=== PATIENT | female | born 1930 | race Caucasian/White ===

== ENCOUNTER 2017-05-20 17:05 | Inpatient (IN) ==
--- NOTE | 2017-05-20 17:20 | Emergency Department Note ---
Disposition Clinical Impression: Altered mental status Qualifiers: Altered mental status type: unspecified Qualified Code(s): R41.82 - Altered mental status, unspecified Disposition: Admitted As Inpatient Condition: Good Altered Mental Status HPI - General Chief Complaint: ED Altered Mental Status Stated Complaint: AMS Time Seen by Provider: 05/20/17 17:07 Source: family Mode of arrival: private vehicle Limitations: altered mental status Nursing Notes Reviewed: Yes Vital Signs Reviewed: Yes - History of Present Illness HPI Narrative: 86-year-old female history of hypothyroidism, hyperlipidemia, macular degeneration, arthritis who presents to the ER with family due to concern for altered mental status. History is obtained from the son as the patient is altered and unable to provide history. He states that she lives at home alone and that a friend checks in on her and noticed that she started behaving differently over the last 3 days. He is unable to say exactly what was different about her personality. He states he saw her this morning and that she recognized him but that she seemed more tired. He reports about half an hour prior to arrival he saw her again and she did not know who any of the family was. He reports that she has had 3 UTIs in the last 6 months all which cause altered mental status but nothing this severe. No history of TIA or CVA. No cardiac history. No other complaints. MD complaint: altered mental status Onset (ago): day(s) Timing confirmed by: family member Context: history of similar presentation - Related Data Home Medications Medication Instructions Recorded Confirmed Aricept 05/20/17 Potassium 05/20/17 Synthroid 05/20/17 Tramadol HCl 05/20/17 Vitamin E (Dl,Tocopheryl Acet) 400 unit PO DAILY 05/20/17 05/20/17 [Vitamin E] Allergies Allergy/AdvReac Type Severity Reaction Status Date / Time Penicillins [PCN] Allergy Unknown See Unverified 02/22/15 11:49 Comments codeine Allergy See Verified 05/20/17 20:19 Comments All systems ED: reviewed and negative except as stated. Limitations: ROS unobtainable due to patients medical condition Past Medical History - Past Medical History Attestation: Yes The following information was validated with the patient. Source: old records reviewed, obtained from family Medical history: Reports: no medical history Psychiatric history: Reports: no psych history - Social History Smoking Status: Never smoker Smokeless Tobacco Status: No Alcohol use: Reports: none Drug use: Reports: none Physical Exam - General Limitations: altered mental status General appearance: alert, in no apparent distress - Head Head exam: atraumatic, normocephalic, normal inspection - Eye Eye exam: Present: normal appearance ( ) - ENT ENT exam: normal exam - Neck Neck exam: Present: normal inspection, full ROM - Chest Chest inspection: Present: normal inspection, symmetric chest wall rise - Respiratory Respiratory exam: Present: normal lung sounds bilaterally - Cardiovascular Cardiovascular exam: Present: regular rate, normal rhythm, normal heart sounds - Abdominal Exam Abdominal exam: Present: soft, tenderness (Mild periumbilical tenderness without guarding distention or rigidity) - Extremities Exam Extremities exam: Present: normal inspection, full ROM - Expanded Upper Extremity Exam Shoulder exam: Present: normal inspection, full ROM Arm exam: Present: normal inspection, full ROM Elbow exam: Present: normal inspection, full ROM Forearm/Wrist exam: Present: normal inspection, full ROM Hand exam: Present: normal inspection, full ROM Vascular exam: Normal: radial pulse - Expanded Lower Extremity Exam Hip/Pelvis exam: Present: normal inspection, full ROM Upper leg exam: Present: normal inspection, full ROM Knee exam: Present: normal inspection, full ROM Lower leg exam: Present: normal inspection, full ROM Ankle exam: Present: normal inspection, full ROM Foot/toe exam: Present: normal inspection, full ROM - Neurological Exam Neurological exam: Present: alert, other (GCS 12. She is alert but is not oriented to self or time. Unable to fully assess secondary to patient compliance. She moves all extremities equally.) - Expanded Neurological Exam Coma Scale Eye Opening: Spontaneous Coma Scale Motor Response: Localizes to Pain Coma Scale Verbal Response: Inappropriate Coma Scale Total: 12 - Skin Skin exam: Present: warm, dry, intact Course Course Narrative: Patient seen and examined. We will obtain a head CT as well as labs including a urinalysis. She also has some abdominal pain on exam for which we will obtain a CT scan of her abdomen and pelvis. - Reevaluation(s) Reevaluation #1: i discussed results of imaging and lab work with the patient's family. They are agreeable with her being admitted Vital Signs Temperature 97.6 F 05/20/17 17:12 Pulse Rate 92 05/20/17 17:12 Respiratory Rate 19 05/20/17 17:12 Blood Pressure 210/103 10/29/17 17:12 O2 Sat by Pulse Oximetry 96 05/20/17 17:12 Temperature 97.6 F 05/20/17 18:57 Pulse Rate 85 05/20/17 19:20 Respiratory Rate 16 05/20/17 20:16 Blood Pressure 195/95 05/20/17 20:16 O2 Sat by Pulse Oximetry 96 05/20/17 19:20 Oxygen Delivery Oxygen Delivery Room Air Altered Mental Status - MDM Narrative Medical decision making narrative: 86-year-old female presents to the ER due to altered mental status. Reports she is not been herself for the last 3 days but worsened today. No history of CVA in the past. She is noted to be hypertensive here and was given 10 mg of labetalol for this. She has a nonfocal exam but exam is limited secondary to patient compliance. Head CT revealed showing no acute findings. She did have some abdominal pain with CT showing questionable colitis. This does not seem consistent with her current symptoms and there was limitation due to motion artifact. Her white count is normal. Urinalysis does not demonstrate a UTI. Patient admitted to the hospitalist service for altered mental status. - Lab Data Lab results reviewed: Yes I reviewed the patient's lab results. Result diagrams: 05/20/17 17:26 05/20/17 17:26 Lab Results 05/20/17 05/20/17 05/20/17 Range/Units 17:26 17:26 17:26 WBC 8.7 (4.3-11.1) K/mcL RBC 4.78 (3.82-4.97) M/mcL Hgb 14.7 (11.5-15.4) g/dL Hct 43.5 (35.3-44.9) % MCV 91.0 (83.0-100.0) fL MCH 30.8 (28.0-33.3) pg MCHC 33.8 (31.6-35.5) g/dL RDW 13.0 (11.5-14.5) % Plt Count 244 (140-400) K/mcL MPV 10.5 (9.4-12.4) fL Immature Gran % 0.2 (0-4) % Seg Neutrophils % 75.3 % Lymphocytes % 17.2 % Monocytes % 5.8 % Eosinophils % 0.8 % Basophils % 0.7 % Neutrophils # 6.5 (1.6-8.9) K/mcL Lymphocytes # 1.5 (0.6-4.6) K/mcL Monocytes # 0.5 (0.0-1.3) K/mcL Eosinophils # 0.1 (0.0-0.6) K/mcL Basophils # 0.1 (0.0-0.2) K/mcL PT 12.0 (9.4-12.1) Seconds INR 1.1 APTT 26.2 (26.0-36.0) Seconds Sodium 142 (136-145) mEq/L Potassium 3.5 (3.5-4.5) mEq/L Chloride 106 (98-109) mEq/L Carbon Dioxide 26 (19-29) mEq/L BUN 18 (7-20) mg/dL Creatinine 0.97 (0.57-1.11) mg/dL Est GFR ( Amer) > 60 (> 60) Est GFR (Non-Af Amer) 54 L (> 60) BUN/Creatinine Ratio 19 (6-26) Glucose 123 H (70-99) mg/dL POC Glucose (58-89) Calculated Osmolality 297 (280-300) Lactic Acid (0.5-2.2) mmol/L Calcium 9.9 (8.6-10.8) mg/dL Total Bilirubin 0.8 (0.2-1.2) mg/dL Direct Bilirubin 0.3 (0.0-0.5) mg/dL Indirect Bilirubin 0.5 (0.0-1.2) mg/dL AST 37 H (5-34) Units/L ALT 27 (0-55) Units/L Alkaline Phosphatase 113 (38-126) Units/L Ammonia (18-72) mcmol/L Troponin I (0-0.03) ng/mL Serum Total Protein 7.2 (6.0-8.3) g/dL Albumin 3.7 (3.5-5.0) g/dL Globulin 3.5 (2.4-3.5) g/dL Albumin/Globulin Ratio 1.1 (1.1-2.2) Lipase 32 (8-78) Units/L TSH 0.612 (0.350-4.840) mcIU/mL Urine Color (Yellow) Urine Clarity (Clear) Urine pH (5.0-8.0) pH Units Ur Specific Meherrin (1.010-1.025) Urine Protein (Neg-Trace) mg/dL Urine Glucose (UA) (Normal) mg/dL Urine Ketones (Negative) mg/dL Urine Blood (Negative) Urine Nitrite (Negative) Urine Bilirubin (Negative) Urine Urobilinogen (Normal) mg/dL Ur Leukocyte Esterase (Negative) Urine Microscopic RBC (0-3) per hpf Urine Microscopic WBC (0-3) per hpf Ur Squamous Epith Cells (None-Few) per lpf Urine Bacteria (None-Few) per hpf Hyaline Casts (None-Few) per lpf Ur Culture Indicated? (NO) 05/20/17 05/20/17 05/20/17 Range/Units 17:26 17:26 17:36 WBC (4.3-11.1) K/mcL RBC (3.82-4.97) M/mcL Hgb (11.5-15.4) g/dL Hct (35.3-44.9) % MCV (83.0-100.0) fL MCH (28.0-33.3) pg MCHC (31.6-35.5) g/dL RDW (11.5-14.5) % Plt Count (140-400) K/mcL MPV (9.4-12.4) fL Immature Gran % (0-4) % Seg Neutrophils % % Lymphocytes % % Monocytes % % Eosinophils % % Basophils % % Neutrophils # (1.6-8.9) K/mcL Lymphocytes # (0.6-4.6) K/mcL Monocytes # (0.0-1.3) K/mcL Eosinophils # (0.0-0.6) K/mcL Basophils # (0.0-0.2) K/mcL PT (9.4-12.1) Seconds INR APTT (26.0-36.0) Seconds Sodium (136-145) mEq/L Potassium (3.5-4.5) mEq/L Chloride (98-109) mEq/L Carbon Dioxide (19-29) mEq/L BUN (7-20) mg/dL Creatinine (0.57-1.11) mg/dL Est GFR ( Amer) (> 60) Est GFR (Non-Af Amer) (> 60) BUN/Creatinine Ratio (6-26) Glucose (70-99) mg/dL POC Glucose 111 H (58-89) Calculated Osmolality (280-300) Lactic Acid (0.5-2.2) mmol/L Calcium (8.6-10.8) mg/dL Total Bilirubin (0.2-1.2) mg/dL Direct Bilirubin (0.0-0.5) mg/dL Indirect Bilirubin (0.0-1.2) mg/dL AST (5-34) Units/L ALT (0-55) Units/L Alkaline Phosphatase (38-126) Units/L Ammonia 15 L (18-72) mcmol/L Troponin I 0.03 (0-0.03) ng/mL Serum Total Protein (6.0-8.3) g/dL Albumin (3.5-5.0) g/dL Globulin (2.4-3.5) g/dL Albumin/Globulin Ratio (1.1-2.2) Lipase (8-78) Units/L TSH (0.350-4.840) mcIU/mL Urine Color (Yellow) Urine Clarity (Clear) Urine pH (5.0-8.0) pH Units Ur Specific Meherrin (1.010-1.025) Urine Protein (Neg-Trace) mg/dL Urine Glucose (UA) (Normal) mg/dL Urine Ketones (Negative) mg/dL Urine Blood (Negative) Urine Nitrite (Negative) Urine Bilirubin (Negative) Urine Urobilinogen (Normal) mg/dL Ur Leukocyte Esterase (Negative) Urine Microscopic RBC (0-3) per hpf Urine Microscopic WBC (0-3) per hpf Ur Squamous Epith Cells (None-Few) per lpf Urine Bacteria (None-Few) per hpf Hyaline Casts (None-Few) per lpf Ur Culture Indicated? (NO) 05/20/17 05/20/17 Range/Units 17:54 18:10 WBC (4.3-11.1) K/mcL RBC (3.82-4.97) M/mcL Hgb (11.5-15.4) g/dL Hct (35.3-44.9) % MCV (83.0-100.0) fL MCH (28.0-33.3) pg MCHC (31.6-35.5) g/dL RDW (11.5-14.5) % Plt Count (140-400) K/mcL MPV (9.4-12.4) fL Immature Gran % (0-4) % Seg Neutrophils % % Lymphocytes % % Monocytes % % Eosinophils % % Basophils % % Neutrophils # (1.6-8.9) K/mcL Lymphocytes # (0.6-4.6) K/mcL Monocytes # (0.0-1.3) K/mcL Eosinophils # (0.0-0.6) K/mcL Basophils # (0.0-0.2) K/mcL PT (9.4-12.1) Seconds INR APTT (26.0-36.0) Seconds Sodium (136-145) mEq/L Potassium (3.5-4.5) mEq/L Chloride (98-109) mEq/L Carbon Dioxide (19-29) mEq/L BUN (7-20) mg/dL Creatinine (0.57-1.11) mg/dL Est GFR ( Amer) (> 60) Est GFR (Non-Af Amer) (> 60) BUN/Creatinine Ratio (6-26) Glucose (70-99) mg/dL POC Glucose (58-89) Calculated Osmolality (280-300) Lactic Acid 1.3 (0.5-2.2) mmol/L Calcium (8.6-10.8) mg/dL Total Bilirubin (0.2-1.2) mg/dL Direct Bilirubin (0.0-0.5) mg/dL Indirect Bilirubin (0.0-1.2) mg/dL AST (5-34) Units/L ALT (0-55) Units/L Alkaline Phosphatase (38-126) Units/L Ammonia (18-72) mcmol/L Troponin I (0-0.03) ng/mL Serum Total Protein (6.0-8.3) g/dL Albumin (3.5-5.0) g/dL Globulin (2.4-3.5) g/dL Albumin/Globulin Ratio (1.1-2.2) Lipase (8-78) Units/L TSH (0.350-4.840) mcIU/mL Urine Color Yellow (Yellow) Urine Clarity Clear (Clear) Urine pH 7.0 (5.0-8.0) pH Units Ur Specific Meherrin 1.018 (1.010-1.025) Urine Protein Trace (Neg-Trace) mg/dL Urine Glucose (UA) Normal (Normal) mg/dL Urine Ketones Trace H (Negative) mg/dL Urine Blood Negative (Negative) Urine Nitrite Negative (Negative) Urine Bilirubin Negative (Negative) Urine Urobilinogen Normal (Normal) mg/dL Ur Leukocyte Esterase Negative (Negative) Urine Microscopic RBC 3-5 H (0-3) per hpf Urine Microscopic WBC 0-3 (0-3) per hpf Ur Squamous Epith Cells Many H (None-Few) per lpf Urine Bacteria None Seen (None-Few) per hpf Hyaline Casts None Seen (None-Few) per lpf Ur Culture Indicated? NO (NO) - Radiology Data Radiology results reviewed: Yes I reviewed the patient's radiology results. Chest X-Ray 05/20/17 17:15 IMPRESSION: Bibasilar atelectasis. D/ / Ru Friedman MD / Ru Friedman MD Interpreting Provider: Ru Friedman MD Head CT 05/20/17 17:16 IMPRESSION: 1. No acute intracranial abnormality. 2. Mild age-appropriate diffuse atrophy with moderate chronic small vessel ischemic changes. D/ / Ru Friedman MD / Ru Friedman MD Interpreting Provider: Ru Friedman MD Abdomen/Pelvis CT 05/20/17 17:20 IMPRESSION: 1. Suspicion for colitis involving the ascending colon, transverse colon, and proximal descending colon. However, colon decompression, lack of intravenous contrast administration, and patient motion partially limit evaluation. If present, an infectious or inflammatory etiology would be favored over ischemia. 2. Incidental findings as above. D/ / Ru Friedman MD / Ru Friedman MD Interpreting Provider: Ru Friedman MD - EKG Data EKG attestation: Yes I reviewed and interpreted this EKG. EKG results narrative: EKG demonstrates sinus rhythm with sinus arrhythmia with a rate of 86 bpm. Left bundle branch block. QRS prolongation of 139. Poor R-wave progression. There is J-point elevation of leads V1 through V3. No gross ST depressions. No significant changes from previous EKG dated 03/16/16. Critical Care Time Critical Care Time: Yes Total Critical Care Time: 35 Attestation: Critical care time 35 minutes. Katharina - Katharina Situation: Demographics, MOA Background: Presenting Complaint, Relevant PMH, Meds, & Allergies Assessment: Vital Signs, Course and respsone to treatment, Exam Concerns, Patient/Family Expectation, Pertinant Lab Results Recommendation: Barrier(s) to disposition, Recommendation based on pending studies, treatments, or consults Katharina Report Given to: Hospitalist Katharina Repor Time: 19:00 Attestation Statement - Attestation Attestation: Patient was seen with resident physician. I reviewed the history, physical, assessment and plan, and agree with the findings. I also personally evaluated this patient and had [id number] time with this patient. 86-year-old female presents with mental status change. Per family patient has a history of UTIs and resulting mental status change. However this particular case she has had 3 days of worsening mental status and inability to communicate. When I evaluated the patient she was unable to provide any history at all. On exam vital signs were stable. ENT shows no signs of trauma. Heart regular rhythm and rate. Lungs clear. Abdomen patient winces in pain with palpation left lower quadrant and suprapubic area. Extremities are unremarkable again with no signs of trauma neurologically patient is unable to verbally communicate seems to move all extremities equally. ED course we will do. It workup including scans of the head and abdomen. We will treat with IV fluids. Her workup did not reveal obvious cause of mental status change. Labs were largely unremarkable. CTs of the head and abdomen did not reveal acute abnormalities. Patient continued to have poor exchange and mental status throughout her stay. We discussed the case with the hospitalist service agreed to accept the patient for admission. Her blood pressure was improved with treatment of labetalol. Otherwise the patient maintained her airway and continued to move all extremities. She is admitted for further evaluation treatment. I agree with the resident physician assessment and plan. Critical care time 35 minutes.
[2017-05-20 17:35] LABS: Basophils # 0.1 K/mcL (0.0-0.2); Basophils % 0.7 %; Eosinophils # 0.1 K/mcL (0.0-0.6); Eosinophils % 0.8 %; Hematocrit 43.5 % (35.3-44.9); Hemoglobin 14.7 g/dL (11.5-15.4); Immature Granulocytes % 0.2 % (0-4); Lymphocytes # 1.5 K/mcL (0.6-4.6); Lymphocytes % 17.2 %; Mean Corpuscular HGB Conc 33.8 g/dL (31.6-35.5); Mean Corpuscular Hemoglobin 30.8 pg (28.0-33.3); Mean Platelet Volume 10.5 fL (9.4-12.4); Monocytes # 0.5 K/mcL (0.0-1.3); Monocytes % 5.8 %; Neutrophils # 6.5 K/mcL (1.6-8.9); Platelet Count 244 K/mcL (140-400); Red Blood Count 4.78 M/mcL (3.82-4.97); Segmented Neutrophils % 75.3 %
[2017-05-20 17:44] LABS: INR 1.1
[2017-05-20 17:47] LABS: Activated Partial Thrombo Time 26.2 Seconds (26.0-36.0)
[2017-05-20 17:51] LABS: Bilirubin,Urine Negative (Negative); Blood,Urine Negative (Negative); Clarity,Urine Clear (Clear); Color,Urine Yellow (Yellow); Glucose,Urine (UA) Normal (Normal); Ketones,Urine Trace mg/dL (Negative); Leukocyte Esterase,Urine Negative (Negative); Nitrite,Urine Negative (Negative); Protein,Urine Trace mg/dL (Neg-Trace); Specific Gravity,Urine 1.018 (1.010-1.025); Urobilinogen,Urine Normal (Normal)
[2017-05-20 17:52] LABS: Alanine Aminotransferase 27 Units/L (0-55); Albumin 3.7 g/dL (3.5-5.0); Albumin/Globulin Ratio 1.1 (1.1-2.2); Alkaline Phosphatase 113 Units/L (38-126); Aspartate Amino Transferase 37 Units/L (5-34); BUN/Creatinine Ratio 19 (6-26); Bilirubin,Direct 0.3 mg/dL (0.0-0.5); Bilirubin,Indirect 0.5 mg/dL (0.0-1.2); Bilirubin,Total 0.8 mg/dL (0.2-1.2); Blood Urea Nitrogen 18 mg/dL (7-20); Calcium 9.9 mg/dL (8.6-10.8); Carbon Dioxide 26 mEq/L (19-29); Chloride 106 mEq/L (98-109); Globulin 3.5 g/dL (2.4-3.5); Glucose 123 mg/dL (70-99); Lipase 32 Units/L (8-78); Osmolality,Calculated 297 (280-300); Potassium 3.5 mEq/L (3.5-4.5); Sodium 142 mEq/L (136-145); Total Protein 7.2 g/dL (6.0-8.3); eGFR For African Americans > 60 (> 60); eGFR For Non-African Americans 54 (> 60)
[2017-05-20 17:54] LABS: Bacteria,Urine None Seen per hpf (None-Few); Hyaline Casts,Urine None Seen per lpf (None-Few); Squamous Epithelial Cell,Urine Many per lpf (None-Few); WBC,Urine 0-3 per hpf (0-3)
[2017-05-20 18:14] LABS: Thyroid Stimulating Hormone 0.612 mcIU/mL (0.350-4.840)
[2017-05-20] MEDS ORDERED: *HR* Labetalol 20 MG/4 ML SYRINGE IVP ONE (18:47)
[2017-05-20] MEDS ORDERED: Naloxone 0.4 MG/ML INJ IVP PRN (21:00)
--- NOTE | 2017-05-20 21:13 | Internal Med History&Physical ---
Date of Encounter: 05/20/17 Time of Encounter: 21:11 Assessment and Plan (1) Altered mental status Current visit: Yes Status: Acute Ensure that this is related to infectious process appears she does have some colitis on her CT of abdomen does have a tender abdomen or CVA. CT of head was negative we will obtain MRI We will continue with neuro checks Fall precautions Continuous cardiac monitoring We will obtain cardiac echo Carotid Dopplers Blood Cultures have been obtained We will administer cipro flagyl- obtain stool samples- colitis Nothing by mouth Bedside swallowing eval Qualifiers: Altered mental status type: unspecified Qualified Code(s): R41.82 - Altered mental status, unspecified (2) Hypertension Current visit: Yes Status: Acute Patient presented with elevated blood pressure does not appear she is on any medications at home. Improving after labetalol. We will continue to monitor Qualifiers: Hypertension type: essential hypertension Qualified Code(s): I10 - Essential (primary) hypertension (3) Hypothyroid Current visit: Yes Status: Acute Continue with Synthroid-once dosage verified Qualifiers: Hypothyroidism type: unspecified Qualified Code(s): E03.9 - Hypothyroidism , unspecified (4) DVT prophylaxis Current visit: Yes Status: Acute Lovenox subcutaneous (5) Colitis Current visit: Yes Status: Suspected 1 Patient experiencing abdominal pain- CT of abdomen suspicious for colitis involving the ascending colon, transverse colon, and proximal descending colon. We will initiate Cipro and Flagyl 2 obtain stool samples- stool for C. difficile 3 morphine for pain Internal Medicine - H&P: HPI Chief complaint: AMS Admitted From: Emergency Dept Plans for Post Hospital Care: Home History of present illness: Ms. Brannon is a 86 year old female past medical history of hypothyroid hyperlipidemia and macular degeneration and arthritis. Information obtained from patient's son who is at bedside due to altered mental state. According to the family patient is independent and lives at home however she does have a significant other that checks on her and is with her at least twice a day. He does that she started behaving differently over the past 3 days. According to the son this morning he saw her and she she seemed very tired she was appropriate and recognized him without difficulty. Approximately half and hour later patient seemed more confused and did not know where she was and did not recognize family members. According to the son patient has had a history of UTIs approximately 3 in the past 6 months which has caused confusion and altered mental state. No past history of TIAs or CVAs no cardiac history. She has been eating and drinking without any difficulty no reports of recent trauma or falls. Patient was brought to the ER for evaluation. In the ER lab work was unremarkable chest x-ray was clear urinalysis with no UTI patient did experience abdominal tenderness upon assessment CT of abdomen was obtained which was suspicious for colitis. CT of head was negative for any intracranial abnormalities. She has been admitted for further workup evaluation. Presently patient arouses to verbal stimuli however she is unable to follow any commands, her speech consists of word salad phrases. Upon assessment of her abdomen is soft and there is diffuse tenderness upon palpation. She is hemodynamically stable at this time Past Med Surg Social Fam HX - Past Medical History Medical history: no medical history Psychiatric history: no psych history - Social History Smoking Status: Never smoker Smokeless Tobacco Status: No Alcohol use: none Drug use: none - Family History Sister Hx Family Neurologic Disorders: Yes (bonnie) Internal Medicine - H&P: Meds Aricept 05/20/17 [History] Potassium 05/20/17 [History] Synthroid 05/20/17 [History] Tramadol HCl 05/20/17 [History] Vitamin E (Dl,Tocopheryl Acet) [Vitamin E] 400 unit PO DAILY 05/20/17 [History] 3 Allergy/AdvReac Type Severity Reaction Status Date / Time Penicillins [PCN] Allergy Unknown See Verified 05/20/17 21:22 Comments codeine Allergy See Verified 05/20/17 21:22 Comments ROS unobtainable: due to mental status All Systems PM: A 10-system review of systems was performed and is negative for pertinent findings except as documented above in the HPI. - Constitutional Vitals: Temp Pulse Resp BP Pulse Ox 97.6 F 85 16 195/95 96 05/20/17 18:57 05/20/17 19:20 05/20/17 20:16 05/20/17 20:16 05/20/17 19:20 General appearance: Present: A&O X 0 - Head Head exam: Present: atraumatic, normocephalic - Eye Eye exam: Present: PERRL, conjuntiva pink, sclera anicteric Pupils: Present: PERRL - Neck Neck exam general surgery: Present: supple, trachea midline. Absent: lymphadenopathy - Respiratory Respiratory exam: Present: CTAB. Absent: accessory muscle use, rales, rhonchi, wheezes - Cardiovascular Cardiovascular exam: Present: RRR, +S1, +S2. Absent: diastolic murmur, gallop, rubs, systolic murmur - GI/Abdominal GI/Abdominal exam: Present: normal bowel sounds, soft, tenderness, no peritoneal signs. Absent: distended - Extremities Exam Extremities exam: Present: warm, radial pulses palpable and symmetrical. Absent : calf tenderness, cyanotic, pedal edema - Neurological Exam Neurological exam: Present: CN II-XII intact, oriented X3, no focal deficits. Absent: pronater drift, facial droop, speech deficit - Skin Skin exam: Present: dry, intact Internal Med - H&P Results - Labs CBC & Chem 7: 05/20/17 17:26 05/20/17 17:26 - EKG Data EKG shows normal: sinus rhythm - EKG Data Prior EKG available for review: yes When compared to previous EKG: there is no significant change - Diagnostic Studies Other Images Additional comments: Chest X-Ray 05/20/17 17:15 IMPRESSION: Bibasilar atelectasis. D/ / Ru Friedman MD / Ru Friedman MD Interpreting Provider: Ru Friedman MD Head CT 05/20/17 17:16 IMPRESSION: 1. No acute intracranial abnormality. 2. Mild age-appropriate diffuse atrophy with moderate chronic small vessel ischemic changes. D/ / Ru Friedman MD / Ru Friedman MD Interpreting Provider: Ru Friedman MD Abdomen/Pelvis CT 05/20/17 17:20 IMPRESSION: 1. Suspicion for colitis involving the ascending colon, transverse colon, and proximal descending colon. However, colon decompression, lack of intravenous contrast administration, and patient motion partially limit evaluation. If present, an infectious or inflammatory etiology would be favored over ischemia. 2. Incidental findings as above. D/ / Ru Friedman MD / Ru Friedman MD Interpreting Provider: Ru Friedman MD
[2017-05-20] MEDS ORDERED: Acetaminophen 650 MG RECTAL SUPP RC PRN (22:18)
[2017-05-20] MEDS ORDERED: *HR* Morphine 2 MG/ML SYRINGE ONE (22:25)
[2017-05-20] MEDS: *HR* Morphine 2 MG/ML SYRINGE IVP PRN (22:46)
[2017-05-21] MEDS: MetroNIDAZOLE 500 MG/100 ML 500 MG/100 ML BAG IVPB SCH ×3 (00:38→16:01)
[2017-05-21] MEDS: *HR* Morphine 2 MG/ML SYRINGE IVP PRN (03:18)
[2017-05-21 05:07] LABS: Basophils # 0.1 K/mcL (0.0-0.2); Basophils % 0.6 %; Eosinophils % 0.1 %; Hematocrit 43.7 % (35.3-44.9); Hemoglobin 14.5 g/dL (11.5-15.4); Immature Granulocytes % 0.4 % (0-4); Lymphocytes # 1.8 K/mcL (0.6-4.6); Lymphocytes % 15.2 %; Mean Corpuscular HGB Conc 33.2 g/dL (31.6-35.5); Mean Corpuscular Hemoglobin 30.3 pg (28.0-33.3); Mean Corpuscular Volume 91.2 fL (83.0-100.0); Mean Platelet Volume 10.8 fL (9.4-12.4); Monocytes # 0.8 K/mcL (0.0-1.3); Monocytes % 6.4 %; Neutrophils # 9.1 K/mcL (1.6-8.9); Platelet Count 242 K/mcL (140-400); Red Blood Count 4.79 M/mcL (3.82-4.97); Red Cell Distribution Width 13.1 % (11.5-14.5); Segmented Neutrophils % 77.3 %
[2017-05-21 05:44] LABS: BUN/Creatinine Ratio 23 (6-26); Blood Urea Nitrogen 22 mg/dL (7-20); Calcium 9.6 mg/dL (8.6-10.8); Carbon Dioxide 27 mEq/L (19-29); Chloride 105 mEq/L (98-109); Chol/HDL Ratio 2.8 (0-4.9); Cholesterol 204 mg/dL (< 200); Glucose 120 mg/dL (70-99); HDL Cholesterol 72 mg/dL (40-59); LDL Cholesterol,Calculated 116 mg/dL (0-99); Magnesium 1.8 mg/dL (1.6-2.6); Osmolality,Calculated 301 (280-300); Potassium 3.2 mEq/L (3.5-4.5); Sodium 143 mEq/L (136-145); Triglycerides 80 mg/dL (< 150); eGFR For African Americans > 60 (> 60); eGFR For Non-African Americans 54 (> 60)
[2017-05-21] MEDS: Pantoprazole 40 MG VIAL IVP SCH (09:03)
[2017-05-21 13:19] LABS: Adenovirus F 40/41 PCR Not detected (Not detect); Astrovirus PCR Not detected (Not detect); C.difficile Toxin A/B by PCR Not detected (Not detect); Campylobacter by PCR Not detected (Not detect); Cryptosporidium by PCR Not detected (Not detect); Cyclospora cayetanensis PCR Not detected (Not detect); E. coli O157 by PCR Not detected (Not detect); Entamoeba histolytica PCR Not detected (Not detect); Enteroaggregative E.coli(EAEC) Not detected (Not detect); Enteropathogenic E.coli(EPEC) Not detected (Not detect); Enterotoxigenic E.coli (ETEC) Not detected (Not detect); Giardia lamblia PCR Not detected (Not detect); Norovirus GI/GII PCR Not detected (Not detect); Plesiomonas shigelloides PCR Not detected (Not detect); Rotavirus A PCR Not detected (Not detect); Salmonella PCR Not detected (Not detect); Sapovirus PCR Not detected (Not detect); Shig/EnteroinvasiveE coli EIEC Not detected (Not detect); Shigalike tox-prod E coli STEC Not detected (Not detect); Vibrio PCR Not detected (Not detect); Vibrio cholerae PCR Not detected (Not detect); Yersinia enterocolitica PCR Not detected (Not detect)
--- NOTE | 2017-05-21 16:50 | Electrocardiograph Report ---
[place] [id number] Test Date: 2017-05-20 Pat Name: Brandi Brannon Department: 102 Room: 3A53 Gender: F Internal Audit Director: : [id number] Requested By: John Butts Order Number: [id number] Reading MD: Marie Avalos Measurements Intervals [place] Rate: 86 P: 58 NE: 152 QRS: 11 QRSD: 139 T: 171 QT: 386 QTc: 430 Interpretive Statements SINUS RHYTHM WITH SINUS ARRHYTHMIA LEFT BUNDLE BRANCH BLOCK Electronically Signed On 05-21-2017 16:48:59 EDT by Marie Avalos
--- NOTE | 2017-05-21 18:47 | Internal Med Progress Note ---
Date of Encounter: 05/21/17 Time of Encounter: 14:45 - Assessment and plan (1) Altered mental status Current Visit: Yes Status: Acute Assessment and plan: Unsure that this is related to infectious process, CT shows suspicion for colitis involving the ascending colon, transversecolon, and proximal descending colon. Pt's abdomen is mildly tender, bs present. CT of head was negative, MRI with no acute infarct or acute process, there is moderate to severe chronic small vessel ischemic changes, and mild diffuse cerebral volume loss. Echo with an LVEF of 55% with mild LV DD, mildly sclerotic aortic valve leaflets, no aortic stenosis, mild MR, mild TR, mild pulmonary hypertension. There is no evidence of PFO. Preliminary report for carotid Dopplers show right side is nonstenotic plaque, left side has 40-59% stenosis in mid ICA. We will continue with neuro checks Fall precautions Continuous cardiac monitoring Blood Cultures have been obtained We will administer cipro flagyl- obtain stool samples- colitis Bedside swallowing eval Qualifiers: Altered mental status type: unspecified Qualified Code(s): R41.82 - Altered mental status, unspecified (2) Leukocytosis Current Visit: Yes Status: Acute Assessment and plan: Mild leukocytosis, most likely related to colitis. She is receiving IV antibiotics. Patient is afebrile, no tachycardia, patient is normotensive. Continue to monitor labs and vital signs. Qualifiers: Leukocytosis type: unspecified Qualified Code(s): D72.829 - Elevated white blood cell count, unspecified (3) Elevated troponin Current Visit: Yes Status: Acute Assessment and plan: Patient has a flat, adynamic elevation in troponin in setting of infection. It appears to be trending down at this time. Patient is on telemetry. She denies chest pain. Continue to monitor. Consider cardiology consult if it does not continue to trending down. (4) Hypertension Current Visit: Yes Status: Acute Assessment and plan: Patient's blood pressures been well controlled in the hospital. Continue home medications. Qualifiers: Hypertension type: essential hypertension Qualified Code(s): I10 - Essential (primary) hypertension (5) Hypothyroid Current Visit: Yes Status: Acute Assessment and plan: TSH is within normal limits. Continue home medications. Qualifiers: Hypothyroidism type: unspecified Qualified Code(s): E03.9 - Hypothyroidism , unspecified (6) Colitis Current Visit: Yes Status: Suspected Assessment and plan: Suspected colitis on CAT scan. Patient's abdomen is soft and tender to palpation in upper abdomen. Patient has a mild leukocytosis. She is receiving IV Cipro and Flagyl. She is nothing by mouth most of the day, she denies nausea , vomiting, or diarrhea. Stool viral panel negative. I have also ordered Zofran when necessary. Has advanced her diet to clear liquids, advance as tolerated. IV fluids 0.9 at 50 ml per hour. Continue IV Cipro and Flagyl. Morphine when necessary pain. Continue Protonix. Clear liquid diet in the morning, advance as tolerated. IV fluids 0.9 saline at 50 mL's per hour. (7) DVT prophylaxis Current Visit: Yes Status: Acute Assessment and plan: SCD;s ordered. Up to chair x 2. - Time Spent With Patient less than 15 minutes - Subjective Interval history: Pt was seen and assessed at 1445. Male friend at . Pt is alert to name only and is pleasant. She denies confusion, however, friend at states that these episodes of confusion are becoming more frequent and are normally associated with UTI. Pt lives at home alone and does her own cooking, cleaning and shopping. Pt denies headache, abdominal pain, n/v/d, constipation, urinary s/s or dizziness. - Constitutional Vitals: Temp Pulse Resp BP Pulse Ox 97.9 F 75 16 136/67 93 05/21/17 11:50 05/21/17 11:50 05/21/17 11:50 05/21/17 11:50 05/21/17 11:50 General appearance: Present: A&O X 0, cooperative, pleasant, no acute distress. Absent: answers questions appropriately - Head Head exam: Present: atraumatic, normal inspection, normocephalic - Eye Eye exam: Present: normal appearance, conjuntiva pink, sclera anicteric - Neck Neck exam general surgery: Present: supple, trachea midline - Respiratory Respiratory exam: Present: decreased breath sounds, CTAB. Absent: accessory muscle use, chest wall tenderness, rales, respiratory distress, rhonchi, wheezes - Cardiovascular Cardiovascular exam: Present: RRR, +S1, +S2. Absent: diastolic murmur, gallop, rubs, systolic murmur - GI/Abdominal GI/Abdominal exam: Present: normal bowel sounds, soft, tenderness, no peritoneal signs. Absent: distended, hernia, hepatomegaly - Extremities Exam Extremities exam: Present: normal capillary refill, normal inspection, warm, radial pulses palpable and symmetrical. Absent: calf tenderness, cyanotic, joint swelling, mottling, pedal edema, tenderness - Neurological Exam Neurological exam: Present: alert, oriented X3, no focal deficits. Absent: facial droop, speech deficit - Skin Skin exam: Present: dry, intact, normal color, warm. Absent: rash Internal Medicine: Result - Labs CBC & Chem 7: 05/21/17 04:44 05/21/17 04:44 Labs: Short CBC 05/21/17 Range/Units 04:44 WBC 11.7 H (4.3-11.1) K/mcL Hgb 14.5 (11.5-15.4) g/dL Hct 43.7 (35.3-44.9) % Plt Count 242 (140-400) K/mcL Neutrophils # 9.1 H (1.6-8.9) K/mcL BMP 05/21/17 04:44 Sodium 143 Potassium 3.2 L Chloride 105 Carbon Dioxide 27 BUN 22 H Creatinine 0.97 Glucose 120 H Calcium 9.6 Cardiac Enzymes 05/20/17 05/21/17 05/21/17 Range/Units 22:42 04:44 13:29 Troponin I 0.05 H* 0.07 H* 0.05 H* (0-0.03) ng/mL - ABG Interpretation ABG results: PT/INR, D-dimer PT 12.0 Seconds (9.4-12.1) 05/20/17 17:26 - Impressions Impressions Brain MRI 05/21/17 08:07 IMPRESSION: 1. No acute infarct or acute intracranial process identified. 2. Moderate to severe chronic small vessel ischemic changes. 3. Mild diffuse cerebral volume loss. D/ / Emerson Miguel MD / Emerson Miguel MD Interpreting Provider: Emerson Miguel MD Echocardiogram 05/21/17 21:03 Impressions: LVEF 55%. Mild left ventricular diastolic dysfunction. Probably increased LV wall thickness - PLAX measurements not well obtained. Normal right ventricular structure and function. Mildly sclerotic aortic valve leaflets. No aortic stenosis. Mild mitral regurgitation. Mild tricuspid regurgitation. Mild pulmonary hypertension. No evidence of PFO with agitated saline contrast. Left Ventricular Wall Motion: Rest Echo Findings All wall segments showed normal motion. Findings: Study Quality * Technically adequate exam. ECG Findings * Sinus rhythm with BBB. Left Ventricle * LVEF 55%. * Mild left ventricular diastolic dysfunction. * Probably increased LV wall thickness - PLAX measurements not well obtained. * Normal LV size. Right Ventricle * Normal right ventricular structure and function. Left Atrium * Severely dilated left atrium. Right Atrium * Normal right atrial size. Aortic Valve * No aortic regurgitation. * Trileaflet aortic valve. * Mildly sclerotic aortic valve leaflets. * No aortic stenosis. Mitral Valve * Moderate-severe mitral annular calcification * Doming of the AMVL. * Mild mitral regurgitation. * No mitral stenosis. Tricuspid Valve * Normal tricuspid valve structure. * Mild tricuspid regurgitation. * Estimated RA pressure is 3 mmHg. * Estimated RVSP is 38 mmHg. * Mild pulmonary hypertension. Pulmonic Valve * Pulmonic valve is not well visualized. * No pulmonic stenosis. * No pulmonic regurgitation. Pulmonary Artery * Pulmonary artery not well visualized. Interatrial Septum * No evidence of PFO by color Doppler. * No evidence of PFO with agitated saline contrast. IVC * Normal IVC dimensions and inspiratory collapse. Consult Discharge Plan - Plan Referrals: Rosa Joseph MD [Primary Care Provider] -
[2017-05-21] MEDS ORDERED: Ondansetron 4 MG/2 ML VIAL IVP PRN (18:54)
[2017-05-21] MEDS ORDERED: 0.9 % Sodium Chloride 1,000 ML IVC SCH (19:00)
[2017-05-22] MEDS: MetroNIDAZOLE 500 MG/100 ML 500 MG/100 ML BAG IVPB SCH ×2 (00:12→08:07)
[2017-05-22 06:28] LABS: Basophils # 0.1 K/mcL (0.0-0.2); Basophils % 0.6 %; Eosinophils # 0.2 K/mcL (0.0-0.6); Eosinophils % 1.5 %; Hematocrit 41.4 % (35.3-44.9); Hemoglobin 13.9 g/dL (11.5-15.4); Immature Granulocytes % 0.3 % (0-4); Lymphocytes # 1.8 K/mcL (0.6-4.6); Lymphocytes % 18.7 %; Mean Corpuscular HGB Conc 33.6 g/dL (31.6-35.5); Mean Corpuscular Hemoglobin 30.7 pg (28.0-33.3); Mean Corpuscular Volume 91.4 fL (83.0-100.0); Mean Platelet Volume 11.2 fL (9.4-12.4); Monocytes # 0.6 K/mcL (0.0-1.3); Monocytes % 6.4 %; Neutrophils # 7.1 K/mcL (1.6-8.9); Platelet Count 213 K/mcL (140-400); Red Blood Count 4.53 M/mcL (3.82-4.97); Red Cell Distribution Width 13.2 % (11.5-14.5); Segmented Neutrophils % 72.5 %
[2017-05-22 06:45] LABS: BUN/Creatinine Ratio 37 (6-26); Calcium 9.4 mg/dL (8.6-10.8); Carbon Dioxide 27 mEq/L (19-29); Chloride 108 mEq/L (98-109); Glucose 99 mg/dL (70-99); Osmolality,Calculated 307 (280-300); Potassium 3.6 mEq/L (3.5-4.5); Sodium 145 mEq/L (136-145); eGFR For African Americans > 60 (> 60); eGFR For Non-African Americans 60 (> 60)
[2017-05-22 06:46] LABS: Blood Urea Nitrogen 33 mg/dL (7-20)
[2017-05-22] MEDS: Pantoprazole 40 MG VIAL IVP SCH (08:07)
--- NOTE | 2017-05-22 15:10 | Internal Med Progress Note ---
Date of Encounter: 05/22/17 Time of Encounter: 09:15 - Assessment and plan (1) Altered mental status Current Visit: Yes Status: Acute Assessment and plan: Altered mental status with disorientation likely from acute illness. Improving clinically but patient likely has underlying dementia. MRI of the brain shows diffuse cerebral volume loss with moderate to severe small chronic vessel ischemic changes. Treat underlying and less. Continue neuro checks. Awaiting evaluation by physical therapy. social worker clinical consulted for discharge planning. Qualifiers: Altered mental status type: disorientation Qualified Code(s): R41.0 - Disorientation, unspecified (2) Colitis Current Visit: Yes Status: Acute Assessment and plan: Per CT scan. Stool studies negative. Complete 5 day antibiotic course. (3) Hypertension Current Visit: Yes Status: Chronic Assessment and plan: Blood pressure remains elevated. Will start patient on lisinopril Qualifiers: Hypertension type: essential hypertension Qualified Code(s): I10 - Essential (primary) hypertension (4) Hypothyroid Current Visit: Yes Status: Chronic Assessment and plan: Continue levothyroxine. TSH level normal Qualifiers: Hypothyroidism type: unspecified Qualified Code(s): E03.9 - Hypothyroidism , unspecified (5) Leukocytosis Current Visit: Yes Status: Resolved Assessment and plan: Likely due to acute colitis. Qualifiers: Leukocytosis type: unspecified Qualified Code(s): D72.829 - Elevated white blood cell count, unspecified (6) Elevated troponin Current Visit: Yes Status: Chronic Assessment and plan: Adynamic. Likely from chronic troponin leak. (7) DVT prophylaxis Current Visit: Yes Status: Acute Assessment and plan: with SCDs - Subjective Interval history: Patient is feeling better today. Denies any pain. No fever or chills reported overnight. Patient continues to have some disorientation. She is able to remember the date and month of her but does not recollect the year. No focal weakness. No dysuria. No diarrhea reported. - Constitutional Vitals: Temp Pulse Resp BP Pulse Ox 98 F 77 16 158/74 98 05/22/17 11:00 05/22/17 11:00 05/22/17 11:00 05/22/17 11:00 05/22/17 11:00 General appearance: Present: A&O X 0, cooperative, pleasant, no acute distress. Absent: answers questions appropriately - Neck Neck exam general surgery: Present: supple, trachea midline. Absent: lymphadenopathy - Respiratory Respiratory exam: Present: CTAB. Absent: accessory muscle use, rales, rhonchi, wheezes - Cardiovascular Cardiovascular exam: Present: RRR, +S1, +S2. Absent: diastolic murmur, gallop, rubs, systolic murmur - GI/Abdominal GI/Abdominal exam: Present: normal bowel sounds, soft, no peritoneal signs. Absent: distended, tenderness - Extremities Exam Extremities exam: Present: warm, radial pulses palpable and symmetrical. Absent : calf tenderness, cyanotic, pedal edema Internal Medicine: Result - Labs CBC & Chem 7: 05/22/17 05:40 05/22/17 05:40 Labs: Short CBC 05/22/17 Range/Units 05:40 WBC 9.8 (4.3-11.1) K/mcL Hgb 13.9 (11.5-15.4) g/dL Hct 41.4 (35.3-44.9) % Plt Count 213 (140-400) K/mcL Neutrophils # 7.1 (1.6-8.9) K/mcL BMP 05/22/17 05:40 Sodium 145 Potassium 3.6 Chloride 108 Carbon Dioxide 27 BUN 33 H D Creatinine 0.89 Glucose 99 Calcium 9.4 - ABG Interpretation ABG results: PT/INR, D-dimer PT 12.0 Seconds (9.4-12.1) 05/20/17 17:26 Consult Discharge Plan - Plan Referrals: Rosa Joseph MD [Primary Care Provider] -
[2017-05-22] MEDS: metroNIDAZOLE 500 MG TABLET PO SCH ×2 (15:40→20:52)
[2017-05-23] MEDS: metroNIDAZOLE 500 MG TABLET PO SCH ×2 (07:56→09:45)
[2017-05-23 10:52] VITALS: BP 153/57
[2017-05-23] MEDS ORDERED: traMADol 50 MG TABLET PO PRN (11:39)
--- NOTE | 2017-05-23 14:01 | Discharge Summary ---
Date of Encounter: 05/23/17 Time of Encounter: 13:55 - Discharge Diagnosis (1) Altered mental status Priority: Primary Status: Resolved Qualifiers: Altered mental status type: disorientation Qualified Code(s): R41.0 - Disorientation, unspecified (2) Colitis Priority: Secondary Status: Acute (3) Hypertension Priority: Secondary Status: Chronic Qualifiers: Hypertension type: essential hypertension Qualified Code(s): I10 - Essential (primary) hypertension (4) Hypothyroid Priority: Secondary Status: Chronic Qualifiers: Hypothyroidism type: unspecified Qualified Code(s): E03.9 - Hypothyroidism , unspecified (5) Leukocytosis Priority: Secondary Status: Resolved Qualifiers: Leukocytosis type: unspecified Qualified Code(s): D72.829 - Elevated white blood cell count, unspecified (6) Elevated troponin Priority: Secondary Status: Chronic (7) DVT prophylaxis Priority: Secondary Status: Acute - Discharge Medications Prescriptions: Ciprofloxacin [Cipro] 250 mg PO BID #6 tablet Lisinopril [Zestril] 5 mg PO DAILY #30 tablet metroNIDAZOLE [Flagyl] 500 mg PO TID #6 tablet Tramadol HCl [Ultram] 50 mg PO BID PRN #20 tablet PRN Reason: Pain Home Medications: Atorvastatin [Lipitor] 40 mg PO HS 05/21/17 [History] Donepezil [Aricept] 5 mg PO HS 05/21/17 [History] Levothyroxine [Synthroid] 100 mcg PO DAILY 05/21/17 [History] Potassium Chloride [Klor-Con 10] 10 meq PO BID 05/21/17 [History] Ciprofloxacin [Cipro] 250 mg PO BID #6 tablet 05/23/17 [Rx] Lisinopril [Zestril] 5 mg PO DAILY #30 tablet 05/23/17 [Rx] Tramadol HCl [Ultram] 50 mg PO BID PRN #20 tablet 05/23/17 [Rx] metroNIDAZOLE [Flagyl] 500 mg PO TID #6 tablet 05/23/17 [Rx] Allergies/Adverse Reactions: 3 Allergy/AdvReac Type Severity Reaction Status Date / Time Penicillins [PCN] Allergy Unknown See Verified 05/20/17 21:22 Comments codeine Allergy See Verified 05/20/17 21:22 Comments Procedures/tests Complete & Pending: Procedures Performed prior 72 hours Category Date Time Status MR head/brain wo con [MR] Routine MRI 05/21/17 08:07 Completed EV carotid duplex imaging BI Routine Y 05/21/17 21:05 Completed EV echo with saline Routine Y 05/21/17 21:03 Completed Date of admission: 05/20/17 20:05 Primary care physician: Rosa Joseph, Consults: 05/22/17 11:56 Consult to Occupational Therapy [CONS] Routine Comment: Evaluate, develop and implement POC Reason for Consult: Home needs Consult to Physical Therapy [CONS] Routine Comment: Evaluate, develop and implement POC Reason for Consult: Home needs Consult to Truck Dock Material Mover [CONS] Routine Reason for SW Consult: DC planning Discharging clinician: Agnieszka Torres Anticipated date of discharge: 05/23/17 - Patient Status Disposition: Transfer SNF Condition: Good Functional capacity at discharge: uses cane/walker Overall status at discharge: patient is progressing back to baseline - Discharge Instructions Instructions: Irritable Bowel Syndrome (DC), Leukocytosis (DC) Follow Up With: Rosa Joseph MD [Primary Care Provider] - (in 1-2 weeks) - Diet and Activity Activity: increase activity as tolerated Diet: low fat, low cholesterol, low salt diet Hospital course: Ms. Brannon is a 86 year old female patient with a history of hypertension, hypothyroidism who presented to the ER with complaints of altered mental status and some abdominal discomfort. CT scan of the abdomen and pelvis done in the years she is to presence of acute colitis. CT scan of the head did not show any acute intracranial abnormalities. Patient was worked up with MRI of the brain and carotid Dopplers. She did not have any acute infarct but did have mild diffuse cerebral volume loss suggesting underlying dementia. She also had moderate to severe chronic small vessel ischemic changes. Carotid Dopplers showed minimal plaque in the right carotid artery and the left carotid artery had 40-59% stenosis. Echocardiogram showed normal ejection fraction of 55% with mild left ventricular diastolic dysfunction. She was started on antibiotics to treat colitis. She was also given IV hydration. Stool studies were negative for any bacterial infection. She has clinically improved since presentation but remains somewhat disoriented. She likely has underlying dementia which is contributing to her symptoms. She was evaluated by physical therapy and recommended placement to skilled rehabilitation. She is clinically stable for discharge at this time. She will complete a short course of antibiotics for acute colitis. Her blood pressure has also been significantly elevated here and she has been started on lisinopril to treat this. She also has elevated cholesterol levels and has been placed on statin. Her CODE STATUS is DNR/DNI - Time Spent with Patient Total time spent providing and/or coordinating discharge services: Greater than 30 minutes - Constitutional Vitals: Temp Pulse Resp BP Pulse Ox 97.7 F 67 16 153/57 95 05/23/17 10:49 05/23/17 10:49 05/23/17 10:49 05/23/17 10:49 05/23/17 10:49 General appearance: Present: cooperative, A&O X 1, pleasant, no acute distress. Absent: answers questions appropriately - ENT ENT exam: Present: mucous membranes moist - Respiratory Respiratory exam: Present: CTAB. Absent: accessory muscle use, rales, rhonchi, wheezes - Cardiovascular Cardiovascular exam: Present: RRR, +S1, +S2. Absent: diastolic murmur, gallop, rubs, systolic murmur - Extremities Exam Extremities exam: Present: warm, radial pulses palpable and symmetrical. Absent : calf tenderness, cyanotic, pedal edema - Neurological Exam Neurological exam: Present: CN II-XII intact, oriented X3, no focal deficits. Absent: facial droop, speech deficit - Skin Skin exam: Present: dry, intact
--- NOTE | 2017-05-23 14:26 | Physician Discharge Referral ---
ExtendedCare Referral Info Provider in Charge after Transfer: PCP Institutional Level of Care: Skilled - Diagnosis (1) Altered mental status Priority: Primary Status: Resolved (2) Colitis Priority: Secondary Status: Acute (3) Hypertension Priority: Secondary Status: Chronic (4) Hypothyroid Priority: Secondary Status: Chronic (5) Leukocytosis Priority: Secondary Status: Resolved (6) Elevated troponin Priority: Secondary Status: Chronic (7) DVT prophylaxis Priority: Secondary Status: Acute Prognosis: Fair Aware of Diagnosis: Patient, Family Aware of Prognosis: Patient, Family - Transfer Medications Prescriptions: Ciprofloxacin [Cipro] 250 mg PO BID #6 tablet Lisinopril [Zestril] 5 mg PO DAILY #30 tablet metroNIDAZOLE [Flagyl] 500 mg PO TID #6 tablet Tramadol HCl [Ultram] 50 mg PO BID PRN #20 tablet PRN Reason: Pain Home Medications: Atorvastatin [Lipitor] 40 mg PO HS 05/21/17 [History] Donepezil [Aricept] 5 mg PO HS 05/21/17 [History] Levothyroxine [Synthroid] 100 mcg PO DAILY 05/21/17 [History] Potassium Chloride [Klor-Con 10] 10 meq PO BID 05/21/17 [History] Ciprofloxacin [Cipro] 250 mg PO BID #6 tablet 05/23/17 [Rx] Lisinopril [Zestril] 5 mg PO DAILY #30 tablet 05/23/17 [Rx] Tramadol HCl [Ultram] 50 mg PO BID PRN #20 tablet 05/23/17 [Rx] metroNIDAZOLE [Flagyl] 500 mg PO TID #6 tablet 05/23/17 [Rx] Allergies/Adverse Reactions: 3 Allergy/AdvReac Type Severity Reaction Status Date / Time Penicillins [PCN] Allergy Unknown See Verified 05/20/17 21:22 Comments codeine Allergy See Verified 05/20/17 21:22 Comments - Respiratory Orders Smoking Cessation: Smoking cessation has been advised. For more information, call the [place] Tobacco Quit Line at 1-312-DQBK-NOW. - Ancillary Orders May consult with Dentist, [employer] Systems, [employer] - Advance Directives Code Status: DNR-Arrest/Don't Intubate - Mobility Orders Other (per PT eval) - Rehabiliation Orders Rehab Potential: Fair Rehab Orders: Evaluation for Physical Therapy, Evaluation for Occupational Therapy - Diet Orders Cardiac CERTIFICATION: I certify that the transfer of the above named patient to an Extended Care Facility is necessary for the continuing treatment of the diagnosis listed. The above information is true and accurate reflection of patient's current condition. Confidential - Redisclosure prohibited without a patient's written consent.
== END 2017-05-23 16:52 | DRG 392 ==
LOC: EMEROO 17:05 → 3BNU 17:05 → SUATTDRO 20:05 → 3BNU 20:20 → 3ANU 05-21 11:25
PROVIDERS: ADMIT Nurse Practitioner Family; ATTEND Internal Medicine

== ENCOUNTER 2017-11-07 15:34 | Inpatient (IN) ==
[2017-11-07 16:17] LABS: Bilirubin,Urine Negative (Negative); Blood,Urine Negative (Negative); Color,Urine Dark Yellow (Yellow); Glucose,Urine (UA) Normal (Normal); Ketones,Urine Trace mg/dL (Negative); Leukocyte Esterase,Urine Large (Negative); Nitrite,Urine Negative (Negative); Protein,Urine 30 mg/dL (Neg-Trace); Specific Gravity,Urine 1.025 (1.010-1.025); Urobilinogen,Urine Normal (Normal)
[2017-11-07 16:18] LABS: Hyaline Casts,Urine Moderate per lpf (None-Few); Squamous Epithelial Cell,Urine Many per lpf (None-Few); WBC,Urine 50-100 per hpf (0-3)
[2017-11-07 16:19] LABS: Clarity,Urine Hazy (Clear)
[2017-11-07 17:10] LABS: Bacteria,Urine Few per hpf (None-Few)
[2017-11-07 17:29] LABS: Alanine Aminotransferase 34 Units/L (7-52); Albumin 3.7 g/dL (3.5-5.7); Albumin/Globulin Ratio 1.4 (1.1-2.2); Alkaline Phosphatase 86 Units/L (34-104); Aspartate Amino Transferase 50 Units/L (13-39); BUN/Creatinine Ratio 21 (6-26); Bilirubin,Direct 0.2 mg/dL (0.0-0.2); Bilirubin,Indirect 0.4 mg/dL (0.0-1.2); Bilirubin,Total 0.6 mg/dL (0.3-1.0); Blood Urea Nitrogen 21 mg/dL (8-23); Calcium 9.3 mg/dL (8.6-10.3); Carbon Dioxide 28 mEq/L (23-29); Chloride 105 mEq/L (98-107); Globulin 2.7 g/dL (2.4-3.5); Glucose 103 mg/dL (70-105); Lipase 37 Units/L (11-82); Osmolality,Calculated 293 (280-300); Potassium 3.8 mEq/L (3.5-5.1); Sodium 140 mEq/L (136-145); Total Protein 6.4 g/dL (6.4-8.9); eGFR For African Americans > 60 (> 60); eGFR For Non-African Americans 51 (> 60)
[2017-11-07 17:41] LABS: Basophils # 0.1 K/mcL (0.0-0.2); Basophils % 0.7 %; Eosinophils # 0.2 K/mcL (0.0-0.6); Immature Granulocytes % 0.3 % (0-4); Lymphocytes # 1.7 K/mcL (0.6-4.6); Lymphocytes % 22.8 %; Mean Corpuscular HGB Conc 33.3 g/dL (31.6-35.5); Mean Corpuscular Hemoglobin 31.1 pg (28.0-33.3); Mean Corpuscular Volume 93.3 fL (83.0-100.0); Monocytes # 0.5 K/mcL (0.0-1.3); Monocytes % 6.7 %; Platelet Count 238 K/mcL (140-400); Red Blood Count 4.18 M/mcL (3.82-4.97); Red Cell Distribution Width 12.7 % (11.5-14.5); Segmented Neutrophils % 67.5 %
--- NOTE | 2017-11-07 19:10 | Emergency Department Note ---
Disposition Clinical Impression: Colitis Nausea and vomiting Qualifiers: Vomiting type: unspecified Vomiting Intractability: non-intractable Qualified Code(s): R11.2 - Nausea with vomiting, unspecified Diarrhea Qualifiers: Diarrhea type: unspecified type Qualified Code(s): R19.7 - Diarrhea, unspecified UTI (urinary tract infection) Qualifiers: Urinary tract infection type: acute cystitis Hematuria presence: without hematuria Qualified Code(s): N30.00 - Acute cystitis without hematuria Disposition: Admitted As Inpatient Condition: Good Time of Disposition: 21:40 Abdominal Pain HPI - General Chief Complaint: ED Abdominal Pain Stated Complaint: "seen Sat dx ecoli,UTI not any better" Time Seen by Provider: 11/07/17 19:09 Source: patient Mode of arrival: ambulatory Limitations: no limitations Nursing Notes Reviewed: Yes Vital Signs Reviewed: Yes - History of Present Illness HPI Narrative: Patient is an 87-year-old female with past medical history of recently diagnosed colitis and UTI this past Sunday, approximately 5 days ago, HTN, HLD. She presents today due to nausea, vomiting, continued abdominal pain, inability to keep down Cipro and Flagyl as she is prescribed. She also feels dehydrated and very tired. Denies any other chest pain, shortness of breath, fevers, blood in stool. She does admit to continued diarrhea. According to nursing staff, the patient was attempted to be contacted several times due to urine culture showing resistance to Cipro, but the patient did not answer phone. The patient lives at home alone. Pain Scale: 8 - Related Data Home Medications Medication Instructions Recorded Confirmed Atorvastatin [Lipitor] 40 mg PO HS 05/21/17 11/07/17 Donepezil [Aricept] 5 mg PO HS 05/21/17 11/07/17 Levothyroxine [Synthroid] 100 mcg PO DAILY 05/21/17 11/07/17 Cranberry 400 mg PO DAILY 11/07/17 11/07/17 Losartan Potassium [Cozaar] 100 mg PO DAILY 11/07/17 11/07/17 Multivitamin [One Daily Essential] 1 tab PO DAILY 11/07/17 11/07/17 Tramadol HCl [Ultram] 50 - 100 mg PO TID PRN 11/07/17 11/07/17 Vit A/Vit C/Vit E/Zinc/Copper 1 tab PO DAILY 11/07/17 11/07/17 [Preservision Areds Tablet] Previous Rx's Medication Instructions Recorded Ciprofloxacin HCl [Cipro] 500 mg PO BID #20 tablet 11/03/17 metroNIDAZOLE [Flagyl] 500 mg PO TID #20 tablet 11/03/17 Allergies Allergy/AdvReac Type Severity Reaction Status Date / Time Penicillins [PCN] Allergy Unknown See Verified 11/07/17 21:13 Comments codeine Allergy See Verified 11/07/17 21:13 Comments All systems ED: reviewed and negative except as stated. Constitutional: Denies: fever Cardiovascular: Denies: chest pain Respiratory: Denies: dyspnea Gastrointestinal: Reports: abdominal pain, nausea, vomiting, diarrhea. Denies: constipation, hematemesis, melena, hematochezia Genitourinary: Denies: urgency, dysuria, frequency, hematuria Integumentary: Denies: rash Neurological: Denies: headache, weakness, numbness Abdominal Pain PMH - Past Medical History Medical history: Reports: dementia, hyperlipidemia, hypertension, thyroid disease Female Surgical History: Reports: hysterectomy [employer] history: Reports: non-contributory Psychiatric history: Reports: no psych history - Social History Smoking status: Never smoker Alcohol use: Reports: none Drug use: Reports: none Physical Exam - General Limitations: no limitations General appearance: alert, in no apparent distress - Head Head exam: atraumatic, normocephalic, normal inspection - Eye Eye exam: Present: normal appearance, PERRL, EOMI - ENT ENT exam: mucous membranes moist, mucous membranes dry - Neck Neck exam: Present: normal inspection, full ROM, trachea midline - Chest Chest inspection: Present: normal inspection, symmetric chest wall rise - Respiratory Respiratory exam: Present: normal lung sounds bilaterally - Cardiovascular Cardiovascular exam: Present: regular rate, normal rhythm, normal heart sounds - Abdominal Exam Abdominal exam: Present: soft, tenderness (Mild tenderness of bilateral lower quadrant). Absent: distention, guarding, rebound, rigidity - Extremities Exam Extremities exam: Present: normal inspection, full ROM. Absent: tenderness, pedal edema - Neurological Exam Neurological exam: Present: alert, oriented X3 - Psychiatric Psychiatric exam: Present: normal affect, normal mood - Skin Skin exam: Present: warm, dry, intact, normal color Course Course Narrative: Vitals were within normal limits. Physical exam shows dry mucous membranes, mild tenderness of bilateral lower abdominal quadrants. Otherwise, rhythm, lungs clear to auscultation. Patient does appear dehydrated. We will give the patient fluids. We will also give patient IV Rocephin and Zofran for nausea. We will see how patient responds. If she improves and his discomfort with going home, will send home with Keflex to take instead of Cipro to cover both urine and colitis. We will have her stop taking Flagyl and Zosyn is likely the cause of her nausea and vomiting. However, patient does not improve and does not feel comfortable with going home, will consider admission. 21:39 patient given IV Rocephin here in the department. Patient was reassessed after fluids and Zofran. She is still feeling nauseous and generally weak. She is uncomfortable with going home at this time. She is also having continued lower abdominal pain. I spoke with the hospitalist, Dr. Rodriguez, who has accepted the patient. She recommended that I go ahead and start IV Flagyl as well and order a CT abdomen and pelvis noncontrast. She states that she will follow up on CAT scan results. These orders have been placed. Patient has been accepted for admission. Vital Signs Temperature 98.2 F 11/07/17 15:47 Pulse Rate 68 11/07/17 15:47 Respiratory Rate 16 11/07/17 15:47 Blood Pressure 155/71 11/07/17 15:47 O2 Sat by Pulse Oximetry 94 11/07/17 15:47 Temperature 97.7 F 11/07/17 22:52 Pulse Rate 73 11/07/17 22:52 Respiratory Rate 16 11/07/17 22:52 Blood Pressure 98/78 11/07/17 22:52 O2 Sat by Pulse Oximetry 92 11/07/17 22:52 Oxygen Delivery Oxygen Delivery Room Air Abdominal Pain - MDM Narrative Medical decision making narrative: Vitals were within normal limits. Physical exam shows dry mucous membranes, mild tenderness of bilateral lower abdominal quadrants. Otherwise, rhythm, lungs clear to auscultation. Patient does appear dehydrated. We will give the patient fluids. We will also give patient IV Rocephin and Zofran for nausea. We will see how patient responds. If she improves and his discomfort with going home, will send home with Keflex to take instead of Cipro to cover both urine and colitis. We will have her stop taking Flagyl and Zosyn is likely the cause of her nausea and vomiting. However, patient does not improve and does not feel comfortable with going home, will consider admission. 21:39 patient given IV Rocephin here in the department. Patient was reassessed after fluids and Zofran. She is still feeling nauseous and generally weak. She is uncomfortable with going home at this time. She is also having continued lower abdominal pain. I spoke with the hospitalist, Dr. Rodriguez, who has accepted the patient. She recommended that I go ahead and start IV Flagyl as well and order a CT abdomen and pelvis noncontrast. She states that she will follow up on CAT scan results. These orders have been placed. Patient has been accepted for admission. - Medical Records Medical records reviewed: Yes I reviewed the patient's medical records. - Lab Data Lab results reviewed: Yes I reviewed the patient's lab results. Result diagrams: 11/07/17 16:49 11/07/17 16:49 Lab Results 11/07/17 11/07/17 11/07/17 Range/Units 15:53 16:49 16:49 WBC 7.5 (4.3-11.1) K/mcL RBC 4.18 (3.82-4.97) M/mcL Hgb 13.0 (11.5-15.4) g/dL Hct 39.0 (35.3-44.9) % MCV 93.3 (83.0-100.0) fL MCH 31.1 (28.0-33.3) pg MCHC 33.3 (31.6-35.5) g/dL RDW 12.7 (11.5-14.5) % Plt Count 238 (140-400) K/mcL MPV 11.0 (9.4-12.4) fL Immature Gran % 0.3 (0-4) % Seg Neutrophils % 67.5 % Lymphocytes % 22.8 % Monocytes % 6.7 % Eosinophils % 2.0 % Basophils % 0.7 % Neutrophils # 5.0 (1.6-8.9) K/mcL Lymphocytes # 1.7 (0.6-4.6) K/mcL Monocytes # 0.5 (0.0-1.3) K/mcL Eosinophils # 0.2 (0.0-0.6) K/mcL Basophils # 0.1 (0.0-0.2) K/mcL Sodium 140 (136-145) mEq/L Potassium 3.8 (3.5-5.1) mEq/L Chloride 105 (98-107) mEq/L Carbon Dioxide 28 (23-29) mEq/L BUN 21 (8-23) mg/dL Creatinine 1.02 (0.60-1.20) mg/dL Est GFR ( Amer) > 60 (> 60) Est GFR (Non-Af Amer) 51 L (> 60) BUN/Creatinine Ratio 21 (6-26) Glucose 103 (70-105) mg/dL Calculated Osmolality 293 (280-300) Calcium 9.3 (8.6-10.3) mg/dL Total Bilirubin 0.6 (0.3-1.0) mg/dL Direct Bilirubin 0.2 (0.0-0.2) mg/dL Indirect Bilirubin 0.4 (0.0-1.2) mg/dL AST 50 H (13-39) Units/L ALT 34 (7-52) Units/L Alkaline Phosphatase 86 (34-104) Units/L Serum Total Protein 6.4 (6.4-8.9) g/dL Albumin 3.7 (3.5-5.7) g/dL Globulin 2.7 (2.4-3.5) g/dL Albumin/Globulin Ratio 1.4 (1.1-2.2) Lipase 37 (11-82) Units/L Urine Color Dark Yellow (Yellow) Urine Clarity Hazy A (Clear) Urine pH 6.0 (5.0-8.0) pH Units Ur Specific [place] 1.025 (1.010-1.025) Urine Protein 30 H (Neg-Trace) mg/dL Urine Glucose (UA) Normal (Normal) mg/dL Urine Ketones Trace H (Negative) mg/dL Urine Blood Negative (Negative) Urine Nitrite Negative (Negative) Urine Bilirubin Negative (Negative) Urine Urobilinogen Normal (Normal) mg/dL Ur Leukocyte Esterase Large H (Negative) Urine Microscopic WBC 50-100 H (0-3) per hpf Ur Squamous Epith Cells Many H (None-Few) per lpf Urine Bacteria Few (None-Few) per hpf Hyaline Casts Moderate H (None-Few) per lpf - Radiology Data Radiology results reviewed: Yes I reviewed the patient's radiology results. Katharina - Katharina Situation: Demographics, MOA Background: Presenting Complaint, Relevant PMH, Meds, & Allergies Assessment: Vital Signs, Course and respsone to treatment, Exam Concerns, Patient/Family Expectation, Pertinant Lab Results, Outstanding Labs Recommendation: Barrier(s) to disposition, Recommendation based on pending studies, treatments, or consults S.B.AFabian Report Given to: Dr. Rodriguez, Pending CT Attestation Statement - Attestation Attestation: Dr. Hurd note: Patient was seen in conjunction with resident Dr. Galo. Please see his charting for complete documentation. I spent [id number] time with the patient and agree with patient's treatment and disposition. Pt w/ progressive uti and persistent n/v; afebrile/nontoxic on exam; well appearing, comfortable; will admit for iv hydration and iv abx; progressive sx for 3-4 days
[2017-11-07] MEDS ORDERED: 0.9 % Sodium Chloride 1,000 ML IVC ONE (19:23)
[2017-11-07] MEDS ORDERED: cefTRIAXone 2,000 MG in Water for inj. (sterile) 20 ML IVP ONE (19:23)
[2017-11-07] MEDS ORDERED: Ondansetron 4 MG/2 ML VIAL IVP ONE (19:25)
[2017-11-07] MEDS ORDERED: cefTRIAXone 2,000 MG in Water for inj. (sterile) 20 ML 20 ML IVP ONE (20:00)
[2017-11-07] MEDS ORDERED: MetroNIDAZOLE 500 MG/100 ML 500 MG/100 ML BAG IVPB ONE (21:35)
[2017-11-07] MEDS ORDERED: traMADol 50 MG TABLET PO PRN (22:15)
--- NOTE | 2017-11-07 22:15 | Internal Med History&Physical ---
Date of Encounter: 11/07/17 Time of Encounter: 22:15 Internal Medicine - H&P: HPI Chief complaint: nausea and vomiting Admitted From: Home Plans for Post Hospital Care: Home History of present illness: Ms. Brannon is a 87 year old female with HTN, Hypothyroidism and Dementia She had presented to the ER on 11/03 with symptoms of n/v/diarrhea and work up showed UTI and colitis by imaging, she was discharged home on ciprofloxacin and flagyl. Urine culture showed resistance of E.coli to ciprofloxacin, however patient could not be reached on phone . She however represented today in company of her son with complains of worsening nausea and vomiting for the past 2 days, patient is unable to hold any meals down. She denies flank pain, denies loss of appetite She has dementia and is usually forgetful, there are no new neuroligc symptoms She denies chest pain or difficulty breathing, no leg swelling, no orthopnea or PND. She denies diarrhea, costipation or abdominal pain Work up in ER is unremarkable at this time patient is not septic and hemodynamically stable , will place on observation for IV antibiotics till she is able to tolerate po Past Med Surg Social Fam HX - Past Medical History Medical history: dementia, hyperlipidemia, hypertension, thyroid disease Psychiatric history: no psych history - Past Surgical History Surgical History: hysterectomy - Social History Smoking Status: Never smoker Smokeless Tobacco Status: No Alcohol use: none Drug use: none - Family History Sister Hx Family Neurologic Disorders: Yes (bonnie) Internal Medicine - H&P: Meds Atorvastatin [Lipitor] 40 mg PO HS 05/21/17 [History] Donepezil [Aricept] 5 mg PO HS 05/21/17 [History] Levothyroxine [Synthroid] 100 mcg PO DAILY 05/21/17 [History] Ciprofloxacin HCl [Cipro] 500 mg PO BID #20 tablet 11/03/17 [Rx] metroNIDAZOLE [Flagyl] 500 mg PO TID #20 tablet 11/03/17 [Rx] Cranberry 400 mg PO DAILY 11/07/17 [History] Losartan Potassium [Cozaar] 100 mg PO DAILY 11/07/17 [History] Multivitamin [One Daily Essential] 1 tab PO DAILY 11/07/17 [History] Tramadol HCl [Ultram] 50 - 100 mg PO TID PRN 11/07/17 [History] Vit A/Vit C/Vit E/Zinc/Copper [Preservision Areds Tablet] 1 tab PO DAILY [History] 3 Allergy/AdvReac Type Severity Reaction Status Date / Time Penicillins [PCN] Allergy Unknown See Verified 11/07/17 21:13 Comments codeine Allergy See Verified 11/07/17 21:13 Comments All Systems PM: A 10-system review of systems was performed and is negative for pertinent findings except as documented above in the HPI. - Constitutional Constitutional: no chills, no fever(s), no night sweats - EENT Eyes: no change in vision, no discharge, no pain, no photophobia Ears: no ear discharge, no ear pain, no tinnitus Nose, mouth and throat: no dysphagia, no nasal discharge, no neck pain, no sore throat - Cardiovascular Cardiovascular ROS IM: no chest pain, no diaphoresis, no dyspnea, no lightheadedness, no palpitations, no syncope - Respiratory Respiratory: no cough, no dyspnea, no wheezing, no excessive phlegm production - Gastrointestinal Gastrointestinal: as per HPI, nausea, vomiting - Genitourinary Genitourinary: no change in urinary stream, no dysuria, no flank pain, no hematuria - Musculoskeletal Musculoskeletal ROS IM: no numbness, no tingling - Integumentary Integumentary IM: no rash, no unusual bruising - Neurological Neurological ROS: no confusion, no convulsions, no focal weakness, no numbness, no tingling, no tremor(s) - Hematologic/Lymphatic Hematologic/Lymphatic: no easy bruising - Constitutional Vitals: Temp Pulse Resp BP Pulse Ox 98.2 F 78 18 200/78 96 11/07/17 15:47 11/07/17 21:53 11/07/17 21:53 11/07/17 21:53 11/07/17 21:53 General appearance: Present: A&O X 2 (disoriented to time, oriented to place and person), pleasant, no acute distress - Head Head exam: Present: atraumatic, normocephalic - Eye Eye exam: Present: PERRL, conjuntiva pink, sclera anicteric Pupils: Present: PERRL - Neck Neck exam general surgery: Present: supple, trachea midline. Absent: lymphadenopathy - Respiratory Respiratory exam: Present: CTAB. Absent: accessory muscle use, rales, rhonchi, wheezes - Cardiovascular Cardiovascular exam: Present: RRR, +S1, +S2. Absent: diastolic murmur, gallop, rubs, systolic murmur - GI/Abdominal GI/Abdominal exam: Present: normal bowel sounds, soft, no peritoneal signs. Absent: distended, tenderness - Extremities Exam Extremities exam: Present: warm, radial pulses palpable and symmetrical. Absent : calf tenderness, cyanotic, pedal edema - Back Exam Back exam: Absent: CVA tenderness (L), CVA tenderness (R) - Neurological Exam Neurological exam: Present: alert, CN II-XII intact, no focal deficits. Absent : oriented X3, pronater drift, facial droop, speech deficit - Skin Skin exam: Present: dry, intact Internal Med - H&P Results - Labs CBC & Chem 7: 11/07/17 16:49 11/07/17 16:49 - Assessment and plan (1) UTI (urinary tract infection) Current Visit: Yes Status: Acute Assessment and plan: Urine culture from 11/03 growing E.coli resitant to cipro/augmentin, sensitive to cephalosporins Patient with recurrent UTIs Started on rocephin in ER, continue same at 1g daily till patient is able to tolerate po patient is unable to tolerate po due to n/v r/o pyelonephritis, no CVA tenderness Not spetic Follow Abd/Pelvis USS Qualifiers: Urinary tract infection type: acute cystitis Hematuria presence: without hematuria Qualified Code(s): N30.00 - Acute cystitis without hematuria (2) Dementia Current Visit: Yes Status: Chronic Assessment and plan: continue home meds fall precaution Qualifiers: Dementia type: unspecified type Dementia behavioral disturbance: without behavioral disturbance Qualified Code(s): F03.90 - Unspecified dementia without behavioral disturbance (3) Colitis Current Visit: Yes Status: Acute Assessment and plan: Obtain repeat abdomen and pelvis CT to assess possible progression Abd/Pelvis CT from 11/03 showed mild colitis and diverticulosis Continue Rocephin and Flagyl Advance diet as tolerated Continue Zofran prn (4) Hypertension Current Visit: Yes Status: Chronic Assessment and plan: continue home meds Qualifiers: Hypertension type: essential hypertension Qualified Code(s): I10 - Essential (primary) hypertension (5) Hypothyroid Current Visit: Yes Status: Chronic Assessment and plan: continue home meds Qualifiers: Hypothyroidism type: unspecified Qualified Code(s): E03.9 - Hypothyroidism , unspecified (6) Nausea and vomiting Current Visit: Yes Status: Acute Assessment and plan: possibly due to colitis r/o pyelonephritis zofran q4-q6 prn gentle IVF hydration Qualifiers: Vomiting type: unspecified Vomiting Intractability: non-intractable Qualified Code(s): R11.2 - Nausea with vomiting, unspecified (7) DVT prophylaxis Current Visit: Yes Status: Acute Assessment and plan: lovenox SQ - Time Spent With Patient Total time spent is greater than 50% in coordination of care (as documented) at patient's floor/unit and/or counseling patient:
[2017-11-07] MEDS ORDERED: Naloxone 0.4 MG/ML INJ IVP PRN (22:16)
[2017-11-07] MEDS ORDERED: Ondansetron 4 MG/2 ML VIAL IVP PRN (22:48)
[2017-11-08] MEDS: MetroNIDAZOLE 500 MG/100 ML 500 MG/100 ML BAG IVPB SCH ×3 (05:26→22:03)
[2017-11-08] MEDS ORDERED: *HR* Enoxaparin 40 MG/0.4 ML SYRINGE SQ SCH (06:00)
[2017-11-08] MEDS ORDERED: Patient Taking Own Medication 1 EACH PO SCH (09:00)
[2017-11-08] MEDS ORDERED: CRANBERRY 400 MG PO SCH (09:00)
[2017-11-08] MEDS: Multivit/Ca/Min/Fe/FA 1 TAB TABLET PO SCH (09:10)
[2017-11-08] MEDS: cefTRIAXone 1,000 MG in Water for inj. (sterile) 20 ML 10 ML IVP SCH (09:12)
--- NOTE | 2017-11-08 11:13 | Internal Med Progress Note ---
<Nico Fleming - Last Filed: 11/08/17 13:04> Date of Encounter: 11/08/17 Time of Encounter: 09:30 - Assessment and plan (1) UTI (urinary tract infection) Current Visit: Yes Status: Acute Assessment and plan: Patient with recurrent UTIs. Urine culture from 11/03 growing E.coli resitant to cipro/augmentin, sensitive to cephalosporins. Admitted with development of new symptoms including nausea, vomiting, and abdominal discomfort. Patient had been unable to tolerate po due to n/v. Overall, patient does seem to be doing quite well this morning which is supported by present family member. No leukocytosis or acute renal injury evident on a.m. labs. Patient states that has some of the abdominal comfort, however is not having any nausea or vomiting today denies any suprapubic tenderness. Patient is also able have bowel movements without any overt abnormalities such as diarrhea, or gross blood. Plan: -- advanced diet as tolerated this afternoon beginning with bland foods -- will changed PO antibiotics as tolerated; may convert to Cefdinir at that time/upon discharge -- continue to monitor closely in the meantime for signs of worsening infection Qualifiers: Urinary tract infection type: acute cystitis Hematuria presence: without hematuria Qualified Code(s): N30.00 - Acute cystitis without hematuria (2) Colitis Current Visit: Yes Status: Acute Assessment and plan: Repeat CT demonstrated wall thickening of the:, diverticulosis without inflammation, and increased stool burden from comparison exam. Patient has been able to have a bowel movement today and says are abdominal pain is getting worse qualifying it now is a general discomfort. Patient denies diarrhea, melena, or grossly bloody stools. -- Advance diet this afternoon as tolerated -- Zofran as needed for nausea -- encouraged adequate PO hydration -- will continue to monitor for signs of new or worsening infection -- will transition to PO Flagyl once patient is able to tolerate oral intake (3) Nausea and vomiting Current Visit: Yes Status: Acute Assessment and plan: All plans as above Qualifiers: Vomiting type: unspecified Vomiting Intractability: non-intractable Qualified Code(s): R11.2 - Nausea with vomiting, unspecified (4) Hypertension Current Visit: Yes Status: Chronic Assessment and plan: Will continue to monitor blood pressures and augment pharmacologically as needed. Qualifiers: Hypertension type: essential hypertension Qualified Code(s): I10 - Essential (primary) hypertension (5) Hypothyroid Current Visit: Yes Status: Chronic Assessment and plan: Continue home dose of Synthroid. Qualifiers: Hypothyroidism type: unspecified Qualified Code(s): E03.9 - Hypothyroidism , unspecified (6) DVT prophylaxis Current Visit: Yes Status: Acute Assessment and plan: lovenox SQ (7) Dementia Current Visit: Yes Status: Chronic Assessment and plan: Patient is alert and oriented to person, place, and situation. Will continue home meds. Considering patient a fall risk. Qualifiers: Dementia type: unspecified type Dementia behavioral disturbance: without behavioral disturbance Qualified Code(s): F03.90 - Unspecified dementia without behavioral disturbance - Time Spent With Patient Total time spent is greater than 50% in coordination of care (as documented) at patient's floor/unit and/or counseling patient: - Subjective Interval history: Continues to have general abdominal discomfort, but denies overt pain. Has had BM. Denies ongoing suprapubic tenderness, nausea, vomiting, diarrhea, or dysuria. Also denies other symptoms such feeling febrile, myalgias, chest pain , or shortness of breath. No other concerns per pt, family, and RN. Based on current appearance, will plan to discharge patient within the next 1-2 days depending on her tolerance of PO intake and clinical stability/improvement. - Constitutional Vitals: Temp Pulse Resp BP Pulse Ox 98.6 F 72 18 146/67 95 11/08/17 07:49 11/08/17 07:49 11/08/17 07:49 11/08/17 07:49 11/08/17 07:49 General appearance: Present: A&O X 2 (is situationally aware and is alert to person and place), pleasant, no acute distress - Head Head exam: Present: atraumatic, normocephalic - Eye Eye exam: Present: normal appearance, PERRL (3mm bilat), conjuntiva pink, sclera anicteric - Neck Neck exam general surgery: Present: supple - Respiratory Respiratory exam: Present: CTAB. Absent: accessory muscle use, rales, respiratory distress, rhonchi, stridor, wheezes, tachypnea - Cardiovascular Cardiovascular exam: Present: RRR, +S1, +S2. Absent: diastolic murmur, gallop, rubs, +S3, +S4, systolic murmur, tachycardia - GI/Abdominal GI/Abdominal exam: Present: no peritoneal signs. Absent: distended Additional comments: Conversational when palpating abdomen; soft with no guarding or apparent wincing. - Extremities Exam Extremities exam: Present: warm, radial pulses palpable and symmetrical. Absent : pedal edema - Neurological Exam Neurological exam: Present: alert Additional comments: No facial asymmetry; moves all 4 extremities without apparent focal deficit. - Skin Skin exam: Present: dry, intact, normal color Internal Medicine: Result - Labs CBC & Chem 7: 11/07/17 16:49 11/07/17 16:49 Consult Discharge Plan - Plan Referrals: Rosa Joseph MD [Primary Care Provider] - <Khushboo Blas - Last Filed: 11/08/17 13:53> Date of Encounter: 11/08/17 - Assessment and plan (1) Hypertension Current Visit: Yes Status: Chronic Qualifiers: Hypertension type: essential hypertension Qualified Code(s): I10 - Essential (primary) hypertension (2) Hypothyroid Current Visit: Yes Status: Chronic Qualifiers: Hypothyroidism type: unspecified Qualified Code(s): E03.9 - Hypothyroidism , unspecified (3) DVT prophylaxis Current Visit: Yes Status: Acute (4) Colitis Current Visit: Yes Status: Acute (5) UTI (urinary tract infection) Current Visit: Yes Status: Acute Qualifiers: Urinary tract infection type: acute cystitis Hematuria presence: without hematuria Qualified Code(s): N30.00 - Acute cystitis without hematuria (6) Nausea and vomiting Current Visit: Yes Status: Acute Qualifiers: Vomiting type: unspecified Vomiting Intractability: non-intractable Qualified Code(s): R11.2 - Nausea with vomiting, unspecified (7) Dementia Current Visit: Yes Status: Chronic Qualifiers: Dementia type: unspecified type Dementia behavioral disturbance: without behavioral disturbance Qualified Code(s): F03.90 - Unspecified dementia without behavioral disturbance - Time Spent With Patient Total time spent is greater than 50% in coordination of care (as documented) at patient's floor/unit and/or counseling patient: - Constitutional Vitals: Temp Pulse Resp BP Pulse Ox 98.5 F 66 18 145/65 94 11/08/17 11:11 11/08/17 11:11 11/08/17 11:11 11/08/17 11:11 11/08/17 11:11 Internal Medicine: Result - Labs CBC & Chem 7: 11/07/17 16:49 11/07/17 16:49 - Attending Attestation I examined this patient and my medical decision-making was reviewed with the Resident Physician Dr. Fleming. I agree with the documented findings, disposition and treatment plan as described except to the extent set forth below. Ms. Brannon is a 87 year old female with HTN, Hypothyroidism and Dementia She had presented to the ER on 11/03 with symptoms of n/v/diarrhea and work up showed UTI and colitis by imaging, she was discharged home on ciprofloxacin and flagyl. Urine culture showed resistance of E.coli to ciprofloxacin. She was brought back to ER, pt still c/o abdominal pain. Her CT of Abd showed slightly worsened colitis. Currently pt denied any CP / SOB Gen: A, A< O x3 Chest : Diminished BS b/l no crackles Abd: Soft, NT, BS+ a/p 1. Acute colitis cont empirical abx Rocephin + Flagyl 2. Acute UTI on Rocephin
[2017-11-08] MEDS ORDERED: traMADol 50 MG TABLET PO PRN (13:24)
[2017-11-09] MEDS: amLODIPine 5 MG TABLET PO SCH ×2 (00:08→09:08)
[2017-11-09 05:14] LABS: Basophils # 0.1 K/mcL (0.0-0.2); Basophils % 0.6 %; Eosinophils # 0.2 K/mcL (0.0-0.6); Eosinophils % 2.9 %; Hematocrit 38.8 % (35.3-44.9); Hemoglobin 13.2 g/dL (11.5-15.4); Immature Granulocytes % 0.2 % (0-4); Lymphocytes # 1.8 K/mcL (0.6-4.6); Mean Corpuscular Hemoglobin 31.2 pg (28.0-33.3); Mean Corpuscular Volume 91.7 fL (83.0-100.0); Mean Platelet Volume 10.7 fL (9.4-12.4); Monocytes # 0.6 K/mcL (0.0-1.3); Monocytes % 7.2 %; Neutrophils # 5.7 K/mcL (1.6-8.9); Platelet Count 226 K/mcL (140-400); Red Blood Count 4.23 M/mcL (3.82-4.97); Red Cell Distribution Width 12.8 % (11.5-14.5); Segmented Neutrophils % 68.1 %
[2017-11-09] MEDS: MetroNIDAZOLE 500 MG/100 ML 500 MG/100 ML BAG IVPB SCH (06:01)
[2017-11-09] MEDS: *HR* Enoxaparin 30 MG/0.3 ML SYRINGE SQ SCH (06:01)
[2017-11-09] MEDS: Acetaminophen 325 MG TABLET PO PRN (09:07)
[2017-11-09] MEDS: Multivit/Ca/Min/Fe/FA 1 TAB TABLET PO SCH (09:08)
[2017-11-09] MEDS: cefTRIAXone 1,000 MG in Water for inj. (sterile) 20 ML 10 ML IVP SCH (09:08)
--- NOTE | 2017-11-09 10:55 | Internal Med Progress Note ---
<Nico Fleming - Last Filed: 11/09/17 10:49> Date of Encounter: 11/09/17 Time of Encounter: 08:15 - Assessment and plan (1) UTI (urinary tract infection) Current Visit: Yes Status: Acute Assessment and plan: Patient with recurrent UTIs. Urine culture from 11/03 growing E.coli resitant to cipro/augmentin, sensitive to cephalosporins. Admitted with development of new symptoms including nausea, vomiting, and abdominal discomfort. Patient had been unable to tolerate po due to n/v. Overall, patient does seem to be doing quite well this morning which is supported by present family member. No leukocytosis or acute renal injury evident on a.m. labs. Patient states that has some of the abdominal comfort, however is not having any nausea or vomiting today denies any suprapubic tenderness. Patient is also able have bowel movements without any overt abnormalities such as diarrhea, or gross blood. Plan: -- regular diet tolerated without any nausea, vomiting, abdominal pain. -- will switch to Cefdinir -- continue to monitor closely in the meantime for signs of worsening infection -- likely discharge and a.m.; per and overall history, likely discharge home at this time with close observation by family Qualifiers: Urinary tract infection type: acute cystitis Hematuria presence: without hematuria Qualified Code(s): N30.00 - Acute cystitis without hematuria (2) Colitis Current Visit: Yes Status: Acute Assessment and plan: Repeat CT demonstrated wall thickening of the colon, diverticulosis without inflammation, and increased stool burden from comparison exam. Patient has been able to have a bowel movement today and says are abdominal pain is getting worse qualifying it now is a general discomfort. Patient denies diarrhea, melena, or grossly bloody stools. -- Diet advanced without any further worsening or intolerance; no nausea or vomiting overnight or this a.m. VSS stable overnight except HTN. -- Zofran as needed for nausea -- encouraged adequate PO hydration -- will continue to monitor for signs of new or worsening infection -- will transition to PO Flagyl (3) Nausea and vomiting Current Visit: Yes Status: Resolved Assessment and plan: All plans as above Qualifiers: Vomiting type: unspecified Vomiting Intractability: non-intractable Qualified Code(s): R11.2 - Nausea with vomiting, unspecified (4) Dementia Current Visit: Yes Status: Chronic Assessment and plan: Patient is alert and oriented to person, place, and situation. Will continue home meds. Considering patient a fall/elopement risk. Qualifiers: Dementia type: unspecified type Dementia behavioral disturbance: without behavioral disturbance Qualified Code(s): F03.90 - Unspecified dementia without behavioral disturbance (5) Hypertension Current Visit: Yes Status: Chronic Assessment and plan: On usual losartan. Will continue to monitor blood pressures and augment pharmacologically as needed. Adding PRN hydralazine order. Qualifiers: Hypertension type: essential hypertension Qualified Code(s): I10 - Essential (primary) hypertension (6) Hypothyroid Current Visit: Yes Status: Chronic Assessment and plan: Continue home dose of Synthroid. Qualifiers: Hypothyroidism type: unspecified Qualified Code(s): E03.9 - Hypothyroidism , unspecified (7) DVT prophylaxis Current Visit: Yes Status: Acute Assessment and plan: lovenox SQ (8) Current Visit: Yes Status: Acute Assessment and plan: Acute confusion and wandering episode yesterday p.m.; more likely due to acute change in setting than acute illness. Starting Seroquel HS and will order PRN Haldol. - Time Spent With Patient Total time spent is greater than 50% in coordination of care (as documented) at patient's floor/unit and/or counseling patient: - Subjective Interval history: Evening of 11/08/17, patient was wandering the halls of the med unit confused and disoriented. Patient was guided back to her room without incident. Patient has been attended by bedside center. Discussed disposition this a.m. with patient's daughter who is continue insistent on home discharge. Patient does live alone, however is closely attended by family as well as home health twice a week. Patient has tolerated PO diet without any nausea, vomiting, diarrhea, or pain. Will start Seroquel 4.5 mg HS. Transitioning patient PO antibiotics today and will likely discharged tomorrow morning. No other complaints or concerns per nursing or patient/family. - Constitutional Vitals: Temp Pulse Resp BP Pulse Ox 98.4 F 82 16 166/67 98 11/09/17 07:00 11/09/17 07:00 11/09/17 07:00 11/09/17 07:00 11/09/17 07:00 CONSTITUTIONAL: Pleasant and comfortably supine in bed with no apparent distress. Alert and oriented to person place HEAD: Normocephalic; atraumatic. EYES: PER, no scleral icterus, no drainage, no conjunctival injection Oropharynx: pink/moist RESP: NRD without use of accessory musculature, CTA b/l with no wheezes/rales/ rhonchi CARD: Regular rhythm, without murmurs, rubs, or gallop ABD: grossly normal, soft, non-tender, no guarding/distention/rigidity SKIN: normal appearance, no pallor/diaphoresis,mottling,jaundice,cyanosis EXT: Rad pulses 2+ and symmetrical; no lateralizing edema; no other lesions seen PSYCH: patient is unable to describe details of previous day to me and does not remember having met me. Good apparent affect. General appearance: Present: A&O X 2 (is situationally aware and is alert to person and place), pleasant, no acute distress Internal Medicine: Result - Labs CBC & Chem 7: 11/09/17 04:51 11/07/17 16:49 Labs: Short CBC 11/09/17 Range/Units 04:51 WBC 8.3 (4.3-11.1) K/mcL Hgb 13.2 (11.5-15.4) g/dL Hct 38.8 (35.3-44.9) % Plt Count 226 (140-400) K/mcL Neutrophils # 5.7 (1.6-8.9) K/mcL Consult Discharge Plan - Plan Referrals: Rosa Joseph MD [Primary Care Provider] - <Khushboo Blas - Last Filed: 11/09/17 13:49> Date of Encounter: 11/09/17 - Assessment and plan (1) Hypertension Current Visit: Yes Status: Chronic Qualifiers: Hypertension type: essential hypertension Qualified Code(s): I10 - Essential (primary) hypertension (2) Hypothyroid Current Visit: Yes Status: Chronic Qualifiers: Hypothyroidism type: unspecified Qualified Code(s): E03.9 - Hypothyroidism , unspecified (3) DVT prophylaxis Current Visit: Yes Status: Acute (4) Colitis Current Visit: Yes Status: Acute (5) UTI (urinary tract infection) Current Visit: Yes Status: Acute Qualifiers: Urinary tract infection type: acute cystitis Hematuria presence: without hematuria Qualified Code(s): N30.00 - Acute cystitis without hematuria (6) Nausea and vomiting Current Visit: Yes Status: Resolved Qualifiers: Vomiting type: unspecified Vomiting Intractability: non-intractable Qualified Code(s): R11.2 - Nausea with vomiting, unspecified (7) Dementia Current Visit: Yes Status: Chronic Qualifiers: Dementia type: unspecified type Dementia behavioral disturbance: without behavioral disturbance Qualified Code(s): F03.90 - Unspecified dementia without behavioral disturbance (8) Sundowning Current Visit: Yes Status: Acute - Time Spent With Patient Total time spent is greater than 50% in coordination of care (as documented) at patient's floor/unit and/or counseling patient: - Constitutional Vitals: Temp Pulse Resp BP Pulse Ox 98.4 F 76 16 144/77 92 11/09/17 11:25 11/09/17 11:25 11/09/17 11:25 11/09/17 11:25 11/09/17 11:25 Internal Medicine: Result - Labs CBC & Chem 7: 11/09/17 04:51 11/07/17 16:49 Labs: Short CBC 11/09/17 Range/Units 04:51 WBC 8.3 (4.3-11.1) K/mcL Hgb 13.2 (11.5-15.4) g/dL Hct 38.8 (35.3-44.9) % Plt Count 226 (140-400) K/mcL Neutrophils # 5.7 (1.6-8.9) K/mcL - Attending Attestation I examined this patient and my medical decision-making was reviewed with the Resident Physician Dr. Fleming. I agree with the documented findings, disposition and treatment plan as described except to the extent set forth below. Ms. Brannon is a 87 year old female with HTN, Hypothyroidism and Dementia She had presented to the ER on 11/03 with symptoms of n/v/diarrhea and work up showed UTI and colitis by imaging, she was discharged home on ciprofloxacin and flagyl. Urine culture showed resistance of E.coli to ciprofloxacin. She was brought back to ER, pt still c/o abdominal pain. Her CT of Abd showed slightly worsened colitis. Currently pt denied any CP / SOB Gen: A, A, O to person and self Chest : Diminished BS b/l no crackles Abd: Soft, NT, BS+ a/p 1. Acute colitis cont empirical abx Rocephin + Flagyl 2. Acute UTI on Rocephin 3. [place] syndrome Started on seroquel Haldol PRN
[2017-11-09] MEDS ORDERED: hydrALAZINE 10 MG TABLET PO PRN (11:03)
[2017-11-09] MEDS: metroNIDAZOLE 500 MG TABLET PO SCH ×2 (16:04→21:17)
[2017-11-09] MEDS ORDERED: Cefdinir 300 MG CAPSULE PO SCH (21:00)
[2017-11-09] MEDS: Cefdinir 300 MG CAPSULE PO SCH (21:17)
[2017-11-10 05:33] LABS: Basophils # 0.1 K/mcL (0.0-0.2); Basophils % 0.6 %; Eosinophils # 0.3 K/mcL (0.0-0.6); Eosinophils % 3.8 %; Hematocrit 39.4 % (35.3-44.9); Hemoglobin 13.3 g/dL (11.5-15.4); Immature Granulocytes % 0.5 % (0-4); Lymphocytes # 2.2 K/mcL (0.6-4.6); Lymphocytes % 25.1 %; Mean Corpuscular HGB Conc 33.8 g/dL (31.6-35.5); Mean Corpuscular Hemoglobin 30.8 pg (28.0-33.3); Mean Corpuscular Volume 91.2 fL (83.0-100.0); Mean Platelet Volume 10.9 fL (9.4-12.4); Monocytes # 0.7 K/mcL (0.0-1.3); Neutrophils # 5.3 K/mcL (1.6-8.9); Platelet Count 236 K/mcL (140-400); Red Blood Count 4.32 M/mcL (3.82-4.97)
[2017-11-10 05:51] LABS: BUN/Creatinine Ratio 22 (6-26); Blood Urea Nitrogen 22 mg/dL (8-23); Calcium 8.9 mg/dL (8.6-10.3); Carbon Dioxide 27 mEq/L (23-29); Chloride 110 mEq/L (98-107); Glucose 108 mg/dL (70-105); Osmolality,Calculated 300 (280-300); Potassium 3.1 mEq/L (3.5-5.1); Sodium 143 mEq/L (136-145); eGFR For African Americans > 60 (> 60); eGFR For Non-African Americans 53 (> 60)
[2017-11-10] MEDS: *HR* Enoxaparin 30 MG/0.3 ML SYRINGE SQ SCH (06:06)
[2017-11-10] MEDS: metroNIDAZOLE 500 MG TABLET PO SCH ×3 (08:29→20:37)
[2017-11-10] MEDS: Multivit/Ca/Min/Fe/FA 1 TAB TABLET PO SCH (08:29)
[2017-11-10] MEDS: amLODIPine 5 MG TABLET PO SCH (08:29)
--- NOTE | 2017-11-10 11:28 | Discharge Summary ---
- NOTES TO OUTPATIENT PROVIDER Notes to Outpatient Provider: cont PO abx for another 5 days. f/u with PCP in one week Orders not resulted at time of discharge: Pending orders 11/11/17 04:00 BMP [Basic Metabolic Panel] AM 0400 Complete Blood Count [HEME] AM 0400 Date of Encounter: 11/10/17 Time of Encounter: 11:25 - Discharge Diagnosis (1) Colitis Priority: Primary Status: Acute (2) UTI (urinary tract infection) Priority: Primary Status: Acute Qualifiers: Urinary tract infection type: acute cystitis Hematuria presence: without hematuria Qualified Code(s): N30.00 - Acute cystitis without hematuria (3) Hypertension Priority: Secondary Status: Chronic Qualifiers: Hypertension type: essential hypertension Qualified Code(s): I10 - Essential (primary) hypertension (4) Hypothyroid Priority: Secondary Status: Chronic Qualifiers: Hypothyroidism type: unspecified Qualified Code(s): E03.9 - Hypothyroidism , unspecified (5) DVT prophylaxis Priority: Secondary Status: Acute (6) Nausea and vomiting Priority: Secondary Status: Resolved Qualifiers: Vomiting type: unspecified Vomiting Intractability: non-intractable Qualified Code(s): R11.2 - Nausea with vomiting, unspecified (7) Dementia Priority: Secondary Status: Chronic Qualifiers: Dementia type: unspecified type Dementia behavioral disturbance: without behavioral disturbance Qualified Code(s): F03.90 - Unspecified dementia without behavioral disturbance (8) Sundowning Priority: Secondary Status: Acute Hospital course: Ms. Brannon is a 87 year old female with HTN, Hypothyroidism and Dementia pt presented to the ER on 11/03 with symptoms of n/v/diarrhea and work up showed UTI and colitis by imaging, she was discharged home on ciprofloxacin and flagyl. Urine culture showed E.coli resistance to ciprofloxacin. She was brought back to ER, pt still c/o abdominal pain. Her CT of Abd showed slightly worsened colitis. Pt was admitted here and started her on IV Rocephin and Flagyl. Her symptoms started improving slowly. She is tolerating PO intake well. 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 at 12.5mg here - Time Spent with Patient Total time spent providing and/or coordinating discharge services: - Discharge Medications Prescriptions: Cefdinir [Omnicef] 300 mg PO 2100 #5 capsule metroNIDAZOLE [Flagyl] 500 mg PO TID #15 tablet Quetiapine Fumarate [SEROquel] 12.5 mg PO HS 30 Days tablet Home Medications: Atorvastatin [Lipitor] 40 mg PO HS 05/21/17 [History] Donepezil [Aricept] 5 mg PO HS 05/21/17 [History] Levothyroxine [Synthroid] 100 mcg PO DAILY 05/21/17 [History] Cranberry 400 mg PO DAILY 11/07/17 [History] Losartan Potassium [Cozaar] 100 mg PO DAILY 11/07/17 [History] Multivitamin [One Daily Essential] 1 tab PO DAILY 11/07/17 [History] Tramadol HCl [Ultram] 50 - 100 mg PO TID PRN 11/07/17 [History] Vit A/Vit C/Vit E/Zinc/Copper [Preservision Areds Tablet] 1 tab PO DAILY [History] Cefdinir [Omnicef] 300 mg PO 2100 #5 capsule 11/10/17 [Rx] Quetiapine Fumarate [SEROquel] 12.5 mg PO HS 30 Days tablet 11/10/17 [Rx] metroNIDAZOLE [Flagyl] 500 mg PO TID #15 tablet 11/10/17 [Rx] Allergies/Adverse Reactions: 3 Allergy/AdvReac Type Severity Reaction Status Date / Time Penicillins [PCN] Allergy Unknown See Verified 11/07/17 21:13 Comments codeine Allergy See Verified 11/07/17 21:13 Comments Date of admission: 11/07/17 22:16 Primary care physician: Rosa Joseph, Consults: 11/09/17 08:02 Consult to [employer] Driver [CONS] Routine Reason for SW Consult: 87F with mild dementia & lives alone; pt and family highly disinclined towards ECF, but pt may at least need home health services. - Constitutional Vitals: Temp Pulse Resp BP Pulse Ox 97.7 F 69 16 137/70 94 11/10/17 08:46 11/10/17 08:46 11/10/17 08:46 11/10/17 08:46 11/10/17 08:46 General appearance: Present: A&O X 2 (is situationally aware and is alert to person and place), pleasant, no acute distress - Head Head exam: Present: atraumatic, normal inspection - Neck Neck exam general surgery: Present: supple - Respiratory Respiratory exam: Present: decreased breath sounds. Absent: rales, respiratory distress, rhonchi, wheezes - Cardiovascular Cardiovascular exam: Present: RRR, +S1, +S2. Absent: tachycardia - GI/Abdominal GI/Abdominal exam: Present: normal bowel sounds, soft. Absent: rebound, rigid - Extremities Exam Extremities exam: Absent: calf tenderness, pedal edema, tenderness - Back Exam Back exam: Absent: CVA tenderness (L), CVA tenderness (R) - Neurological Exam Neurological exam: Present: alert, oriented X3 - Patient Status Disposition: Home Health Service Condition: Good Overall status at discharge: patient is back to baseline - Discharge Instructions Follow Up With: Ximena Gonzales CNP [Advanced Practice Nurse] - 11/15/17 10:30 am Rosa Joseph MD [Primary Care Provider] - - Diet and Activity Activity: increase activity as tolerated Diet: low salt diet
--- NOTE | 2017-11-10 11:30 | Physician Discharge Referral ---
Home Health/Hosp Referral Info Transfer to: Home Health Provider in Charge Post Discharge: PCP - Diagnosis (1) Colitis Status: Acute (2) UTI (urinary tract infection) Status: Acute (3) Hypertension Status: Chronic (4) Hypothyroid Status: Chronic (5) DVT prophylaxis Status: Acute (6) Nausea and vomiting Status: Resolved (7) Dementia Status: Chronic (8) Sundowning Status: Acute - Respiratory Orders Smoking Cessation: Smoking cessation has been advised. For more information, call the [place] Tobacco Quit Line at 8-039-FQNG-NOW. - Services Needed Following services are medically necessary services: Nursing, Physical Therapy, Occupational Therapy - Transfer Medications Prescriptions: Cefdinir [Omnicef] 300 mg PO 2100 #5 capsule metroNIDAZOLE [Flagyl] 500 mg PO TID #15 tablet Quetiapine Fumarate [SEROquel] 12.5 mg PO HS 30 Days tablet Home Medications: Atorvastatin [Lipitor] 40 mg PO HS 05/21/17 [History] Donepezil [Aricept] 5 mg PO HS 05/21/17 [History] Levothyroxine [Synthroid] 100 mcg PO DAILY 05/21/17 [History] Cranberry 400 mg PO DAILY 11/07/17 [History] Losartan Potassium [Cozaar] 100 mg PO DAILY 11/07/17 [History] Multivitamin [One Daily Essential] 1 tab PO DAILY 11/07/17 [History] Tramadol HCl [Ultram] 50 - 100 mg PO TID PRN 11/07/17 [History] Vit A/Vit C/Vit E/Zinc/Copper [Preservision Areds Tablet] 1 tab PO DAILY [History] Cefdinir [Omnicef] 300 mg PO 2100 #5 capsule 11/10/17 [Rx] Quetiapine Fumarate [SEROquel] 12.5 mg PO HS 30 Days tablet 11/10/17 [Rx] metroNIDAZOLE [Flagyl] 500 mg PO TID #15 tablet 11/10/17 [Rx] Allergies/Adverse Reactions: 3 Allergy/AdvReac Type Severity Reaction Status Date / Time Penicillins [PCN] Allergy Unknown See Verified 11/07/17 21:13 Comments codeine Allergy See Verified 11/07/17 21:13 Comments Certification: Further, I certify that my clinical findings support that this patient is homebound (i.e. absences from home require considerable and taxing effort and are for medical reasons or [employer] services or infrequently or short duration when for other reasons) because: Homebound Reason: Patient requires assistance of a person or device to safely leave home Attestation: My signature below is to certify that this patient is under my care and that I, or nurse practitioner, or a physician's unit assistant working with me, has a face-to -face encounter with this patient.
--- NOTE | 2017-11-10 12:26 | Internal Med Progress Note ---
Date of Encounter: 11/10/17 Time of Encounter: 12:24 - Assessment and plan (1) Colitis Current Visit: Yes Status: Acute Assessment and plan: Cont empirical abx PO Omnicef + Flagyl # 3/7 cont supportive care (2) Nausea and vomiting Current Visit: Yes Status: Resolved Assessment and plan: All plans as above Qualifiers: Vomiting type: unspecified Vomiting Intractability: non-intractable Qualified Code(s): R11.2 - Nausea with vomiting, unspecified (3) Physical deconditioning Current Visit: Yes Status: Acute Assessment and plan: Seems severely de conditioned pt is unable to ambulate well with nurse assessment so will hold on her discharge PT ? OT consulted may need ECF plcement (4) UTI (urinary tract infection) Current Visit: Yes Status: Acute Assessment and plan: cont empirical abx Omnicef Qualifiers: Urinary tract infection type: acute cystitis Hematuria presence: without hematuria Qualified Code(s): N30.00 - Acute cystitis without hematuria (5) Hypertension Current Visit: Yes Status: Chronic Assessment and plan: stable with Losartan and Norvasc cont monitor Qualifiers: Hypertension type: essential hypertension Qualified Code(s): I10 - Essential (primary) hypertension (6) Hypothyroid Current Visit: Yes Status: Chronic Assessment and plan: Continue home dose of Synthroid. Qualifiers: Hypothyroidism type: unspecified Qualified Code(s): E03.9 - Hypothyroidism , unspecified (7) Dementia Current Visit: Yes Status: Chronic Assessment and plan: Patient is alert and oriented to person, place, and situation. Will continue home meds. Considering patient a fall/elopement risk. Qualifiers: Dementia type: unspecified type Dementia behavioral disturbance: without behavioral disturbance Qualified Code(s): F03.90 - Unspecified dementia without behavioral disturbance (8) Sundowning Current Visit: Yes Status: Acute Assessment and plan: Cont Seroquel HS and PRN Haldol. (9) DVT prophylaxis Current Visit: Yes Status: Acute Assessment and plan: lovenox SQ - Time Spent With Patient Total time spent is greater than 50% in coordination of care (as documented) at patient's floor/unit and/or counseling patient: - Subjective Interval history: Ms. Brannon is a 87 year old female with HTN, Hypothyroidism and Dementia pt presented to the ER on 11/03 with symptoms of n/v/diarrhea and work up showed UTI and colitis by imaging, she was discharged home on ciprofloxacin and flagyl. Urine culture showed E.coli resistance to ciprofloxacin. She was brought back to ER, pt still c/o abdominal pain. Her CT of Abd showed slightly worsened colitis. Pt was admitted here and started her on IV Rocephin and Flagyl. Pt states she is feeling lot better and wants to go home today - Constitutional Vitals: Temp Pulse Resp BP Pulse Ox 98.6 F 79 16 139/66 95 11/10/17 11:37 11/10/17 11:37 11/10/17 11:37 11/10/17 11:37 11/10/17 11:37 General appearance: Present: A&O X 2 (is situationally aware and is alert to person and place), pleasant, no acute distress - Head Head exam: Present: atraumatic, normal inspection - Neck Neck exam general surgery: Present: supple - Respiratory Respiratory exam: Present: decreased breath sounds. Absent: rales, respiratory distress, rhonchi, wheezes - Cardiovascular Cardiovascular exam: Present: RRR, +S1, +S2. Absent: tachycardia - GI/Abdominal GI/Abdominal exam: Present: normal bowel sounds, soft. Absent: rebound, rigid, tenderness - Extremities Exam Extremities exam: Absent: calf tenderness, pedal edema, tenderness - Back Exam Back exam: Absent: CVA tenderness (L), CVA tenderness (R) - Neurological Exam Neurological exam: Present: alert - Psychiatric Psychiatric exam: Present: normal affect, normal mood Internal Medicine: Result - Labs CBC & Chem 7: 11/10/17 05:07 11/10/17 05:07 Labs: Short CBC 11/10/17 Range/Units 05:07 WBC 8.6 (4.3-11.1) K/mcL Hgb 13.3 (11.5-15.4) g/dL Hct 39.4 (35.3-44.9) % Plt Count 236 (140-400) K/mcL Neutrophils # 5.3 (1.6-8.9) K/mcL BMP 11/10/17 05:07 Sodium 143 Potassium 3.1 L Chloride 110 H Carbon Dioxide 27 BUN 22 Creatinine 0.99 Glucose 108 H Calcium 8.9 Consult Discharge Plan - Plan Referrals: Ximena Gonzales, [employer] [Advanced Practice Nurse] - 11/15/17 10:30 am Rosa Joseph MD [Primary Care Provider] - Prescriptions: Cefdinir [Omnicef] 300 mg PO 2100 #5 capsule metroNIDAZOLE [Flagyl] 500 mg PO TID #15 tablet Quetiapine Fumarate [SEROquel] 12.5 mg PO HS 30 Days tablet
[2017-11-10] MEDS: Acetaminophen 325 MG TABLET PO PRN (15:25)
[2017-11-10] MEDS: Cefdinir 300 MG CAPSULE PO SCH (20:37)
[2017-11-11 05:50] LABS: Basophils # 0.1 K/mcL (0.0-0.2); Basophils % 0.8 %; Eosinophils # 0.3 K/mcL (0.0-0.6); Eosinophils % 3.8 %; Hematocrit 38.2 % (35.3-44.9); Hemoglobin 12.9 g/dL (11.5-15.4); Immature Granulocytes % 0.3 % (0-4); Lymphocytes # 2.2 K/mcL (0.6-4.6); Mean Corpuscular HGB Conc 33.8 g/dL (31.6-35.5); Mean Corpuscular Hemoglobin 31.1 pg (28.0-33.3); Monocytes # 0.7 K/mcL (0.0-1.3); Monocytes % 7.5 %; Neutrophils # 5.5 K/mcL (1.6-8.9); Platelet Count 233 K/mcL (140-400); Red Blood Count 4.15 M/mcL (3.82-4.97); Red Cell Distribution Width 13.2 % (11.5-14.5); Segmented Neutrophils % 62.6 %
[2017-11-11] MEDS: *HR* Enoxaparin 30 MG/0.3 ML SYRINGE SQ SCH (06:01)
[2017-11-11 06:09] LABS: BUN/Creatinine Ratio 21 (6-26); Blood Urea Nitrogen 19 mg/dL (8-23); Calcium 8.8 mg/dL (8.6-10.3); Carbon Dioxide 28 mEq/L (23-29); Chloride 110 mEq/L (98-107); Glucose 102 mg/dL (70-105); Osmolality,Calculated 298 (280-300); Potassium 3.3 mEq/L (3.5-5.1); Sodium 143 mEq/L (136-145); eGFR For African Americans > 60 (> 60); eGFR For Non-African Americans 58 (> 60)
[2017-11-11] MEDS: metroNIDAZOLE 500 MG TABLET PO SCH ×3 (08:56→20:57)
[2017-11-11] MEDS: amLODIPine 5 MG TABLET PO SCH (08:57)
[2017-11-11] MEDS: Multivit/Ca/Min/Fe/FA 1 TAB TABLET PO SCH (08:57)
--- NOTE | 2017-11-11 10:47 | Internal Med Progress Note ---
Date of Encounter: 11/11/17 Time of Encounter: 10:30 - Assessment and plan (1) Colitis Current Visit: Yes Status: Acute Assessment and plan: Cont empirical abx PO Omnicef + Flagyl # 4/7 cont supportive care (2) Nausea and vomiting Current Visit: Yes Status: Resolved Assessment and plan: Improved Continue symptomatic and supportive care Qualifiers: Vomiting type: unspecified Vomiting Intractability: non-intractable Qualified Code(s): R11.2 - Nausea with vomiting, unspecified (3) Physical deconditioning Current Visit: Yes Status: Acute Assessment and plan: Seems severely de conditioned pt is unable to ambulate well with nurse assessment Held her discharge PT / OT consulted may need ECF placement (4) UTI (urinary tract infection) Current Visit: Yes Status: Acute Assessment and plan: cont empirical abx Omnicef Qualifiers: Urinary tract infection type: acute cystitis Hematuria presence: without hematuria Qualified Code(s): N30.00 - Acute cystitis without hematuria (5) Hypertension Current Visit: Yes Status: Chronic Assessment and plan: stable with Losartan and Norvasc cont monitor Qualifiers: Hypertension type: essential hypertension Qualified Code(s): I10 - Essential (primary) hypertension (6) Hypothyroid Current Visit: Yes Status: Chronic Assessment and plan: Continue home dose of Synthroid. Qualifiers: Hypothyroidism type: unspecified Qualified Code(s): E03.9 - Hypothyroidism , unspecified (7) Dementia Current Visit: Yes Status: Chronic Assessment and plan: Patient is alert and oriented to person, place, and situation. Will continue home meds. Considering patient a fall/elopement risk. Qualifiers: Dementia type: unspecified type Dementia behavioral disturbance: without behavioral disturbance Qualified Code(s): F03.90 - Unspecified dementia without behavioral disturbance (8) Sundowning Current Visit: Yes Status: Acute Assessment and plan: Cont Seroquel HS and PRN Haldol. (9) DVT prophylaxis Current Visit: Yes Status: Acute Assessment and plan: lovenox SQ - Time Spent With Patient Total time spent is greater than 50% in coordination of care (as documented) at patient's floor/unit and/or counseling patient: - Subjective Interval history: Ms. Brannon is a 87 year old female with HTN, Hypothyroidism and Dementia pt presented to the ER on 11/03 with symptoms of n/v/diarrhea and work up showed UTI and colitis by imaging, she was discharged home on ciprofloxacin and flagyl. Urine culture showed E.coli resistance to ciprofloxacin. She was brought back to ER, pt still c/o abdominal pain. Her CT of Abd showed slightly worsened colitis. Pt was admitted here and started her on IV Rocephin and Flagyl. Pt states she is feeling lot better. Tolerating PO intake well. - Constitutional Vitals: Temp Pulse Resp BP Pulse Ox 98.4 F 86 18 142/67 94 11/11/17 08:09 11/11/17 08:09 11/11/17 08:09 11/11/17 08:09 11/11/17 08:09 General appearance: Present: A&O X 2 (is situationally aware and is alert to person and place), pleasant, no acute distress - Head Head exam: Present: atraumatic, normal inspection - Neck Neck exam general surgery: Present: supple - Respiratory Respiratory exam: Present: decreased breath sounds. Absent: rales, respiratory distress, rhonchi, wheezes - Cardiovascular Cardiovascular exam: Present: +S1, +S2 - GI/Abdominal GI/Abdominal exam: Present: soft. Absent: normal bowel sounds, pulsatile mass, tenderness - Extremities Exam Extremities exam: Absent: calf tenderness, pedal edema, tenderness - Back Exam Back exam: Absent: CVA tenderness (L), CVA tenderness (R) - Neurological Exam Neurological exam: Present: alert - Psychiatric Psychiatric exam: Present: normal affect, normal mood Internal Medicine: Result - Labs CBC & Chem 7: 11/11/17 04:37 11/11/17 04:37 Labs: Short CBC 11/11/17 Range/Units 04:37 WBC 8.8 (4.3-11.1) K/mcL Hgb 12.9 (11.5-15.4) g/dL Hct 38.2 (35.3-44.9) % Plt Count 233 (140-400) K/mcL Neutrophils # 5.5 (1.6-8.9) K/mcL BMP 11/11/17 04:37 Sodium 143 Potassium 3.3 L Chloride 110 H Carbon Dioxide 28 BUN 19 Creatinine 0.92 Glucose 102 Calcium 8.8 Consult Discharge Plan - Plan Referrals: Ximena Gonzales, [employer] SOFTWARE ENGINEER [Advanced Practice Nurse] - 11/15/17 10:30 am Rosa Joseph MD [Primary Care Provider] - Prescriptions: Cefdinir [Omnicef] 300 mg PO 2100 #5 capsule metroNIDAZOLE [Flagyl] 500 mg PO TID #15 tablet Quetiapine Fumarate [SEROquel] 12.5 mg PO HS 30 Days tablet
[2017-11-11] MEDS: Cefdinir 300 MG CAPSULE PO SCH (20:56)
[2017-11-12] MEDS: *HR* Enoxaparin 30 MG/0.3 ML SYRINGE SQ SCH (06:05)
--- NOTE | 2017-11-12 09:00 | Discharge Summary ---
Date of Encounter: 11/12/17 Time of Encounter: 08:15 - Discharge Diagnosis (1) Colitis Priority: Primary Status: Acute (2) UTI (urinary tract infection) Priority: Secondary Status: Acute Qualifiers: Urinary tract infection type: acute cystitis Hematuria presence: without hematuria Qualified Code(s): N30.00 - Acute cystitis without hematuria (3) Hypertension Priority: Secondary Status: Chronic Qualifiers: Hypertension type: essential hypertension Qualified Code(s): I10 - Essential (primary) hypertension (4) Hypothyroid Priority: Secondary Status: Chronic Qualifiers: Hypothyroidism type: unspecified Qualified Code(s): E03.9 - Hypothyroidism , unspecified (5) DVT prophylaxis Priority: Secondary Status: Acute (6) Nausea and vomiting Priority: Secondary Status: Resolved Qualifiers: Vomiting type: unspecified Vomiting Intractability: non-intractable Qualified Code(s): R11.2 - Nausea with vomiting, unspecified (7) Dementia Priority: Secondary Status: Chronic Qualifiers: Dementia type: unspecified type Dementia behavioral disturbance: without behavioral disturbance Qualified Code(s): F03.90 - Unspecified dementia without behavioral disturbance (8) Sundowning Priority: Secondary Status: Acute (9) Physical deconditioning Priority: Secondary Status: Acute Hospital course: Ms. Brannon is a 87 year old female with HTN, Hypothyroidism and Dementia pt presented to the ER on 11/03 with symptoms of n/v/diarrhea and work up showed UTI and colitis by imaging, she was discharged home on ciprofloxacin and flagyl. Urine culture showed E.coli resistance to ciprofloxacin. She was brought back to ER, pt still c/o abdominal pain. Her CT of Abd showed slightly worsened colitis. Pt was admitted here and started her on IV Rocephin and Flagyl. Her symptoms started improving slowly. She is tolerating PO intake well. 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 The patient and family agree that the patient should go to an [facility] after discharge for further PT/OT. She denies fever, chills, abdominal pain, nausea, vomiting, diarrhea. She is to follow up with PCP in about 1 to 2 weeks. She is alert and oriented times 3 and stated a clear understanding of the treatment and plan. Discharge discussed with: patient - Time Spent with Patient Total time spent providing and/or coordinating discharge services: Greater than 30 minutes - Discharge Medications Prescriptions: Cefdinir [Omnicef] 300 mg PO 2100 #5 capsule metroNIDAZOLE [Flagyl] 500 mg PO TID #15 tablet Quetiapine Fumarate [SEROquel] 12.5 mg PO HS 30 Days tablet Home Medications: Atorvastatin [Lipitor] 40 mg PO HS 05/21/17 [History] Donepezil [Aricept] 5 mg PO HS 05/21/17 [History] Levothyroxine [Synthroid] 100 mcg PO DAILY 05/21/17 [History] Cranberry 400 mg PO DAILY 11/07/17 [History] Losartan Potassium [Cozaar] 100 mg PO DAILY 11/07/17 [History] Multivitamin [One Daily Essential] 1 tab PO DAILY 11/07/17 [History] Tramadol HCl [Ultram] 50 - 100 mg PO TID PRN 11/07/17 [History] Vit A/Vit C/Vit E/Zinc/Copper [Preservision Areds Tablet] 1 tab PO DAILY [History] Cefdinir [Omnicef] 300 mg PO 2100 #5 capsule 11/10/17 [Rx] Quetiapine Fumarate [SEROquel] 12.5 mg PO HS 30 Days tablet 11/10/17 [Rx] metroNIDAZOLE [Flagyl] 500 mg PO TID #15 tablet 11/10/17 [Rx] Allergies/Adverse Reactions: 3 Allergy/AdvReac Type Severity Reaction Status Date / Time Penicillins [PCN] Allergy Unknown See Verified 11/07/17 21:13 Comments codeine Allergy See Verified 11/07/17 21:13 Comments Date of admission: 11/07/17 22:16 Primary care physician: Rosa Joseph, Consults: 11/09/17 08:02 Consult to Oil Burner Mechanic [CONS] Routine Reason for SW Consult: 87F with mild dementia & lives alone; pt and family highly disinclined towards ECF, but pt may at least need home health services. 11/10/17 12:18 Consult to Occupational Therapy [CONS] Stat Comment: Evaluate, develop and implement POC Reason for Consult: Assess need for rehabilitation after discharge Does patient have active BEDREST order?: No Is patient medically & hemodynamically stable?: Yes Consult to Physical Therapy [CONS] Stat Comment: Evaluate, develop and implement POC Reason for Consult: Assess for need for rehab after discharge Does patient have active BEDREST order?: No Is patient medically & hemodynamically stable?: Yes Discharging clinician: Khushboo Blas Anticipated date of discharge: 11/12/17 - Constitutional Vitals: Temp Pulse Resp BP Pulse Ox 97.6 F 81 16 139/72 94 11/12/17 06:57 11/12/17 06:57 11/12/17 06:57 11/12/17 06:57 11/12/17 06:57 General appearance: Present: A&O X 2 (is situationally aware and is alert to person and place), pleasant, no acute distress Exam: Gen.: Vitals noted. No acute distress. AAOx3 HEENT: oropharynx clear, Normocephalic, atraumatic Neck: Supple. No adenopathy. Cardiac: RRR, no murmur, +S1/S2 Pulmonary: CTA bilaterally, no wheezes, rales or rhonchi, equal chest expansion Abdomen: soft, nontender, Bowel sounds noted, no guarding MSK: no joint swelling noted Extremities: no BLE edema, nontender calf Neuro: A&Ox3, moves all extremities Psych: Appropriate mood and behavior - Patient Status Disposition: Transfer SNF Condition: Good Functional capacity at discharge: uses cane/walker Overall status at discharge: patient is back to baseline - Discharge Instructions Follow Up With: Ximena Gonzales CNP [Advanced Practice Nurse] - 11/15/17 10:30 am Rosa Joseph MD [Primary Care Provider] - Additional Instructions: Finish antibiotics to completion' follow-up with your PCP in 1 to 2 weeks - Diet and Activity Activity: resume usual activities as tolerated Diet: advance to your usual diet - VTE Documentation of Mechanical Device: Intermittent pneumatic compression device
[2017-11-12] MEDS: amLODIPine 5 MG TABLET PO SCH (09:43)
[2017-11-12] MEDS: metroNIDAZOLE 500 MG TABLET PO SCH ×3 (09:43→20:07)
[2017-11-12] MEDS: Multivit/Ca/Min/Fe/FA 1 TAB TABLET PO SCH (09:43)
[2017-11-12] MEDS ORDERED: hydrALAZINE 10 MG TABLET PO PRN (13:17)
--- NOTE | 2017-11-12 14:05 | Internal Med Progress Note ---
<Dimple Albrecht - Last Filed: 11/12/17 14:02> Date of Encounter: 11/12/17 Time of Encounter: 09:25 - Assessment and plan (1) Colitis Current Visit: Yes Status: Acute Assessment and plan: -Continue PO Omnicef day 10/27 -continue PO Flagyl day 11/26 -cont supportive care -She will be discharged to SNF for PT/OT pending insurance approval most likely to monitor. (2) UTI (urinary tract infection) Current Visit: Yes Status: Acute Assessment and plan: cont empirical abx Omnicef Qualifiers: Urinary tract infection type: acute cystitis Hematuria presence: without hematuria Qualified Code(s): N30.00 - Acute cystitis without hematuria (3) Hypertension Current Visit: Yes Status: Chronic Assessment and plan: stable with Losartan and Norvasc cont monitor Qualifiers: Hypertension type: essential hypertension Qualified Code(s): I10 - Essential (primary) hypertension (4) Hypothyroid Current Visit: Yes Status: Chronic Assessment and plan: Continue home Synthroid. Qualifiers: Hypothyroidism type: unspecified Qualified Code(s): E03.9 - Hypothyroidism , unspecified (5) Nausea and vomiting Current Visit: Yes Status: Resolved Assessment and plan: Resolved Continue symptomatic and supportive care Qualifiers: Vomiting type: unspecified Vomiting Intractability: non-intractable Qualified Code(s): R11.2 - Nausea with vomiting, unspecified (6) Dementia Current Visit: Yes Status: Chronic Assessment and plan: Patient is alert and oriented to person, place, and situation. Will continue home meds. Considering patient a fall/elopement risk. Qualifiers: Dementia type: unspecified type Dementia behavioral disturbance: without behavioral disturbance Qualified Code(s): F03.90 - Unspecified dementia without behavioral disturbance (7) Sundowning Current Visit: Yes Status: Acute Assessment and plan: Cont Seroquel HS and PRN Haldol. (8) DVT prophylaxis Current Visit: Yes Status: Acute Assessment and plan: lovenox SQ (9) Physical deconditioning Current Visit: Yes Status: Acute Assessment and plan: Seems severely de conditioned pt is unable to ambulate well with nurse assessment -PT/OT recommends home supervision 24 hours -social work is working on placement to SNF for PT/OT will most likely be discharged tomorrow - Time Spent With Patient Total time spent is greater than 50% in coordination of care (as documented) at patient's floor/unit and/or counseling patient: - Subjective Interval history: Ms. Brannon is a 87 year old female with HTN, Hypothyroidism and Dementia pt presented to the ER on 11/03 with symptoms of n/v/diarrhea and work up showed UTI and colitis by imaging, she was discharged home on ciprofloxacin and flagyl. Urine culture showed E.coli resistance to ciprofloxacin. She was brought back to ER, pt still c/o abdominal pain. Her CT of Abd showed slightly worsened colitis. Pt was admitted here and started her on IV Rocephin and Flagyl. Today she denies fever, chills, abdominal pain, nausea, vomiting. She is tolerating and oral diet well. - Constitutional Vitals: Temp Pulse Resp BP Pulse Ox 98.2 F 74 16 109/63 95 11/12/17 11:53 11/12/17 11:53 11/12/17 11:53 11/12/17 11:53 11/12/17 11:53 General appearance: Present: A&O X 3, pleasant, no acute distress Exam: Gen.: Vitals noted. No acute distress. AAOx3 HEENT: oropharynx clear, Normocephalic, atraumatic Neck: Supple. No adenopathy. Cardiac: RRR, no murmur, +S1/S2 Pulmonary: CTA bilaterally, no wheezes, rales or rhonchi, equal chest expansion Abdomen: soft, nontender, Bowel sounds noted, no guarding MSK: no joint swelling noted Extremities: no BLE edema, nontender calf Neuro: A&Ox3, moves all extremities Psych: Appropriate mood and behavior Internal Medicine: Result - Labs CBC & Chem 7: 11/11/17 04:37 11/11/17 04:37 - VTE Documentation of Mechanical Device: Intermittent pneumatic compression device Consult Discharge Plan - Plan Additional Instructions: Finish antibiotics to completion' follow-up with your PCP in 1 to 2 weeks Referrals: Ximena Gonzales CNP [Advanced Practice Nurse] - 11/15/17 10:30 am Rosa Joseph MD [Primary Care Provider] - Prescriptions: Cefdinir [Omnicef] 300 mg PO 2100 #5 capsule metroNIDAZOLE [Flagyl] 500 mg PO TID #15 tablet Quetiapine Fumarate [SEROquel] 12.5 mg PO HS 30 Days tablet <Thallapaneni,Rambabu - Last Filed: 11/12/17 14:50> Date of Encounter: 11/12/17 - Assessment and plan (1) Hypertension Current Visit: Yes Status: Chronic Qualifiers: Hypertension type: essential hypertension Qualified Code(s): I10 - Essential (primary) hypertension (2) Hypothyroid Current Visit: Yes Status: Chronic Qualifiers: Hypothyroidism type: unspecified Qualified Code(s): E03.9 - Hypothyroidism , unspecified (3) DVT prophylaxis Current Visit: Yes Status: Acute (4) Colitis Current Visit: Yes Status: Acute (5) UTI (urinary tract infection) Current Visit: Yes Status: Acute Qualifiers: Urinary tract infection type: acute cystitis Hematuria presence: without hematuria Qualified Code(s): N30.00 - Acute cystitis without hematuria (6) Nausea and vomiting Current Visit: Yes Status: Resolved Qualifiers: Vomiting type: unspecified Vomiting Intractability: non-intractable Qualified Code(s): R11.2 - Nausea with vomiting, unspecified (7) Dementia Current Visit: Yes Status: Chronic Qualifiers: Dementia type: unspecified type Dementia behavioral disturbance: without behavioral disturbance Qualified Code(s): F03.90 - Unspecified dementia without behavioral disturbance (8) Sundowning Current Visit: Yes Status: Acute (9) Physical deconditioning Current Visit: Yes Status: Acute - Time Spent With Patient Total time spent is greater than 50% in coordination of care (as documented) at patient's floor/unit and/or counseling patient: - Constitutional Vitals: Temp Pulse Resp BP Pulse Ox 98.2 F 74 16 109/63 95 11/12/17 11:53 11/12/17 11:53 11/12/17 11:53 11/12/17 11:53 11/12/17 11:53 Internal Medicine: Result - Labs CBC & Chem 7: 11/11/17 04:37 11/11/17 04:37 - Attending Attestation I examined this patient and my medical decision-making was reviewed with the Resident Physician Dr. Albrecht. I agree with the documented findings, disposition and treatment plan as described except to the extent set forth below. Ms. Brannon is a 87 year old female with HTN, Hypothyroidism and Dementia She had presented to the ER on 11/03 with symptoms of n/v/diarrhea and work up showed UTI and colitis by imaging, she was discharged home on ciprofloxacin and flagyl. Urine culture showed resistance of E.coli to ciprofloxacin. She was brought back to ER, pt still c/o abdominal pain. Her CT of Abd showed slightly worsened colitis. Currently pt denied any CP / SOB. Tolerating pO intake well Gen: A, A, O to person and self Chest : Diminished BS b/l no crackles Abd: Soft, NT, BS+ a/p 1. Acute colitis Cont PO abx Omnicef + Flagyl 2. 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 Physical deconditioning need ECF placement SW working on it
[2017-11-12] MEDS: Acetaminophen 325 MG TABLET PO PRN (20:07)
[2017-11-12] MEDS: Cefdinir 300 MG CAPSULE PO SCH (20:07)
[2017-11-13 05:30] LABS: BUN/Creatinine Ratio 23 (6-26); Blood Urea Nitrogen 22 mg/dL (8-23); Carbon Dioxide 26 mEq/L (23-29); Chloride 110 mEq/L (98-107); Glucose 100 mg/dL (70-105); Osmolality,Calculated 297 (280-300); Potassium 3.8 mEq/L (3.5-5.1); Sodium 142 mEq/L (136-145); eGFR For African Americans > 60 (> 60); eGFR For Non-African Americans 55 (> 60)
[2017-11-13] MEDS: *HR* Enoxaparin 30 MG/0.3 ML SYRINGE SQ SCH (06:46)
[2017-11-13] MEDS: amLODIPine 5 MG TABLET PO SCH (08:29)
[2017-11-13] MEDS: metroNIDAZOLE 500 MG TABLET PO SCH ×2 (08:29→14:30)
[2017-11-13] MEDS: Multivit/Ca/Min/Fe/FA 1 TAB TABLET PO SCH (08:29)
--- NOTE | 2017-11-13 11:51 | Event Note ---
Date of Encounter: 11/13/17 Time of Encounter: 08:20
--- NOTE | 2017-11-13 11:52 | Physician Discharge Referral ---
ExtendedCare Referral Info Transfer To: SNF Provider in Charge after Transfer: PCP Institutional Level of Care: Skilled - Diagnosis (1) Colitis Status: Acute (2) UTI (urinary tract infection) Status: Acute (3) Physical deconditioning Status: Acute (4) Hypertension Status: Chronic (5) Hypothyroid Status: Chronic (6) Nausea and vomiting Status: Resolved (7) Dementia Status: Chronic (8) Sundowning Status: Acute (9) DVT prophylaxis Status: Acute - Transfer Medications Prescriptions: Cefdinir [Omnicef] 300 mg PO 2100 #5 capsule metroNIDAZOLE [Flagyl] 500 mg PO TID #15 tablet Quetiapine Fumarate [SEROquel] 12.5 mg PO HS 30 Days tablet Home Medications: Atorvastatin [Lipitor] 40 mg PO HS 05/21/17 [History] Donepezil [Aricept] 5 mg PO HS 05/21/17 [History] Levothyroxine [Synthroid] 100 mcg PO DAILY 05/21/17 [History] Cranberry 400 mg PO DAILY 11/07/17 [History] Losartan Potassium [Cozaar] 100 mg PO DAILY 11/07/17 [History] Multivitamin [One Daily Essential] 1 tab PO DAILY 11/07/17 [History] Tramadol HCl [Ultram] 50 - 100 mg PO TID PRN 11/07/17 [History] Vit A/Vit C/Vit E/Zinc/Copper [Preservision Areds Tablet] 1 tab PO DAILY [History] Cefdinir [Omnicef] 300 mg PO 2100 #5 capsule 11/10/17 [Rx] Quetiapine Fumarate [SEROquel] 12.5 mg PO HS 30 Days tablet 11/10/17 [Rx] metroNIDAZOLE [Flagyl] 500 mg PO TID #15 tablet 11/10/17 [Rx] Allergies/Adverse Reactions: 3 Allergy/AdvReac Type Severity Reaction Status Date / Time Penicillins [PCN] Allergy Unknown See Verified 11/07/17 21:13 Comments codeine Allergy See Verified 11/07/17 21:13 Comments - Respiratory Orders None Smoking Cessation: Smoking cessation has been advised. For more information, call the [place] Tobacco Quit Line at 1-479-PQFS-NOW. - Advance Directives Code Status: Full Code - Mobility Orders Ambulate - Rehabiliation Orders Rehab Orders: Evaluation for Physical Therapy, Evaluation for Occupational Therapy - Diet Orders Regular CERTIFICATION: I certify that the transfer of the above named patient to an Extended Care Facility is necessary for the continuing treatment of the diagnosis listed. The above information is true and accurate reflection of patient's current condition. Confidential - Redisclosure prohibited without a patient's written consent. Dr. Dimple Albrecht
[2017-11-13 12:57] VITALS: BP 135/65
--- NOTE | 2017-11-13 16:46 | Event Note ---
Date of Encounter: 11/13/17 Time of Encounter: 16:44 I performed a history and physical examination of the patient and discussed his/ her management with the resident. I reviewed the residents note and agree with the documented findings and plan of care. Patient is discharged today in stable condition. Physical exam was unremarkable and vital signs stable. Please see discharge summary for hospital course.
--- NOTE | 2017-11-14 10:41 | Internal Med Progress Note ---
Date of Encounter: 11/13/17 Time of Encounter: 10:41 - Assessment and plan (1) Hypertension Status: Chronic Assessment and plan: stable with Losartan and Norvasc cont monitor Qualifiers: Hypertension type: essential hypertension Qualified Code(s): I10 - Essential (primary) hypertension (2) Hypothyroid Status: Chronic Assessment and plan: Continue home Synthroid. Qualifiers: Hypothyroidism type: unspecified Qualified Code(s): E03.9 - Hypothyroidism , unspecified (3) DVT prophylaxis Status: Acute Assessment and plan: lovenox SQ (4) Colitis Status: Acute Assessment and plan: -Continue PO Omnicef day 10/27 -continue PO Flagyl day 11/26 -cont supportive care -She will be discharged to SNF for PT/OT pending insurance approval most likely to monitor. (5) UTI (urinary tract infection) Status: Acute Assessment and plan: cont empirical abx Omnicef Qualifiers: Urinary tract infection type: acute cystitis Hematuria presence: without hematuria Qualified Code(s): N30.00 - Acute cystitis without hematuria (6) Nausea and vomiting Status: Resolved Assessment and plan: Resolved Continue symptomatic and supportive care Qualifiers: Vomiting type: unspecified Vomiting Intractability: non-intractable Qualified Code(s): R11.2 - Nausea with vomiting, unspecified (7) Dementia Status: Chronic Assessment and plan: Patient is alert and oriented to person, place, and situation. Will continue home meds. Considering patient a fall/elopement risk. Qualifiers: Dementia type: unspecified type Dementia behavioral disturbance: without behavioral disturbance Qualified Code(s): F03.90 - Unspecified dementia without behavioral disturbance (8) Sundowning Status: Acute Assessment and plan: Cont Seroquel HS and PRN Haldol. (9) Physical deconditioning Status: Acute Assessment and plan: Seems severely de conditioned pt is unable to ambulate well with nurse assessment -PT/OT recommends home supervision 24 hours -social work is working on placement to SNF for PT/OT will most likely be discharged tomorrow - Time Spent With Patient Total time spent is greater than 50% in coordination of care (as documented) at patient's floor/unit and/or counseling patient: - Subjective Interval history: No acute events. Please see discharge summary. - Constitutional Vitals: Temp Pulse Resp BP Pulse Ox 97.9 F 89 17 135/65 96 04/24/18 12:50 11/13/17 12:50 11/13/17 12:50 11/13/17 12:50 11/13/17 12:50 General appearance: Present: A&O X 3, pleasant, no acute distress - Head Head exam: Present: atraumatic, normocephalic - Eye Eye exam: Present: PERRL, conjuntiva pink, sclera anicteric Pupils: Present: PERRL - Neck Neck exam general surgery: Present: supple, trachea midline. Absent: lymphadenopathy - Respiratory Respiratory exam: Present: CTAB. Absent: accessory muscle use, rales, rhonchi, wheezes - Cardiovascular Cardiovascular exam: Present: RRR, +S1, +S2. Absent: diastolic murmur, gallop, rubs, systolic murmur - GI/Abdominal GI/Abdominal exam: Present: normal bowel sounds, soft, no peritoneal signs. Absent: distended, tenderness - Extremities Exam Extremities exam: Present: warm, radial pulses palpable and symmetrical. Absent : calf tenderness, cyanotic, pedal edema - Neurological Exam Neurological exam: Present: oriented X3, no focal deficits. Absent: pronater drift, facial droop, speech deficit - Skin Skin exam: Present: dry, intact Internal Medicine: Result - Labs CBC & Chem 7: 11/11/17 04:37 11/13/17 04:22 - VTE Documentation of Mechanical Device: Intermittent pneumatic compression device Consult Discharge Plan - Plan Instructions: Urinary Tract Infection in Women (DC) Additional Instructions: Finish antibiotics to completion' follow-up with your PCP in 1 to 2 weeks Referrals: Ximena Gonzales CNP [Advanced Practice Nurse] - 11/15/17 10:30 am Rosa Joseph MD [Primary Care Provider] - Prescriptions: Cefdinir [Omnicef] 300 mg PO 2100 #5 capsule metroNIDAZOLE [Flagyl] 500 mg PO TID #15 tablet Quetiapine Fumarate [SEROquel] 12.5 mg PO HS 30 Days tablet
== END 2017-11-13 15:52 | DRG 392 ==
LOC: EMEROO 15:34 → 3ANU 15:34 → SUATTDRO 22:16 → 3ANU 22:21
PROVIDERS: ADMIT Internal Medicine; ATTEND Family Medicine

== ENCOUNTER 2017-12-13 11:00 | Inpatient (IN) ==
[2017-12-13] MEDS ORDERED: Isovue-370 500 ML INFUS..BTL IV ONE (11:08)
--- NOTE | 2017-12-13 11:48 | Emergency Department Note ---
Disposition Clinical Impression: Saddle embolus, Hypoxia Disposition: Admitted As Inpatient Referrals: Rosa Joseph MD [Primary Care Provider] - Forms: ED Satisfaction Letter Time of Disposition: 14:38 General Adult HPI - General Chief complaint: ED Shortness of Breath/Dyspnea Stated complaint: PRAVEEN Time Seen by Provider: 12/13/17 11:08 Source: patient, EMS Limitations: no limitations Nursing Notes Reviewed: Yes Vital Signs Reviewed: Yes - History of Present Illness HPI Narrative: 87 year old female prsentse to the ED via EMS from longterm and POA at bedside. POA states that she was in the longterm for rehabd from a most recently admission to the hospital for colitis/UTI. History from the longterm states that she was at physical rehab today and went to the bathroom and became incresingly dyspneix and hypoxic to 68%, upon arrival to us she is 75% on RA. She klein swear 2LNC at all times but has not preivous history of PE or DVT and is currenlty on prophylatic therapy. Mickie is tachycaird and afebrile. POA denies any recent change in mentation although she seems more deconditioned than usual. Mickie denies chest pain, and appear tahcypneic without wheezes on exam Pain Scale: 0 - Related Data Home Medications Medication Instructions Recorded Confirmed Atorvastatin [Lipitor] 40 mg PO HS 05/21/17 11/07/17 Donepezil [Aricept] 5 mg PO HS 05/21/17 11/07/17 Levothyroxine [Synthroid] 100 mcg PO DAILY 05/21/17 11/07/17 Cranberry 400 mg PO DAILY 11/07/17 11/07/17 Losartan Potassium [Cozaar] 100 mg PO DAILY 11/07/17 11/07/17 Multivitamin [One Daily Essential] 1 tab PO DAILY 11/07/17 11/07/17 Tramadol HCl [Ultram] 50 - 100 mg PO TID PRN 11/07/17 11/07/17 Vit A/Vit C/Vit E/Zinc/Copper 1 tab PO DAILY 11/07/17 11/07/17 [Preservision Areds Tablet] Previous Rx's Medication Instructions Recorded Cefdinir [Omnicef] 300 mg PO 2100 #5 capsule 04/21/18 Quetiapine Fumarate [SEROquel] 12.5 mg PO HS 30 Days tablet 11/10/17 Allergies Allergy/AdvReac Type Severity Reaction Status Date / Time Penicillins [PCN] Allergy Unknown See Verified 12/13/17 11:10 Comments codeine Allergy See Verified 12/13/17 11:10 Comments Constitutional: Denies: fever, chills, weakness, weight change Eyes: Denies: eye pain, eye discharge, vision change ENT ED: Denies: ear pain, throat pain, dental pain, hearing loss, epistaxis, congestion, dysphagia Cardiovascular: Denies: chest pain, palpitations, dyspnea on exertion, edema, syncope Respiratory: Reports: dyspnea. Denies: cough, wheezes, hemoptysis, stridor Gastrointestinal: Denies: abdominal pain, nausea, vomiting, diarrhea, constipation, hematemesis, melena, hematochezia Genitourinary: Denies: dysuria, frequency, hematuria, discharge Musculoskeletal: Denies: back pain, neck pain, arthralgia, myalgia Integumentary: Denies: rash, abrasion, lesions Neurological: Denies: headache, weakness, numbness, paresthesias, confusion, abnormal gait, vertigo Psychiatric: Denies: anxiety, depression, suicidal thoughts, homicidal thoughts , auditory hallucinations, visual hallucinations Endocrine: Denies: fatigue Hematological/Lymphatic: Denies: easy bleeding, easy bruising Allergic/Immunologic: Denies: facial swelling, urticaria Past Medical History - Past Medical History Medical history: Reports: dementia, hyperlipidemia, hypertension, thyroid disease Surgical history: Reports: hysterectomy Psychiatric history: Reports: no psych history [employer] history: Reports: non-contributory - Social History Smoking Status: Never smoker Smokeless Tobacco Status: No Alcohol use: Reports: none Drug use: Reports: none Physical Exam - General Limitations: no limitations General appearance: alert, anxious, in distress, cachectic - Head Head exam: atraumatic, normocephalic, normal inspection - Eye Eye exam: Present: normal appearance, PERRL, EOMI - Expanded Eye Exam Pupils: Bilateral: reactive - ENT ENT exam: normal exam, normal oropharynx, mucous membranes moist - Expanded ENT Exam External ear exam: Present: normal external inspection Mouth exam: Present: normal external inspection Teeth exam: Present: normal inspection Throat exam: Present: normal inspection - Neck Neck exam: Present: normal inspection, full ROM, trachea midline - Chest Chest inspection: Present: normal inspection, symmetric chest wall rise - Respiratory Respiratory exam: Present: respiratory distress, accessory muscle use. Absent: wheezes, stridor - Cardiovascular Cardiovascular exam: Present: normal rhythm, tachycardia, normal heart sounds - Abdominal Exam Abdominal exam: Present: soft, Non-Tender. Absent: tenderness, distention, guarding, rebound, rigidity - Extremities Exam Extremities exam: Present: normal inspection, full ROM. Absent: tenderness, pedal edema - Expanded Upper Extremity Exam Shoulder exam: Present: normal inspection, full ROM Arm exam: Present: normal inspection, full ROM Elbow exam: Present: normal inspection, full ROM Forearm/Wrist exam: Present: normal inspection, full ROM Hand exam: Present: normal inspection, full ROM Vascular exam: Normal: capillary refill, radial pulse - Expanded Lower Extremity Exam Hip/Pelvis exam: Present: normal inspection, full ROM Upper leg exam: Present: normal inspection, full ROM Knee exam: Present: normal inspection, full ROM Lower leg exam: Present: normal inspection, full ROM Ankle exam: Present: normal inspection, full ROM Foot/toe exam: Present: normal inspection, full ROM Neurovascular/Tendon exam: Absent: motor deficit, sensory deficit, tendon deficit - Back Exam Back exam: Present: normal inspection, full ROM. Absent: tenderness - Neurological Exam Neurological exam: Present: alert, oriented X3 - Expanded Neurological Exam Patient oriented to: Present: person, place, time Coma Scale Eye Opening: Spontaneous Coma Scale Motor Response: Obeys Commands Coma Scale Verbal Response: Oriented Coma Scale Total: 15 - Psychiatric Psychiatric exam: Present: normal affect, normal mood - Skin Skin exam: Present: warm, dry, intact, normal color Course Course Narrative: we will do a cardiopulmonary workup and CTA to rule out PE vs HCAP. WE will admit to medicine today. She has been placed on a bipap to assist with respiratory efforts and is currently 93% and toelrating it well. - Reevaluation(s) Reevaluation #1: updatd patient and family and they are agreeable to admission Time: 14:37 - Consultations Consultation #1: discussed case with Dr. Meyers for consultation on tpa candidaate for saddle embolus. He agrees she is a candidate for tpa due to saddle emboli. Discussed with family and they are agreeable Time: 14:37 Consultation #2: discussed case with Dr. Arroyo and he gricel like for us to hold the tPA for now due to age and incresed risk of intracranial bleed. WE will hold tpA. He would also like bilateral dopplers obtained. He accepts patient ot his service. Time: 15:00 Vital Signs Temperature 98.2 F 12/13/17 11:10 Pulse Rate 128 12/13/17 11:10 Respiratory Rate 26 12/13/17 11:10 Blood Pressure 155/83 12/13/17 11:10 O2 Sat by Pulse Oximetry 95 12/13/17 11:10 Temperature 98.2 F 12/13/17 11:10 Pulse Rate 97 12/13/17 14:00 Respiratory Rate 97 12/13/17 14:27 Blood Pressure 139/72 12/13/17 14:27 O2 Sat by Pulse Oximetry 95 12/13/17 14:27 Oxygen Delivery Oxygen Delivery Bipap Medical Decision Making - Medical Records Medical records reviewed: Yes I reviewed the patient's medical records. - Lab Data Lab results reviewed: Yes I reviewed the patient's lab results. Result diagrams: 12/13/17 11:57 12/13/17 11:57 Lab Results 12/13/17 12/13/17 12/13/17 Range/Units 11:32 11:57 11:57 WBC (4.3-11.1) K/mcL RBC (3.82-4.97) M/mcL Hgb (11.5-15.4) g/dL Hct (35.3-44.9) % MCV (83.0-100.0) fL MCH (28.0-33.3) pg MCHC (31.6-35.5) g/dL RDW (11.5-14.5) % Plt Count (140-400) K/mcL MPV (9.4-12.4) fL Immature Gran % (0-4) % Seg Neutrophils % % Lymphocytes % % Monocytes % % Eosinophils % % Basophils % % Neutrophils # (1.6-8.9) K/mcL Lymphocytes # (0.6-4.6) K/mcL Monocytes # (0.0-1.3) K/mcL Eosinophils # (0.0-0.6) K/mcL Basophils # (0.0-0.2) K/mcL PT 13.3 H (9.4-12.1) Seconds INR 1.2 APTT 22.5 L (26.0-36.0) Seconds ABG pH (7.32-7.45) pH Units ABG pCO2 (35-45) mmHg ABG pO2 (85-104) mmHg ABG HCO3 (21-27) mEq/L ABG Total CO2 (20-26) mEq/L ABG O2 Saturation (95-98) % ABG Base Excess (-2 to 3) mEq/L Respiration Rate O2 Delivery Device Inspired O2 (1-15=lpm [id number]=%) Sodium (136-145) mEq/L Potassium (3.5-5.1) mEq/L Chloride (98-107) mEq/L Carbon Dioxide (23-29) mEq/L BUN (8-23) mg/dL Creatinine (0.60-1.20) mg/dL Est GFR ( Amer) (> 60) Est GFR (Non-Af Amer) (> 60) BUN/Creatinine Ratio (6-26) Glucose (70-105) mg/dL Calculated Osmolality (280-300) Lactic Acid (0.5-2.2) mmol/L Calcium (8.6-10.3) mg/dL Total Bilirubin 0.8 (0.3-1.0) mg/dL Direct Bilirubin 0.1 (0.0-0.2) mg/dL Indirect Bilirubin 0.7 (0.0-1.2) mg/dL AST 36 (13-39) Units/L ALT 45 (7-52) Units/L Alkaline Phosphatase 130 H (34-104) Units/L Troponin I (< 0.04) ng/mL B-Natriuretic Peptide (Less than 100) pg/mL Serum Total Protein 6.3 L (6.4-8.9) g/dL Albumin 3.0 L (3.5-5.7) g/dL Globulin 3.3 (2.4-3.5) g/dL Albumin/Globulin Ratio 0.9 L (1.1-2.2) Lipase 65 (11-82) Units/L TSH (0.340-5.600) mcIU/mL Urine Color Yellow (Yellow) Urine Clarity Clear (Clear) Urine pH 5.5 (5.0-8.0) pH Units Ur Specific [place] 1.025 (1.010-1.025) Urine Protein Negative (Neg-Trace) mg/dL Urine Glucose (UA) Normal (Normal) mg/dL Urine Ketones Negative (Negative) mg/dL Urine Blood Negative (Negative) Urine Nitrite Negative (Negative) Urine Bilirubin Negative (Negative) Urine Urobilinogen Normal (Normal) mg/dL Ur Leukocyte Esterase Negative (Negative) Ur Culture Indicated? NO (NO) 12/13/17 12/13/17 12/13/17 Range/Units 11:57 11:57 11:57 WBC 24.1 H (4.3-11.1) K/mcL RBC 4.26 (3.82-4.97) M/mcL Hgb 13.5 (11.5-15.4) g/dL Hct 39.5 (35.3-44.9) % MCV 92.7 (83.0-100.0) fL MCH 31.7 (28.0-33.3) pg MCHC 34.2 (31.6-35.5) g/dL RDW 13.4 (11.5-14.5) % Plt Count 200 (140-400) K/mcL MPV 10.4 (9.4-12.4) fL Immature Gran % 1.0 (0-4) % Seg Neutrophils % 85.2 % Lymphocytes % 9.1 % Monocytes % 4.2 % Eosinophils % 0.4 % Basophils % 0.1 % Neutrophils # 20.5 H (1.6-8.9) K/mcL Lymphocytes # 2.2 (0.6-4.6) K/mcL Monocytes # 1.0 (0.0-1.3) K/mcL Eosinophils # 0.1 (0.0-0.6) K/mcL Basophils # 0.0 (0.0-0.2) K/mcL PT (9.4-12.1) Seconds INR APTT (26.0-36.0) Seconds ABG pH (7.32-7.45) pH Units ABG pCO2 (35-45) mmHg ABG pO2 (85-104) mmHg ABG HCO3 (21-27) mEq/L ABG Total CO2 (20-26) mEq/L ABG O2 Saturation (95-98) % ABG Base Excess (-2 to 3) mEq/L Respiration Rate O2 Delivery Device Inspired O2 (1-15=lpm [id number]=%) Sodium 137 (136-145) mEq/L Potassium 4.1 (3.5-5.1) mEq/L Chloride 101 (98-107) mEq/L Carbon Dioxide 24 (23-29) mEq/L BUN 26 H (8-23) mg/dL Creatinine 1.16 (0.60-1.20) mg/dL Est GFR ( Amer) 53 L (> 60) Est GFR (Non-Af Amer) 44 L (> 60) BUN/Creatinine Ratio 22 (6-26) Glucose 164 H (70-105) mg/dL Calculated Osmolality 292 (280-300) Lactic Acid (0.5-2.2) mmol/L Calcium 8.7 (8.6-10.3) mg/dL Total Bilirubin (0.3-1.0) mg/dL Direct Bilirubin (0.0-0.2) mg/dL Indirect Bilirubin (0.0-1.2) mg/dL AST (13-39) Units/L ALT (7-52) Units/L Alkaline Phosphatase (34-104) Units/L Troponin I 0.09 H* (< 0.04) ng/mL B-Natriuretic Peptide 1005 H (Less than 100) pg/mL Serum Total Protein (6.4-8.9) g/dL Albumin (3.5-5.7) g/dL Globulin (2.4-3.5) g/dL Albumin/Globulin Ratio (1.1-2.2) Lipase (11-82) Units/L TSH 2.594 (0.340-5.600) mcIU/mL Urine Color (Yellow) Urine Clarity (Clear) Urine pH (5.0-8.0) pH Units Ur Specific [place] (1.010-1.025) Urine Protein (Neg-Trace) mg/dL Urine Glucose (UA) (Normal) mg/dL Urine Ketones (Negative) mg/dL Urine Blood (Negative) Urine Nitrite (Negative) Urine Bilirubin (Negative) Urine Urobilinogen (Normal) mg/dL Ur Leukocyte Esterase (Negative) Ur Culture Indicated? (NO) 12/13/17 12/13/17 Range/Units 12:05 13:04 WBC (4.3-11.1) K/mcL RBC (3.82-4.97) M/mcL Hgb (11.5-15.4) g/dL Hct (35.3-44.9) % MCV (83.0-100.0) fL MCH (28.0-33.3) pg MCHC (31.6-35.5) g/dL RDW (11.5-14.5) % Plt Count (140-400) K/mcL MPV (9.4-12.4) fL Immature Gran % (0-4) % Seg Neutrophils % % Lymphocytes % % Monocytes % % Eosinophils % % Basophils % % Neutrophils # (1.6-8.9) K/mcL Lymphocytes # (0.6-4.6) K/mcL Monocytes # (0.0-1.3) K/mcL Eosinophils # (0.0-0.6) K/mcL Basophils # (0.0-0.2) K/mcL PT (9.4-12.1) Seconds INR APTT (26.0-36.0) Seconds ABG pH 7.45 (7.32-7.45) pH Units ABG pCO2 35 (35-45) mmHg ABG pO2 116 H (85-104) mmHg ABG HCO3 24 (21-27) mEq/L ABG Total CO2 25 (20-26) mEq/L ABG O2 Saturation 99 H (95-98) % ABG Base Excess 0 (-2 to 3) mEq/L Respiration Rate 8 O2 Delivery Device BiPAP Inspired O2 60.0 (1-15=lpm [id number]=%) Sodium (136-145) mEq/L Potassium (3.5-5.1) mEq/L Chloride (98-107) mEq/L Carbon Dioxide (23-29) mEq/L BUN (8-23) mg/dL Creatinine (0.60-1.20) mg/dL Est GFR ( Amer) (> 60) Est GFR (Non-Af Amer) (> 60) BUN/Creatinine Ratio (6-26) Glucose (70-105) mg/dL Calculated Osmolality (280-300) Lactic Acid 2.3 H (0.5-2.2) mmol/L Calcium (8.6-10.3) mg/dL Total Bilirubin (0.3-1.0) mg/dL Direct Bilirubin (0.0-0.2) mg/dL Indirect Bilirubin (0.0-1.2) mg/dL AST (13-39) Units/L ALT (7-52) Units/L Alkaline Phosphatase (34-104) Units/L Troponin I (< 0.04) ng/mL B-Natriuretic Peptide (Less than 100) pg/mL Serum Total Protein (6.4-8.9) g/dL Albumin (3.5-5.7) g/dL Globulin (2.4-3.5) g/dL Albumin/Globulin Ratio (1.1-2.2) Lipase (11-82) Units/L TSH (0.340-5.600) mcIU/mL Urine Color (Yellow) Urine Clarity (Clear) Urine pH (5.0-8.0) pH Units Ur Specific [place] (1.010-1.025) Urine Protein (Neg-Trace) mg/dL Urine Glucose (UA) (Normal) mg/dL Urine Ketones (Negative) mg/dL Urine Blood (Negative) Urine Nitrite (Negative) Urine Bilirubin (Negative) Urine Urobilinogen (Normal) mg/dL Ur Leukocyte Esterase (Negative) Ur Culture Indicated? (NO) - Radiology Data Radiology results reviewed: Yes I reviewed the patient's radiology results. - EKG Data EKG #1 EKG attestation: Yes I reviewed and interpreted this EKG. EKG results narrative: sinus tachy with rat eof 108. occasional PVCs. LBB, LAD. NO STEMI. no change from 11/03/17
[2017-12-13 12:06] LABS: Bilirubin,Urine Negative (Negative); Blood,Urine Negative (Negative); Clarity,Urine Clear (Clear); Color,Urine Yellow (Yellow); Glucose,Urine (UA) Normal (Normal); Ketones,Urine Negative (Negative); Leukocyte Esterase,Urine Negative (Negative); Nitrite,Urine Negative (Negative); PH,Urine 5.5 pH Units (5.0-8.0); Protein,Urine Negative (Neg-Trace); Specific Gravity,Urine 1.025 (1.010-1.025); Urobilinogen,Urine Normal (Normal)
[2017-12-13 12:10] LABS: ABG Base Excess 0 mEq/L (-2 to 3); ABG HCO3 24 mEq/L (21-27); ABG Oxygen Saturation 99 % (95-98); ABG PCO2 35 mmHg (35-45); ABG PH 7.45 pH Units (7.32-7.45); ABG PO2 116 mmHg (85-104); ABG TCO2 25 mEq/L (20-26); Blood Gas Respiration Rate 8
[2017-12-13 12:21] LABS: Basophils % 0.1 %; Eosinophils # 0.1 K/mcL (0.0-0.6); Eosinophils % 0.4 %; Hematocrit 39.5 % (35.3-44.9); Hemoglobin 13.5 g/dL (11.5-15.4); Lymphocytes # 2.2 K/mcL (0.6-4.6); Lymphocytes % 9.1 %; Mean Corpuscular HGB Conc 34.2 g/dL (31.6-35.5); Mean Corpuscular Hemoglobin 31.7 pg (28.0-33.3); Mean Corpuscular Volume 92.7 fL (83.0-100.0); Mean Platelet Volume 10.4 fL (9.4-12.4); Monocytes % 4.2 %; Neutrophils # 20.5 K/mcL (1.6-8.9); Platelet Count 200 K/mcL (140-400); Red Blood Count 4.26 M/mcL (3.82-4.97); Red Cell Distribution Width 13.4 % (11.5-14.5); Segmented Neutrophils % 85.2 %
[2017-12-13 12:24] LABS: INR 1.2; Prothrombin Time 13.3 Seconds (9.4-12.1)
[2017-12-13 12:27] LABS: Activated Partial Thrombo Time 22.5 Seconds (26.0-36.0)
[2017-12-13 12:39] LABS: Albumin/Globulin Ratio 0.9 (1.1-2.2); Bilirubin,Direct 0.1 mg/dL (0.0-0.2); Bilirubin,Indirect 0.7 mg/dL (0.0-1.2); Bilirubin,Total 0.8 mg/dL (0.3-1.0); Globulin 3.3 g/dL (2.4-3.5); Total Protein 6.3 g/dL (6.4-8.9)
[2017-12-13 12:48] LABS: Troponin I 0.09 ng/mL (< 0.04)
[2017-12-13 12:53] LABS: Thyroid Stimulating Hormone 2.594 mcIU/mL (0.340-5.600)
[2017-12-13 12:59] LABS: Calcium 8.7 mg/dL (8.6-10.3); Potassium 4.1 mEq/L (3.5-5.1)
[2017-12-13] MEDS ORDERED: *HR* Heparin 5,000 UNIT/ML VIAL IVP ONE (14:07)
[2017-12-13] MEDS ORDERED: *HR* Heparin 5,000 UNIT/ML VIAL IVP PRN ×2 (14:07)
[2017-12-13] MEDS ORDERED: Heparin 25,000 UNIT/500 ML D5W 25,000 UNIT/500 ML BAG IVC SCH (14:15)
[2017-12-13] MEDS ORDERED: Alteplase (Activase) 100 MG in EMPTY BAG 1 EACH IVPB ONE (14:32)
--- NOTE | 2017-12-13 16:30 | Pulmonology History & Physical ---
Date of Encounter: 12/13/17 Time of Encounter: 15:40 Assessment and Plan (1) Saddle embolus Current visit: Yes Status: Acute I have seen and examined patient in the emergency room and discussed with the emergency room attending that that would not recommend TPA for this patient mainly because her blood pressure is normal and given to the wrist sign of right heart strain and elevated troponin and BNP level, however in my opinion the risk of intracranial hemorrhage is significant in this age group and this was discussed with the power of water resource engineering specialist and the family at the bedside and they agreed with the plan. I have also told the family other option would be catheter directed treatment for pulmonary embolism which is not available in our facility and they understand that and they desired to keep patient in our hospital. I have also discussed CODE STATUS and power of water resource engineering specialist stated that patient CODE STATUS is DNR arrest. We have discussed if she is in shock then may consider TPA and they understand that. We will continue heparin drip at this time. I suspect this is a provoked pulmonary embolism due to her recent illness and not being very mobile. I spent 35 min of Critical Care time with this patient. It involved decision making of high complexity to assess, manipulate, and support vital organ system failure and/or to prevent further life threatening deterioration of the patient' s condition. The time involved in the performance of separately reportable procedures was not counted toward critical care time. (2) Acute and chronic respiratory failure with hypoxia Current visit: Yes Status: Acute Patient is tolerating noninvasive ventilation. (3) Dementia Current visit: No Status: Chronic Resume her home medications Qualifiers: Dementia type: unspecified type Dementia behavioral disturbance: without behavioral disturbance Qualified Code(s): F03.90 - Unspecified dementia without behavioral disturbance History of Present Illness Chief complaint: Shortness of breath HPI: Ms. Brannon is a 87 year old female presented to emergency room via [facility] and history is taken from the power of water resource engineering specialist at the bedside. Patient is not able to give history because she is on BiPAP and requiring mask. Patient was in the [facility] for rehabilitation from a recent hospitalization for urinary tract infection and also colitis. There is no history of DVT and also patient has not been active due to her sickness. Patient was found to be hypoxic and has dyspnea and the [facility] and she was found to be hypoxic on room air in the emergency room. She normally uses oxygen long-term 2 L/m. Patient denies any fever or chills and denies any significant chest pain. There is no history of sputum production and no history of recent colonoscopy and also no history of malignancies. Past Med Surg Social Fam HX - Past Medical History Medical history: dementia, hyperlipidemia, hypertension, thyroid disease Psychiatric history: no psych history - Past Surgical History Surgical History: hysterectomy - Social History Smoking Status: Never smoker Smokeless Tobacco Status: No Alcohol use: none Drug use: none - Family History Sister Hx Family Neurologic Disorders: Yes (bonnie) Medications and Allergies Donepezil [Aricept] 5 mg PO HS 05/21/17 [History] Levothyroxine [Synthroid] 100 mcg PO DAILY 05/21/17 [History] Cranberry 400 mg PO DAILY 11/07/17 [History] Losartan Potassium [Cozaar] 100 mg PO DAILY 11/07/17 [History] Multivitamin [One Daily Essential] 1 tab PO DAILY 11/07/17 [History] Tramadol HCl [Ultram] 50 mg PO TID PRN 11/07/17 [History] Vit A/Vit C/Vit E/Zinc/Copper [Preservision Areds Tablet] 1 tab PO DAILY [History] Quetiapine Fumarate [SEROquel] 12.5 mg PO HS 30 Days tablet 11/10/17 [Rx] Omeprazole [PriLOSEC] 20 mg PO DAILY 12/13/17 [History] 3 Allergy/AdvReac Type Severity Reaction Status Date / Time Penicillins [PCN] Allergy Unknown See Verified 12/13/17 15:26 Comments codeine Allergy See Verified 12/13/17 15:26 Comments ROS unobtainable: due to mental status, other (Patient is on BiPAP) All Systems: The remainder of the systems were reviewed and are negative Physical Examination Vital Signs: Vital Signs, Last 4 Hours Pulse Resp BP Pulse Ox 12/13/17 16:19 95 12 139/72 98 12/13/17 14:27 97 139/72 95 12/13/17 14:00 97 20 139/72 95 12/13/17 13:29 23 98 12/13/17 13:11 100 15 115/63 95 General appearance: no acute distress Eyes: nonicteric ENT: oropharynx dry Neck: supple, no JVD Effort: mildly labored Inspection: normal Auscultation: bilateral: diminished breath sounds Percussion: bilateral: not dull Cardiovascular: regular rate and rhythm, murmur noted Gastrointestinal: normoactive bowel sounds, non-distended Extremities: no cyanosis, no edema, other (No evidence of calves tenderness) non-focal exam mood appropriate Results - Laboratory Findings CBC and BMP: 12/13/17 11:57 12/13/17 11:57 ABG ABG pH 7.45 pH Units (7.32-7.45) 12/13/17 12:05 ABG pCO2 35 mmHg (35-45) 12/13/17 12:05 ABG pO2 116 mmHg (85-104) H 12/13/17 12:05 ABG O2 Saturation 99 % (95-98) H 12/13/17 12:05 PT/INR, D-dimer PT 13.3 Seconds (9.4-12.1) H 12/13/17 11:57 Abnormal lab findings: Abnormal lab results WBC 24.1 K/mcL (4.3-11.1) H 12/13/17 11:57 Neutrophils # 20.5 K/mcL (1.6-8.9) H 12/13/17 11:57 PT 13.3 Seconds (9.4-12.1) H 12/13/17 11:57 APTT 22.5 Seconds (26.0-36.0) L 12/13/17 11:57 ABG pO2 116 mmHg (85-104) H 12/13/17 12:05 ABG O2 Saturation 99 % (95-98) H 12/13/17 12:05 BUN 26 mg/dL (8-23) H 12/13/17 11:57 Est GFR ( Amer) 53 (> 60) L 12/13/17 11:57 Est GFR (Non-Af Amer) 44 (> 60) L 12/13/17 11:57 Glucose 164 mg/dL (70-105) H 12/13/17 11:57 Lactic Acid 2.3 mmol/L (0.5-2.2) H 12/13/17 13:04 Alkaline Phosphatase 130 Units/L (34-104) H 12/13/17 11:57 Troponin I 0.09 ng/mL (< 0.04) H* 12/13/17 11:57 B-Natriuretic Peptide 1005 pg/mL (Less than 100) H 12/13/17 11:57 Serum Total Protein 6.3 g/dL (6.4-8.9) L 12/13/17 11:57 Albumin 3.0 g/dL (3.5-5.7) L 12/13/17 11:57 Albumin/Globulin Ratio 0.9 (1.1-2.2) L 12/13/17 11:57 - Diagnostic Findings CT scan - chest: report reviewed, image reviewed
[2017-12-13] MEDS ORDERED: Naloxone 0.4 MG/ML INJ IVP PRN (17:03)
[2017-12-13] MEDS ORDERED: Acetaminophen 325 MG TABLET PO PRN (17:03)
[2017-12-13] MEDS ORDERED: Potassium Phosphate 44 MEQ in 0.9 % Sodium Chloride 250 ML IVPB PRN (17:04)
[2017-12-13] MEDS ORDERED: 0.9 % Sodium Chloride 1,000 ML IVC SCH (21:15)
--- NOTE | 2017-12-14 02:23 | Pulmonology Progress Note ---
<Roland Mccollum - Last Filed: 12/14/17 02:20> Date of Encounter: 12/14/17 Time of Encounter: 02:21 Assessment and Plan (1) Saddle embolus Current Visit: Yes Status: Acute CTA of the chest 12/13/17. Likely provoked given the patient's recent illness and periods of immobility. Patient does have evidence of right heart strain with elevated troponin as well as elevated BNP and findings a right heart strain on CT however the patient remains hemodynamically compensated. Discussion regarding thrombolytics was discussed with the patient's power of city attorney with risks versus benefit. Concerns of risk of intracranial hemorrhage with thrombolysis in this age group. No acute events overnight with heparin anticoagulation on noninvasive positive pressure ventilation. Dopplers of the lower extremity reveal bilateral DVTs. Plan -Continue heparin and monitor for s/sx of bleeding- bridge to po anticoagulation when appropriate. Risk vs Benefit of chronic anticoagulation in the elderly. -Family wishes not to transfer for catheter directed thrombolysis. -Echo results pending. -May consider IVC filter given clot burden of lower ext. (2) Acute and chronic respiratory failure with hypoxia Current Visit: Yes Status: Acute Etiology secondary to above. Remained on NIPPV overnight and tolerated well. Plan attempt windows from the BiPAP. (3) Elevated troponin Current Visit: No Status: Chronic Troponin 0.09. Likely secondary to saddle embolus. Trend. Remain on heparin. (4) Dementia Current Visit: No Status: Chronic Will resume home meds. Qualifiers: Dementia type: unspecified type Dementia behavioral disturbance: without behavioral disturbance Qualified Code(s): F03.90 - Unspecified dementia without behavioral disturbance Subjective Principal diagnosis: Pulmonary embolism Interval history: Patient seen and examined. Patient rested with noninvasive positive pressure ventilation overnight. Patient resting comfortably. No significant changes overnight. Patient had a echo as well as bilateral Dopplers of the lower extremities performed. Remained hemodynamically compensated. Does not complain of labored breathing with the assistance of NIPPV. Objective PUL Vital signs: Last Vital Signs Temp 97.5 F L 12/14/17 00:53 Pulse 77 12/14/17 02:00 Resp 17 12/14/17 02:00 BP 121/70 12/14/17 02:00 Pulse Ox 99 12/14/17 02:00 General appearance: no acute distress, other (Sleeping) Eyes: nonicteric ENT: oropharynx moist Neck: supple Effort: normal Auscultation: bilateral: clear Cardiovascular: regular rate and rhythm Gastrointestinal: soft, non-tender Integumentary: normal Extremities: no cyanosis Musculoskeletal: no deformities normal mental status, non-focal exam Results - Laboratory Findings CBC and BMP: 12/13/17 11:57 12/13/17 11:57 ABG ABG pH 7.45 pH Units (7.32-7.45) 12/13/17 12:05 ABG pCO2 35 mmHg (35-45) 12/13/17 12:05 ABG pO2 116 mmHg (85-104) H 12/13/17 12:05 ABG O2 Saturation 99 % (95-98) H 12/13/17 12:05 PT/INR, D-dimer PT 13.3 Seconds (9.4-12.1) H 12/13/17 11:57 Abnormal lab findings: Abnormal lab results WBC 24.1 K/mcL (4.3-11.1) H 12/13/17 11:57 Neutrophils # 20.5 K/mcL (1.6-8.9) H 12/13/17 11:57 PT 13.3 Seconds (9.4-12.1) H 12/13/17 11:57 APTT 90.8 Seconds (26.0-36.0) H D 12/13/17 20:11 ABG pO2 116 mmHg (85-104) H 12/13/17 12:05 ABG O2 Saturation 99 % (95-98) H 12/13/17 12:05 BUN 26 mg/dL (8-23) H 12/13/17 11:57 Est GFR ( Amer) 53 (> 60) L 12/13/17 11:57 Est GFR (Non-Af Amer) 44 (> 60) L 12/13/17 11:57 Glucose 164 mg/dL (70-105) H 12/13/17 11:57 POC Glucose 124 mg/dL (70-99) H 12/13/17 20:30 Alkaline Phosphatase 130 Units/L (34-104) H 12/13/17 11:57 Troponin I 0.09 ng/mL (< 0.04) H* 12/13/17 11:57 B-Natriuretic Peptide 1005 pg/mL (Less than 100) H 12/13/17 11:57 Serum Total Protein 6.3 g/dL (6.4-8.9) L 12/13/17 11:57 Albumin 3.0 g/dL (3.5-5.7) L 12/13/17 11:57 Albumin/Globulin Ratio 0.9 (1.1-2.2) L 12/13/17 11:57 - Clinical Findings Intake & Output: Intake & Output 12/13/17 12/13/17 12/14/17 15:59 23:59 07:59 Intake Total 9.8 / 9.8 Output Total 300 / 300 100 / 100 Balance -290.2 / -290.2 -100 / -100 Weight 48.1 kg Consult Discharge Plan - Plan Referrals: Rosa Joseph MD [Primary Care Provider] - <Maile Uribe - Last Filed: 12/14/17 08:21> Date of Encounter: 12/14/17 Assessment and Plan (1) Saddle embolus Current Visit: Yes Status: Acute (2) Acute and chronic respiratory failure with hypoxia Current Visit: Yes Status: Acute (3) Dementia Current Visit: No Status: Chronic Qualifiers: Dementia type: unspecified type Dementia behavioral disturbance: without behavioral disturbance Qualified Code(s): F03.90 - Unspecified dementia without behavioral disturbance Objective PUL Vital signs: Last Vital Signs Temp 98.0 F 12/14/17 05:30 Pulse 85 12/14/17 08:00 Resp 24 12/14/17 08:00 BP 147/76 12/14/17 08:00 Pulse Ox 98 12/14/17 08:00 Results - Laboratory Findings CBC and BMP: 12/14/17 03:20 12/14/17 03:20 ABG ABG pH 7.45 pH Units (7.32-7.45) 12/13/17 12:05 ABG pCO2 35 mmHg (35-45) 12/13/17 12:05 ABG pO2 116 mmHg (85-104) H 12/13/17 12:05 ABG O2 Saturation 99 % (95-98) H 12/13/17 12:05 PT/INR, D-dimer PT 13.9 Seconds (9.4-12.1) H 12/14/17 04:14 Abnormal lab findings: Abnormal lab results WBC 13.6 K/mcL (4.3-11.1) H 12/14/17 03:20 RBC 3.71 M/mcL (3.82-4.97) L 12/14/17 03:20 Hct 34.2 % (35.3-44.9) L 12/14/17 03:20 Neutrophils # 20.5 K/mcL (1.6-8.9) H 12/13/17 11:57 PT 13.9 Seconds (9.4-12.1) H 12/14/17 04:14 APTT 58.2 Seconds (26.0-36.0) H 12/14/17 04:14 ABG pO2 116 mmHg (85-104) H 12/13/17 12:05 ABG O2 Saturation 99 % (95-98) H 12/13/17 12:05 BUN 26 mg/dL (8-23) H 12/14/17 03:20 Est GFR (Non-Af Amer) 51 (> 60) L 12/14/17 03:20 Glucose 112 mg/dL (70-105) H 12/14/17 03:20 POC Glucose 124 mg/dL (70-99) H 12/13/17 20:30 Calcium 8.3 mg/dL (8.6-10.3) L 12/14/17 03:20 Venous Ioniz Calcium 1.10 mmol/L (1.15-1.35) L 12/14/17 04:14 Alkaline Phosphatase 130 Units/L (34-104) H 12/13/17 11:57 Troponin I 0.21 ng/mL (< 0.04) H* 12/14/17 03:20 B-Natriuretic Peptide 1005 pg/mL (Less than 100) H 12/13/17 11:57 Serum Total Protein 6.3 g/dL (6.4-8.9) L 12/13/17 11:57 Albumin 3.0 g/dL (3.5-5.7) L 12/13/17 11:57 Albumin/Globulin Ratio 0.9 (1.1-2.2) L 12/13/17 11:57 - Clinical Findings Intake & Output: Intake & Output 12/13/17 12/14/17 12/14/17 23:59 07:59 15:59 Intake Total 9.8 / 9.8 150 / 150 Output Total 300 / 300 175 / 175 Balance -290.2 / -290.2 -25 / -25 Weight 48.1 kg - Attending Attestation I examined this patient and my medical decision-making was reviewed with the Resident Physician. I agree with the documented findings, disposition and treatment plan as described except to the extent set forth below. Patient seen and examined. Labs, radiology, chart personally reviewed. 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 Cardiovascular: stable GI: Nutrition per dietary and GI prophylaxis per routine Heme: Continue anticoagulation and to have a low threshold for considering IVC filter placement. Anticoagulation in general it could be complicated in this age group due to risk of fall. Will discuss with the pharmacy regarding anticoagulation. Renal; urine out put and renal funtion reviewed Endorcine: blood glucose is monitored Lines: all lines checked and no evidence of infections Skin: skin care to prevent pressure ulcers per nursing routine care Patient remained hemodynamically stable and can be transferred to the floor.
[2017-12-14] MEDS ORDERED: traMADol 50 MG TABLET PO PRN (02:28)
[2017-12-14 04:05] LABS: Hematocrit 34.2 % (35.3-44.9); Mean Corpuscular HGB Conc 34.5 g/dL (31.6-35.5); Mean Corpuscular Hemoglobin 31.8 pg (28.0-33.3); Mean Corpuscular Volume 92.2 fL (83.0-100.0); Mean Platelet Volume 10.7 fL (9.4-12.4); Platelet Count 172 K/mcL (140-400); Red Blood Count 3.71 M/mcL (3.82-4.97); Red Cell Distribution Width 13.2 % (11.5-14.5)
[2017-12-14 04:07] LABS: Hemoglobin 11.8 g/dL (11.5-15.4)
[2017-12-14 04:16] LABS: VBG PH 7.37 pH Units (7.32-7.42)
[2017-12-14 04:31] LABS: BUN/Creatinine Ratio 25 (6-26); Blood Urea Nitrogen 26 mg/dL (8-23); Calcium 8.3 mg/dL (8.6-10.3); Carbon Dioxide 27 mEq/L (23-29); Chloride 105 mEq/L (98-107); Glucose 112 mg/dL (70-105); Magnesium 1.9 mg/dL (1.6-2.6); Osmolality,Calculated 294 (280-300); Phosphorous 3.6 mg/dL (2.7-4.5); Potassium 3.7 mEq/L (3.5-5.1); Sodium 139 mEq/L (136-145); eGFR For African Americans > 60 (> 60); eGFR For Non-African Americans 51 (> 60)
[2017-12-14 04:36] LABS: INR 1.3; Prothrombin Time 13.9 Seconds (9.4-12.1)
[2017-12-14 04:38] LABS: Activated Partial Thrombo Time 58.2 Seconds (26.0-36.0)
[2017-12-14] MEDS ORDERED: Levothyroxine Sodium 100 MCG VIAL IVP SCH (06:30)
--- NOTE | 2017-12-14 07:05 | Electrocardiograph Report ---
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
[2017-12-14] MEDS ORDERED: Naloxone 0.4 MG/ML INJ IVP PRN (08:32)
[2017-12-14] MEDS ORDERED: *HR* Heparin 5,000 UNIT/ML VIAL IVP PRN ×2 (08:32)
[2017-12-14] MEDS ORDERED: Acetaminophen 325 MG TABLET PO PRN (08:32)
[2017-12-14] MEDS ORDERED: Pantoprazole 40 MG VIAL IVP SCH (09:00)
[2017-12-14] MEDS: 0.9 % Sodium Chloride 1,000 ML IVC SCH ×2 (09:04→17:35)
[2017-12-14] MEDS: Heparin 25,000 UNIT/500 ML D5W 25,000 UNIT/500 ML BAG IVC SCH (09:04)
[2017-12-14] MEDS: Pantoprazole 40 MG VIAL IVP SCH (09:19)
[2017-12-14] MEDS: traMADol 50 MG TABLET PO PRN (11:26)
[2017-12-14] MEDS ORDERED: Warfarin perPT PO PRN (18:00)
[2017-12-14] MEDS ORDERED: *HR* Warfarin 2.5 MG TABLET PO ONE (18:00)
[2017-12-15] MEDS: Heparin 25,000 UNIT/500 ML D5W 25,000 UNIT/500 ML BAG IVC SCH
[2017-12-15 04:28] LABS: Basophils % 0.2 %; Eosinophils # 0.2 K/mcL (0.0-0.6); Eosinophils % 1.8 %; Hemoglobin 10.8 g/dL (11.5-15.4); Immature Granulocytes % 0.5 % (0-4); Lymphocytes # 1.9 K/mcL (0.6-4.6); Lymphocytes % 18.5 %; Mean Corpuscular HGB Conc 32.7 g/dL (31.6-35.5); Mean Corpuscular Hemoglobin 30.3 pg (28.0-33.3); Mean Corpuscular Volume 92.7 fL (83.0-100.0); Mean Platelet Volume 10.7 fL (9.4-12.4); Monocytes # 0.5 K/mcL (0.0-1.3); Monocytes % 5.3 %; Neutrophils # 7.5 K/mcL (1.6-8.9); Platelet Count 163 K/mcL (140-400); Red Blood Count 3.56 M/mcL (3.82-4.97); Red Cell Distribution Width 13.4 % (11.5-14.5); Segmented Neutrophils % 73.7 %
[2017-12-15 04:37] LABS: INR 1.3; Prothrombin Time 14.1 Seconds (9.4-12.1)
[2017-12-15 04:40] LABS: Activated Partial Thrombo Time 76.5 Seconds (26.0-36.0)
[2017-12-15 04:48] LABS: BUN/Creatinine Ratio 26 (6-26); Blood Urea Nitrogen 22 mg/dL (8-23); Calcium 7.8 mg/dL (8.6-10.3); Carbon Dioxide 23 mEq/L (23-29); Chloride 106 mEq/L (98-107); Glucose 133 mg/dL (70-105); Osmolality,Calculated 287 (280-300); Potassium 3.7 mEq/L (3.5-5.1); Sodium 136 mEq/L (136-145); eGFR For African Americans > 60 (> 60); eGFR For Non-African Americans > 60 (> 60)
[2017-12-15] MEDS: Pantoprazole 40 MG VIAL IVP SCH (08:13)
--- NOTE | 2017-12-15 11:13 | Internal Med Progress Note ---
Date of Encounter: 12/15/17 Time of Encounter: 11:00 - Assessment and plan (1) Saddle embolus Current Visit: Yes Status: Acute Assessment and plan: On heparin drip with bridging to coumadin. will consult hmeatology and consider a NOAc as there does not seem to be a clear contraindication (2) DVT (deep venous thrombosis) Current Visit: Yes Status: Acute Assessment and plan: Pt has bilateral DVT. On heparin drip. Plan to transition to po anticoagulation. hematology recs appreciated Qualifiers: DVT location: lower extremity Laterality: bilateral Qualified Code(s): I82.403 - Acute embolism and thrombosis of unspecified deep veins of lower extremity, bilateral (3) Elevated troponin Current Visit: No Status: Chronic Assessment and plan: Likely demand ischemia from saddle PE. Continue heparin drip (4) Dementia Current Visit: No Status: Chronic Assessment and plan: Resume home meds Qualifiers: Dementia type: unspecified type Dementia behavioral disturbance: without behavioral disturbance Qualified Code(s): F03.90 - Unspecified dementia without behavioral disturbance - Time Spent With Patient Total time spent is greater than 50% in coordination of care (as documented) at patient's floor/unit and/or counseling patient: - Subjective Interval history: No acute events overnight - Constitutional Vitals: Temp Pulse Resp BP Pulse Ox 97.4 F L 85 14 124/68 98 12/15/17 07:55 12/15/17 10:00 12/15/17 10:00 12/15/17 10:00 12/15/17 10:00 - Head Head exam: Present: atraumatic, normocephalic - Eye Eye exam: Present: PERRL, conjuntiva pink, sclera anicteric Pupils: Present: PERRL - Neck Neck exam general surgery: Present: supple, trachea midline. Absent: lymphadenopathy - Respiratory Respiratory exam: Present: CTAB. Absent: accessory muscle use, rales, rhonchi, wheezes - Cardiovascular Cardiovascular exam: Present: RRR, +S1, +S2. Absent: diastolic murmur, gallop, rubs, systolic murmur - GI/Abdominal GI/Abdominal exam: Present: normal bowel sounds, soft, no peritoneal signs. Absent: distended, tenderness - Extremities Exam Extremities exam: Present: warm, radial pulses palpable and symmetrical. Absent : calf tenderness, cyanotic, pedal edema - Neurological Exam Neurological exam: Present: CN II-XII intact, oriented X3, no focal deficits. Absent: pronater drift, facial droop, speech deficit - Skin Skin exam: Present: dry, intact Internal Medicine: Result - Labs CBC & Chem 7: 12/15/17 03:55 12/15/17 03:55 Labs: Short CBC 12/15/17 Range/Units 03:55 WBC 10.1 (4.3-11.1) K/mcL Hgb 10.8 L (11.5-15.4) g/dL Hct 33.0 L (35.3-44.9) % Plt Count 163 (140-400) K/mcL Neutrophils # 7.5 (1.6-8.9) K/mcL BMP 12/15/17 03:55 Sodium 136 Potassium 3.7 Chloride 106 Carbon Dioxide 23 BUN 22 Creatinine 0.86 Glucose 133 H Calcium 7.8 L Cardiac Enzymes 12/14/17 Range/Units 10:32 Troponin I 0.12 H* (< 0.04) ng/mL - ABG Interpretation ABG results: ABG ABG pH 7.45 pH Units (7.32-7.45) 12/13/17 12:05 ABG pCO2 35 mmHg (35-45) 12/13/17 12:05 ABG pO2 116 mmHg (85-104) H 12/13/17 12:05 ABG O2 Saturation 99 % (95-98) H 12/13/17 12:05 PT/INR, D-dimer PT 14.1 Seconds (9.4-12.1) H 12/15/17 03:55 Consult Discharge Plan - Plan Referrals: Rosa Joseph MD [Primary Care Provider] -
[2017-12-15] MEDS: traMADol 50 MG TABLET PO PRN ×2 (11:15→20:32)
[2017-12-15] MEDS: 0.9 % Sodium Chloride 1,000 ML IVC SCH (14:24)
[2017-12-15] MEDS: *HR* Rivaroxaban 15 MG TABLET PO SCH (16:30)
--- NOTE | 2017-12-15 20:28 | Oncology Inp Consult Note ---
Date of Encounter: 12/16/17 Time of Encounter: 20:00 Assessment and Plan (1) Saddle embolus Status: Acute Assessment and plan: Patient with acute pulmonary embolism, recent hospitalization for abdominal problems, increased clot burden started on IV heparin without use of any thrombolytics. She continues to remain on BiPAP maintaining her O2 sat. She was also started on oral anticoagulation with Xarelto 15 mg twice daily. She will need outpatient monitoring for continued oral anticoagulation therapy upon discharge. Thrombolytics not considered due to risk for hemorrhage. History of dementia, hyperlipidemia, resides in [facility] d/w ICU attending, patient and staff. - Data of Consult Requesting Physician: Anamaria Swenson MD Primary Care Provider: Rosa Joseph, - Consult Narrative Reason for consult: thrombosis History of present illness: Ms. Brannon is a 87 year old female with hx dementia, recent hx of colitis, UTI < per records, admitted due to worsening acute onset of SOB with exrtion. She is on O2, noted to be hypoxemic on admission. CTA on admission, noted non occluding saddle acute pulmonary embolus with complete occlusion of the the lower lobe pulmonary artery with extension into middle and upper lobe arteries. Right heart strain in imaging, elevated troponin. UNderwent echocardiogram and doppler studies of ext. VEnous doppler ramón lower ext DVT. Started heparin, hematology consulted for prison anticoagulation. CTabd 11/07 resolution of colon thickening. Non calcified pulm nodule. Mammogram '16 benign. Patient is on BiPAP for respiratory distress. She is not on any pressors. She denies any pain or complaints today. She is being started on Xarelto 15 mg twice daily. Past Med Surg Social Fam HX - Past Medical History Medical history: dementia, hyperlipidemia, hypertension, thyroid disease Psychiatric history: no psych history - Past Surgical History Surgical History: hysterectomy - Social History Smoking Status: Never smoker Smokeless Tobacco Status: No Alcohol use: none Drug use: none - Family History Sister Hx Family Neurologic Disorders: Yes (bonnie) Medications and Allergies Donepezil [Aricept] 5 mg PO HS 05/21/17 [History] Levothyroxine [Synthroid] 100 mcg PO DAILY 05/21/17 [History] Cranberry 400 mg PO DAILY 11/07/17 [History] Losartan Potassium [Cozaar] 100 mg PO DAILY 11/07/17 [History] Multivitamin [One Daily Essential] 1 tab PO DAILY 11/07/17 [History] Tramadol HCl [Ultram] 50 mg PO TID PRN 11/07/17 [History] Vit A/Vit C/Vit E/Zinc/Copper [Preservision Areds Tablet] 1 tab PO DAILY [History] Quetiapine Fumarate [SEROquel] 12.5 mg PO HS 30 Days tablet 11/10/17 [Rx] Omeprazole [PriLOSEC] 20 mg PO DAILY 12/13/17 [History] 3 Allergy/AdvReac Type Severity Reaction Status Date / Time Penicillins [PCN] Allergy Unknown See Verified 12/13/17 15:26 Comments codeine Allergy See Verified 12/13/17 15:26 Comments Review of systems: as in HPI otherwise negative Oncology - Exam - Constitutional Vitals: Temp Pulse Resp BP Pulse Ox 97.2 F L 95 20 140/73 94 12/15/17 19:22 12/15/17 18:00 12/15/17 18:00 12/15/17 18:00 12/15/17 18:00 General appearance: mild distress - Head Head exam: Present: atraumatic, normal inspection - Eye Eye exam: Present: sclera anicteric - ENT Additional comments: Bipap mask - Neck Neck exam: Present: normal inspection - Respiratory Respiratory exam: Present: CTAB - Cardiovascular Cardiovascular exam: Present: +S1, +S2 - GI/Abdominal GI/Abdominal exam: Present: soft Additional comments: non tender, no masses - Extremities Exam Extremities exam: Present: normal inspection - Neurological Exam Neurological exam: Present: alert, no focal deficits - Psychiatric Psychiatric exam: Present: normal affect - Skin Skin exam: Present: dry, warm Oncology - Results Labs: 12/15/17 12/15/17 12/15/17 03:55 03:55 03:55 WBC 10.1 RBC 3.56 L Hgb 10.8 L Hct 33.0 L MCV 92.7 MCH 30.3 MCHC 32.7 RDW 13.4 Plt Count 163 MPV 10.7 Immature Gran % 0.5 Seg Neutrophils % 73.7 Lymphocytes % 18.5 Monocytes % 5.3 Eosinophils % 1.8 Basophils % 0.2 Neutrophils # 7.5 Lymphocytes # 1.9 Monocytes # 0.5 Eosinophils # 0.2 Basophils # 0.0 PT 14.1 H INR 1.3 APTT 76.5 H VBG pH Sodium 136 Potassium 3.7 Chloride 106 Carbon Dioxide 23 BUN 22 Creatinine 0.86 Est GFR ( Amer) > 60 Est GFR (Non-Af Amer) > 60 BUN/Creatinine Ratio 26 Glucose 133 H POC Glucose Calculated Osmolality 287 Lactic Acid Calcium 7.8 L Venous Ioniz Calcium Phosphorus Magnesium Troponin I 12/14/17 12/14/17 12/14/17 17:50 10:34 10:32 WBC RBC Hgb Hct MCV MCH MCHC RDW Plt Count MPV Immature Gran % Seg Neutrophils % Lymphocytes % Monocytes % Eosinophils % Basophils % Neutrophils # Lymphocytes # Monocytes # Eosinophils # Basophils # PT INR APTT 63.3 H 60.8 H VBG pH Sodium Potassium Chloride Carbon Dioxide BUN Creatinine Est GFR ( Amer) Est GFR (Non-Af Amer) BUN/Creatinine Ratio Glucose POC Glucose Calculated Osmolality Lactic Acid Calcium Venous Ioniz Calcium Phosphorus Magnesium Troponin I 0.12 H* 12/14/17 12/14/17 12/14/17 04:14 04:14 03:20 WBC RBC Hgb Hct MCV MCH MCHC RDW Plt Count MPV Immature Gran % Seg Neutrophils % Lymphocytes % Monocytes % Eosinophils % Basophils % Neutrophils # Lymphocytes # Monocytes # Eosinophils # Basophils # PT 13.9 H INR 1.3 APTT 58.2 H VBG pH 7.37 Sodium Potassium Chloride Carbon Dioxide BUN Creatinine Est GFR ( Amer) Est GFR (Non-Af Amer) BUN/Creatinine Ratio Glucose POC Glucose Calculated Osmolality Lactic Acid Calcium Venous Ioniz Calcium 1.10 L Phosphorus Magnesium Troponin I 0.21 H* 12/14/17 12/14/17 12/13/17 03:20 03:20 20:30 WBC 13.6 H RBC 3.71 L Hgb 11.8 D Hct 34.2 L MCV 92.2 MCH 31.8 MCHC 34.5 RDW 13.2 Plt Count 172 MPV 10.7 Immature Gran % Seg Neutrophils % Lymphocytes % Monocytes % Eosinophils % Basophils % Neutrophils # Lymphocytes # Monocytes # Eosinophils # Basophils # PT INR APTT VBG pH Sodium 139 Potassium 3.7 Chloride 105 Carbon Dioxide 27 BUN 26 H Creatinine 1.02 Est GFR ( Amer) > 60 Est GFR (Non-Af Amer) 51 L BUN/Creatinine Ratio 25 Glucose 112 H POC Glucose 124 H Calculated Osmolality 294 Lactic Acid Calcium 8.3 L Venous Ioniz Calcium Phosphorus 3.6 Magnesium 1.9 Troponin I 12/13/17 12/13/17 20:11 20:11 WBC RBC Hgb Hct MCV MCH MCHC RDW Plt Count MPV Immature Gran % Seg Neutrophils % Lymphocytes % Monocytes % Eosinophils % Basophils % Neutrophils # Lymphocytes # Monocytes # Eosinophils # Basophils # PT INR APTT 90.8 H D VBG pH Sodium Potassium Chloride Carbon Dioxide BUN Creatinine Est GFR ( Amer) Est GFR (Non-Af Amer) BUN/Creatinine Ratio Glucose POC Glucose Calculated Osmolality Lactic Acid 1.0 Calcium Venous Ioniz Calcium Phosphorus Magnesium Troponin I CTA reviewed, echo reviewed and doppler Consult Discharge Plan - Plan Referrals: Rosa Joseph MD [Primary Care Provider] -
[2017-12-16 04:30] LABS: Basophils % 0.2 %; Eosinophils # 0.2 K/mcL (0.0-0.6); Eosinophils % 2.4 %; Hematocrit 32.2 % (35.3-44.9); Hemoglobin 10.6 g/dL (11.5-15.4); Immature Granulocytes % 0.2 % (0-4); Lymphocytes # 1.8 K/mcL (0.6-4.6); Lymphocytes % 19.3 %; Mean Corpuscular HGB Conc 32.9 g/dL (31.6-35.5); Mean Corpuscular Hemoglobin 30.5 pg (28.0-33.3); Mean Corpuscular Volume 92.8 fL (83.0-100.0); Mean Platelet Volume 10.8 fL (9.4-12.4); Monocytes # 0.5 K/mcL (0.0-1.3); Monocytes % 5.5 %; Neutrophils # 6.8 K/mcL (1.6-8.9); Platelet Count 153 K/mcL (140-400); Red Blood Count 3.47 M/mcL (3.82-4.97); Red Cell Distribution Width 13.6 % (11.5-14.5); Segmented Neutrophils % 72.4 %
[2017-12-16] MEDS: *HR* Rivaroxaban 15 MG TABLET PO SCH ×2 (08:04→17:50)
[2017-12-16] MEDS: Pantoprazole 40 MG VIAL IVP SCH (08:04)
--- NOTE | 2017-12-16 09:50 | Internal Med Progress Note ---
Date of Encounter: 12/16/17 Time of Encounter: 09:45 - Assessment and plan (1) Acute and chronic respiratory failure with hypoxia Current Visit: Yes Status: Acute Assessment and plan: Likely 2/2 to acute PE. [place] BIPAP. Wean off as tolerated. Palliative care consult (2) Saddle embolus Current Visit: Yes Status: Acute Assessment and plan: On heparin drip with bridging to coumadin. will consult hmeatology and consider a NOAc as there does not seem to be a clear contraindication (3) DVT (deep venous thrombosis) Current Visit: Yes Status: Acute Assessment and plan: Pt has bilateral DVT. On heparin drip. Plan to transition to po anticoagulation. hematology recs appreciated Qualifiers: DVT location: lower extremity Laterality: bilateral Qualified Code(s): I82.403 - Acute embolism and thrombosis of unspecified deep veins of lower extremity, bilateral (4) Elevated troponin Current Visit: No Status: Chronic Assessment and plan: Likely demand ischemia from saddle PE. Continue heparin drip (5) Dementia Current Visit: No Status: Chronic Assessment and plan: Resume home meds Qualifiers: Dementia type: unspecified type Dementia behavioral disturbance: without behavioral disturbance Qualified Code(s): F03.90 - Unspecified dementia without behavioral disturbance - Time Spent With Patient Total time spent is greater than 50% in coordination of care (as documented) at patient's floor/unit and/or counseling patient: - Subjective Interval history: No acute events overnight - Constitutional Vitals: Temp Pulse Resp BP Pulse Ox 96.9 F L 71 20 123/68 98 12/16/17 08:24 12/16/17 07:51 12/16/17 07:44 12/16/17 07:44 12/16/17 07:44 Exam: Frail elderly lady - Head Head exam: Present: atraumatic, normocephalic - Eye Eye exam: Present: PERRL, conjuntiva pink, sclera anicteric Pupils: Present: PERRL - Neck Neck exam general surgery: Present: supple, trachea midline. Absent: lymphadenopathy - Respiratory Respiratory exam: Present: CTAB. Absent: accessory muscle use, rales, rhonchi, wheezes - Cardiovascular Cardiovascular exam: Present: RRR, +S1, +S2. Absent: diastolic murmur, gallop, rubs, systolic murmur - GI/Abdominal GI/Abdominal exam: Present: normal bowel sounds, soft, no peritoneal signs. Absent: distended, tenderness - Extremities Exam Extremities exam: Present: warm, radial pulses palpable and symmetrical. Absent : calf tenderness, cyanotic, pedal edema - Neurological Exam Neurological exam: Present: CN II-XII intact, oriented X3, no focal deficits. Absent: pronater drift, facial droop, speech deficit - Skin Skin exam: Present: dry, intact Internal Medicine: Result - Labs CBC & Chem 7: 12/16/17 04:15 12/15/17 03:55 Labs: Short CBC 12/16/17 Range/Units 04:15 WBC 9.4 (4.3-11.1) K/mcL Hgb 10.6 L (11.5-15.4) g/dL Hct 32.2 L (35.3-44.9) % Plt Count 153 (140-400) K/mcL Neutrophils # 6.8 (1.6-8.9) K/mcL - ABG Interpretation ABG results: ABG ABG pH 7.45 pH Units (7.32-7.45) 12/13/17 12:05 ABG pCO2 35 mmHg (35-45) 12/13/17 12:05 ABG pO2 116 mmHg (85-104) H 12/13/17 12:05 ABG O2 Saturation 99 % (95-98) H 12/13/17 12:05 PT/INR, D-dimer PT 14.1 Seconds (9.4-12.1) H 12/15/17 03:55 Consult Discharge Plan - Plan Referrals: Rosa Joseph MD [Primary Care Provider] -
[2017-12-16] MEDS: 0.9 % Sodium Chloride 1,000 ML IVC SCH (17:51)
[2017-12-16] MEDS: traMADol 50 MG TABLET PO PRN (19:56)
[2017-12-17 03:47] LABS: Basophils % 0.1 %; Eosinophils # 0.2 K/mcL (0.0-0.6); Eosinophils % 1.9 %; Hematocrit 31.7 % (35.3-44.9); Hemoglobin 10.7 g/dL (11.5-15.4); Immature Granulocytes % 0.4 % (0-4); Lymphocytes % 19.7 %; Mean Corpuscular HGB Conc 33.8 g/dL (31.6-35.5); Mean Corpuscular Hemoglobin 31.7 pg (28.0-33.3); Mean Corpuscular Volume 93.8 fL (83.0-100.0); Mean Platelet Volume 10.8 fL (9.4-12.4); Monocytes # 0.4 K/mcL (0.0-1.3); Monocytes % 4.2 %; Neutrophils # 7.7 K/mcL (1.6-8.9); Platelet Count 177 K/mcL (140-400); Red Blood Count 3.38 M/mcL (3.82-4.97); Red Cell Distribution Width 13.3 % (11.5-14.5); Segmented Neutrophils % 73.7 %
[2017-12-17] MEDS: Pantoprazole 40 MG VIAL IVP SCH (08:07)
[2017-12-17] MEDS: *HR* Rivaroxaban 15 MG TABLET PO SCH ×2 (08:08→17:21)
[2017-12-17] MEDS: traMADol 50 MG TABLET PO PRN ×2 (08:24→20:50)
--- NOTE | 2017-12-17 10:58 | Internal Med Progress Note ---
Date of Encounter: 12/17/17 Time of Encounter: 11:00 - Assessment and plan (1) Acute and chronic respiratory failure with hypoxia Current Visit: Yes Status: Acute Assessment and plan: Likely 2/2 to acute PE. Continue BIPAP. Wean off as tolerated. Palliative care consult. Pt continues to require high O2. Plan to discharge to [facility] on BIPAP after palliative care recs. healthcare social worker consulted to set up nursing hme BIPAP. Patient will likely benefit from hospice (2) Saddle embolus Current Visit: Yes Status: Acute Assessment and plan: On heparin drip with bridging to coumadin. will consult hematology and consider a NOAc as there does not seem to be a clear contraindication. Started on xarelto (3) DVT (deep venous thrombosis) Current Visit: Yes Status: Acute Assessment and plan: Pt has bilateral DVT. On heparin drip. Plan to transition to po anticoagulation. hematology recs appreciated Qualifiers: DVT location: lower extremity Laterality: bilateral Qualified Code(s): I82.403 - Acute embolism and thrombosis of unspecified deep veins of lower extremity, bilateral (4) Elevated troponin Current Visit: No Status: Chronic Assessment and plan: Likely demand ischemia from saddle PE. On xarelto (5) Dementia Current Visit: No Status: Chronic Assessment and plan: Resume home meds Qualifiers: Dementia type: unspecified type Dementia behavioral disturbance: without behavioral disturbance Qualified Code(s): F03.90 - Unspecified dementia without behavioral disturbance - Time Spent With Patient Total time spent is greater than 50% in coordination of care (as documented) at patient's floor/unit and/or counseling patient: - Subjective Interval history: No acute events overnight - Constitutional Vitals: Temp Pulse Resp BP Pulse Ox 98 F 87 16 146/73 91 12/17/17 06:55 12/17/17 06:55 12/17/17 06:55 12/17/17 06:55 12/17/17 06:55 Exam: Cachectic - Head Head exam: Present: atraumatic, normocephalic - Eye Eye exam: Present: PERRL, conjuntiva pink, sclera anicteric Pupils: Present: PERRL - Neck Neck exam general surgery: Present: supple, trachea midline. Absent: lymphadenopathy - Respiratory Respiratory exam: Present: CTAB. Absent: accessory muscle use, rales, rhonchi, wheezes - Cardiovascular Cardiovascular exam: Present: RRR, +S1, +S2. Absent: diastolic murmur, gallop, rubs, systolic murmur - GI/Abdominal GI/Abdominal exam: Present: normal bowel sounds, soft, no peritoneal signs. Absent: distended, tenderness - Extremities Exam Extremities exam: Present: warm, radial pulses palpable and symmetrical. Absent : calf tenderness, cyanotic, pedal edema - Neurological Exam Neurological exam: Present: CN II-XII intact, oriented X3, no focal deficits. Absent: pronater drift, facial droop, speech deficit - Skin Skin exam: Present: dry, intact Internal Medicine: Result - Labs CBC & Chem 7: 12/17/17 03:36 12/15/17 03:55 Labs: Short CBC 12/17/17 Range/Units 03:36 WBC 10.4 (4.3-11.1) K/mcL Hgb 10.7 L (11.5-15.4) g/dL Hct 31.7 L (35.3-44.9) % Plt Count 177 (140-400) K/mcL Neutrophils # 7.7 (1.6-8.9) K/mcL - ABG Interpretation ABG results: ABG ABG pH 7.45 pH Units (7.32-7.45) 12/13/17 12:05 ABG pCO2 35 mmHg (35-45) 12/13/17 12:05 ABG pO2 116 mmHg (85-104) H 12/13/17 12:05 ABG O2 Saturation 99 % (95-98) H 12/13/17 12:05 PT/INR, D-dimer PT 14.1 Seconds (9.4-12.1) H 12/15/17 03:55 Consult Discharge Plan - Plan Referrals: Rosa Joseph MD [Primary Care Provider] -
[2017-12-17] MEDS: 0.9 % Sodium Chloride 1,000 ML IVC SCH (14:24)
[2017-12-18 01:50] LABS: Basophils % 0.2 %; Eosinophils # 0.2 K/mcL (0.0-0.6); Eosinophils % 1.3 %; Hematocrit 30.5 % (35.3-44.9); Hemoglobin 10.3 g/dL (11.5-15.4); Immature Granulocytes % 0.4 % (0-4); Lymphocytes # 2.1 K/mcL (0.6-4.6); Lymphocytes % 17.7 %; Mean Corpuscular HGB Conc 33.8 g/dL (31.6-35.5); Mean Corpuscular Hemoglobin 31.7 pg (28.0-33.3); Mean Corpuscular Volume 93.8 fL (83.0-100.0); Mean Platelet Volume 10.9 fL (9.4-12.4); Monocytes # 0.5 K/mcL (0.0-1.3); Monocytes % 4.1 %; Neutrophils # 9.2 K/mcL (1.6-8.9); Platelet Count 195 K/mcL (140-400); Red Blood Count 3.25 M/mcL (3.82-4.97); Red Cell Distribution Width 13.4 % (11.5-14.5); Segmented Neutrophils % 76.3 %
[2017-12-18] MEDS: *HR* Rivaroxaban 15 MG TABLET PO SCH ×2 (08:17→18:51)
[2017-12-18] MEDS: 0.9 % Sodium Chloride 1,000 ML IVC SCH (10:46)
--- NOTE | 2017-12-18 11:09 | Internal Med Progress Note ---
Date of Encounter: 12/18/17 Time of Encounter: 11:03 - Assessment and plan (1) Saddle embolus Current Visit: Yes Status: Acute Assessment and plan: On heparin drip with bridging to coumadin. will consult hematology and consider a NOAc as there does not seem to be a clear contraindication. Started on xarelto 12/18: She is currently on Xarelto. We will continue with this. Minimum of 6 months therapy, probably lifelong. (2) Elevated troponin Current Visit: No Status: Chronic Assessment and plan: Likely demand ischemia from saddle PE. On xarelto (3) Dementia Current Visit: No Status: Chronic Assessment and plan: Resume home meds Qualifiers: Dementia type: unspecified type Dementia behavioral disturbance: without behavioral disturbance Qualified Code(s): F03.90 - Unspecified dementia without behavioral disturbance (4) Acute and chronic respiratory failure with hypoxia Current Visit: Yes Status: Acute Assessment and plan: Likely 2/2 to acute PE. Continue BIPAP. Wean off as tolerated. Palliative care consult. Pt continues to require high O2. Plan to discharge to long-term on BIPAP after palliative care recs. sawmill or timber yard worker consulted to set up nursing e BIPAP. Patient will likely benefit from hospice 12/18: Improving. Wean off BiPAP. Monitor. (5) DVT (deep venous thrombosis) Current Visit: Yes Status: Acute Assessment and plan: Pt has bilateral DVT. On heparin drip. Plan to transition to po anticoagulation. hematology recs appreciated 12/18: On Xarelto Qualifiers: DVT location: lower extremity Laterality: bilateral Qualified Code(s): I82.403 - Acute embolism and thrombosis of unspecified deep veins of lower extremity, bilateral - Time Spent With Patient Total time spent is greater than 50% in coordination of care (as documented) at patient's floor/unit and/or counseling patient: - Subjective Interval history: 87-year-old female who was admitted to our intensive care unit on November for acute hypoxemic respiratory failure. She came from a nursing facility. Recent admission for urinary tract infection and colitis. Workup included a CTA of her thorax on admission which showed an acute nonoccluding saddle emboli with complete occlusion of lower lobe pulmonary artery. Patient was noted to have a right heart strain on echo. She started the lower extremities showed bilateral lower extremity DVT. She initially placed on BiPAP to maintain oxygen saturations. She is currently on Xarelto 15 mg po bid for acute PE treatment. She was not a candidate for thrombolytics. Patient was seen by oncology who recommended Xarelto. Patient was subsequently transferred to the internal medicine service with plans to hopefully wean her off BiPAP. She was also being seen by palliative care as she is a DO NOT RESUSCITATE, and is discussing future care options. Pt currently states she is breathing better. She wants to BiPAP mask off. No chest pain. No fevers or chills. No nausea, vomiting, diarrhea. I discussed the case with Dr. Lopes in palliative care, his input is appreciated Anticipate transfer to subacute rehabilitation in a couple days once her breathing is improved. Wean oxygen as able. - Constitutional Vitals: Temp Pulse Resp BP Pulse Ox 97.5 F L 90 22 145/83 92 12/18/17 10:08 12/18/17 10:08 12/18/17 10:08 12/18/17 10:08 12/18/17 10:08 General appearance: Present: mild distress, A&O X 3 - Head Head exam: Present: atraumatic, normocephalic - Eye Eye exam: Present: PERRL, conjuntiva pink, sclera anicteric Pupils: Present: PERRL - Neck Neck exam general surgery: Present: supple, trachea midline. Absent: lymphadenopathy - Respiratory Respiratory exam: Present: accessory muscle use (Diminshed breath sounds bilaterally) - Cardiovascular Cardiovascular exam: Present: RRR, +S1, +S2. Absent: diastolic murmur, gallop, rubs, systolic murmur - GI/Abdominal GI/Abdominal exam: Present: normal bowel sounds, soft, no peritoneal signs. Absent: distended, tenderness - Extremities Exam Extremities exam: Present: pedal edema - Neurological Exam Neurological exam: Present: CN II-XII intact, oriented X3, no focal deficits. Absent: pronater drift, facial droop, speech deficit Internal Medicine: Result - Labs CBC & Chem 7: 12/18/17 01:40 12/15/17 03:55 Labs: Short CBC 12/18/17 Range/Units 01:40 WBC 12.1 H (4.3-11.1) K/mcL Hgb 10.3 L (11.5-15.4) g/dL Hct 30.5 L (35.3-44.9) % Plt Count 195 (140-400) K/mcL Neutrophils # 9.2 H (1.6-8.9) K/mcL - ABG Interpretation ABG results: ABG ABG pH 7.45 pH Units (7.32-7.45) 12/13/17 12:05 ABG pCO2 35 mmHg (35-45) 12/13/17 12:05 ABG pO2 116 mmHg (85-104) H 12/13/17 12:05 ABG O2 Saturation 99 % (95-98) H 12/13/17 12:05 PT/INR, D-dimer PT 14.1 Seconds (9.4-12.1) H 12/15/17 03:55 Consult Discharge Plan - Plan Referrals: Rosa Joseph MD [Primary Care Provider] -
[2017-12-18 14:49] LABS: Bilirubin,Urine Negative (Negative); Clarity,Urine Slightly Hazy (Clear); Color,Urine Yellow (Yellow); Glucose,Urine (UA) Normal (Normal)
[2017-12-18 14:50] LABS: Blood,Urine Small (Negative); Ketones,Urine Negative (Negative); Leukocyte Esterase,Urine Large (Negative); Nitrite,Urine Positive (Negative); PH,Urine 5.5 pH Units (5.0-8.0); Protein,Urine Trace mg/dL (Neg-Trace); Urobilinogen,Urine Normal (Normal)
[2017-12-18 14:52] LABS: Bacteria,Urine Many per hpf (None-Few); Hyaline Casts,Urine None Seen per lpf (None-Few); RBC,Urine 0-3 per hpf (0-3); Squamous Epithelial Cell,Urine Moderate per lpf (None-Few); WBC,Urine 50-100 per hpf (0-3)
--- NOTE | 2017-12-18 15:24 | Palliative - Consult Note ---
Date of Encounter: 12/18/17 Time of Encounter: 10:15 - Assessment and Plan (1) UTI (urinary tract infection) Current Visit: No Status: Acute Assessment and plan: Being followed by the hospitalist team, the urine was grossly contaminated. Cultures have been negative thus far. Qualifiers: Urinary tract infection type: acute cystitis Hematuria presence: without hematuria Qualified Code(s): N30.00 - Acute cystitis without hematuria (2) Dementia Current Visit: No Status: Chronic Assessment and plan: Discussing with family patient does have some dementia but was able to live on her own prior to the colitis. Overall she has had an overall decline and family does not feel she will go home, however they are hopeful. Patient is getting rehabilitation at [facility] and the plan currently is for her to return there to finish out her rehabilitation and then reevaluate. Qualifiers: Dementia type: unspecified type Dementia behavioral disturbance: without behavioral disturbance Qualified Code(s): F03.90 - Unspecified dementia without behavioral disturbance (3) Saddle embolus Current Visit: Yes Status: Acute Assessment and plan: Patient's COPD is not that severe at least does not appear to be, of more concern is the saddle embolus. For which she is getting Xarelto. She were to go hospice at this point in time Xarelto would need to be stopped therefore this time I do not recommend hospice as the family wishes to continue the Xarelto however, I have checked into the possibility of the patient getting some coupons for Xarelto perhaps through her primary care doctor after the rehabilitation and then trying hospice out. She could have the Xarelto was lungs it was being supplied outside of hospice, if after the month or so that she was on the Xarelto she is doing better could stop hospice and continue the Xarelto if she is doing or she could stop Xarelto continue hospice. I have however checked with the social media director, and these coupons cannot be provided with the patient going over to rehabilitation. We will have to be done after discharge from rehabilitation. (4) Acute and chronic respiratory failure with hypoxia Current Visit: Yes Status: Acute Assessment and plan: Problem appears to be primarily acute with the saddle embolus. Patient is on treatment for this. And therefore I do not believe is eligible for hospice at this time, however please see the above note about mixing Xarelto with hospice and how this might be done. (5) Goals of care, counseling/discussion Current Visit: Yes Status: Acute Assessment and plan: Patient is DNR CCA DNI. Conversation was held with both patient and her medical power of ip technology transactions attorney son. And they all agree on this. Goals of care patient is hoping to return to [facility] for rehabilitation, and then potentially home, however at this time patient's family is worried about her being at home as she lives alone. She may need home health, was brought up , however at this time for hospice to be the diagnosis the patient would have to stop all aggressive treatment for her PE. I do not think this is a good idea at this point and suggested some ideas to the family on how we might be able to have the patient in hospice if they desire as well as continue this are also please see the above., I do believe that given that the terminal diagnosis would be hypoxemia secondary to the pulmonary embolus that in order for the patient to be truly hospice eligible all medications would have to be paid for that through hospice that were related to the terminal diagnosis and that would include anticoagulants if this therapy was elected to continue. Palliative-CN HPI - Data of Consult Patient: new to practice Requesting Physician: Anamaria Swenson MD Primary Care Provider: Rosa Joseph, - Consult Narrative Palliative Care/Comfort Measures: Palliative care History of present illness: Ms. Brannon is a 87 year old female Patient with mild to moderate dementia was originally brought in the hospital for colitis. Required rehabilitation and went out to [facility] for rehabilitation and they are developed clots in her legs that resulted in a sample saddle embolus. Is now hospitalized for treatment of saddle embolus of care was consulted regarding goals of care. At this time the patient does not feel particular short of breath and she is having no pain. She is quite comfortable, and very talkative. Celeste is also present. CC: Anamaria Swenson MD Shortness of breath Past Med Surg Social Fam HX - Past Medical History Medical history: dementia, hyperlipidemia, hypertension, thyroid disease Psychiatric history: no psych history - Past Surgical History Surgical History: hysterectomy - Social History Smoking Status: Never smoker Smokeless Tobacco Status: No Alcohol use: none Drug use: none - Family History Sister Hx Family Neurologic Disorders: Yes (altzheimers) Medications and Allergies Donepezil [Aricept] 5 mg PO HS 05/21/17 [History] Levothyroxine [Synthroid] 100 mcg PO DAILY 05/21/17 [History] Cranberry 400 mg PO DAILY 11/07/17 [History] Losartan Potassium [Cozaar] 100 mg PO DAILY 11/07/17 [History] Multivitamin [One Daily Essential] 1 tab PO DAILY 11/07/17 [History] Tramadol HCl [Ultram] 50 mg PO TID PRN 11/07/17 [History] Vit A/Vit C/Vit E/Zinc/Copper [Preservision Areds Tablet] 1 tab PO DAILY [History] Quetiapine Fumarate [SEROquel] 12.5 mg PO HS 30 Days tablet 11/10/17 [Rx] Omeprazole [PriLOSEC] 20 mg PO DAILY 12/13/17 [History] 3 Allergy/AdvReac Type Severity Reaction Status Date / Time Penicillins [PCN] Allergy Unknown See Verified 12/13/17 15:26 Comments codeine Allergy See Verified 12/13/17 15:26 Comments - Constitutional Constitutional ROS PAL: lethargy, no decreased appetite, no frequent falls - EENT Eyes: no discharge, no pain Ears: no ear discharge, no ear pain Ears, nose, mouth, throat: no mouth pain, no nasal congestion, no nasal discharge - Cardiovascular Cardiovascular ROS: dyspnea on exertion, no chest pain, no chest pain at rest, no chest pain with activity - Respiratory Respiratory: dyspnea, dyspnea on exertion - Gastrointestinal Gastrointestinal: constipation, no diarrhea, no nausea, no vomiting - Genitourinary Palliative ROS female: no urinary frequency, no urinary hesitancy, no urinary incontinence - Musculoskeletal Musculoskeletal ROS IM: muscle weakness (In legs, for which she is getting), no myalgias, no neck pain - Integumentary ROS Integumentary: no skin ulcer, no sores, no unusual bruising - Neurological Neurological ROS: focal weakness, memory loss, no disequilibrium, no dizziness - Psychiatric Psychiatric general PM: confusion, no change in appetite, no homicidal ideation , no hopelessness, no suicidal ideation - Endocrine Endocrine IM: other (Thyroid disease) Palliative Care-Exam - Constitutional Vitals: Temp Pulse Resp BP Pulse Ox 97.9 F 98 22 143/78 93 12/18/17 14:18 12/18/17 14:18 12/18/17 14:18 12/18/17 14:18 12/18/17 14:18 General appearance: Present: no acute distress - Head Head Exam: Present: atraumatic, normal inspection - Eye Eye exam: Present: normal appearance - Neck Neck exam: Present: normal inspection - Respiratory Respiratory exam: Present: decreased breath sounds - Cardiovascular Cardiovascular exam: Present: RRR - GI/Abdominal Exam GI/Abdominal exam: Present: normal bowel sounds, soft. Absent: tenderness - Catheter Type: Urethral (Peterson) - Extremities Exam Extremities exam: Present: pedal edema. Absent: normal inspection, tenderness - Neurological Exam Neurological exam: Present: alert - Psychiatric Psychiatric exam: Present: normal affect, normal mood. Absent: agitated, anxious - Skin Skin exam: Present: dry, warm Internal Medicine - CN: Reslt - Labs CBC & Chem 7: 12/18/17 01:40 12/15/17 03:55 Labs: Short CBC 12/18/17 Range/Units 01:40 WBC 12.1 H (4.3-11.1) K/mcL Hgb 10.3 L (11.5-15.4) g/dL Hct 30.5 L (35.3-44.9) % Plt Count 195 (140-400) K/mcL Neutrophils # 9.2 H (1.6-8.9) K/mcL Urine 12/18/17 Range/Units 14:20 Urine Color Yellow (Yellow) Urine Clarity Slightly Hazy (Clear) Urine pH 5.5 (5.0-8.0) pH Units Ur Specific [place] 1.020 (1.010-1.025) Urine Protein Trace (Neg-Trace) mg/dL Urine Glucose (UA) Normal (Normal) mg/dL - ABG Interpretation ABG results: ABG ABG pH 7.45 pH Units (7.32-7.45) 12/13/17 12:05 ABG pCO2 35 mmHg (35-45) 12/13/17 12:05 ABG pO2 116 mmHg (85-104) H 12/13/17 12:05 ABG O2 Saturation 99 % (95-98) H 12/13/17 12:05 PT/INR, D-dimer PT 14.1 Seconds (9.4-12.1) H 12/15/17 03:55 Consult Discharge Plan - Plan Referrals: Rosa Joseph MD [Primary Care Provider] - Palliative Quality Palliative Quality: Screen for Code Status: Yes, Screen for Goals of Care: Yes, Screen for Pain: Yes, If Pain Regimen Started, Initiate Bowel Regimen: Yes, Screen for Nausea/Vomitting: Yes Code Status: 12/13/17 16:39 CODE [Resuscitation Status: Active] [RES] Routine Comment: This was discussed with POA Resuscitation Status: [id number]
[2017-12-18] MEDS: Furosemide 20 MG/2 ML VIAL IVP SCH (18:50)
[2017-12-18] MEDS: cefTRIAXone 1,000 MG in Water for inj. (sterile) 20 ML 10 ML IVP SCH (18:50)
[2017-12-18] MEDS: Sennosides/Docusate Sodium TABLET PO SCH (19:51)
[2017-12-19 07:37] LABS: BUN/Creatinine Ratio 13 (6-26); Blood Urea Nitrogen 11 mg/dL (8-23); Calcium 8.7 mg/dL (8.6-10.3); Carbon Dioxide 24 mEq/L (23-29); Chloride 104 mEq/L (98-107); Glucose 131 mg/dL (70-105); Osmolality,Calculated 285 (280-300); Potassium 3.1 mEq/L (3.5-5.1); Sodium 137 mEq/L (136-145); eGFR For African Americans > 60 (> 60); eGFR For Non-African Americans > 60 (> 60)
[2017-12-19] MEDS ORDERED: Furosemide 20 MG/2 ML VIAL IVP SCH (08:32)
[2017-12-19] MEDS: Sennosides/Docusate Sodium TABLET PO SCH ×2 (09:08→20:38)
[2017-12-19] MEDS: *HR* Rivaroxaban 15 MG TABLET PO SCH ×2 (09:08→17:35)
[2017-12-19] MEDS: cefTRIAXone 1,000 MG in Water for inj. (sterile) 20 ML 10 ML IVP SCH (09:08)
--- NOTE | 2017-12-19 09:45 | Palliative Progress Note ---
Date of Encounter: 12/19/17 Time of Encounter: 09:00 - Assessment and plan (1) UTI (urinary tract infection) Current Visit: No Status: Acute Assessment and plan: The patient now has a very low-grade fever, and the white count is elevated at this point in time. It is also showing mental status change which according to the family is very common when she has urinary tract problems. Discussed with the hospitalist taking care of the patient he is already ordered the Peterson be changed, and already placed her on antibiotics. The urine is contaminated however symptoms to indicate that this is probably a real urinary tract infection and as already noted the hospitalist is already on top of it. [place] per hospitalist team. There appears to be some change in mental status per the family with whom I discussed this morning this is quite common with there is a urinary tract infection present. Qualifiers: Urinary tract infection type: acute cystitis Hematuria presence: without hematuria Qualified Code(s): N30.00 - Acute cystitis without hematuria (2) Dementia Current Visit: No Status: Chronic Assessment and plan: Dementia itself is stable currently patient is having some problems with delirium assist in all likelihood secondary to the urinary tract infection although could be secondary to the pulmonary embolus. Being maintained on oxygen anticoagulation and is being actively treated for a urinary tract infection which should then actively treat the delirium. Qualifiers: Dementia type: unspecified type Dementia behavioral disturbance: without behavioral disturbance Qualified Code(s): F03.90 - Unspecified dementia without behavioral disturbance (3) Saddle embolus Current Visit: Yes Status: Acute Assessment and plan: Being actively treated was also for this, plan per hospitalist team discussed with patient's family about strategies for continuing this are also after hospitalization and after the rehabilitation at the rehabilitation facility. And possibly even merging continue treatment with hospice. In that if the patient has a months worth or so with this route so they can be in hospice for that month see how she did and then decide on either continuing this are also in discontinuing hospice or vice versa. (4) Acute and chronic respiratory failure with hypoxia Current Visit: Yes Status: Acute Assessment and plan: Still requiring high flow oxygen and/or BiPAP. [place] per hospitalist team (5) Goals of care, counseling/discussion Current Visit: Yes Status: Acute Assessment and plan: CODE STATUS well-established its DNR CCA, DNI. Scuffs with patient and family at length yesterday about goals of care ultimately family would love for the patient to finish out at the rehabilitation facility and then discuss hospice placement as the patient normally lives by herself. Family is very sure that she will not be able to return to this environment out some assistance they would like to finish out rehabilitation first. Did discuss with patient and family about hospice they understand where hospice fits in and what would be required. I have discussed with him strategies to allow the patient to continue her anticoagulation therapy still be in hospice for a limited period of time.. (6) Constipation by delayed colonic transit Current Visit: Yes Status: Acute Assessment and plan: No bowel movement at this time, however the patient is on active bowel regimen we will continue to watch - Time Spent With Patient Total time spent is greater than 50% in coordination of care (as documented) at patient's floor/unit and/or counseling patient: - Subjective Interval history: The patient states that she is doing okay, however she does appear to be not as with it as she was yesterday. The patient has been identified as having urinary tract infection and discussing with patient's family today on the phone the patient very often times has changes in her mental status whenever she has a UTI. This is being currently addressed by the hospitalist actively. Patient also had her oxygen off, it was replaced successfully without any difficulty. - Constitutional Vitals: Abnormal lab results WBC 12.1 K/mcL (4.3-11.1) H 12/18/17 01:40 RBC 3.25 M/mcL (3.82-4.97) L 12/18/17 01:40 Hgb 10.3 g/dL (11.5-15.4) L 12/18/17 01:40 Hct 30.5 % (35.3-44.9) L 12/18/17 01:40 Neutrophils # 9.2 K/mcL (1.6-8.9) H 12/18/17 01:40 PT 14.1 Seconds (9.4-12.1) H 12/15/17 03:55 APTT 76.5 Seconds (26.0-36.0) H 12/15/17 03:55 ABG pO2 116 mmHg (85-104) H 12/13/17 12:05 ABG O2 Saturation 99 % (95-98) H 12/13/17 12:05 Potassium 3.1 mEq/L (3.5-5.1) L 12/19/17 06:36 Glucose 131 mg/dL (70-105) H 12/19/17 06:36 POC Glucose 124 mg/dL (70-99) H 12/13/17 20:30 Venous Ioniz Calcium 1.10 mmol/L (1.15-1.35) L 12/14/17 04:14 Alkaline Phosphatase 130 Units/L (34-104) H 12/13/17 11:57 Troponin I 0.12 ng/mL (< 0.04) H* 12/14/17 10:32 B-Natriuretic Peptide 1005 pg/mL (Less than 100) H 12/13/17 11:57 Serum Total Protein 6.3 g/dL (6.4-8.9) L 12/13/17 11:57 Albumin 3.0 g/dL (3.5-5.7) L 12/13/17 11:57 Albumin/Globulin Ratio 0.9 (1.1-2.2) L 12/13/17 11:57 Urine Blood Small (Negative) H 12/18/17 14:20 Urine Nitrite Positive (Negative) A 12/18/17 14:20 Ur Leukocyte Esterase Large (Negative) H 12/18/17 14:20 Urine Microscopic WBC 50-100 per hpf (0-3) H 12/18/17 14:20 Ur Squamous Epith Cells Moderate per lpf (None-Few) H 12/18/17 14:20 Urine Bacteria Many per hpf (None-Few) H 12/18/17 14:20 General appearance: Present: no acute distress - Head Head exam: Present: atraumatic, normal inspection - Eye Eye exam: Present: PERRL - Respiratory Respiratory exam: Present: decreased breath sounds - Cardiovascular Cardiovascular exam: Present: RRR - GI/Abdominal GI/Abdominal exam: Present: normal bowel sounds, soft. Absent: tenderness - Extremities Exam Extremities exam: Present: normal inspection. Absent: pedal edema, tenderness - Neurological Exam Neurological exam: Present: alert. Absent: oriented X3 (Patient is communicative is not oriented and does not appear to be as sharp as yesterday.) - Psychiatric Psychiatric exam: Absent: agitated, anxious - Skin Skin exam: Present: dry, warm Palliative Quality Palliative Quality: Screen for Code Status: Yes, Screen for Goals of Care: Yes, Screen for Pain: Yes, If Pain Regimen Started, Initiate Bowel Regimen: Yes, Screen for Nausea/Vomitting: Yes Code Status: 12/13/17 16:39 CODE [Resuscitation Status: Active] [RES] Routine Comment: This was discussed with POA Resuscitation Status: [id number] - Labs CBC & Chem 7: 12/18/17 01:40 12/19/17 06:36 Labs: Laboratory Results - last 24 hr 12/18/17 12/19/17 12/19/17 14:20 06:36 07:39 Sodium 137 Potassium 3.1 L Chloride 104 Carbon Dioxide 24 BUN 11 Creatinine 0.85 Est GFR ( Amer) > 60 Est GFR (Non-Af Amer) > 60 BUN/Creatinine Ratio 13 Glucose 131 H Calculated Osmolality 285 Calcium 8.7 Urine Color Yellow Urine Clarity Slightly Hazy Urine pH 5.5 Ur Specific [place] 1.020 Urine Protein Trace Urine Glucose (UA) Normal Urine Ketones Negative Urine Blood Small H Urine Nitrite Positive A Urine Bilirubin Negative Urine Urobilinogen Normal Ur Leukocyte Esterase Large H Urine Microscopic RBC 0-3 Urine Microscopic WBC 50-100 H Ur Squamous Epith Cells Moderate H Urine Bacteria Many H Hyaline Casts None Seen Specimen Rejected Miscellaneous - ABG Interpretation ABG results: ABG ABG pH 7.45 pH Units (7.32-7.45) 12/13/17 12:05 ABG pCO2 35 mmHg (35-45) 12/13/17 12:05 ABG pO2 116 mmHg (85-104) H 12/13/17 12:05 ABG O2 Saturation 99 % (95-98) H 12/13/17 12:05 PT/INR, D-dimer PT 14.1 Seconds (9.4-12.1) H 12/15/17 03:55 Consult Discharge Plan - Plan Referrals: Rosa Joseph MD [Primary Care Provider] -
--- NOTE | 2017-12-19 11:26 | Internal Med Progress Note ---
Date of Encounter: 12/19/17 Time of Encounter: 09:00 - Assessment and plan (1) Saddle embolus Current Visit: Yes Status: Acute Assessment and plan: On heparin drip with bridging to coumadin. will consult hematology and consider a NOAc as there does not seem to be a clear contraindication. Started on xarelto 12/19: She is currently on Xarelto. We will continue with this. Minimum of 6 months therapy, probably lifelong. (2) Elevated troponin Current Visit: No Status: Chronic Assessment and plan: Likely demand ischemia from saddle PE. On xarelto (3) Dementia Current Visit: No Status: Chronic Assessment and plan: Resume home meds Qualifiers: Dementia type: unspecified type Dementia behavioral disturbance: without behavioral disturbance Qualified Code(s): F03.90 - Unspecified dementia without behavioral disturbance (4) Acute and chronic respiratory failure with hypoxia Current Visit: Yes Status: Acute Assessment and plan: Likely 2/2 to acute PE. Continue BIPAP. Wean off as tolerated. Palliative care consult. Pt continues to require high O2. Plan to discharge to long-term on BIPAP after palliative care recs. demolition worker consulted to set up nursing e BIPAP. Patient will likely benefit from hospice 12/19: Improving. Wean off BiPAP. Monitor. Continue diuresis as able. (5) DVT (deep venous thrombosis) Current Visit: Yes Status: Acute Assessment and plan: Pt has bilateral DVT. On heparin drip. Plan to transition to po anticoagulation. hematology recs appreciated 12/19: On Xarelto Qualifiers: DVT location: lower extremity Laterality: bilateral Qualified Code(s): I82.403 - Acute embolism and thrombosis of unspecified deep veins of lower extremity, bilateral (6) Urinary tract infection associated with indwelling urethral catheter Current Visit: Yes Status: Acute Assessment and plan: Catheter has been removed. Patient did have a fever yesterday. She is day 2 of IV Rocephin. Await culture sensitivity. Anticipate short course of antibiotics, hopefully stop after day 3. Qualifiers: Encounter type: subsequent encounter Qualified Code(s): T83.511D - Infection and inflammatory reaction due to indwelling urethral catheter, subsequent encounter; N39.0 - Urinary tract infection, site not specified (7) UTI (urinary tract infection) Current Visit: No Status: Acute Qualifiers: Urinary tract infection type: acute cystitis Hematuria presence: without hematuria Qualified Code(s): N30.00 - Acute cystitis without hematuria (8) Acute on chronic diastolic CHF (congestive heart failure) Current Visit: Yes Status: Acute Assessment and plan: Continue with IV Lasix 40 mg twice a day his renal function allows. Continue beta kasey. Monitor. Echo done on December 13 showed a dilated right ventricle with mildly reduced function, mild tricuspid regurgitation, severe pulmonary hypertension, EF of 55- 60%. CHF more likely due to portal hypertension as result of central embolus, with acute right heart failure. Treatment as outlined above. Monitor. - Time Spent With Patient Total time spent is greater than 50% in coordination of care (as documented) at patient's floor/unit and/or counseling patient: 25 - 35 minutes - Subjective Interval history: 87-year-old female who was admitted to our intensive care unit on November for acute hypoxemic respiratory failure. She came from a nursing facility. Recent admission for urinary tract infection and colitis. Workup included a CTA of her thorax on admission which showed an acute nonoccluding saddle emboli with complete occlusion of lower lobe pulmonary artery. Patient was noted to have a right heart strain on echo. She started the lower extremities showed bilateral lower extremity DVT. She initially placed on BiPAP to maintain oxygen saturations. She is currently on Xarelto 15 mg po bid for acute PE treatment. She was not a candidate for thrombolytics. Patient was seen by oncology who recommended Xarelto. Patient was subsequently transferred to the internal medicine service with plans to hopefully wean her off BiPAP. She was also being seen by palliative care as she is a DO NOT RESUSCITATE, and is discussing future care options. Pt currently states she is breathing better. She wants to BiPAP mask off. No chest pain. No fevers or chills. No nausea, vomiting, diarrhea. I discussed the case with Dr. Lopes in palliative care, his input is appreciated Anticipate transfer to subacute rehabilitation in a couple days once her breathing is improved. Wean oxygen as able. 12/19: Patient continues on Lasix. She still is on high flow oxygen but is now off BiPAP. He states she feels much better with regards to her breathing. No chest pain. No nausea, vomiting, diarrhea. She had a low-grade temperature last night of 99.2. She was started on ceftriaxone for suspected urinary tract infection. Urinary catheter was removed yesterday. - Constitutional Vitals: Temp Pulse Resp BP Pulse Ox 99.2 F 92 20 159/81 94 12/19/17 07:54 12/19/17 07:54 12/19/17 07:54 12/19/17 07:54 12/19/17 07:54 General appearance: Present: mild distress, A&O X 3 Exam: More comfortable appearing today - Head Head exam: Present: atraumatic, normocephalic - Eye Eye exam: Present: PERRL, conjuntiva pink, sclera anicteric Pupils: Present: PERRL - Neck Neck exam general surgery: Present: supple, trachea midline. Absent: lymphadenopathy - Respiratory Respiratory exam: Present: decreased breath sounds, respiratory distress, tachypnea - Cardiovascular Cardiovascular exam: Present: RRR, +S1, +S2. Absent: diastolic murmur, gallop, rubs, systolic murmur - GI/Abdominal GI/Abdominal exam: Present: normal bowel sounds, soft, no peritoneal signs. Absent: distended, tenderness - Extremities Exam Extremities exam: Present: pedal edema - Neurological Exam Neurological exam: Present: CN II-XII intact, oriented X3, no focal deficits. Absent: pronater drift, facial droop, speech deficit Internal Medicine: Result - Labs CBC & Chem 7: 12/18/17 01:40 12/19/17 06:36 Labs: BMP 12/19/17 06:36 Sodium 137 Potassium 3.1 L Chloride 104 Carbon Dioxide 24 BUN 11 Creatinine 0.85 Glucose 131 H Calcium 8.7 Urine 12/18/17 Range/Units 14:20 Urine Color Yellow (Yellow) Urine Clarity Slightly Hazy (Clear) Urine pH 5.5 (5.0-8.0) pH Units Ur Specific [place] 1.020 (1.010-1.025) Urine Protein Trace (Neg-Trace) mg/dL Urine Glucose (UA) Normal (Normal) mg/dL - ABG Interpretation ABG results: ABG ABG pH 7.45 pH Units (7.32-7.45) 12/13/17 12:05 ABG pCO2 35 mmHg (35-45) 12/13/17 12:05 ABG pO2 116 mmHg (85-104) H 12/13/17 12:05 ABG O2 Saturation 99 % (95-98) H 12/13/17 12:05 PT/INR, D-dimer PT 14.1 Seconds (9.4-12.1) H 12/15/17 03:55 Consult Discharge Plan - Plan Referrals: Rosa Joseph MD [Primary Care Provider] -
[2017-12-19] MEDS: Furosemide 40 MG/4 ML VIAL IVP SCH ×2 (13:46→20:37)
[2017-12-20 06:38] LABS: Basophils % 0.2 %; Eosinophils # 0.1 K/mcL (0.0-0.6); Eosinophils % 0.9 %; Hematocrit 36.3 % (35.3-44.9); Hemoglobin 12.3 g/dL (11.5-15.4); Immature Granulocytes % 0.5 % (0-4); Lymphocytes # 1.6 K/mcL (0.6-4.6); Mean Corpuscular HGB Conc 33.9 g/dL (31.6-35.5); Mean Corpuscular Hemoglobin 30.6 pg (28.0-33.3); Mean Corpuscular Volume 90.3 fL (83.0-100.0); Mean Platelet Volume 10.6 fL (9.4-12.4); Monocytes # 0.7 K/mcL (0.0-1.3); Monocytes % 4.2 %; Neutrophils # 13.1 K/mcL (1.6-8.9); Platelet Count 248 K/mcL (140-400); Red Blood Count 4.02 M/mcL (3.82-4.97); Red Cell Distribution Width 13.7 % (11.5-14.5); Segmented Neutrophils % 84.2 %
[2017-12-20] MEDS: Furosemide 40 MG/4 ML VIAL IVP SCH ×2 (08:25→17:30)
[2017-12-20] MEDS: *HR* Rivaroxaban 15 MG TABLET PO SCH ×2 (08:25→17:30)
[2017-12-20 09:45] LABS: BUN/Creatinine Ratio 16 (6-26); Blood Urea Nitrogen 14 mg/dL (8-23); Calcium 9.3 mg/dL (8.6-10.3); Carbon Dioxide 29 mEq/L (23-29); Chloride 96 mEq/L (98-107); Glucose 113 mg/dL (70-105); Osmolality,Calculated 285 (280-300); Potassium 3.1 mEq/L (3.5-5.1); Sodium 137 mEq/L (136-145); eGFR For African Americans > 60 (> 60); eGFR For Non-African Americans > 60 (> 60)
[2017-12-20] MEDS: cefTRIAXone 1,000 MG in Water for inj. (sterile) 20 ML 10 ML IVP SCH (11:19)
[2017-12-20] MEDS: Sennosides/Docusate Sodium TABLET PO SCH ×2 (11:19→20:43)
--- NOTE | 2017-12-20 11:34 | Palliative Progress Note ---
Date of Encounter: 12/20/17 Time of Encounter: 07:20 - Assessment and plan (1) UTI (urinary tract infection) Current Visit: No Status: Acute Assessment and plan: The patient count is elevated, patient is being treated for this no fever noted today.. Qualifiers: Urinary tract infection type: acute cystitis Hematuria presence: without hematuria Qualified Code(s): N30.00 - Acute cystitis without hematuria (2) Dementia Current Visit: No Status: Chronic Assessment and plan: Dementia itself is stable currently patient is having some problems with delirium I believe the patient's delirium is secondary to a combination of the PE plus tract infection and treated rest of Ed. Qualifiers: Dementia type: unspecified type Dementia behavioral disturbance: without behavioral disturbance Qualified Code(s): F03.90 - Unspecified dementia without behavioral disturbance (3) Saddle embolus Current Visit: Yes Status: Acute Assessment and plan: Being actively treated was also for this, plan per hospitalist team discussed with patient's family about strategies for continuing this are also after hospitalization and after the rehabilitation at the rehabilitation facility. And possibly even merging continue treatment with hospice. In that if the patient has a months worth or so with this route so they can be in hospice for that month see how she did and then decide on either continuing this are also in discontinuing hospice or vice versa. [place] per hospitalist team as above (4) Acute and chronic respiratory failure with hypoxia Current Visit: Yes Status: Acute Assessment and plan: Still requiring high flow oxygen and/or BiPAP. Plan is per hospitalist team (5) Goals of care, counseling/discussion Current Visit: Yes Status: Acute Assessment and plan: CODE STATUS well-established its DNR CCA, DNI. Goal is to return to [facility] to finish out rehabilitation and we will then reevaluate for possible hospice trial, I have described in great depth and detail to the family how to continue Xarelto while the patient is not hospice at least for a month. I did them know that in all likelihood no hospice is going to pay for the anticoagulation therapy the patient's currently on. (6) Constipation by delayed colonic transit Current Visit: Yes Status: Acute Assessment and plan: Now having bowel movements continue to watch - Time Spent With Patient Total time spent is greater than 50% in coordination of care (as documented) at patient's floor/unit and/or counseling patient: - Subjective Interval history: The patient is sleeping soundly. Per nursing staff she is fully awakened and has been alert a normal level for her.. Sats have been running well. - Constitutional Vitals: Abnormal lab results WBC 15.5 K/mcL (4.3-11.1) H 12/20/17 05:56 Neutrophils # 13.1 K/mcL (1.6-8.9) H 12/20/17 05:56 PT 14.1 Seconds (9.4-12.1) H 12/15/17 03:55 APTT 76.5 Seconds (26.0-36.0) H 12/15/17 03:55 ABG pO2 116 mmHg (85-104) H 12/13/17 12:05 ABG O2 Saturation 99 % (95-98) H 12/13/17 12:05 Potassium 3.1 mEq/L (3.5-5.1) L 12/20/17 09:17 Chloride 96 mEq/L (98-107) L 12/20/17 09:17 Glucose 113 mg/dL (70-105) H 12/20/17 09:17 POC Glucose 124 mg/dL (70-99) H 12/13/17 20:30 Venous Ioniz Calcium 1.10 mmol/L (1.15-1.35) L 12/14/17 04:14 Alkaline Phosphatase 130 Units/L (34-104) H 12/13/17 11:57 Troponin I 0.12 ng/mL (< 0.04) H* 12/14/17 10:32 B-Natriuretic Peptide 1005 pg/mL (Less than 100) H 12/13/17 11:57 Serum Total Protein 6.3 g/dL (6.4-8.9) L 12/13/17 11:57 Albumin 3.0 g/dL (3.5-5.7) L 12/13/17 11:57 Albumin/Globulin Ratio 0.9 (1.1-2.2) L 12/13/17 11:57 Urine Blood Small (Negative) H 12/18/17 14:20 Urine Nitrite Positive (Negative) A 12/18/17 14:20 Ur Leukocyte Esterase Large (Negative) H 12/18/17 14:20 Urine Microscopic WBC 50-100 per hpf (0-3) H 05/29/18 14:20 Ur Squamous Epith Cells Moderate per lpf (None-Few) H 12/18/17 14:20 Urine Bacteria Many per hpf (None-Few) H 12/18/17 14:20 General appearance: Present: no acute distress - Respiratory Respiratory exam: Present: decreased breath sounds - Cardiovascular Cardiovascular exam: Present: RRR - GI/Abdominal GI/Abdominal exam: Present: normal bowel sounds, soft. Absent: tenderness - Extremities Exam Extremities exam: Absent: pedal edema, tenderness - Skin Skin exam: Present: dry, warm Palliative Quality Palliative Quality: Screen for Code Status: Yes, Screen for Goals of Care: Yes, Screen for Pain: Yes, If Pain Regimen Started, Initiate Bowel Regimen: Yes, Screen for Nausea/Vomitting: Yes Code Status: 12/13/17 16:39 CODE [Resuscitation Status: Active] [RES] Routine Comment: This was discussed with POA Resuscitation Status: [id number] - Labs CBC & Chem 7: 12/20/17 05:56 12/20/17 09:17 Labs: Laboratory Results - last 24 hr 12/20/17 12/20/17 05:56 09:17 WBC 15.5 H RBC 4.02 Hgb 12.3 D Hct 36.3 MCV 90.3 MCH 30.6 MCHC 33.9 RDW 13.7 Plt Count 248 MPV 10.6 Immature Gran % 0.5 Seg Neutrophils % 84.2 Lymphocytes % 10.0 Monocytes % 4.2 Eosinophils % 0.9 Basophils % 0.2 Neutrophils # 13.1 H Lymphocytes # 1.6 Monocytes # 0.7 Eosinophils # 0.1 Basophils # 0.0 Sodium 137 Potassium 3.1 L Chloride 96 L Carbon Dioxide 29 BUN 14 Creatinine 0.88 Est GFR ( Amer) > 60 Est GFR (Non-Af Amer) > 60 BUN/Creatinine Ratio 16 Glucose 113 H Calculated Osmolality 285 Calcium 9.3 - ABG Interpretation ABG results: ABG ABG pH 7.45 pH Units (7.32-7.45) 12/13/17 12:05 ABG pCO2 35 mmHg (35-45) 12/13/17 12:05 ABG pO2 116 mmHg (85-104) H 12/13/17 12:05 ABG O2 Saturation 99 % (95-98) H 12/13/17 12:05 PT/INR, D-dimer PT 14.1 Seconds (9.4-12.1) H 12/15/17 03:55 Consult Discharge Plan - Plan Referrals: Rosa Joseph MD [Primary Care Provider] -
--- NOTE | 2017-12-20 13:38 | Internal Med Progress Note ---
Date of Encounter: 12/20/17 Time of Encounter: 09:00 - Assessment and plan (1) Acute and chronic respiratory failure with hypoxia Current Visit: Yes Status: Acute Assessment and plan: Likely 2/2 to acute PE. Continue BIPAP. Wean off as tolerated. Palliative care consult. Pt continues to require high O2. Plan to discharge to longterm on BIPAP after palliative care recs. broke worker consulted to set up nursing hme BIPAP. Patient will likely benefit from hospice 12/19: Improving. Wean off BiPAP. Monitor. Continue diuresis as able. 12/20: Continues to be improving with diuresis. Her requiring high FiO2. Continue the diuresis renal function allows. Monitor. In addition to pulmonary embolism, suspect some mild diastolic and right heart failure contributing to her hypoxemia. (2) Saddle embolus Current Visit: Yes Status: Acute Assessment and plan: On heparin drip with bridging to coumadin. will consult hematology and consider a NOAc as there does not seem to be a clear contraindication. Started on xarelto 12/20: She is currently on Xarelto. We will continue with this. Minimum of 6 months therapy, probably lifelong. (3) Elevated troponin Current Visit: No Status: Chronic Assessment and plan: Likely demand ischemia from saddle PE. On xarelto (4) Dementia Current Visit: No Status: Chronic Assessment and plan: Resume home meds Qualifiers: Dementia type: unspecified type Dementia behavioral disturbance: without behavioral disturbance Qualified Code(s): F03.90 - Unspecified dementia without behavioral disturbance (5) DVT (deep venous thrombosis) Current Visit: Yes Status: Acute Assessment and plan: Pt has bilateral DVT. On heparin drip. Plan to transition to po anticoagulation. hematology recs appreciated 12/20 : On Xarelto Qualifiers: DVT location: lower extremity Laterality: bilateral Qualified Code(s): I82.403 - Acute embolism and thrombosis of unspecified deep veins of lower extremity, bilateral (6) Urinary tract infection associated with indwelling urethral catheter Current Visit: Yes Status: Acute Assessment and plan: Catheter has been removed. Patient did have a fever yesterday. She is day 2 of IV Rocephin. Await culture sensitivity. Anticipate short course of antibiotics, hopefully stop after day 3. 12/20: No culture data. Patient is afebrile. White blood cell count is trending down. I will stop antibiotics today, and monitor. Qualifiers: Encounter type: subsequent encounter Qualified Code(s): T83.511D - Infection and inflammatory reaction due to indwelling urethral catheter, subsequent encounter; N39.0 - Urinary tract infection, site not specified (7) UTI (urinary tract infection) Current Visit: No Status: Acute Qualifiers: Urinary tract infection type: acute cystitis Hematuria presence: without hematuria Qualified Code(s): N30.00 - Acute cystitis without hematuria (8) Acute on chronic diastolic CHF (congestive heart failure) Current Visit: Yes Status: Acute Assessment and plan: Continue with IV Lasix 40 mg twice a day his renal function allows. Continue beta kasey. Monitor. Echo done on December 13 showed a dilated right ventricle with mildly reduced function, mild tricuspid regurgitation, severe pulmonary hypertension, EF of 55- 60%. CHF more likely due to portal hypertension as result of central embolus, with acute right heart failure. Treatment as outlined above. Monitor. 12/20: As above. Continue diuresis as renal function allows. - Time Spent With Patient Total time spent is greater than 50% in coordination of care (as documented) at patient's floor/unit and/or counseling patient: Greater than 35 minutes - Subjective Interval history: 87-year-old female who was admitted to our intensive care unit on November for acute hypoxemic respiratory failure. She came from a nursing facility. Recent admission for urinary tract infection and colitis. Workup included a CTA of her thorax on admission which showed an acute nonoccluding saddle emboli with complete occlusion of lower lobe pulmonary artery. Patient was noted to have a right heart strain on echo. She started the lower extremities showed bilateral lower extremity DVT. She initially placed on BiPAP to maintain oxygen saturations. She is currently on Xarelto 15 mg po bid for acute PE treatment. She was not a candidate for thrombolytics. Patient was seen by oncology who recommended Xarelto. Patient was subsequently transferred to the internal medicine service with plans to hopefully wean her off BiPAP. She was also being seen by palliative care as she is a DO NOT RESUSCITATE, and is discussing future care options. Pt currently states she is breathing better. She wants to BiPAP mask off. No chest pain. No fevers or chills. No nausea, vomiting, diarrhea. I discussed the case with Dr. Lopes in palliative care, his input is appreciated Anticipate transfer to subacute rehabilitation in a couple days once her breathing is improved. Wean oxygen as able. 12/19: Patient continues on Lasix. She still is on high flow oxygen but is now off BiPAP. He states she feels much better with regards to her breathing. No chest pain. No nausea, vomiting, diarrhea. She had a low-grade temperature last night of 99.2. She was started on ceftriaxone for suspected urinary tract infection. Urinary catheter was removed yesterday. 12/20: Patient continues with high oxygen demand but is currently off BiPAP. She continues to diurese with IV Lasix and is down over 2.2 L in the last 2 days. Renal function has been tolerating. Patient states her breathing is doing okay. She denies any chest pain. No nausea, vomiting, diarrhea. She has been afebrile. - Constitutional Vitals: Temp Pulse Resp BP Pulse Ox 97.5 F L 83 16 128/65 98 12/20/17 11:52 12/20/17 11:52 12/20/17 12:48 12/20/17 11:52 12/20/17 12:48 General appearance: Present: mild distress, A&O X 3 - Head Head exam: Present: atraumatic, normocephalic - Eye Eye exam: Present: PERRL, conjuntiva pink, sclera anicteric Pupils: Present: PERRL - Neck Neck exam general surgery: Present: supple, trachea midline. Absent: lymphadenopathy - Respiratory Respiratory exam: Present: decreased breath sounds - Cardiovascular Cardiovascular exam: Present: RRR, +S1, +S2. Absent: diastolic murmur, gallop, rubs, systolic murmur - GI/Abdominal GI/Abdominal exam: Present: normal bowel sounds, soft, no peritoneal signs. Absent: distended, tenderness - Extremities Exam Extremities exam: Present: pedal edema, warm, radial pulses palpable and symmetrical. Absent: calf tenderness, cyanotic - Neurological Exam Neurological exam: Present: CN II-XII intact, oriented X3, no focal deficits. Absent: pronater drift, facial droop, speech deficit Internal Medicine: Result - Labs CBC & Chem 7: 12/20/17 05:56 12/20/17 09:17 Labs: Short CBC 12/20/17 Range/Units 05:56 WBC 15.5 H (4.3-11.1) K/mcL Hgb 12.3 D (11.5-15.4) g/dL Hct 36.3 (35.3-44.9) % Plt Count 248 (140-400) K/mcL Neutrophils # 13.1 H (1.6-8.9) K/mcL BMP 12/20/17 09:17 Sodium 137 Potassium 3.1 L Chloride 96 L Carbon Dioxide 29 BUN 14 Creatinine 0.88 Glucose 113 H Calcium 9.3 - ABG Interpretation ABG results: ABG ABG pH 7.45 pH Units (7.32-7.45) 12/13/17 12:05 ABG pCO2 35 mmHg (35-45) 12/13/17 12:05 ABG pO2 116 mmHg (85-104) H 12/13/17 12:05 ABG O2 Saturation 99 % (95-98) H 12/13/17 12:05 PT/INR, D-dimer PT 14.1 Seconds (9.4-12.1) H 12/15/17 03:55 Consult Discharge Plan - Plan Referrals: Rosa Joseph MD [Primary Care Provider] -
[2017-12-20] MEDS ORDERED: traMADol 50 MG TABLET PO PRN (14:57)
[2017-12-20] MEDS ORDERED: cefTRIAXone 1,000 MG in Water for inj. (sterile) 20 ML 10 ML IVP ONE (18:00)
[2017-12-20] MEDS ORDERED: Mag Hydrox/Al Hydrox/Simeth 30 ML UDC PO PRN (18:49)
[2017-12-21 05:54] LABS: Basophils % 0.3 %; Eosinophils # 0.2 K/mcL (0.0-0.6); Eosinophils % 1.5 %; Hematocrit 32.6 % (35.3-44.9); Hemoglobin 11.3 g/dL (11.5-15.4); Immature Granulocytes % 0.3 % (0-4); Lymphocytes # 1.8 K/mcL (0.6-4.6); Lymphocytes % 14.2 %; Mean Corpuscular HGB Conc 34.7 g/dL (31.6-35.5); Mean Corpuscular Hemoglobin 31.8 pg (28.0-33.3); Mean Corpuscular Volume 91.8 fL (83.0-100.0); Mean Platelet Volume 10.4 fL (9.4-12.4); Monocytes # 0.6 K/mcL (0.0-1.3); Monocytes % 4.7 %; Neutrophils # 10.1 K/mcL (1.6-8.9); Nucleated Red Blood Cells 0.2 /100 WBC (0); Platelet Count 227 K/mcL (140-400); Red Blood Count 3.55 M/mcL (3.82-4.97); Red Cell Distribution Width 13.7 % (11.5-14.5)
[2017-12-21 06:09] LABS: Calcium 8.4 mg/dL (8.6-10.3); Potassium 3.4 mEq/L (3.5-5.1)
--- NOTE | 2017-12-21 09:27 | Event Note ---
Date of Encounter: 12/21/17 Time of Encounter: 09:25 CODE STATUS has been confirmed, goals of care are set up in family has been contacted about different ways the patient may be able to continue Xarelto as they consider the possibility of hospice. As already noted I do not believe the patient can be in hospice and continue the Xarelto indefinitely. At this point in time the patient may be discharged to rehabilitation very soon, palliative has nothing further to offer we will follow at a distance.
[2017-12-21] MEDS: Furosemide 40 MG/4 ML VIAL IVP SCH (09:39)
[2017-12-21] MEDS: Sennosides/Docusate Sodium TABLET PO SCH ×2 (09:39→20:01)
[2017-12-21] MEDS: *HR* Rivaroxaban 15 MG TABLET PO SCH (09:41)
--- NOTE | 2017-12-21 13:51 | Internal Med Progress Note ---
Date of Encounter: 12/21/17 Time of Encounter: 11:00 - Assessment and plan (1) Saddle embolus Current Visit: Yes Status: Acute Assessment and plan: On heparin drip with bridging to coumadin. will consult hematology and consider a NOAc as there does not seem to be a clear contraindication. Started on xarelto 12/21: She is currently on Xarelto. We will continue with this. Minimum of 6 months therapy, probably lifelong. (2) Elevated troponin Current Visit: No Status: Chronic Assessment and plan: Likely demand ischemia from saddle PE. On xarelto (3) Dementia Current Visit: No Status: Chronic Assessment and plan: Resume home meds Qualifiers: Dementia type: unspecified type Dementia behavioral disturbance: without behavioral disturbance Qualified Code(s): F03.90 - Unspecified dementia without behavioral disturbance (4) DVT (deep venous thrombosis) Current Visit: Yes Status: Acute Assessment and plan: Pt has bilateral DVT. On heparin drip. Plan to transition to po anticoagulation. hematology recs appreciated 12/21: On Xarelto (5) Urinary tract infection associated with indwelling urethral catheter Current Visit: Yes Status: Acute Assessment and plan: Catheter has been removed. Patient did have a fever yesterday. She is day 2 of IV Rocephin. Await culture sensitivity. Anticipate short course of antibiotics, hopefully stop after day 3. 12/20: No culture data. Patient is afebrile. White blood cell count is trending down. I will stop antibiotics today, and monitor. 12/21: Treated. (6) Acute on chronic diastolic CHF (congestive heart failure) Current Visit: Yes Status: Acute Assessment and plan: Continue with IV Lasix 40 mg twice a day his renal function allows. Continue beta kasey. Monitor. Echo done on December 13 showed a dilated right ventricle with mildly reduced function, mild tricuspid regurgitation, severe pulmonary hypertension, EF of 55- 60%. CHF more likely due to portal hypertension as result of central embolus, with acute right heart failure. Treatment as outlined above. Monitor. 12/21:: As above. Continue diuresis as renal function allows. Lasix 40 mg IV twice a day Lopressor 25 mg by mouth twice a day I will change her Lasix to oral today. Continue to monitor. - Time Spent With Patient Total time spent is greater than 50% in coordination of care (as documented) at patient's floor/unit and/or counseling patient: 25 - 35 minutes - Subjective Interval history: 87-year-old female who was admitted to our intensive care unit on November for acute hypoxemic respiratory failure. She came from a nursing facility. Recent admission for urinary tract infection and colitis. Workup included a CTA of her thorax on admission which showed an acute nonoccluding saddle emboli with complete occlusion of lower lobe pulmonary artery. Patient was noted to have a right heart strain on echo. She started the lower extremities showed bilateral lower extremity DVT. She initially placed on BiPAP to maintain oxygen saturations. She is currently on Xarelto 15 mg po bid for acute PE treatment. She was not a candidate for thrombolytics. Patient was seen by oncology who recommended Xarelto. Patient was subsequently transferred to the internal medicine service with plans to hopefully wean her off BiPAP. She was also being seen by palliative care as she is a DO NOT RESUSCITATE, and is discussing future care options. Pt currently states she is breathing better. She wants to BiPAP mask off. No chest pain. No fevers or chills. No nausea, vomiting, diarrhea. I discussed the case with Dr. Lopes in palliative care, his input is appreciated Anticipate transfer to subacute rehabilitation in a couple days once her breathing is improved. Wean oxygen as able. 12/19: Patient continues on Lasix. She still is on high flow oxygen but is now off BiPAP. He states she feels much better with regards to her breathing. No chest pain. No nausea, vomiting, diarrhea. She had a low-grade temperature last night of 99.2. She was started on ceftriaxone for suspected urinary tract infection. Urinary catheter was removed yesterday. 12/20: Patient continues with high oxygen demand but is currently off BiPAP. She continues to diurese with IV Lasix and is down over 2.2 L in the last 2 days. Renal function has been tolerating. Patient states her breathing is doing okay. She denies any chest pain. No nausea, vomiting, diarrhea. She has been afebrile. 12/20: Patient continues on oxygen at 10 L per nasal cannula. Saturations are running in the high 90s to 100%. We are titrating oxygen down to maintain sats of around 91%. Patient states she is feeling okay. Is denying any complaints. No pain. No shortness of breath. Fevers or chills. He is off BiPAP. Patient continues on IV Lasix as well as renal function allows. Arrangements being made for future transfer to snf facility. - Constitutional Vitals: Temp Pulse Resp BP Pulse Ox 97.5 F L 79 16 120/70 97 12/21/17 10:13 12/21/17 10:13 12/21/17 10:13 12/21/17 10:13 12/21/17 10:13 General appearance: Present: A&O X 3, no acute distress - Head Head exam: Present: atraumatic, normocephalic - Eye Eye exam: Present: PERRL, conjuntiva pink, sclera anicteric Pupils: Present: PERRL - Neck Neck exam general surgery: Present: supple, trachea midline. Absent: lymphadenopathy - Respiratory Respiratory exam: Present: decreased breath sounds - Cardiovascular Cardiovascular exam: Present: RRR, +S1, +S2. Absent: diastolic murmur, gallop, rubs, systolic murmur - GI/Abdominal GI/Abdominal exam: Present: normal bowel sounds, soft, no peritoneal signs. Absent: distended, tenderness - Extremities Exam Extremities exam: Present: pedal edema, warm, radial pulses palpable and symmetrical. Absent: calf tenderness, cyanotic - Neurological Exam Neurological exam: Present: CN II-XII intact, oriented X3, no focal deficits. Absent: pronater drift, facial droop, speech deficit Internal Medicine: Result - Labs CBC & Chem 7: 12/21/17 05:40 12/21/17 05:40 Labs: Short CBC 12/21/17 Range/Units 05:40 WBC 12.8 H (4.3-11.1) K/mcL Hgb 11.3 L (11.5-15.4) g/dL Hct 32.6 L (35.3-44.9) % Plt Count 227 (140-400) K/mcL Neutrophils # 10.1 H (1.6-8.9) K/mcL BMP 12/21/17 05:40 Sodium 138 Potassium 3.4 L Chloride 99 Carbon Dioxide 30 H BUN 21 Creatinine 1.09 Glucose 112 H Calcium 8.4 L - ABG Interpretation ABG results: ABG ABG pH 7.45 pH Units (7.32-7.45) 12/13/17 12:05 ABG pCO2 35 mmHg (35-45) 12/13/17 12:05 ABG pO2 116 mmHg (85-104) H 12/13/17 12:05 ABG O2 Saturation 99 % (95-98) H 12/13/17 12:05 PT/INR, D-dimer PT 14.1 Seconds (9.4-12.1) H 12/15/17 03:55 Consult Discharge Plan - Plan Referrals: Rosa Joseph MD [Primary Care Provider] -
[2017-12-21] MEDS: Furosemide 40 MG TABLET PO SCH (17:53)
[2017-12-21] MEDS: Apixaban 5 MG TABLET PO SCH (20:01)
[2017-12-22 03:48] LABS: Calcium 8.6 mg/dL (8.6-10.3); Potassium 3.3 mEq/L (3.5-5.1)
--- NOTE | 2017-12-22 09:19 | Internal Med Progress Note ---
Date of Encounter: 12/22/17 Time of Encounter: 07:30 - Assessment and plan (1) Saddle embolus Current Visit: Yes Status: Acute Assessment and plan: On heparin drip with bridging to coumadin. will consult hematology and consider a NOAc as there does not seem to be a clear contraindication. Started on xarelto 12/21: She is currently on Xarelto. We will continue with this. Minimum of 6 months therapy, probably lifelong. 12/22: On Eliquis. Suspect this will be lifelong. Clinically improving. (2) Elevated troponin Current Visit: No Status: Chronic Assessment and plan: Likely demand ischemia from saddle PE. On xarelto (3) Dementia Current Visit: No Status: Chronic Assessment and plan: Resume home meds Qualifiers: Dementia type: unspecified type Dementia behavioral disturbance: without behavioral disturbance Qualified Code(s): F03.90 - Unspecified dementia without behavioral disturbance (4) DVT (deep venous thrombosis) Current Visit: Yes Status: Acute Assessment and plan: Pt has bilateral DVT. On heparin drip. Plan to transition to po anticoagulation. hematology recs appreciated 12/22 On Eliquis (5) Urinary tract infection associated with indwelling urethral catheter Current Visit: Yes Status: Acute Assessment and plan: Catheter has been removed. Patient did have a fever yesterday. She is day 2 of IV Rocephin. Await culture sensitivity. Anticipate short course of antibiotics, hopefully stop after day 3. 12/20: No culture data. Patient is afebrile. White blood cell count is trending down. I will stop antibiotics today, and monitor. 12/21: Treated. (6) Acute on chronic diastolic CHF (congestive heart failure) Current Visit: Yes Status: Acute Assessment and plan: Continue with IV Lasix 40 mg twice a day his renal function allows. Continue beta kasey. Monitor. Echo done on December 13 showed a dilated right ventricle with mildly reduced function, mild tricuspid regurgitation, severe pulmonary hypertension, EF of 55- 60%. CHF more likely due to portal hypertension as result of central embolus, with acute right heart failure. Treatment as outlined above. Monitor. 12/21:: As above. Continue diuresis as renal function allows. Lasix 40 mg IV twice a day Lopressor 25 mg by mouth twice a day I will change her Lasix to oral today. Continue to monitor. 12/22: Patient appears clinically compensated. CHF secondary to acute on chronic diastolic CHF as well as severe pulmonary hypertension. Suspect degree of pulmonary hypertension is underestimated based on tricuspid regurgitation finding on echocardiogram. Continue Lopressor 25 mg by mouth twice a day. Changed to 40 mg by mouth twice a day Continue to monitor and titrate as necessary. - Time Spent With Patient Total time spent is greater than 50% in coordination of care (as documented) at patient's floor/unit and/or counseling patient: 25 - 35 minutes - Subjective Interval history: 87-year-old female who was admitted to our intensive care unit on November for acute hypoxemic respiratory failure. She came from a nursing facility. Recent admission for urinary tract infection and colitis. Workup included a CTA of her thorax on admission which showed an acute nonoccluding saddle emboli with complete occlusion of lower lobe pulmonary artery. Patient was noted to have a right heart strain on echo. She started the lower extremities showed bilateral lower extremity DVT. She initially placed on BiPAP to maintain oxygen saturations. She is currently on Xarelto 15 mg po bid for acute PE treatment. She was not a candidate for thrombolytics. Patient was seen by oncology who recommended Xarelto. Patient was subsequently transferred to the internal medicine service with plans to hopefully wean her off BiPAP. She was also being seen by palliative care as she is a DO NOT RESUSCITATE, and is discussing future care options. Pt currently states she is breathing better. She wants to BiPAP mask off. No chest pain. No fevers or chills. No nausea, vomiting, diarrhea. I discussed the case with Dr. Lopes in palliative care, his input is appreciated Anticipate transfer to subacute rehabilitation in a couple days once her breathing is improved. Wean oxygen as able. 12/19: Patient continues on Lasix. She still is on high flow oxygen but is now off BiPAP. He states she feels much better with regards to her breathing. No chest pain. No nausea, vomiting, diarrhea. She had a low-grade temperature last night of 99.2. She was started on ceftriaxone for suspected urinary tract infection. Urinary catheter was removed yesterday. 12/20: Patient continues with high oxygen demand but is currently off BiPAP. She continues to diurese with IV Lasix and is down over 2.2 L in the last 2 days. Renal function has been tolerating. Patient states her breathing is doing okay. She denies any chest pain. No nausea, vomiting, diarrhea. She has been afebrile. 12/20: Patient continues on oxygen at 10 L per nasal cannula. Saturations are running in the high 90s to 100%. We are titrating oxygen down to maintain sats of around 91%. Patient states she is feeling okay. Is denying any complaints. No pain. No shortness of breath. Fevers or chills. He is off BiPAP. Patient continues on IV Lasix as well as renal function allows. Arrangements being made [facility] 12/22: Patient continues to improve. She did not weaned to 2 L per nasal cannula. She is denying any shortness of breath. She does complain weakness. No nausea or vomiting. No diarrhea no chest pain. She was changed from Xarelto to Eliquis due to renal insufficiency. - Constitutional Vitals: Temp Pulse Resp BP Pulse Ox 98.2 F 73 18 115/66 96 12/22/17 07:04 12/22/17 07:04 12/22/17 07:04 12/22/17 07:04 12/22/17 07:04 General appearance: Present: A&O X 3, no acute distress - Head Head exam: Present: atraumatic, normocephalic - Eye Eye exam: Present: PERRL, conjuntiva pink, sclera anicteric Pupils: Present: PERRL - Neck Neck exam general surgery: Present: supple, trachea midline. Absent: lymphadenopathy - Respiratory Respiratory exam: Present: decreased breath sounds. Absent: accessory muscle use, rales, rhonchi, wheezes - Cardiovascular Cardiovascular exam: Present: RRR, +S1, +S2. Absent: diastolic murmur, gallop, rubs, systolic murmur - GI/Abdominal GI/Abdominal exam: Present: normal bowel sounds, soft, no peritoneal signs. Absent: distended, tenderness - Extremities Exam Extremities exam: Present: warm, radial pulses palpable and symmetrical. Absent : calf tenderness, cyanotic, pedal edema - Neurological Exam Neurological exam: Present: CN II-XII intact, oriented X3, no focal deficits. Absent: pronater drift, facial droop, speech deficit - Skin Skin exam: Present: dry, intact Internal Medicine: Result - Labs CBC & Chem 7: 12/21/17 05:40 12/22/17 03:20 Labs: BMP 12/22/17 03:20 Sodium 138 Potassium 3.3 L Chloride 98 Carbon Dioxide 34 H BUN 27 H Creatinine 1.19 Glucose 110 H Calcium 8.6 - ABG Interpretation ABG results: ABG ABG pH 7.45 pH Units (7.32-7.45) 12/13/17 12:05 ABG pCO2 35 mmHg (35-45) 12/13/17 12:05 ABG pO2 116 mmHg (85-104) H 12/13/17 12:05 ABG O2 Saturation 99 % (95-98) H 12/13/17 12:05 PT/INR, D-dimer PT 14.1 Seconds (9.4-12.1) H 12/15/17 03:55 Consult Discharge Plan - Plan Referrals: Rosa Joseph MD [Primary Care Provider] -
[2017-12-22] MEDS: Furosemide 40 MG TABLET PO SCH ×2 (10:18→22:09)
[2017-12-22] MEDS: Apixaban 5 MG TABLET PO SCH ×2 (10:18→22:09)
[2017-12-22] MEDS: Sennosides/Docusate Sodium TABLET PO SCH ×2 (10:31→22:08)
[2017-12-22] MEDS: Furosemide 20 MG/2 ML VIAL IVP SCH (19:27)
[2017-12-23 06:40] LABS: Calcium 9.3 mg/dL (8.6-10.3); Potassium 3.9 mEq/L (3.5-5.1)
--- NOTE | 2017-12-23 09:04 | Discharge Summary ---
Orders not resulted at time of discharge: Pending orders 12/24/17 04:00 BMP [Basic Metabolic Panel] AM 0400 Date of Encounter: 12/23/17 Time of Encounter: 09:00 - Discharge Diagnosis (1) Saddle embolus Priority: Primary Status: Acute Assessment and Plan: On heparin drip with bridging to coumadin. will consult hematology and consider a NOAc as there does not seem to be a clear contraindication. Started on xarelto 12/21: She is currently on Xarelto. We will continue with this. Minimum of 6 months therapy, probably lifelong. 12/22: On Eliquis. Suspect this will be lifelong. Clinically improving. 12/23: Patient continues on eloquent. Minimal one year duration, but more likely lifetime if tolerated. Patient is clinically improved. Supplemental oxygen as necessary. Her cor pulmonale symptoms are improved after diuresis. Patient is stable for transfer once arrangements are made, my understanding is this will not happen until Sunday. (2) Elevated troponin Priority: Secondary Status: Chronic Assessment and Plan: Likely demand ischemia from saddle PE. Do not suspect non-ST elevation LA. (3) Dementia Priority: Secondary Status: Chronic Assessment and Plan: Resume home meds On Aricept Qualifiers: Dementia type: unspecified type Dementia behavioral disturbance: without behavioral disturbance Qualified Code(s): F03.90 - Unspecified dementia without behavioral disturbance (4) DVT (deep venous thrombosis) Priority: Primary Status: Acute Assessment and Plan: Pt has bilateral DVT. 12/23 On Eliquis See above discussion under saddle embolus (5) Acute and chronic respiratory failure with hypoxia Priority: Secondary Status: Acute Assessment and Plan: Likely 2/2 to acute PE. Continue BIPAP. Wean off as tolerated. Palliative care consult. Pt continues to require high O2. Plan to discharge to long-term on BIPAP after palliative care recs. [facility] worker consulted to set up nursing e BIPAP. Patient will likely benefit from hospice 12/19: Improving. Wean off BiPAP. Monitor. Continue diuresis as able. 12/20: Continues to be improving with diuresis. Her requiring high FiO2. Continue the diuresis renal function allows. Monitor. In addition to pulmonary embolism, suspect some mild diastolic and right heart failure contributing to her hypoxemia. 12/20: Not significantly changed but seems to be holding at a baseline of 10 L per nasal cannula. Her resetting her oxygen requirements to maintain 89-91% saturation. Diuresis continues. All else as above 12/23: Oxygenation much improved now. She is off BiPAP. She is weaned down to 2 L of oxygen per nasal cannula. She continues to do well. (6) Urinary tract infection associated with indwelling urethral catheter Priority: Secondary Status: Acute Assessment and Plan: Catheter has been removed. Patient did have a fever yesterday. She is day 2 of IV Rocephin. Await culture sensitivity. Anticipate short course of antibiotics, hopefully stop after day 3. 12/20: No culture data. Patient is afebrile. White blood cell count is trending down. I will stop antibiotics today, and monitor. 12/21: Treated. 12/23: Resolved (7) Acute on chronic diastolic CHF (congestive heart failure) Priority: Secondary Status: Acute Assessment and Plan: Continue with IV Lasix 40 mg twice a day his renal function allows. Continue beta kasey. Monitor. Echo done on December 13 showed a CHF more likely due to portal hypertension as result of central embolus, with acute right heart failure. Treatment as outlined above. Monitor. 12/21:: As above. Continue diuresis as renal function allows. Lasix 40 mg IV twice a day Lopressor 25 mg by mouth twice a day I will change her Lasix to oral today. Continue to monitor. 12/22: Patient appears clinically compensated. CHF secondary to acute on chronic diastolic CHF as well as severe pulmonary hypertension. Suspect degree of pulmonary hypertension is underestimated based on tricuspid regurgitation finding on echocardiogram. Continue Lopressor 25 mg by mouth twice a day. Changed to 40 mg by mouth twice a day Continue to monitor and titrate as necessary. 12/23: Patient is clinically compensated as best able. Patient continues on Lasix 40 mg by mouth twice a day. Renal function has tolerated this well. I will reduce Lasix to 40 mg by mouth once a day now. Will need follow-up BMP in 3-4 days. Patient is on Lopressor 25 mg by mouth twice a day Hospital course: Hospital Course: Ms. Brannon is a 87 year old female with a history of dementia, hypertension, chronic hypoxemic respiratory failure on 2 L of oxygen. Prior to this admission was treated for urinary tract infection and colitis. She was sent to a nursing facility. Patient returned with acute hypoxemic restaurant failure and workup ultimately revealed a saddle pulmonary embolism seen on CTA of the thorax. She also complete occlusion of the right lower lobe pulmonary artery. Results also noted LVH and and right heart strain. Patient was admitted to the ICU and placed on a heparin drip. He required BiPAP for severe hypoxemic respiratory failure as well as right heart strain. With treatment, patient improved where she was weaned down to 2 L of oxygen per nasal cannula. She was originally treated with Xarelto then switched to Eliquis due to renal dosing concerns. With regards to her CHF she had an echocardiogram which showed dilated right ventricle with mildly reduced function, mild tricuspid regurgitation, severe pulmonary hypertension, EF of 55-60%. Throughout this admission patient has maintained excellent renal function with a creatinine on December 23 of .09. White blood cell count was elevated but has been improving, last WBC on December 21 was 12.8. Patient was diuresed with IV Lasix, beta kasey was added. She improved significantly. Other issues include a UTI which was felt to be catheter associated. She was treated with 3 days of IV Rocephin and then antibiotics were stopped. She has been asymptomatic since this time. Originally patient was thought to need high flow oxygen and/or BiPAP and this was limiting her ability to transfer her out of the hospital. Now that she is back down to 2 L of oxygen she is stable for transfer when it can be arranged, may not be until Sunday12/24/17. Patient also was seen by Dr. Lopes of palliative care. She is currently DNR, and family is considering hospice at this time. Patient does have dementia and has limited understanding of what going on. A total of 36 minutes was spent on discharge and coordination of care. As mentioned patient likely to be discharged on Sunday, December 24, 2017 Discharge discussed with: patient - Time Spent with Patient Total time spent providing and/or coordinating discharge services: Greater than 30 minutes (36) - Discharge Medications Home Medications: Donepezil [Aricept] 5 mg PO HS 05/21/17 [History] Levothyroxine [Synthroid] 100 mcg PO DAILY 05/21/17 [History] Cranberry 400 mg PO DAILY 11/07/17 [History] Losartan Potassium [Cozaar] 100 mg PO DAILY 11/07/17 [History] Multivitamin [One Daily Essential] 1 tab PO DAILY 11/07/17 [History] Tramadol HCl [Ultram] 50 mg PO TID PRN 11/07/17 [History] Vit A/Vit C/Vit E/Zinc/Copper [Preservision Areds Tablet] 1 tab PO DAILY [History] Quetiapine Fumarate [SEROquel] 12.5 mg PO HS 30 Days tablet 11/10/17 [Rx] Omeprazole [PriLOSEC] 20 mg PO DAILY 12/13/17 [History] Allergies/Adverse Reactions: 3 Allergy/AdvReac Type Severity Reaction Status Date / Time Penicillins [PCN] Allergy Unknown See Verified 12/13/17 15:26 Comments codeine Allergy See Verified 12/13/17 15:26 Comments Date of admission: 12/13/17 16:24 Primary care physician: Rosa Joseph, Consults: 12/15/17 11:06 Consult to Oncology Hematology [CONS] Routine Consulting Provider: Ximena Marion Reason for Consult: Saddle PE and bilateral DVT- [facility] anicoagulation Call Completed: Yes 12/16/17 09:44 Consult to Palliative Care [CONS] Routine Comment: Consulting Provider: Palliative Care Katty Reason for Consult: goals of care Call Completed: Yes 12/16/17 10:09 Consult to Client Advisor [CONS] Routine Reason for SW Consult: long-term BIPAP Discharging clinician: Wolf Avila Anticipated date of discharge: 12/24/17 - Constitutional Vitals: Temp Pulse Resp BP Pulse Ox 98.0 F 78 15 134/62 97 12/23/17 06:45 12/23/17 06:45 12/23/17 06:45 12/23/17 06:45 12/23/17 06:45 General appearance: Present: A&O X 2, no acute distress - Head Head exam: Present: atraumatic, normocephalic - Eye Eye exam: Present: PERRL, conjuntiva pink, sclera anicteric Pupils: Present: PERRL - Neck Neck exam general surgery: Present: supple, trachea midline. Absent: lymphadenopathy - Respiratory Respiratory exam: Present: decreased breath sounds. Absent: accessory muscle use, rales, rhonchi, wheezes - Cardiovascular Cardiovascular exam: Present: RRR, +S1, +S2. Absent: diastolic murmur, gallop, rubs, systolic murmur - GI/Abdominal GI/Abdominal exam: Present: normal bowel sounds, soft, no peritoneal signs. Absent: distended, tenderness - Extremities Exam Extremities exam: Present: pedal edema, warm, radial pulses palpable and symmetrical. Absent: calf tenderness, cyanotic - Neurological Exam Neurological exam: Present: CN II-XII intact, oriented X3, no focal deficits. Absent: pronater drift, facial droop, speech deficit - Skin Skin exam: Present: dry, intact - Patient Status Disposition: Transfer SNF Condition: Fair Functional capacity at discharge: independent ambulation Overall status at discharge: patient is progressing back to baseline - Discharge Instructions Follow Up With: Rosa Joseph MD [Primary Care Provider] - - Diet and Activity Activity: as per physical therapy Diet: advance to your usual diet
[2017-12-23] MEDS: Sennosides/Docusate Sodium TABLET PO SCH ×2 (10:40→20:50)
[2017-12-23] MEDS: Apixaban 5 MG TABLET PO SCH ×2 (10:43→20:50)
[2017-12-23] MEDS: Furosemide 40 MG TABLET PO SCH (20:00)
[2017-12-24 07:51] LABS: BUN/Creatinine Ratio 32 (6-26); Blood Urea Nitrogen 32 mg/dL (8-23); Carbon Dioxide 30 mEq/L (23-29); Chloride 100 mEq/L (98-107); Glucose 103 mg/dL (70-105); Osmolality,Calculated 291 (280-300); Potassium 3.8 mEq/L (3.5-5.1); Sodium 137 mEq/L (136-145); eGFR For African Americans > 60 (> 60); eGFR For Non-African Americans 52 (> 60)
[2017-12-24] MEDS ORDERED: Furosemide 40 MG TABLET PO SCH (09:00)
[2017-12-24] MEDS: Sennosides/Docusate Sodium TABLET PO SCH (09:43)
[2017-12-24] MEDS: Apixaban 5 MG TABLET PO SCH (09:43)
[2017-12-24 11:00] VITALS: BP 109/62
--- NOTE | 2017-12-24 12:24 | Internal Med Progress Note ---
Date of Encounter: 12/24/17 Time of Encounter: 12:22 - Assessment and plan (1) Elevated troponin Current Visit: No Status: Chronic Assessment and plan: Likely demand ischemia from saddle PE. Do not suspect non-ST elevation VT. (2) Dementia Current Visit: No Status: Chronic Assessment and plan: Resume home meds On Aricept Qualifiers: Dementia type: unspecified type Dementia behavioral disturbance: without behavioral disturbance Qualified Code(s): F03.90 - Unspecified dementia without behavioral disturbance (3) Saddle embolus Current Visit: Yes Status: Acute Assessment and plan: On heparin drip with bridging to coumadin. will consult hematology and consider a NOAc as there does not seem to be a clear contraindication. Started on xarelto 12/21: She is currently on Xarelto. We will continue with this. Minimum of 6 months therapy, probably lifelong. 12/22: On Eliquis. Suspect this will be lifelong. Clinically improving. 12/23: Patient continues on eloquent. Minimal one year duration, but more likely lifetime if tolerated. Patient is clinically improved. Supplemental oxygen as necessary. Her cor pulmonale symptoms are improved after diuresis. Patient is stable for transfer once arrangements are made, my understanding is this will not happen until Sunday. 12/24/2017-discussed with clinical pharmacist on the case. We have decreased the dose of Eliquis 25 mg twice a day. She will need minimal one year duration of anticoagulation and will need a close follow-up with outpatient primary care physician and Rpulmonary care. She also is clinically ready decompensated and will need to go to nursing home facility or [facility] which is being arranged by family independence case manager as we speak (4) Acute and chronic respiratory failure with hypoxia Current Visit: Yes Status: Acute Assessment and plan: Likely 2/2 to acute PE. Continue BIPAP. Wean off as tolerated. Palliative care consult. Pt continues to require high O2. Plan to discharge to [facility] on BIPAP after palliative care recs. mental health social worker consulted to set up nursing hme BIPAP. Patient will likely benefit from hospice 12/19: Improving. Wean off BiPAP. Monitor. Continue diuresis as able. 12/20: Continues to be improving with diuresis. Her requiring high FiO2. Continue the diuresis renal function allows. Monitor. In addition to pulmonary embolism, suspect some mild diastolic and right heart failure contributing to her hypoxemia. 12/20: Not significantly changed but seems to be holding at a baseline of 10 L per nasal cannula. Her resetting her oxygen requirements to maintain 89-91% saturation. Diuresis continues. All else as above 12/23: Oxygenation much improved now. She is off BiPAP. She is weaned down to 2 L of oxygen per nasal cannula. She continues to do well. 12/24/2017-oxygenation continues to be stable she is off BiPAP and continued to be on 2 L of oxygen per nasal cannula. Most likely from pulmonary embolism (5) DVT (deep venous thrombosis) Current Visit: Yes Status: Acute Assessment and plan: Pt has bilateral DVT. 12/23 On Eliquis See above discussion under saddle embolus 12/24/2017-see plan above (6) Urinary tract infection associated with indwelling urethral catheter Current Visit: Yes Status: Acute Assessment and plan: Catheter has been removed. Patient did have a fever yesterday. She is day 2 of IV Rocephin. Await culture sensitivity. Anticipate short course of antibiotics, hopefully stop after day 3. 12/20: No culture data. Patient is afebrile. White blood cell count is trending down. I will stop antibiotics today, and monitor. 12/21: Treated. 12/23: Resolved (7) Acute on chronic diastolic CHF (congestive heart failure) Current Visit: Yes Status: Acute Assessment and plan: Continue with IV Lasix 40 mg twice a day his renal function allows. Continue beta kasey. Monitor. Echo done on December 13 showed a CHF more likely due to portal hypertension as result of central embolus, with acute right heart failure. Treatment as outlined above. Monitor. 12/21:: As above. Continue diuresis as renal function allows. Lasix 40 mg IV twice a day Lopressor 25 mg by mouth twice a day I will change her Lasix to oral today. Continue to monitor. 12/22: Patient appears clinically compensated. CHF secondary to acute on chronic diastolic CHF as well as severe pulmonary hypertension. Suspect degree of pulmonary hypertension is underestimated based on tricuspid regurgitation finding on echocardiogram. Continue Lopressor 25 mg by mouth twice a day. Changed to 40 mg by mouth twice a day Continue to monitor and titrate as necessary. 12/23: Patient is clinically compensated as best able. Patient continues on Lasix 40 mg by mouth twice a day. Renal function has tolerated this well. I will reduce Lasix to 40 mg by mouth once a day now. Will need follow-up BMP in 3-4 days. Patient is on Lopressor 25 mg by mouth twice a day (8) C. difficile diarrhea Current Visit: Yes Status: Suspected Assessment and plan: This is a new finding. On 12/22/2017 there was a C. difficile toxin study that was sent and was positive and the patient. She herself denies any significant watery diarrhea but I am told that she has soft stool on multiple occasions and I am not really sure why the C. difficile testing was even sent. However given the fact that the toxin is positive and she is going to a [facility] and given the fact that she will the medical history that she has it is worth treating empirically with antibiotic vancomycin 125 mg 4 times a day for a total of 10 days for now. We have verified this with [facility] and she is okay to be discharged over there even with this new finding. - Time Spent With Patient Total time spent is greater than 50% in coordination of care (as documented) at patient's floor/unit and/or counseling patient: Greater than 35 minutes - Subjective Interval history: Patient denies any new shortness of breath or chest pain. She denies any ongoing diarrhea. She remains comfortable on 2-3 L of oxygen - Constitutional Vitals: Temp Pulse Resp BP Pulse Ox 98.3 F 77 16 109/62 96 12/24/17 10:59 12/24/17 10:59 12/24/17 10:59 12/24/17 10:59 12/24/17 10:59 General appearance: Present: A&O X 2, no acute distress Exam: GENERAL: Alert, cachectic and in no apparent distress EYES: PERRLA, EOMI EARS: External ears normal, canals clear OROPHARYNX: Lips, mucosa, and tongue normal. Teeth and gums normal. Oropharynx normal. NECK: No jugulovenous distention, No carotid bruits, Carotid pulse normal contour, Supple LUNGS: Lungs clear to auscultation, Good diaphragmatic excursion CARDIAC: Normal S1 and S2; no rubs, murmurs, or gallops ABDOMEN: Abdomen soft, non-tender, BS normal, No masses or organomegaly Internal Medicine: Result - Labs CBC & Chem 7: 12/21/17 05:40 12/24/17 07:10 Labs: BMP 12/24/17 07:10 Sodium 137 Potassium 3.8 Chloride 100 Carbon Dioxide 30 H BUN 32 H Creatinine 1.01 Glucose 103 Calcium 9.0 - ABG Interpretation ABG results: ABG ABG pH 7.45 pH Units (7.32-7.45) 12/13/17 12:05 ABG pCO2 35 mmHg (35-45) 12/13/17 12:05 ABG pO2 116 mmHg (85-104) H 12/13/17 12:05 ABG O2 Saturation 99 % (95-98) H 12/13/17 12:05 PT/INR, D-dimer PT 14.1 Seconds (9.4-12.1) H 12/15/17 03:55 Consult Discharge Plan - Plan Referrals: Rosa Joseph MD [Primary Care Provider] - Prescriptions: Apixaban [Eliquis] 5 mg PO BID #180 tablet Vancomycin Oral Soln [Firvanq] 125 mg PO QID 10 Days #100 udc
--- NOTE | 2017-12-24 12:28 | Physician Discharge Referral ---
[facility] Referral Info Transfer To: [facility] Provider in Charge after Transfer: PCP, Other - Diagnosis (1) Saddle embolus Priority: Primary Status: Acute (2) Elevated troponin Priority: Secondary Status: Chronic (3) Dementia Priority: Secondary Status: Chronic (4) Acute and chronic respiratory failure with hypoxia Priority: Secondary Status: Acute (5) DVT (deep venous thrombosis) Priority: Secondary Status: Acute (6) Urinary tract infection associated with indwelling urethral catheter Priority: Secondary Status: Acute (7) Acute on chronic diastolic CHF (congestive heart failure) Priority: Secondary Status: Acute (8) C. difficile diarrhea Priority: Secondary Status: Suspected Prognosis: Fair Aware of Diagnosis: Patient Aware of Prognosis: Patient - Transfer Medications Prescriptions: Apixaban [Eliquis] 5 mg PO BID #180 tablet Vancomycin Oral Soln [Firvanq] 125 mg PO QID 10 Days #100 udc Home Medications: Donepezil [Aricept] 5 mg PO HS 05/21/17 [History] Levothyroxine [Synthroid] 100 mcg PO DAILY 05/21/17 [History] Cranberry 400 mg PO DAILY 11/07/17 [History] Losartan Potassium [Cozaar] 100 mg PO DAILY 11/07/17 [History] Multivitamin [One Daily Essential] 1 tab PO DAILY 11/07/17 [History] Tramadol HCl [Ultram] 50 mg PO TID PRN 11/07/17 [History] Vit A/Vit C/Vit E/Zinc/Copper [Preservision Areds Tablet] 1 tab PO DAILY [History] Quetiapine Fumarate [Seroquel] 12.5 mg PO HS 30 Days tablet 11/10/17 [Rx] Acetaminophen [Tylenol] 650 mg PO Q6HR PRN tablet 12/23/17 [Rx] Apixaban [Eliquis] 10 mg PO BID tablet 12/23/17 [Rx] Furosemide [Lasix] 40 mg PO DAILY tablet 12/23/17 [Rx] Mag Hydrox/Al Hydrox/Simeth [Maalox] 15 ml PO Q6HR PRN udc 12/23/17 [Rx] Metoprolol [Lopressor] 25 mg PO BID tablet 12/23/17 [Rx] Naloxone [Narcan] 0.4 mg IVP Q2MIN PRN inj 12/23/17 [Rx] Omeprazole [PriLOSEC] 20 mg PO DAILY@0630 capsule. 12/23/17 [Rx] Potassium Chloride 40 meq PO DAILY tab.er.prt 12/23/17 [Rx] Sennosides/Docusate Sodium [Senna Plus] 1 each PO BID tablet 12/23/17 [Rx] Apixaban [Eliquis] 5 mg PO BID #180 tablet 12/24/17 [Rx] Vancomycin Oral Soln [Firvanq] 125 mg PO QID 10 Days #100 udc 12/24/17 [Rx] Allergies/Adverse Reactions: 3 Allergy/AdvReac Type Severity Reaction Status Date / Time Penicillins [PCN] Allergy Unknown See Verified 12/13/17 15:26 Comments codeine Allergy See Verified 12/13/17 15:26 Comments - Respiratory Orders Smoking Cessation: Smoking cessation has been advised. For more information, call the [place] Tobacco Quit Line at 3-130-SQKO-NOW. CERTIFICATION: I certify that the transfer of the above named patient to an Extended Care Facility is necessary for the continuing treatment of the diagnosis listed. The above information is true and accurate reflection of patient's current condition. Confidential - Redisclosure prohibited without a patient's written consent.
[2017-12-24] MEDS ORDERED: Vancomycin Oral Soln 125 MG/2.5 ML UDC PO SCH (13:00)
[2017-12-24] MEDS ORDERED: Apixaban 5 MG TABLET PO SCH (21:00)
[2017-12-25] MEDS ORDERED: CRANBERRY 400 MG PO SCH (09:00)
[2017-12-25] MEDS ORDERED: NON-FORMULARY MEDICATION 1 EACH EACH (Vit A/Vit C/Vit E/Zinc/Copper [Preservision Areds Ta PO SCH (09:00)
[2017-12-25] MEDS ORDERED: Multivit/Ca/Min/Fe/FA 1 TAB TABLET PO SCH (09:00)
== END 2017-12-24 15:33 | DRG 175 ==
LOC: EMEROO 11:00 → ICNU 16:24 → SUATTDRO 16:24 → ICNU 20:10 → 3ANU 12-16 11:19
PROVIDERS: ADMIT Internal Medicine Pulmonary Disease; ATTEND Internal Medicine

== ENCOUNTER 2018-06-22 18:07 | Observation (INO) ==
[2018-06-22 18:40] LABS: Basophils # 0.1 K/mcL (0.0-0.2); Basophils % 0.4 %; Eosinophils # 0.2 K/mcL (0.0-0.6); Eosinophils % 1.3 %; Hematocrit 35.4 % (35.3-44.9); Hemoglobin 11.6 g/dL (11.5-15.4); Immature Granulocytes % 0.3 % (0-4); Lymphocytes % 16.9 %; Mean Corpuscular HGB Conc 32.8 g/dL (31.6-35.5); Mean Corpuscular Hemoglobin 30.9 pg (28.0-33.3); Mean Corpuscular Volume 94.1 fL (83.0-100.0); Mean Platelet Volume 9.9 fL (9.4-12.4); Monocytes # 0.7 K/mcL (0.0-1.3); Monocytes % 5.8 %; Neutrophils # 8.7 K/mcL (1.6-8.9); Platelet Count 276 K/mcL (140-400); Red Blood Count 3.76 M/mcL (3.82-4.97); Red Cell Distribution Width 13.2 % (11.5-14.5); Segmented Neutrophils % 75.3 %
[2018-06-22 18:47] LABS: INR 1.3; Prothrombin Time 14.4 Seconds (9.4-12.1)
[2018-06-22 18:50] LABS: Activated Partial Thrombo Time 30.6 Seconds (26.0-36.0)
--- NOTE | 2018-06-22 18:50 | Emergency Department Note ---
Disposition Clinical Impression: ELZA (acute kidney injury) Altered mental status Qualifiers: Altered mental status type: unspecified Qualified Code(s): R41.82 - Altered mental status, unspecified UTI (urinary tract infection) Qualifiers: Urinary tract infection type: site unspecified Hematuria presence: with hematuria Qualified Code(s): N39.0 - Urinary tract infection, site not specified Leukocytosis Qualifiers: Leukocytosis type: unspecified Qualified Code(s): D72.829 - Elevated white blood cell count, unspecified Disposition: Admitted As Inpatient Condition: Fair Time of Disposition: 19:46 General Adult HPI - General Stated complaint: Altered Mental Status Time Seen by Provider: 06/22/18 18:18 Source: family, EMS Mode of arrival: EMS Limitations: altered mental status Nursing Notes Reviewed: Yes Vital Signs Reviewed: Yes - History of Present Illness HPI Narrative: Patient is an 87-year-old female that presents emergency department for altered mentation. EMS reports that approximate one-hour prior to arrival at 1700 the residential reported that she was having altered mentation. States that she was attempting to walk without her walker and was not making sense. Family arrived and stated that she gets like this when she has a UTI. The history is limited secondary to the patient having significant altered mentation. - Related Data Home Medications Medication Instructions Recorded Confirmed Donepezil [Aricept] 5 mg PO HS 05/21/17 12/13/17 Levothyroxine [Synthroid] 100 mcg PO DAILY 05/21/17 12/13/17 Cranberry 400 mg PO DAILY 11/07/17 12/13/17 Losartan Potassium [Cozaar] 100 mg PO DAILY 11/07/17 12/13/17 Multivitamin [One Daily Essential] 1 tab PO DAILY 11/07/17 12/13/17 Tramadol HCl [Ultram] 50 mg PO TID PRN 11/07/17 12/13/17 Vit A/Vit C/Vit E/Zinc/Copper 1 tab PO DAILY 11/07/17 12/13/17 [Preservision Areds Tablet] Previous Rx's Medication Instructions Recorded Quetiapine Fumarate [Seroquel] 12.5 mg PO HS 30 Days tablet 11/10/17 Acetaminophen [Tylenol] 650 mg PO Q6HR PRN tablet 12/23/17 Apixaban [Eliquis] 10 mg PO BID tablet 12/23/17 Furosemide [Lasix] 40 mg PO DAILY tablet 12/23/17 Mag Hydrox/Al Hydrox/Simeth 15 ml PO Q6HR PRN udc 12/23/17 [Maalox] Metoprolol [Lopressor] 25 mg PO BID tablet 12/23/17 Naloxone [Narcan] 0.4 mg IVP Q2MIN PRN inj 12/23/17 Omeprazole [PriLOSEC] 20 mg PO DAILY@0630 capsule. 12/23/17 Potassium Chloride 40 meq PO DAILY tab.er.prt 12/23/17 Sennosides/Docusate Sodium [Senna 1 each PO BID tablet 12/23/17 Plus] Apixaban [Eliquis] 5 mg PO BID #180 tablet 12/24/17 Vancomycin Oral Soln [Firvanq] 125 mg PO QID 10 Days #100 udc 12/24/17 Allergies Allergy/AdvReac Type Severity Reaction Status Date / Time Penicillins [PCN] Allergy Unknown See Verified 12/13/17 15:26 Comments codeine Allergy See Verified 12/13/17 15:26 Comments All systems ED: reviewed and negative except as stated. Limitations: ROS unobtainable due to patients medical condition Constitutional: Denies: fever Neurological: Reports: other (Altered mentation ) Past Medical History - Past Medical History Attestation: Yes The following information was validated with the patient. 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 Patient moved all 4 extremities. Had 5 out of 5 muscle strength with no focal neurologic deficits as able to be assessed.). Absent: oriented X3 - Expanded Neurological Exam Patient oriented to: Present: person. Absent: place, time Cranial nerves: EOM function (II, III, IV, ): Normal, facial palsy (VII): Normal, tongue deviation (XII): Normal Motor strength - LUE: 5/5 Motor strength - RUE: 5/5 Motor strength - LLE: 5/5 Motor strength - RLE: 5/5 Upper motor neuron exam: pronator drift: Absent bilaterally Coma Scale Eye Opening: Spontaneous Coma Scale Motor Response: Obeys Commands Coma Scale Verbal Response: Confused Coma Scale Total: 14 - Psychiatric Psychiatric exam: Present: normal affect, normal mood - Skin Skin exam: Present: warm, dry, intact Course Vital Signs Temperature 99.4 F 06/22/18 18:20 Pulse Rate 84 06/22/18 18:20 Respiratory Rate 18 06/22/18 18:20 Blood Pressure 155/67 06/22/18 18:20 O2 Sat by Pulse Oximetry 97 06/22/18 18:20 Temperature 99.4 F 06/22/18 18:20 Pulse Rate 84 06/22/18 18:20 Respiratory Rate 18 06/22/18 18:20 Blood Pressure 155/67 06/22/18 18:20 O2 Sat by Pulse Oximetry 97 06/22/18 18:20 Oxygen Delivery Oxygen Delivery Room Air Medical Decision Making - [facility] Narrative Medical decision making narrative: Due the patient presents emergency Department with altered mentation we will obtain basic laboratory testing as well as a CT scan of the head to evaluate for possible intracranial pathology. Family states that she gets like this when she has a urinary tract infection. Patient does have evidence of urinary tract infection on urinalysis. Patient did have an elevated white count. Patient also had worsening of her baseline creatinine consistent with an acute kidney injury. Her creatinine was 1.81. Due to the patient having a urinary tract infection with altered mentation she will be given a dose of IV the Rocephin here in the emergency department and will be admitted to the hospital for further evaluation and management. Patient's troponin was negative. There are some depressions throughout the EKG however with a negative troponin I do not feel that there is any further intervention that is required at this time. I called and spoke the admitting hospitalist Dr. Toribio and he is accepted the patient to their service. Patient be admitted to the hospital at this time for further evaluation and management. - Medical Records Medical records reviewed: Yes I reviewed the patient's medical records. - Lab Data Lab results reviewed: Yes I reviewed the patient's lab results. Result diagrams: 06/22/18 18:30 06/22/18 18:30 Lab Results 06/22/18 06/22/18 06/22/18 Range/Units 18:30 18:30 18:30 WBC 11.6 H (4.3-11.1) K/mcL RBC 3.76 L (3.82-4.97) M/mcL Hgb 11.6 (11.5-15.4) g/dL Hct 35.4 (35.3-44.9) % MCV 94.1 (83.0-100.0) fL MCH 30.9 (28.0-33.3) pg MCHC 32.8 (31.6-35.5) g/dL RDW 13.2 (11.5-14.5) % Plt Count 276 (140-400) K/mcL MPV 9.9 (9.4-12.4) fL Immature Gran % 0.3 (0-4) % Seg Neutrophils % 75.3 % Lymphocytes % 16.9 % Monocytes % 5.8 % Eosinophils % 1.3 % Basophils % 0.4 % Neutrophils # 8.7 (1.6-8.9) K/mcL Lymphocytes # 2.0 (0.6-4.6) K/mcL Monocytes # 0.7 (0.0-1.3) K/mcL Eosinophils # 0.2 (0.0-0.6) K/mcL Basophils # 0.1 (0.0-0.2) K/mcL PT 14.4 H (9.4-12.1) Seconds INR 1.3 APTT 30.6 (26.0-36.0) Seconds Sodium 138 (136-145) mEq/L Potassium 4.7 (3.5-5.1) mEq/L Chloride 104 (98-107) mEq/L Carbon Dioxide 26 (23-29) mEq/L BUN 39 H (8-23) mg/dL Creatinine 1.82 H (0.60-1.20) mg/dL Est GFR ( Amer) 32 L (> 60) Est GFR (Non-Af Amer) 26 L (> 60) BUN/Creatinine Ratio 21 (6-26) Glucose 111 H (70-105) mg/dL Calculated Osmolality 296 (280-300) Calcium 9.7 (8.6-10.3) mg/dL Total Bilirubin 0.4 (0.3-1.0) mg/dL Direct Bilirubin 0.1 (0.0-0.2) mg/dL Indirect Bilirubin 0.3 (0.0-1.2) mg/dL AST 20 (13-39) Units/L ALT 11 (7-52) Units/L Alkaline Phosphatase 92 (34-104) Units/L Troponin I 0.03 (< 0.04) ng/mL Serum Total Protein 7.0 (6.4-8.9) g/dL Albumin 3.8 (3.5-5.7) g/dL Globulin 3.2 (2.4-3.5) g/dL Albumin/Globulin Ratio 1.2 (1.1-2.2) Ur Drug Screen Interp Ethyl Alcohol < 10 (Less than 10) mg/dL 06/22/18 Range/Units 19:24 WBC (4.3-11.1) K/mcL RBC (3.82-4.97) M/mcL Hgb (11.5-15.4) g/dL Hct (35.3-44.9) % MCV (83.0-100.0) fL MCH (28.0-33.3) pg MCHC (31.6-35.5) g/dL RDW (11.5-14.5) % Plt Count (140-400) K/mcL MPV (9.4-12.4) fL Immature Gran % (0-4) % Seg Neutrophils % % Lymphocytes % % Monocytes % % Eosinophils % % Basophils % % Neutrophils # (1.6-8.9) K/mcL Lymphocytes # (0.6-4.6) K/mcL Monocytes # (0.0-1.3) K/mcL Eosinophils # (0.0-0.6) K/mcL Basophils # (0.0-0.2) K/mcL PT (9.4-12.1) Seconds INR APTT (26.0-36.0) Seconds Sodium (136-145) mEq/L Potassium (3.5-5.1) mEq/L Chloride (98-107) mEq/L Carbon Dioxide (23-29) mEq/L BUN (8-23) mg/dL Creatinine (0.60-1.20) mg/dL Est GFR ( Amer) (> 60) Est GFR (Non-Af Amer) (> 60) BUN/Creatinine Ratio (6-26) Glucose (70-105) mg/dL Calculated Osmolality (280-300) Calcium (8.6-10.3) mg/dL Total Bilirubin (0.3-1.0) mg/dL Direct Bilirubin (0.0-0.2) mg/dL Indirect Bilirubin (0.0-1.2) mg/dL AST (13-39) Units/L ALT (7-52) Units/L Alkaline Phosphatase (34-104) Units/L Troponin I (< 0.04) ng/mL Serum Total Protein (6.4-8.9) g/dL Albumin (3.5-5.7) g/dL Globulin (2.4-3.5) g/dL Albumin/Globulin Ratio (1.1-2.2) Ur Drug Screen Interp See Below Ethyl Alcohol (Less than 10) mg/dL - Radiology Data Radiology results reviewed: Yes I reviewed the patient's radiology results. Chest X-Ray 06/22/18 18:19 IMPRESSION: No acute process. D/ / Ru Jordan MD / Ru Jordan MD Interpreting Provider: Ru Jordan MD Head CT 06/22/18 18:19 IMPRESSION: No acute intracranial abnormality. Diffuse atrophic changes with findings suggesting chronic microvascular ischemia D/ / Ru Jordan MD / Ru Jordan MD Interpreting Provider: Ru Jordan MD - EKG Data EKG #1 EKG attestation: Yes I reviewed and interpreted this EKG. EKG results narrative: EKG shows a sinus rhythm and rate of 80 bpm. NH interval 173, curious duration of 145, QTC of 450. There is evidence of left bundle branch block. This is present on previous EKG on 12/13/17. There is new ST depression in lead 2, aVL, 1 and T-wave inversions in V5 and V6.
--- NOTE | 2018-06-22 18:54 | Emergency Department Note ---
Disposition Clinical Impression: Altered mental status, ELZA (acute kidney injury), UTI (urinary tract infection), Leukocytosis Disposition: Admitted As Inpatient Condition: Fair General Adult HPI - General Stated complaint: Altered Mental Status Time Seen by Provider: 06/22/18 18:18 Source: EMS Limitations: no limitations - History of Present Illness Pain Scale: 0 - Related Data Home Medications Medication Instructions Recorded Confirmed Donepezil [Aricept] 5 mg PO HS 05/21/17 12/13/17 Levothyroxine [Synthroid] 100 mcg PO DAILY 05/21/17 12/13/17 Cranberry 400 mg PO DAILY 11/07/17 12/13/17 Losartan Potassium [Cozaar] 100 mg PO DAILY 11/07/17 12/13/17 Multivitamin [One Daily Essential] 1 tab PO DAILY 11/07/17 12/13/17 Tramadol HCl [Ultram] 50 mg PO TID PRN 11/07/17 12/13/17 Vit A/Vit C/Vit E/Zinc/Copper 1 tab PO DAILY 11/07/17 12/13/17 [Preservision Areds Tablet] Previous Rx's Medication Instructions Recorded Quetiapine Fumarate [Seroquel] 12.5 mg PO HS 30 Days tablet 11/10/17 Acetaminophen [Tylenol] 650 mg PO Q6HR PRN tablet 12/23/17 Apixaban [Eliquis] 10 mg PO BID tablet 12/23/17 Furosemide [Lasix] 40 mg PO DAILY tablet 12/23/17 Mag Hydrox/Al Hydrox/Simeth 15 ml PO Q6HR PRN udc 12/23/17 [Maalox] Metoprolol [Lopressor] 25 mg PO BID tablet 12/23/17 Naloxone [Narcan] 0.4 mg IVP Q2MIN PRN inj 12/23/17 Omeprazole [PriLOSEC] 20 mg PO DAILY@0630 capsule. 12/23/17 Potassium Chloride 40 meq PO DAILY tab.er.prt 12/23/17 Sennosides/Docusate Sodium [Senna 1 each PO BID tablet 12/23/17 Plus] Apixaban [Eliquis] 5 mg PO BID #180 tablet 12/24/17 Vancomycin Oral Soln [Firvanq] 125 mg PO QID 10 Days #100 udc 12/24/17 Allergies Allergy/AdvReac Type Severity Reaction Status Date / Time Penicillins [PCN] Allergy Unknown See Verified 12/13/17 15:26 Comments codeine Allergy See Verified 12/13/17 15:26 Comments Past Medical History - Past Medical History Medical history: Reports: dementia, hyperlipidemia, hypertension, thyroid disease Surgical history: Reports: hysterectomy Psychiatric history: Reports: no psych history [employer] history: Reports: non-contributory - Social History Smoking Status: Never smoker Smokeless Tobacco Status: No Alcohol use: Reports: none Drug use: Reports: none Physical Exam - General Limitations: no limitations General appearance: alert Course Vital Signs Temperature 99.4 F 06/22/18 18:20 Pulse Rate 84 06/22/18 18:20 Respiratory Rate 18 06/22/18 18:20 Blood Pressure 155/67 06/22/18 18:20 O2 Sat by Pulse Oximetry 97 06/22/18 18:20 Temperature 99.4 F 06/22/18 18:20 Pulse Rate 84 06/22/18 18:20 Respiratory Rate 18 06/22/18 18:20 Blood Pressure 155/67 06/22/18 18:20 O2 Sat by Pulse Oximetry 97 06/22/18 18:20 Oxygen Delivery Oxygen Delivery Room Air Medical Decision Making - Lab Data Result diagrams: 06/22/18 18:30 06/22/18 18:30 Lab Results 06/22/18 06/22/18 06/22/18 Range/Units 18:30 18:30 18:30 WBC 11.6 H (4.3-11.1) K/mcL RBC 3.76 L (3.82-4.97) M/mcL Hgb 11.6 (11.5-15.4) g/dL Hct 35.4 (35.3-44.9) % MCV 94.1 (83.0-100.0) fL MCH 30.9 (28.0-33.3) pg MCHC 32.8 (31.6-35.5) g/dL RDW 13.2 (11.5-14.5) % Plt Count 276 (140-400) K/mcL MPV 9.9 (9.4-12.4) fL Immature Gran % 0.3 (0-4) % Seg Neutrophils % 75.3 % Lymphocytes % 16.9 % Monocytes % 5.8 % Eosinophils % 1.3 % Basophils % 0.4 % Neutrophils # 8.7 (1.6-8.9) K/mcL Lymphocytes # 2.0 (0.6-4.6) K/mcL Monocytes # 0.7 (0.0-1.3) K/mcL Eosinophils # 0.2 (0.0-0.6) K/mcL Basophils # 0.1 (0.0-0.2) K/mcL PT 14.4 H (9.4-12.1) Seconds INR 1.3 APTT 30.6 (26.0-36.0) Seconds Sodium 138 (136-145) mEq/L Potassium 4.7 (3.5-5.1) mEq/L Chloride 104 (98-107) mEq/L Carbon Dioxide 26 (23-29) mEq/L BUN 39 H (8-23) mg/dL Creatinine 1.82 H (0.60-1.20) mg/dL Est GFR ( Amer) 32 L (> 60) Est GFR (Non-Af Amer) 26 L (> 60) BUN/Creatinine Ratio 21 (6-26) Glucose 111 H (70-105) mg/dL Calculated Osmolality 296 (280-300) Calcium 9.7 (8.6-10.3) mg/dL Total Bilirubin 0.4 (0.3-1.0) mg/dL Direct Bilirubin 0.1 (0.0-0.2) mg/dL Indirect Bilirubin 0.3 (0.0-1.2) mg/dL AST 20 (13-39) Units/L ALT 11 (7-52) Units/L Alkaline Phosphatase 92 (34-104) Units/L Troponin I 0.03 (< 0.04) ng/mL Serum Total Protein 7.0 (6.4-8.9) g/dL Albumin 3.8 (3.5-5.7) g/dL Globulin 3.2 (2.4-3.5) g/dL Albumin/Globulin Ratio 1.2 (1.1-2.2) Urine Color (Yellow) Urine Clarity (Clear) Urine pH (5.0-8.0) pH Units Ur Specific [place] (1.010-1.025) Urine Protein (Neg-Trace) mg/dL Urine Glucose (UA) (Normal) mg/dL Urine Ketones (Negative) mg/dL Urine Blood (Negative) Urine Nitrite (Negative) Urine Bilirubin (Negative) Urine Urobilinogen (Normal) mg/dL Ur Leukocyte Esterase (Negative) Urine Microscopic RBC (0-3) per hpf Urine Microscopic WBC (0-3) per hpf Ur Squamous Epith Cells (None-Few) per lpf Urine Bacteria (None-Few) per hpf Hyaline Casts (None-Few) per lpf Ur Culture Indicated? (NO) Urine Opiates Screen (Ctfcer=342) ng/mL Ur Barbiturates Screen (Xmqmuc=904) ng/mL Ur Phencyclidine Scrn (Cutoff=25) ng/mL Ur Amphetamines Screen (Azexxv=1338) ng/mL U Benzodiazepines Scrn (Scoaeu=884) ng/mL Urine Cocaine Screen (Cutoff= 300) ng/mL U Marijuana (THC) Screen (Cutoff = 50) ng/mL Ur Drug Screen Interp Ethyl Alcohol < 10 (Less than 10) mg/dL 06/22/18 06/22/18 Range/Units 19:24 19:24 WBC (4.3-11.1) K/mcL RBC (3.82-4.97) M/mcL Hgb (11.5-15.4) g/dL Hct (35.3-44.9) % MCV (83.0-100.0) fL MCH (28.0-33.3) pg MCHC (31.6-35.5) g/dL RDW (11.5-14.5) % Plt Count (140-400) K/mcL MPV (9.4-12.4) fL Immature Gran % (0-4) % Seg Neutrophils % % Lymphocytes % % Monocytes % % Eosinophils % % Basophils % % Neutrophils # (1.6-8.9) K/mcL Lymphocytes # (0.6-4.6) K/mcL Monocytes # (0.0-1.3) K/mcL Eosinophils # (0.0-0.6) K/mcL Basophils # (0.0-0.2) K/mcL PT (9.4-12.1) Seconds INR APTT (26.0-36.0) Seconds Sodium (136-145) mEq/L Potassium (3.5-5.1) mEq/L Chloride (98-107) mEq/L Carbon Dioxide (23-29) mEq/L BUN (8-23) mg/dL Creatinine (0.60-1.20) mg/dL Est GFR ( Amer) (> 60) Est GFR (Non-Af Amer) (> 60) BUN/Creatinine Ratio (6-26) Glucose (70-105) mg/dL Calculated Osmolality (280-300) Calcium (8.6-10.3) mg/dL Total Bilirubin (0.3-1.0) mg/dL Direct Bilirubin (0.0-0.2) mg/dL Indirect Bilirubin (0.0-1.2) mg/dL AST (13-39) Units/L ALT (7-52) Units/L Alkaline Phosphatase (34-104) Units/L Troponin I (< 0.04) ng/mL Serum Total Protein (6.4-8.9) g/dL Albumin (3.5-5.7) g/dL Globulin (2.4-3.5) g/dL Albumin/Globulin Ratio (1.1-2.2) Urine Color Yellow (Yellow) Urine Clarity Cloudy A (Clear) Urine pH 7.0 (5.0-8.0) pH Units Ur Specific [place] 1.009 L (1.010-1.025) Urine Protein Trace (Neg-Trace) mg/dL Urine Glucose (UA) Normal (Normal) mg/dL Urine Ketones Negative (Negative) mg/dL Urine Blood Small H (Negative) Urine Nitrite Negative (Negative) Urine Bilirubin Negative (Negative) Urine Urobilinogen Normal (Normal) mg/dL Ur Leukocyte Esterase Large H (Negative) Urine Microscopic RBC 5-15 H (0-3) per hpf Urine Microscopic WBC TNTC H (0-3) per hpf Ur Squamous Epith Cells None Seen (None-Few) per lpf Urine Bacteria None Seen (None-Few) per hpf Hyaline Casts None Seen (None-Few) per lpf Ur Culture Indicated? YES A (NO) Urine Opiates Screen Negative (Yrbovx=785) ng/mL Ur Barbiturates Screen Negative (Vaaxym=253) ng/mL Ur Phencyclidine Scrn Negative (Cutoff=25) ng/mL Ur Amphetamines Screen Negative (Qoaaii=9113) ng/mL U Benzodiazepines Scrn Positive H (Mvvkep=645) ng/mL Urine Cocaine Screen Negative (Cutoff= 300) ng/mL U Marijuana (THC) Screen Negative (Cutoff = 50) ng/mL Ur Drug Screen Interp See Below Ethyl Alcohol (Less than 10) mg/dL Attestation Statement - Attestation Attestation: I examined this patient and my medical decision-making was reviewed with the Resident Physician. I agree with the documented findings, disposition and treatment plan as described except to the extent set forth below. Patient presents to the ED with altered mental status. Sent in from a retirement. They state she became more confused about 5:00. Family states that she has a history of dementia but she is "usually more coherent." She does not recognize her son her know his name, but they state this is not uncommon. She does know her name. Family states she gets like this when she gets UTIs. 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 On exam she is awake and alert. Mumbles. Follows directions. Pupils reactive. NIH scale is only positive for not being able to answer questions appropriate. No pronator drift. Plan. Altered mental status workup. Patient with a UTI. We will place her on Rocephin. Reviewed last culture that was Escherichia coli that was sensitive to cefazolin. Acute kidney injury. Chest X-Ray 06/22/18 18:19 IMPRESSION: No acute process. D/ / Ru Jordan MD / Ru Jordan MD Interpreting Provider: Ru Jordan MD Head CT 06/22/18 18:19 IMPRESSION: No acute intracranial abnormality. Diffuse atrophic changes with findings suggesting chronic microvascular ischemia D/ / Ru Jordan MD / Ru Jordan MD Interpreting Provider: Ru Jordan MD We will admit.
[2018-06-22 19:01] LABS: Troponin I 0.03 ng/mL (< 0.04)
[2018-06-22 19:02] LABS: Alanine Aminotransferase 11 Units/L (7-52); Albumin 3.8 g/dL (3.5-5.7); Albumin/Globulin Ratio 1.2 (1.1-2.2); Alkaline Phosphatase 92 Units/L (34-104); Aspartate Amino Transferase 20 Units/L (13-39); BUN/Creatinine Ratio 21 (6-26); Bilirubin,Direct 0.1 mg/dL (0.0-0.2); Bilirubin,Indirect 0.3 mg/dL (0.0-1.2); Bilirubin,Total 0.4 mg/dL (0.3-1.0); Blood Urea Nitrogen 39 mg/dL (8-23); Calcium 9.7 mg/dL (8.6-10.3); Carbon Dioxide 26 mEq/L (23-29); Chloride 104 mEq/L (98-107); Ethanol < 10 mg/dL (Less than 10); Globulin 3.2 g/dL (2.4-3.5); Glucose 111 mg/dL (70-105); Osmolality,Calculated 296 (280-300); Potassium 4.7 mEq/L (3.5-5.1); Sodium 138 mEq/L (136-145); eGFR For Non-African Americans 26 (> 60)
[2018-06-22 19:34] LABS: Bilirubin,Urine Negative (Negative); Blood,Urine Small (Negative); Clarity,Urine Cloudy (Clear); Color,Urine Yellow (Yellow); Glucose,Urine (UA) Normal (Normal); Ketones,Urine Negative (Negative); Leukocyte Esterase,Urine Large (Negative); Nitrite,Urine Negative (Negative); Protein,Urine Trace mg/dL (Neg-Trace); Specific Gravity,Urine 1.009 (1.010-1.025); Urobilinogen,Urine Normal (Normal)
[2018-06-22 19:37] LABS: Bacteria,Urine None Seen per hpf (None-Few); Hyaline Casts,Urine None Seen per lpf (None-Few); Squamous Epithelial Cell,Urine None Seen per lpf (None-Few); WBC,Urine TNTC per hpf (0-3)
[2018-06-22 19:43] LABS: Amphetamine Screen,Urine Negative ng/mL (Cutoff=1000); Barbiturate Screen,Urine Negative ng/mL (Cutoff=200); Benzodiazepines Screen,Urine Positive ng/mL (Cutoff=200); Cannabinoid Screen,Urine Negative ng/mL (Cutoff = 50); Cocaine Screen,Urine Negative ng/mL (Cutoff= 300); Opiate Screen,Urine Negative ng/mL (Cutoff=300); Phencyclidine Screen,Urine Negative ng/mL (Cutoff=25)
[2018-06-22] MEDS ORDERED: cefTRIAXone 1,000 MG in Water for inj. (sterile) 20 ML 10 ML IVP ONE (19:43)
[2018-06-22] MEDS ORDERED: 0.9 % Sodium Chloride 500 ML IVC ONE (19:45)
[2018-06-22] MEDS ORDERED: Naloxone 0.4 MG/ML INJ IVP PRN (19:59)
--- NOTE | 2018-06-22 20:30 | Internal Med History&Physical ---
Date of Encounter: 06/22/18 Time of Encounter: 20:30 Internal Medicine - H&P: HPI Chief complaint: AMS History of present illness: Ms. 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 During my initial assessment patient was alert oriented 2, however, was unable to provide me much history. No family members were at the bedside. History was obtained from medical records and ED report. According to records, family states that patient became confused around 5 PM. They report that typically patient is "usually more coherent" however, did not recognize her son earlier today. This appears to be a common theme when the patient developed a urinary tract infection, per family. Initial CT scan of the head was performed which showed no acute intracranial abnormality. Auditory workup was notable for mild leukocytosis of 11.6, elevated creatinine and a UA suggestive of UTI. Patient being admitted for altered mental status likely secondary to UTI. Patient received fluids and one dose of Rocephin in the ED. Past Med Surg Social Fam HX - Past Medical History Medical history: dementia, hyperlipidemia, hypertension, thyroid disease Additional medical history: colitis Psychiatric history: no psych history - Past Surgical History Surgical History: hysterectomy - Social History Smoking Status: Never smoker Smokeless Tobacco Status: No Alcohol use: none Drug use: none - Family History Sister Hx Family Neurologic Disorders: Yes (bonnie) Internal Medicine - H&P: Meds Donepezil [Aricept] 5 mg PO HS 05/21/17 [History] Levothyroxine [Synthroid] 100 mcg PO DAILY 05/21/17 [History] Cranberry 400 mg PO DAILY 11/07/17 [History] Losartan Potassium [Cozaar] 100 mg PO DAILY 11/07/17 [History] Multivitamin [One Daily Essential] 1 tab PO DAILY 11/07/17 [History] Tramadol HCl [Ultram] 50 mg PO TID PRN 11/07/17 [History] Vit A/Vit C/Vit E/Zinc/Copper [Preservision Areds Tablet] 1 tab PO DAILY 11/07/17 [History] Quetiapine Fumarate [Seroquel] 12.5 mg PO HS 30 Days tablet 11/10/17 [Rx] Acetaminophen [Tylenol] 650 mg PO Q6HR PRN tablet 12/23/17 [Rx] Apixaban [Eliquis] 10 mg PO BID tablet 12/23/17 [Rx] Furosemide [Lasix] 40 mg PO DAILY tablet 12/23/17 [Rx] Mag Hydrox/Al Hydrox/Simeth [Maalox] 15 ml PO Q6HR PRN udc 12/23/17 [Rx] Metoprolol [Lopressor] 25 mg PO BID tablet 12/23/17 [Rx] Naloxone [Narcan] 0.4 mg IVP Q2MIN PRN inj 12/23/17 [Rx] Omeprazole [PriLOSEC] 20 mg PO DAILY@0630 capsule. 12/23/17 [Rx] Potassium Chloride 40 meq PO DAILY tab.er.prt 12/23/17 [Rx] Sennosides/Docusate Sodium [Senna Plus] 1 each PO BID tablet 12/23/17 [Rx] Apixaban [Eliquis] 5 mg PO BID #180 tablet 12/24/17 [Rx] Vancomycin Oral Soln [Firvanq] 125 mg PO QID 10 Days #100 udc 12/24/17 [Rx] Allergy/AdvReac Type Severity Reaction Status Date / Time Penicillins [PCN] Allergy Unknown See Verified 12/13/17 15:26 Comments codeine Allergy See Verified 12/13/17 15:26 Comments All Systems PM: A 10-system review of systems was performed and is negative for pertinent findings except as documented above in the HPI. - Constitutional Constitutional: no chills, no fever(s), no night sweats - EENT Eyes: no change in vision, no discharge, no pain, no photophobia Ears: no ear discharge, no ear pain, no tinnitus Nose, mouth and throat: no dysphagia, no nasal discharge, no neck pain, no sore throat - Cardiovascular Cardiovascular ROS IM: no chest pain, no diaphoresis, no dyspnea, no lightheadedness, no palpitations, no syncope - Respiratory Respiratory: no cough, no dyspnea, no wheezing, no excessive phlegm production - Gastrointestinal Gastrointestinal: no abdominal pain, no diarrhea, no hematemesis, no hematochezia, no melena, no nausea, no vomiting - Genitourinary Genitourinary: no change in urinary stream, no dysuria, no flank pain, no hematuria - Musculoskeletal Musculoskeletal ROS IM: no numbness, no tingling - Integumentary Integumentary IM: no rash, no unusual bruising - Neurological Neurological ROS: no confusion, no convulsions, no focal weakness, no numbness, no tingling, no tremor(s) - Hematologic/Lymphatic Hematologic/Lymphatic: no easy bruising - Constitutional Vitals: Temp Pulse Resp BP Pulse Ox 99.4 F 84 18 155/67 97 06/22/18 18:20 06/22/18 18:20 06/22/18 18:20 06/22/18 18:20 06/22/18 18:20 Exam: General: Alert and oriented 2; lying in bed in no acute distress Skin:Normal color, no rash, no lesions. HEENT:EOM, pupils equal, round and reactive. Cardiovascular:Normal S1 & S2, no rubs, murmurs or gallops. No JVD. Pulse regular. Lungs:Normal breath sounds, no wheezes or crackles. Abdomen:Soft, non-tender, no rigidity. Extremities:No deformity, no edema or tenderness, no joint swelling or clubbing. Neurological: Patient able to state her name and follow directions. No focal findings noted. Cranial nerves II through XII intact. Pulses:Carotid and radial pulses normal +2. Rest of the physical exam is non contributory Internal Med - H&P Results - Labs CBC & Chem 7: 06/23/18 03:22 06/23/18 03:22 Labs: Short CBC 06/22/18 Range/Units 18:30 WBC 11.6 H (4.3-11.1) K/mcL Hgb 11.6 (11.5-15.4) g/dL Hct 35.4 (35.3-44.9) % Plt Count 276 (140-400) K/mcL Neutrophils # 8.7 (1.6-8.9) K/mcL BMP 06/22/18 18:30 Sodium 138 Potassium 4.7 Chloride 104 Carbon Dioxide 26 BUN 39 H Creatinine 1.82 H Glucose 111 H Calcium 9.7 Cardiac Enzymes 06/22/18 Range/Units 18:30 Troponin I 0.03 (< 0.04) ng/mL Liver Function 06/22/18 Range/Units 18:30 Total Bilirubin 0.4 (0.3-1.0) mg/dL Direct Bilirubin 0.1 (0.0-0.2) mg/dL AST 20 (13-39) Units/L ALT 11 (7-52) Units/L Alkaline Phosphatase 92 (34-104) Units/L Albumin 3.8 (3.5-5.7) g/dL Urine 06/22/18 Range/Units 19:24 Urine Color Yellow (Yellow) Urine Clarity Cloudy A (Clear) Urine pH 7.0 (5.0-8.0) pH Units Ur Specific [place] 1.009 L (1.010-1.025) Urine Protein Trace (Neg-Trace) mg/dL Urine Glucose (UA) Normal (Normal) mg/dL - Impressions ITS Impressions Chest X-Ray 06/22/18 18:19 IMPRESSION: No acute process. D/ / Ru Jordan MD / Ru Jordan MD Interpreting Provider: Ru Jordan MD Head CT 06/22/18 18:19 IMPRESSION: No acute intracranial abnormality. Diffuse atrophic changes with findings suggesting chronic microvascular ischemia D/ / Ru Jordan MD / Ru Jordan MD Interpreting Provider: Ru Jordan MD - Assessment and plan (1) Altered mental status Current Visit: Yes Status: Acute Assessment and plan: Altered mental status characterized by increasing confusion and inability to recognize her son in the setting of underlying dementia. No focal findings on physical examination. CT scan of the head was unremarkable. Suspect change in mentation exacerbated by UTI. -We will treat urinary tract infection. Qualifiers: Altered mental status type: unspecified Qualified Code(s): R41.82 - Altered mental status, unspecified (2) UTI (urinary tract infection) Current Visit: Yes Status: Acute Assessment and plan: UA suggestive of UTI with positive leukocyte esterase and numerous white blood cells. At this point patient does not meet a minimum of 2 of the for SIRS criteria. As such patient is not technically septic. -Follow-up urine culture -Continue with IV Rocephin Qualifiers: Urinary tract infection type: site unspecified Hematuria presence: with h ematuria Qualified Code(s): N39.0 - Urinary tract infection, site not spe cified; R31.9 - Hematuria, unspecified (3) ELZA (acute kidney injury) Current Visit: Yes Status: Acute Assessment and plan: Acute kidney injury with creatinine of 1.82. Patient's baseline creatinine kary ears to be within normal limits. Patient received 500 mL's fluid bolus in the ED. -Repeat creatinine -We will start patient on maintenance fluids for now. (4) Leukocytosis Current Visit: Yes Status: Acute Assessment and plan: Mild leukocytosis of 11.6 possibly secondary to UTI. We will treat underlying cause. Monitor. Qualifiers: Leukocytosis type: unspecified Qualified Code(s): D72.829 - Elevated white blood cell count, unspecified (5) Saddle embolus Current Visit: No Status: Acute Assessment and plan: Patient stable from a respiratory standpoint. Continue Eliquis once medications of been verified. (6) DVT prophylaxis Current Visit: No Status: Acute Assessment and plan: Patient on anticoagulation - Time Spent With Patient Total time spent is greater than 50% in coordination of care (as documented) at patient's floor/unit and/or counseling patient:
[2018-06-22] MEDS: cefTRIAXone 2,000 MG in Water for inj. (sterile) 20 ML 20 ML IVPB SCH (20:48)
[2018-06-22] MEDS: 0.9 % Sodium Chloride 1,000 ML IVC SCH (22:32)
[2018-06-23 04:00] LABS: Basophils % 0.4 %; Eosinophils # 0.2 K/mcL (0.0-0.6); Eosinophils % 2.3 %; Hematocrit 34.2 % (35.3-44.9); Hemoglobin 11.3 g/dL (11.5-15.4); Immature Granulocytes % 0.3 % (0-4); Lymphocytes # 2.6 K/mcL (0.6-4.6); Lymphocytes % 27.7 %; Mean Corpuscular Volume 93.7 fL (83.0-100.0); Mean Platelet Volume 10.3 fL (9.4-12.4); Monocytes # 0.8 K/mcL (0.0-1.3); Monocytes % 8.2 %; Neutrophils # 5.6 K/mcL (1.6-8.9); Platelet Count 260 K/mcL (140-400); Red Blood Count 3.65 M/mcL (3.82-4.97); Red Cell Distribution Width 13.3 % (11.5-14.5); Segmented Neutrophils % 61.1 %
[2018-06-23 04:18] LABS: Albumin 3.6 g/dL (3.5-5.7); Albumin/Globulin Ratio 1.2 (1.1-2.2); Bilirubin,Total 0.4 mg/dL (0.3-1.0); Calcium 9.4 mg/dL (8.6-10.3); Globulin 3.1 g/dL (2.4-3.5); Potassium 3.9 mEq/L (3.5-5.1); Total Protein 6.7 g/dL (6.4-8.9)
[2018-06-23] MEDS ORDERED: traMADol 50 MG TABLET PO PRN (13:03)
[2018-06-23] MEDS ORDERED: Acetaminophen 325 MG TABLET PO PRN (13:03)
[2018-06-23] MEDS ORDERED: diazePAM 2 MG TABLET PO PRN (13:03)
--- NOTE | 2018-06-23 14:11 | Internal Med Progress Note ---
Hospitalist Progress Note - Encounter Date of Encounter: 06/23/18 Time of Encounter: 14:09 - Subjective Interval History: Patient has advanced stage dementia and is unable to participate and examination. No family at bedside. The patient denies any complaints at this time. - Exam Vitals: Temp Pulse Resp BP Pulse Ox 98.9 F 67 16 135/65 94 06/23/18 11:34 06/23/18 11:34 06/23/18 11:34 06/23/18 11:34 06/23/18 11:34 Exam: General: Alert and oriented 1; lying in bed in no acute distress Skin:Normal color, no rash, no lesions. HEENT:EOMI, PERRLA Cardiovascular:Normal S1 & S2, no rubs, murmurs or gallops. No JVD. Pulse regular. Lungs:Normal breath sounds, no wheezes or crackles. Abdomen:Soft, non-tender, no rigidity. Extremities:No deformity, no edema or tenderness, no joint swelling or clubbing. Neurological: Patient able to state her name and follow directions. No focal findings noted. Cranial nerves II through XII intact. Pulses:Carotid and radial pulses normal +2. Rest of the physical exam is non contributory - Assessment and Plan (1) UTI (urinary tract infection) Current Visit: Yes Status: Acute Assessment and Plan: UA was cloudy urine, small blood, large leukocyte esterase and pyuria Continue treatment with Rocephin Urine sent for culture-pending 2 positive SIRS criteria on admission; resolved Does not appear toxic, afebrile, hemodynamically stable and without leukocytosis Continue IVF Blood cultures pending (2) Saddle embolus Current Visit: No Status: Acute Assessment and Plan: Patient stable from a respiratory standpoint Continue eliquis (3) Altered mental status Current Visit: Yes Status: Acute Assessment and Plan: History of dementia Alterations from baseline per family on admission No family at bedside today to evaluate for worsening or improvement of mental status No focal findings on neurological exam CT of head unremarkable Altered mental status with urinary tract infection (4) ELZA (acute kidney injury) Current Visit: Yes Status: Acute Assessment and Plan: Acute kidney injury with creatinine of 1.82 No prior history of kidney disease Received half a liter IV fluid bolus Serum creatinine improving at 1.59 today Continue to closely monitor -Repeat creatinine Continue maintenance fluids for now. (5) Leukocytosis Current Visit: Yes Status: Resolved (6) DVT prophylaxis Current Visit: No Status: Acute Assessment and Plan: Patient on anticoagulation - Time Spent with Patient Total time spent is greater than 50% in coordination of care (as documented) at patient's floor/unit and/or counseling patient: less than 15 minutes Plan of Care Discussed with: patient Internal Medicine: Result - Labs CBC & Chem 7: 06/23/18 03:22 06/23/18 03:22 Labs: Short CBC 06/22/18 06/23/18 Range/Units 18:30 03:22 WBC 11.6 H 9.2 (4.3-11.1) K/mcL Hgb 11.6 11.3 L (11.5-15.4) g/dL Hct 35.4 34.2 L (35.3-44.9) % Plt Count 276 260 (140-400) K/mcL Neutrophils # 8.7 5.6 (1.6-8.9) K/mcL BMP 06/22/18 06/23/18 18:30 03:22 Sodium 138 140 Potassium 4.7 3.9 Chloride 104 105 Carbon Dioxide 26 27 BUN 39 H 35 H Creatinine 1.82 H 1.59 H Glucose 111 H 116 H Calcium 9.7 9.4 Cardiac Enzymes 06/22/18 Range/Units 18:30 Troponin I 0.03 (< 0.04) ng/mL Liver Function 06/22/18 06/23/18 Range/Units 18:30 03:22 Total Bilirubin 0.4 0.4 (0.3-1.0) mg/dL Direct Bilirubin 0.1 (0.0-0.2) mg/dL AST 20 19 (13-39) Units/L ALT 11 10 (7-52) Units/L Alkaline Phosphatase 92 85 (34-104) Units/L Albumin 3.8 3.6 (3.5-5.7) g/dL Urine 06/22/18 Range/Units 19:24 Urine Color Yellow (Yellow) Urine Clarity Cloudy A (Clear) Urine pH 7.0 (5.0-8.0) pH Units Ur Specific [place] 1.009 L (1.010-1.025) Urine Protein Trace (Neg-Trace) mg/dL Urine Glucose (UA) Normal (Normal) mg/dL - ABG Interpretation ABG results: PT/INR, D-dimer PT 14.4 Seconds (9.4-12.1) H 06/22/18 18:30 - Impressions Impressions Chest X-Ray 06/22/18 18:19 IMPRESSION: No acute process. D/ / Ru Jordan MD / Ru Jordan MD Interpreting Provider: Ru Jordan MD Head CT 06/22/18 18:19 IMPRESSION: No acute intracranial abnormality. Diffuse atrophic changes with findings suggesting chronic microvascular ischemia D/ / Ru Jordan MD / Ru Jordan MD Interpreting Provider: Ru Jordan MD Consult Discharge Plan - Plan (1) UTI (urinary tract infection) Qualifiers: Urinary tract infection type: site unspecified Hematuria presence: with hematuria Qualified Code(s): N39.0 - Urinary tract infection, site not specified; R31.9 - Hematuria, unspecified (3) Altered mental status Qualifiers: Altered mental status type: unspecified Qualified Code(s): R41.82 - Altered mental status, unspecified (5) Leukocytosis Qualifiers: Leukocytosis type: unspecified Qualified Code(s): D72.829 - Elevated white blood cell count, unspecified
[2018-06-23] MEDS: 0.9 % Sodium Chloride 1,000 ML IVC SCH (14:12)
[2018-06-23] MEDS: cefTRIAXone 2,000 MG in Water for inj. (sterile) 20 ML 20 ML IVPB SCH (20:14)
[2018-06-23] MEDS: Apixaban 5 MG TABLET PO SCH (20:14)
[2018-06-23] MEDS ORDERED: risperiDONE 0.25 MG TABLET PO SCH (21:00)
[2018-06-24 05:32] LABS: Basophils % 0.5 %; Eosinophils # 0.3 K/mcL (0.0-0.6); Eosinophils % 3.8 %; Hematocrit 34.6 % (35.3-44.9); Hemoglobin 11.3 g/dL (11.5-15.4); Immature Granulocytes % 0.3 % (0-4); Lymphocytes # 1.9 K/mcL (0.6-4.6); Lymphocytes % 25.3 %; Mean Corpuscular HGB Conc 32.7 g/dL (31.6-35.5); Mean Corpuscular Volume 95.1 fL (83.0-100.0); Mean Platelet Volume 10.5 fL (9.4-12.4); Monocytes # 0.5 K/mcL (0.0-1.3); Monocytes % 6.9 %; Neutrophils # 4.7 K/mcL (1.6-8.9); Platelet Count 252 K/mcL (140-400); Red Blood Count 3.64 M/mcL (3.82-4.97); Segmented Neutrophils % 63.2 %
[2018-06-24 05:52] LABS: Calcium 8.7 mg/dL (8.6-10.3); Potassium 3.5 mEq/L (3.5-5.1)
[2018-06-24] MEDS ORDERED: Furosemide 40 MG TABLET PO SCH (09:00)
[2018-06-24] MEDS ORDERED: Multivit/Ca/Min/Fe/FA 1 TAB TABLET PO SCH (09:00)
[2018-06-24] MEDS: Apixaban 5 MG TABLET PO SCH (09:10)
--- NOTE | 2018-06-24 14:18 | Discharge Summary ---
Orders not resulted at time of discharge: Pending orders 06/22/18 20:24 Culture,Blood [BC] Stat 06/25/18 04:00 Basic Metabolic Panel AM 0400 Complete Blood Count [HEME] AM 0400 06/26/18 04:00 Basic Metabolic Panel AM 0400 Complete Blood Count [HEME] AM 0400 Date of Encounter: 06/24/18 Time of Encounter: 14:15 - Discharge Diagnosis (1) UTI (urinary tract infection) Priority: Primary Status: Acute Assessment and Plan: UA was cloudy urine, small blood, large leukocyte esterase and pyuria #2 DOSES ROCEPHIN; SENT WITH #5 DAY COURSE OF CIPROFLOXACIN Urine sent for culture-NO SIGNIFICANT GROWTH 2 positive SIRS criteria on admission; resolved Does not appear toxic, afebrile, hemodynamically stable and without leukocytosis Blood cultures pending- NGTD Qualifiers: Urinary tract infection type: site unspecified Hematuria presence: with hematuria Qualified Code(s): N39.0 - Urinary tract infection, site not specified; R31.9 - Hematuria, unspecified (2) Saddle embolus Priority: Secondary Status: Acute (3) Altered mental status Priority: Secondary Status: Acute Qualifiers: Altered mental status type: unspecified Qualified Code(s): R41.82 - Altered mental status, unspecified (4) ELZA (acute kidney injury) Priority: Secondary Status: Acute (5) Leukocytosis Priority: Secondary Status: Resolved Qualifiers: Leukocytosis type: unspecified Qualified Code(s): D72.829 - Elevated white blood cell count, unspecified (6) DVT prophylaxis Priority: Secondary Status: Acute Hospital course: Ms. Brannon is a 87 year old female who presented with mental status alterations greater than baseline. She was found to have a UTI. Subsequently, she was treated with Rocephin and mental status improved. She received 2 doses of Rocephin and will be discharged home with a 5 day course of ciprofloxacin twice a day. She is being discharged back to [facility]. Discharge discussed with: patient, family, nurse - Time Spent with Patient Total time spent providing and/or coordinating discharge services: Less than 30 minutes - Discharge Medications Prescriptions: Ciprofloxacin [Cipro] 500 mg PO BID 5 Days #10 tablet Home Medications: Donepezil [Aricept] 5 mg PO HS 05/21/17 [History] Losartan Potassium [Cozaar] 100 mg PO DAILY 11/07/17 [History] Multivitamin [One Daily Essential] 1 tab PO DAILY 11/07/17 [History] Tramadol HCl [Ultram] 50 mg PO TID PRN 11/07/17 [History] Acetaminophen [Tylenol] 650 mg PO Q6HR PRN tablet 12/23/17 [Rx] Furosemide [Lasix] 40 mg PO DAILY tablet 12/23/17 [Rx] Omeprazole [PriLOSEC] 20 mg PO DAILY@0630 capsule. 12/23/17 [Rx] Apixaban [Eliquis] 5 mg PO BID #180 tablet 12/24/17 [Rx] Cranberry Fruit Extract [Cranberry] 250 mg PO DAILY 06/23/18 [History] Ergocalciferol (VITAMIN D2) [Vitamin D2] 50,000 unit PO WE 06/23/18 [History] Levothyroxine [Synthroid] 88 mcg PO DAILY 06/23/18 [History] Metoprolol Succinate [Toprol Xl] 25 mg PO DAILY 06/23/18 [History] Potassium Chloride 20 meq PO DAILY 06/23/18 [History] RisperiDONE [Risperdal] 0.5 mg PO HS 06/23/18 [History] diazePAM [Valium] 2 mg PO BID PRN 06/23/18 [History] Ciprofloxacin [Cipro] 500 mg PO BID 5 Days #10 tablet 06/24/18 [Rx] Allergies/Adverse Reactions: Allergy/AdvReac Type Severity Reaction Status Date / Time Penicillins [PCN] Allergy Unknown See Verified 12/13/17 15:26 Comments codeine Allergy See Verified 12/13/17 15:26 Comments Date of admission: 06/22/18 20:08 Primary care physician: Yvan Ernst MD Discharging clinician: Sae Michaels Anticipated date of discharge: 06/24/18 - Constitutional Vitals: Temp Pulse Resp BP Pulse Ox 97.6 F 63 18 110/55 96 06/24/18 11:44 06/24/18 11:44 06/24/18 11:44 06/24/18 11:44 06/24/18 11:44 General appearance: Present: A&O X 3 Exam: General: Alert and oriented 2; lying in bed in no acute distress; Skin:Normal color, no rash, no lesions. HEENT:EOMI, PERRLA Cardiovascular:Normal S1 & S2, no rubs, murmurs or gallops. No JVD. Pulse regular. Lungs:Normal breath sounds, no wheezes or crackles. Abdomen:Soft, non-tender, no rigidity. Extremities:No deformity, no edema or tenderness, no joint swelling or clubbing. Neurological: Patient able to state her name and follow directions. No focal findings noted. Cranial nerves II through XII intact. Pulses:Carotid and radial pulses normal +2. Rest of the physical exam is non contributory - Patient Status Disposition: Transfer Other Condition: Fair Functional capacity at discharge: independent ambulation Overall status at discharge: patient is progressing back to baseline - Discharge Instructions Instructions: Urinary Tract Infection in Women (DC) Follow Up With: Yvan Ernst MD [Primary Care Provider] - Forms: ED Satisfaction Letter - Diet and Activity Activity: increase activity as tolerated, resume usual activities as tolerated Diet: advance to your usual diet
[2018-06-24 15:03] VITALS: BP 143/69
--- NOTE | 2018-06-24 16:31 | Electrocardiograph Report ---
[address] [address] Test Date: 2018-06-22 Pat Name: Brandi Brannon Department: [id number] Room: 3B21 Gender: F [employer]: : [id number] Requested By: Tiffany See Order Number: [id number] Reading MD: Olya Henderson Measurements Intervals [place] Rate: 80 P: 45 LA: 173 QRS: 20 QRSD: 145 T: 191 QT: 390 QTc: 450 Interpretive Statements Sinus rhythm Left bundle branch block Electronically Signed On 06-24-2018 16:30:08 EST by lOya Henderson
--- NOTE | 2018-06-25 16:25 | Physician Discharge Referral ---
ExtendedCare Referral Info Transfer To: F Provider in Charge after Transfer: PCP Institutional Level of Care: Skilled - Transfer Medications Prescriptions: Ciprofloxacin [Cipro] 500 mg PO BID 5 Days #10 tablet Home Medications: Donepezil [Aricept] 5 mg PO HS 05/21/17 [History] Losartan Potassium [Cozaar] 100 mg PO DAILY 11/07/17 [History] Multivitamin [One Daily Essential] 1 tab PO DAILY 11/07/17 [History] Tramadol HCl [Ultram] 50 mg PO TID PRN 11/07/17 [History] Acetaminophen [Tylenol] 650 mg PO Q6HR PRN tablet 12/23/17 [Rx] Furosemide [Lasix] 40 mg PO DAILY tablet 12/23/17 [Rx] Omeprazole [PriLOSEC] 20 mg PO DAILY@0630 capsule. 12/23/17 [Rx] Apixaban [Eliquis] 5 mg PO BID #180 tablet 12/24/17 [Rx] Cranberry Fruit Extract [Cranberry] 250 mg PO DAILY 06/23/18 [History] Ergocalciferol (VITAMIN D2) [Vitamin D2] 50,000 unit PO WE 06/23/18 [History] Levothyroxine [Synthroid] 88 mcg PO DAILY 06/23/18 [History] Metoprolol Succinate [Toprol Xl] 25 mg PO DAILY 06/23/18 [History] Potassium Chloride 20 meq PO DAILY 06/23/18 [History] RisperiDONE [Risperdal] 0.5 mg PO HS 06/23/18 [History] diazePAM [Valium] 2 mg PO BID PRN 06/23/18 [History] Ciprofloxacin [Cipro] 500 mg PO BID 5 Days #10 tablet 06/24/18 [Rx] Allergies/Adverse Reactions: Allergy/AdvReac Type Severity Reaction Status Date / Time Penicillins [PCN] Allergy Unknown See Verified 12/13/17 15:26 Comments codeine Allergy See Verified 12/13/17 15:26 Comments - Respiratory Orders Smoking Cessation: Smoking cessation has been advised. For more information, call the [place] Tobacco Quit Line at 0-326-OLTK-NOW. CERTIFICATION: I certify that the transfer of the above named patient to an Extended Care Facility is necessary for the continuing treatment of the diagnosis listed. The above information is true and accurate reflection of patient's current condition. Confidential - Redisclosure prohibited without a patient's written consent.
== END 2018-06-24 17:51 | disposition other institution (70) ==
LOC: 3BNU 18:07 → EMEROOARM 18:07 → 3BNU 21:11
PROVIDERS: ADMIT Internal Medicine; ATTEND Internal Medicine

== ENCOUNTER 2018-06-26 21:08 | Inpatient (IN) ==
--- NOTE | 2018-06-26 21:30 | Emergency Department Note ---
Disposition Clinical Impression: Syncope Qualifiers: Syncope type: unspecified Qualified Code(s): R55 - Syncope and collapse Disposition: Admitted As Inpatient Condition: Good Time of Disposition: 00:28 General Adult HPI - General Chief complaint: ED Altered Mental Status Stated complaint: Unresponsive Time Seen by Provider: 06/26/18 21:17 Source: patient, family, EMS Limitations: no limitations Nursing Notes Reviewed: Yes Vital Signs Reviewed: Yes - History of Present Illness HPI Narrative: Female patient presenting to the emergency department by EMS. She was found unresponsive while at the longterm. She does have a recent history of UTIs she is being treated for. She was in the [facility] area watching a [employer] program and was noted to have slumped over and been unresponsive. When EMS got there they reported that she was ashen in color and had decreased respirations. They did [id number] assisted ventilation with the patient. She then again to respond at that time. They deny any trauma. Patient does take Elequis. Son is at bedside and reports that she does have dementia at baseline. On arrival to her room patient is able to perk up and speak with the however she is mildly confused. She quickly goes back to sleep. Do not appreciate any signs of trauma to her body. We did get a basic lab workup on the patient as well as a CT of her head and chest x-ray. Patient's glucose was normal. Pain Scale: 0 - Related Data Home Medications Medication Instructions Recorded Confirmed Donepezil [Aricept] 5 mg PO HS 05/21/17 06/23/18 Losartan Potassium [Cozaar] 100 mg PO DAILY 11/07/17 06/23/18 Multivitamin [One Daily Essential] 1 tab PO DAILY 11/07/17 06/23/18 Tramadol HCl [Ultram] 50 mg PO TID PRN 11/07/17 06/23/18 Cranberry Fruit Extract [Cranberry] 250 mg PO DAILY 06/23/18 06/23/18 Ergocalciferol (VITAMIN D2) 50,000 unit PO WE 06/23/18 06/23/18 [Vitamin D2] Levothyroxine [Synthroid] 88 mcg PO DAILY 06/23/18 06/23/18 Metoprolol Succinate [Toprol Xl] 25 mg PO DAILY 06/23/18 06/23/18 Potassium Chloride 20 meq PO DAILY 06/23/18 06/23/18 RisperiDONE [Risperdal] 0.5 mg PO HS 06/23/18 06/23/18 diazePAM [Valium] 2 mg PO BID PRN 06/23/18 06/23/18 Previous Rx's Medication Instructions Recorded Acetaminophen [Tylenol] 650 mg PO Q6HR PRN tablet 12/23/17 Furosemide [Lasix] 40 mg PO DAILY tablet 12/23/17 Omeprazole [PriLOSEC] 20 mg PO DAILY@0630 capsule. 12/23/17 Apixaban [Eliquis] 5 mg PO BID #180 tablet 12/24/17 Ciprofloxacin [Cipro] 500 mg PO BID 5 Days #10 tablet 06/24/18 Allergies Allergy/AdvReac Type Severity Reaction Status Date / Time Penicillins [PCN] Allergy Unknown See Verified 12/13/17 15:26 Comments codeine Allergy See Verified 12/13/17 15:26 Comments Limitations: ROS unobtainable due to patients medical condition Past Medical History - Past Medical History Attestation: Yes The following information was validated with the patient. Source: patient Medical history: Reports: dementia, hyperlipidemia, hypertension, thyroid disease Surgical history: Reports: hysterectomy Psychiatric history: Reports: no psych history [employer] history: Reports: non-contributory - Social History Smoking Status: Never smoker Smokeless Tobacco Status: No Alcohol use: Reports: none Drug use: Reports: none Physical Exam - General Limitations: no limitations General appearance: alert, in no apparent distress - Head Head exam: atraumatic, normocephalic, normal inspection - Eye Eye exam: Present: normal appearance, PERRL, EOMI - ENT ENT exam: normal exam, normal oropharynx, mucous membranes moist - Neck Neck exam: Present: normal inspection, full ROM, trachea midline - Chest Chest inspection: Present: normal inspection, symmetric chest wall rise - Respiratory Respiratory exam: Present: normal lung sounds bilaterally. Absent: respiratory distress, accessory muscle use - Cardiovascular Cardiovascular exam: Present: regular rate, normal rhythm, normal heart sounds - Abdominal Exam Abdominal exam: Present: soft, Non-Tender. Absent: tenderness, distention, guarding, rebound, rigidity - Extremities Exam Extremities exam: Present: normal inspection, full ROM. Absent: tenderness, pedal edema - Back Exam Back exam: Present: normal inspection, full ROM. Absent: tenderness - Neurological Exam Neurological exam: Present: alert, other (Pleasantly demented. Easily arousable to voice however quickly falls back to sleep) - Psychiatric Psychiatric exam: Present: normal affect, normal mood - Skin Skin exam: Present: warm, dry, intact, normal color. Absent: rash, cyanosis Course Course Narrative: Patient found unresponsive at the longterm. EMS did report using [id number] to help ventilate the patient. They state that she had a pulse the whole time however she initially was not responsive. When she gets to the hospital she was responsive. She quickly goes back to sleep however is easily aroused by verbal stimuli. Lung sounds are clear heart tones are normal. The son is at bedside stating that the patient did have a saddle emboli in January. She recently was discharged from here on Sunday for a urinary tract infection. We did get a CT of patient's head as she is on at work was secondary to the PE. She has no swelling to her extremities. She is actually bradycardic on the monitor however she has a history of left bundle branch block and still has this on the EKG. Her blood pressure has been normal throughout her course here. CT of her head showed no signs of acute infarct or bleeding. Chest x-ray was read as no acute process. We will admit patient to the hospital for her syncope. Vital Signs Temperature 97.5 F L 06/26/18 21:13 Pulse Rate 54 06/26/18 21:13 Respiratory Rate 18 06/26/18 21:13 Blood Pressure 108/55 06/26/18 21:13 O2 Sat by Pulse Oximetry 96 06/26/18 21:13 Temperature 97.5 F L 06/26/18 21:13 Pulse Rate 54 06/26/18 22:00 Respiratory Rate 16 06/26/18 22:00 Blood Pressure 105/36 06/26/18 22:00 O2 Sat by Pulse Oximetry 96 06/26/18 22:00 Oxygen Delivery Oxygen Delivery Room Air Medical Decision Making - Medical Records Medical records reviewed: Yes I reviewed the patient's medical records. - Lab Data Lab results reviewed: Yes I reviewed the patient's lab results. Result diagrams: 06/26/18 21:28 06/26/18 21:28 Lab Results 06/26/18 06/26/18 06/26/18 Range/Units 21:28 21:28 21:28 WBC 8.7 (4.3-11.1) K/mcL RBC 3.58 L (3.82-4.97) M/mcL Hgb 11.3 L (11.5-15.4) g/dL Hct 34.6 L (35.3-44.9) % MCV 96.6 (83.0-100.0) fL MCH 31.6 (28.0-33.3) pg MCHC 32.7 (31.6-35.5) g/dL RDW 13.2 (11.5-14.5) % Plt Count 260 (140-400) K/mcL MPV 9.9 (9.4-12.4) fL Immature Gran % 0.2 (0-4) % Seg Neutrophils % 68.0 % Lymphocytes % 19.4 % Monocytes % 7.5 % Eosinophils % 4.3 % Basophils % 0.6 % Neutrophils # 5.9 (1.6-8.9) K/mcL Lymphocytes # 1.7 (0.6-4.6) K/mcL Monocytes # 0.7 (0.0-1.3) K/mcL Eosinophils # 0.4 (0.0-0.6) K/mcL Basophils # 0.1 (0.0-0.2) K/mcL PT 14.5 H (9.4-12.1) Seconds INR 1.3 APTT 28.1 (26.0-36.0) Seconds Sodium 137 (136-145) mEq/L Potassium 4.5 (3.5-5.1) mEq/L Chloride 105 (98-107) mEq/L Carbon Dioxide 26 (23-29) mEq/L BUN 34 H (8-23) mg/dL Creatinine 1.81 H (0.60-1.20) mg/dL Est GFR ( Amer) 32 L (> 60) Est GFR (Non-Af Amer) 26 L (> 60) BUN/Creatinine Ratio 19 (6-26) Glucose 120 H (70-105) mg/dL Calculated Osmolality 293 (280-300) Calcium 9.3 (8.6-10.3) mg/dL Total Bilirubin 0.3 (0.3-1.0) mg/dL Direct Bilirubin 0.0 (0.0-0.2) mg/dL Indirect Bilirubin 0.3 (0.0-1.2) mg/dL AST 27 (13-39) Units/L ALT 12 (7-52) Units/L Alkaline Phosphatase 83 (34-104) Units/L Troponin I 0.03 (< 0.04) ng/mL Serum Total Protein 6.6 (6.4-8.9) g/dL Albumin 3.6 (3.5-5.7) g/dL Globulin 3.0 (2.4-3.5) g/dL Albumin/Globulin Ratio 1.2 (1.1-2.2) Urine Color (Yellow) Urine Clarity (Clear) Urine pH (5.0-8.0) pH Units Ur Specific [place] (1.010-1.025) Urine Protein (Neg-Trace) mg/dL Urine Glucose (UA) (Normal) mg/dL Urine Ketones (Negative) mg/dL Urine Blood (Negative) Urine Nitrite (Negative) Urine Bilirubin (Negative) Urine Urobilinogen (Normal) mg/dL Ur Leukocyte Esterase (Negative) Urine Microscopic RBC (0-3) per hpf Urine Microscopic WBC (0-3) per hpf Ur Squamous Epith Cells (None-Few) per lpf Urine Bacteria (None-Few) per hpf Hyaline Casts (None-Few) per lpf Ur Culture Indicated? (NO) Urine Opiates Screen (Kucfpn=741) ng/mL Ur Barbiturates Screen (Kcpyfa=275) ng/mL Ur Phencyclidine Scrn (Cutoff=25) ng/mL Ur Amphetamines Screen (Jedcpk=8831) ng/mL U Benzodiazepines Scrn (Uooqlj=138) ng/mL Urine Cocaine Screen (Cutoff= 300) ng/mL U Marijuana (THC) Screen (Cutoff = 50) ng/mL Ur Drug Screen Interp Ethyl Alcohol < 10 (Less than 10) mg/dL 06/26/18 06/26/18 Range/Units 21:34 21:34 WBC (4.3-11.1) K/mcL RBC (3.82-4.97) M/mcL Hgb (11.5-15.4) g/dL Hct (35.3-44.9) % MCV (83.0-100.0) fL MCH (28.0-33.3) pg MCHC (31.6-35.5) g/dL RDW (11.5-14.5) % Plt Count (140-400) K/mcL MPV (9.4-12.4) fL Immature Gran % (0-4) % Seg Neutrophils % % Lymphocytes % % Monocytes % % Eosinophils % % Basophils % % Neutrophils # (1.6-8.9) K/mcL Lymphocytes # (0.6-4.6) K/mcL Monocytes # (0.0-1.3) K/mcL Eosinophils # (0.0-0.6) K/mcL Basophils # (0.0-0.2) K/mcL PT (9.4-12.1) Seconds INR APTT (26.0-36.0) Seconds Sodium (136-145) mEq/L Potassium (3.5-5.1) mEq/L Chloride (98-107) mEq/L Carbon Dioxide (23-29) mEq/L BUN (8-23) mg/dL Creatinine (0.60-1.20) mg/dL Est GFR ( Amer) (> 60) Est GFR (Non-Af Amer) (> 60) BUN/Creatinine Ratio (6-26) Glucose (70-105) mg/dL Calculated Osmolality (280-300) Calcium (8.6-10.3) mg/dL Total Bilirubin (0.3-1.0) mg/dL Direct Bilirubin (0.0-0.2) mg/dL Indirect Bilirubin (0.0-1.2) mg/dL AST (13-39) Units/L ALT (7-52) Units/L Alkaline Phosphatase (34-104) Units/L Troponin I (< 0.04) ng/mL Serum Total Protein (6.4-8.9) g/dL Albumin (3.5-5.7) g/dL Globulin (2.4-3.5) g/dL Albumin/Globulin Ratio (1.1-2.2) Urine Color Yellow (Yellow) Urine Clarity Clear (Clear) Urine pH 5.0 (5.0-8.0) pH Units Ur Specific [place] 1.017 (1.010-1.025) Urine Protein Negative (Neg-Trace) mg/dL Urine Glucose (UA) Normal (Normal) mg/dL Urine Ketones Negative (Negative) mg/dL Urine Blood Negative (Negative) Urine Nitrite Negative (Negative) Urine Bilirubin Negative (Negative) Urine Urobilinogen Normal (Normal) mg/dL Ur Leukocyte Esterase Trace H (Negative) Urine Microscopic RBC 0-3 (0-3) per hpf Urine Microscopic WBC 0-3 (0-3) per hpf Ur Squamous Epith Cells Few (None-Few) per lpf Urine Bacteria None Seen (None-Few) per hpf Hyaline Casts None Seen (None-Few) per lpf Ur Culture Indicated? YES A (NO) Urine Opiates Screen Negative (Jwircj=858) ng/mL Ur Barbiturates Screen Negative (Knoxsr=818) ng/mL Ur Phencyclidine Scrn Negative (Cutoff=25) ng/mL Ur Amphetamines Screen Negative (Nedpje=5388) ng/mL U Benzodiazepines Scrn Positive H (Gmitkb=476) ng/mL Urine Cocaine Screen Negative (Cutoff= 300) ng/mL U Marijuana (THC) Screen Negative (Cutoff = 50) ng/mL Ur Drug Screen Interp See Below Ethyl Alcohol (Less than 10) mg/dL - Radiology Data Radiology results reviewed: Yes I reviewed the patient's radiology results. Chest X-Ray 06/26/18 21:28 IMPRESSION: 1. No acute cardiopulmonary disease. D/ / Paulino Montelongo MD / Paulino Montelongo MD Interpreting Provider: Paulino Montelongo MD Head CT 06/26/18 21:29 IMPRESSION: No acute intracranial abnormality. D/ / Mag Jacobs Cha, MD / Mag Jacobs Cha, MD Interpreting Provider: Mag Jacobs Cha, MD - EKG Data EKG #1 EKG attestation: Yes I reviewed and interpreted this EKG. EKG results narrative: Sinus rhythm at a rate of 54. NM interval is 195. Castration is 149. QT is 59. QTC is 43. Does have a left bundle branch block. No significant change from previous EKG dated 06 22 2018. Patient had a bundle branch block at that time. No signs of acute ischemia.
[2018-06-26 21:47] LABS: Bilirubin,Urine Negative (Negative); Blood,Urine Negative (Negative); Clarity,Urine Clear (Clear); Color,Urine Yellow (Yellow); Glucose,Urine (UA) Normal (Normal); Ketones,Urine Negative (Negative); Leukocyte Esterase,Urine Trace (Negative); Nitrite,Urine Negative (Negative); Protein,Urine Negative (Neg-Trace); Specific Gravity,Urine 1.017 (1.010-1.025); Urobilinogen,Urine Normal (Normal)
[2018-06-26 21:50] LABS: Bacteria,Urine None Seen per hpf (None-Few); Hyaline Casts,Urine None Seen per lpf (None-Few); RBC,Urine 0-3 per hpf (0-3); Squamous Epithelial Cell,Urine Few per lpf (None-Few); WBC,Urine 0-3 per hpf (0-3)
[2018-06-26 22:01] LABS: Basophils # 0.1 K/mcL (0.0-0.2); Basophils % 0.6 %; Eosinophils # 0.4 K/mcL (0.0-0.6); Eosinophils % 4.3 %; Hematocrit 34.6 % (35.3-44.9); Hemoglobin 11.3 g/dL (11.5-15.4); Immature Granulocytes % 0.2 % (0-4); Lymphocytes # 1.7 K/mcL (0.6-4.6); Lymphocytes % 19.4 %; Mean Corpuscular HGB Conc 32.7 g/dL (31.6-35.5); Mean Corpuscular Hemoglobin 31.6 pg (28.0-33.3); Mean Corpuscular Volume 96.6 fL (83.0-100.0); Mean Platelet Volume 9.9 fL (9.4-12.4); Monocytes # 0.7 K/mcL (0.0-1.3); Monocytes % 7.5 %; Neutrophils # 5.9 K/mcL (1.6-8.9); Platelet Count 260 K/mcL (140-400); Red Blood Count 3.58 M/mcL (3.82-4.97); Red Cell Distribution Width 13.2 % (11.5-14.5)
[2018-06-26 22:10] LABS: INR 1.3; Prothrombin Time 14.5 Seconds (9.4-12.1)
[2018-06-26 22:13] LABS: Activated Partial Thrombo Time 28.1 Seconds (26.0-36.0)
[2018-06-26 22:19] LABS: Troponin I 0.03 ng/mL (< 0.04)
[2018-06-26 22:20] LABS: Alanine Aminotransferase 12 Units/L (7-52); Albumin 3.6 g/dL (3.5-5.7); Albumin/Globulin Ratio 1.2 (1.1-2.2); Alkaline Phosphatase 83 Units/L (34-104); Aspartate Amino Transferase 27 Units/L (13-39); BUN/Creatinine Ratio 19 (6-26); Bilirubin,Indirect 0.3 mg/dL (0.0-1.2); Bilirubin,Total 0.3 mg/dL (0.3-1.0); Blood Urea Nitrogen 34 mg/dL (8-23); Calcium 9.3 mg/dL (8.6-10.3); Carbon Dioxide 26 mEq/L (23-29); Chloride 105 mEq/L (98-107); Ethanol < 10 mg/dL (Less than 10); Glucose 120 mg/dL (70-105); Osmolality,Calculated 293 (280-300); Potassium 4.5 mEq/L (3.5-5.1); Sodium 137 mEq/L (136-145); Total Protein 6.6 g/dL (6.4-8.9); eGFR For Non-African Americans 26 (> 60)
[2018-06-26 23:18] LABS: Amphetamine Screen,Urine Negative ng/mL (Cutoff=1000); Barbiturate Screen,Urine Negative ng/mL (Cutoff=200); Benzodiazepines Screen,Urine Positive ng/mL (Cutoff=200); Cannabinoid Screen,Urine Negative ng/mL (Cutoff = 50); Cocaine Screen,Urine Negative ng/mL (Cutoff= 300); Opiate Screen,Urine Negative ng/mL (Cutoff=300); Phencyclidine Screen,Urine Negative ng/mL (Cutoff=25)
--- NOTE | 2018-06-27 00:04 | Emergency Department Note ---
Disposition Clinical Impression: Syncope Qualifiers: Syncope type: unspecified Qualified Code(s): R55 - Syncope and collapse Disposition: Admitted As Inpatient Condition: Good General Adult HPI - General Chief complaint: ED Altered Mental Status Stated complaint: Unresponsive Time Seen by Provider: 06/26/18 21:17 Source: patient, family, EMS Limitations: no limitations Nursing Notes Reviewed: Yes Vital Signs Reviewed: Yes - History of Present Illness Pain Scale: 0 - Related Data Home Medications Medication Instructions Recorded Confirmed Donepezil [Aricept] 5 mg PO HS 05/21/17 06/23/18 Losartan Potassium [Cozaar] 100 mg PO DAILY 11/07/17 06/23/18 Multivitamin [One Daily Essential] 1 tab PO DAILY 11/07/17 06/23/18 Tramadol HCl [Ultram] 50 mg PO TID PRN 11/07/17 06/23/18 Cranberry Fruit Extract [Cranberry] 250 mg PO DAILY 06/23/18 06/23/18 Ergocalciferol (VITAMIN D2) 50,000 unit PO WE 06/23/18 06/23/18 [Vitamin D2] Levothyroxine [Synthroid] 88 mcg PO DAILY 06/23/18 06/23/18 Metoprolol Succinate [Toprol Xl] 25 mg PO DAILY 06/23/18 06/23/18 Potassium Chloride 20 meq PO DAILY 06/23/18 06/23/18 RisperiDONE [Risperdal] 0.5 mg PO HS 06/23/18 06/23/18 diazePAM [Valium] 2 mg PO BID PRN 06/23/18 06/23/18 Previous Rx's Medication Instructions Recorded Acetaminophen [Tylenol] 650 mg PO Q6HR PRN tablet 12/23/17 Furosemide [Lasix] 40 mg PO DAILY tablet 12/23/17 Omeprazole [PriLOSEC] 20 mg PO DAILY@0630 capsule. 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 - Social History Smoking Status: Never smoker Smokeless Tobacco Status: No Alcohol use: Reports: none Drug use: Reports: none Physical Exam - General Limitations: no limitations General appearance: alert, in no apparent distress Course Vital Signs Temperature 97.5 F L 06/26/18 21:13 Pulse Rate 54 06/26/18 21:13 Respiratory Rate 18 06/26/18 21:13 Blood Pressure 108/55 06/26/18 21:13 O2 Sat by Pulse Oximetry 96 06/26/18 21:13 Temperature 97.5 F L 06/26/18 21:13 Pulse Rate 54 06/26/18 22:00 Respiratory Rate 16 06/26/18 22:00 Blood Pressure 105/36 06/26/18 22:00 O2 Sat by Pulse Oximetry 96 06/26/18 22:00 Oxygen Delivery Oxygen Delivery Room Air Medical Decision Making - Medical Records Medical records reviewed: Yes I reviewed the patient's medical records. - Lab Data Lab results reviewed: Yes I reviewed the patient's lab results. Result diagrams: 06/26/18 21:28 06/26/18 21:28 Lab Results 06/26/18 06/26/18 06/26/18 Range/Units 21:28 21:28 21:28 WBC 8.7 (4.3-11.1) K/mcL RBC 3.58 L (3.82-4.97) M/mcL Hgb 11.3 L (11.5-15.4) g/dL Hct 34.6 L (35.3-44.9) % MCV 96.6 (83.0-100.0) fL MCH 31.6 (28.0-33.3) pg MCHC 32.7 (31.6-35.5) g/dL RDW 13.2 (11.5-14.5) % Plt Count 260 (140-400) K/mcL MPV 9.9 (9.4-12.4) fL Immature Gran % 0.2 (0-4) % Seg Neutrophils % 68.0 % Lymphocytes % 19.4 % Monocytes % 7.5 % Eosinophils % 4.3 % Basophils % 0.6 % Neutrophils # 5.9 (1.6-8.9) K/mcL Lymphocytes # 1.7 (0.6-4.6) K/mcL Monocytes # 0.7 (0.0-1.3) K/mcL Eosinophils # 0.4 (0.0-0.6) K/mcL Basophils # 0.1 (0.0-0.2) K/mcL PT 14.5 H (9.4-12.1) Seconds INR 1.3 APTT 28.1 (26.0-36.0) Seconds Sodium 137 (136-145) mEq/L Potassium 4.5 (3.5-5.1) mEq/L Chloride 105 (98-107) mEq/L Carbon Dioxide 26 (23-29) mEq/L BUN 34 H (8-23) mg/dL Creatinine 1.81 H (0.60-1.20) mg/dL Est GFR ( Amer) 32 L (> 60) Est GFR (Non-Af Amer) 26 L (> 60) BUN/Creatinine Ratio 19 (6-26) Glucose 120 H (70-105) mg/dL Calculated Osmolality 293 (280-300) Calcium 9.3 (8.6-10.3) mg/dL Total Bilirubin 0.3 (0.3-1.0) mg/dL Direct Bilirubin 0.0 (0.0-0.2) mg/dL Indirect Bilirubin 0.3 (0.0-1.2) mg/dL AST 27 (13-39) Units/L ALT 12 (7-52) Units/L Alkaline Phosphatase 83 (34-104) Units/L Troponin I 0.03 (< 0.04) ng/mL Serum Total Protein 6.6 (6.4-8.9) g/dL Albumin 3.6 (3.5-5.7) g/dL Globulin 3.0 (2.4-3.5) g/dL Albumin/Globulin Ratio 1.2 (1.1-2.2) Urine Color (Yellow) Urine Clarity (Clear) Urine pH (5.0-8.0) pH Units Ur Specific [place] (1.010-1.025) Urine Protein (Neg-Trace) mg/dL Urine Glucose (UA) (Normal) mg/dL Urine Ketones (Negative) mg/dL Urine Blood (Negative) Urine Nitrite (Negative) Urine Bilirubin (Negative) Urine Urobilinogen (Normal) mg/dL Ur Leukocyte Esterase (Negative) Urine Microscopic RBC (0-3) per hpf Urine Microscopic WBC (0-3) per hpf Ur Squamous Epith Cells (None-Few) per lpf Urine Bacteria (None-Few) per hpf Hyaline Casts (None-Few) per lpf Ur Culture Indicated? (NO) Urine Opiates Screen (Gnnyzq=539) ng/mL Ur Barbiturates Screen (Eilpny=284) ng/mL Ur Phencyclidine Scrn (Cutoff=25) ng/mL Ur Amphetamines Screen (Fsfpeg=0007) ng/mL U Benzodiazepines Scrn (Rmnyts=717) ng/mL Urine Cocaine Screen (Cutoff= 300) ng/mL U Marijuana (THC) Screen (Cutoff = 50) ng/mL Ur Drug Screen Interp Ethyl Alcohol < 10 (Less than 10) mg/dL 06/26/18 06/26/18 Range/Units 21:34 21:34 WBC (4.3-11.1) K/mcL RBC (3.82-4.97) M/mcL Hgb (11.5-15.4) g/dL Hct (35.3-44.9) % MCV (83.0-100.0) fL MCH (28.0-33.3) pg MCHC (31.6-35.5) g/dL RDW (11.5-14.5) % Plt Count (140-400) K/mcL MPV (9.4-12.4) fL Immature Gran % (0-4) % Seg Neutrophils % % Lymphocytes % % Monocytes % % Eosinophils % % Basophils % % Neutrophils # (1.6-8.9) K/mcL Lymphocytes # (0.6-4.6) K/mcL Monocytes # (0.0-1.3) K/mcL Eosinophils # (0.0-0.6) K/mcL Basophils # (0.0-0.2) K/mcL PT (9.4-12.1) Seconds INR APTT (26.0-36.0) Seconds Sodium (136-145) mEq/L Potassium (3.5-5.1) mEq/L Chloride (98-107) mEq/L Carbon Dioxide (23-29) mEq/L BUN (8-23) mg/dL Creatinine (0.60-1.20) mg/dL Est GFR ( Amer) (> 60) Est GFR (Non-Af Amer) (> 60) BUN/Creatinine Ratio (6-26) Glucose (70-105) mg/dL Calculated Osmolality (280-300) Calcium (8.6-10.3) mg/dL Total Bilirubin (0.3-1.0) mg/dL Direct Bilirubin (0.0-0.2) mg/dL Indirect Bilirubin (0.0-1.2) mg/dL AST (13-39) Units/L ALT (7-52) Units/L Alkaline Phosphatase (34-104) Units/L Troponin I (< 0.04) ng/mL Serum Total Protein (6.4-8.9) g/dL Albumin (3.5-5.7) g/dL Globulin (2.4-3.5) g/dL Albumin/Globulin Ratio (1.1-2.2) Urine Color Yellow (Yellow) Urine Clarity Clear (Clear) Urine pH 5.0 (5.0-8.0) pH Units Ur Specific [place] 1.017 (1.010-1.025) Urine Protein Negative (Neg-Trace) mg/dL Urine Glucose (UA) Normal (Normal) mg/dL Urine Ketones Negative (Negative) mg/dL Urine Blood Negative (Negative) Urine Nitrite Negative (Negative) Urine Bilirubin Negative (Negative) Urine Urobilinogen Normal (Normal) mg/dL Ur Leukocyte Esterase Trace H (Negative) Urine Microscopic RBC 0-3 (0-3) per hpf Urine Microscopic WBC 0-3 (0-3) per hpf Ur Squamous Epith Cells Few (None-Few) per lpf Urine Bacteria None Seen (None-Few) per hpf Hyaline Casts None Seen (None-Few) per lpf Ur Culture Indicated? YES A (NO) Urine Opiates Screen Negative (Tmyqfz=696) ng/mL Ur Barbiturates Screen Negative (Veqyaj=569) ng/mL Ur Phencyclidine Scrn Negative (Cutoff=25) ng/mL Ur Amphetamines Screen Negative (Cheehn=2014) ng/mL U Benzodiazepines Scrn Positive H (Afhuit=895) ng/mL Urine Cocaine Screen Negative (Cutoff= 300) ng/mL U Marijuana (THC) Screen Negative (Cutoff = 50) ng/mL Ur Drug Screen Interp See Below Ethyl Alcohol (Less than 10) mg/dL - Radiology Data Radiology results reviewed: Yes I reviewed the patient's radiology results. Chest X-Ray 06/26/18 21:28 IMPRESSION: 1. No acute cardiopulmonary disease. D/ / Paulino Montelongo MD / Paulino Montelongo MD Interpreting Provider: Paulino Montelongo MD Head CT 06/26/18 21:29 IMPRESSION: No acute intracranial abnormality. D/ / Mag Jacobs Cha, MD / Mag Jacobs Cha, MD Interpreting Provider: Mag Jacobs Cha, MD - EKG Data EKG #1 EKG attestation: Yes I reviewed and interpreted this EKG. EKG results narrative: EKG shows a sinus bradycardia with ventricular rate of 54. Left bundle branch block which was present previously. No significant change from prior EKG. Attestation Statement - Attestation Attestation: I, Alberto Jane MD, personally evaluated this patient and discussed their management with the resident physician. I reviewed the resident's note and agree with the documented findings, medical decision making, and plan of care. 87-year-old female with history of dementia presents to the emergency department from an assisted living facility after she was noted to be slumped over in her chair and not responding. EMS reports on their arrival the patient was still slumped over in the chair and not responding and was cyanotic. Initial oxygen saturation was 87%. She did have a weak carotid pulse. They started bagging her and reports that she vomited a small amount and then began breathing on her own and waking up. By the time they arrived. The emergency department and patient was more alert and responding to verbal stimuli. She was bradycardic initially and has remained bradycardic in the 50s. On arrival here the patient responds to verbal stimuli. He is oriented to person and place. She denies any pain or shortness of breath. States that she feels fine. She does not remember what happened and when I told her that she had a spell of passing out she laughed and said I do not think so. On examination patient is a well-developed well-nourished elderly female in no acute distress. She does appear drowsy but responds to verbal stimuli. Oriente d to person and place but not time. No cyanosis or diaphoresis. Sounds are clear and equal bilaterally. Heart regular with a mild bradycardia. Abdomen soft with normal bowel sounds in no apparent tenderness. No gross focal neurological deficits noted. Labs reviewed. EKG shows sinus bradycardia with left bundle branch block and no acute changes. Chest x-ray negative. Head CT negative. The hospitalist, Dr. Velez, was consulted and accepted admission of the patient.
[2018-06-27] MEDS ORDERED: Naloxone 0.4 MG/ML INJ IVP PRN (01:11)
--- NOTE | 2018-06-27 01:14 | Internal Med History&Physical ---
<Eve Brito - Last Filed: 06/27/18 03:59> Date of Encounter: 06/27/18 Time of Encounter: 01:14 Internal Medicine - H&P: HPI Chief complaint: Syncopal Episode Admitted From: Long-term Nursing Facility Plans for Post Hospital Care: Transfer [facility] Care History of present illness: Ms. 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 Per prison staff, patient was sitting in the commons area watching a [employer] program when all of a sudden she slumped over and became unresponsive. EMS was called and found patient slumped over in wheelchair. Immediately noted that she did not appear to be breathing, though she appeared to have a faint carotid pulse. Initial O2 = 87. Patient was immediately ventilated via bag valve mask. Patient responded and woke up, and vomited upon waking. half-way staff denies trauma, fall from wheelchair, seizure activity, urinary incontinence, tongue biting. Per patient's son, pt has dementia at baseline, and has hx of saddle emboli this past January. Pt was discharged from [facility] 2 days ago due to AMS secondary to UTI. Workup was completed in the ED with negative UA, CXR, Head CT, and benign EKG notable for sinus bradycardia and left bundle branch block. Troponins negative. Pt noted to be bradycardic and mildy hypotensive. Initial vitals in the ED: T = 97.5, HR = 54, RR = 18, BP = 108/55, O2 = 96 on room air Initial labs were as follows: CBC: Hb/Hct = 11.3/34.6; otherwise within normal limits PT = 14.5, INR = 1.3, PTT = 28.1 CMP: BUN/Cr = 34/1.81, GFR = 26; otherwise within normal limits Troponin = negative UA = negative U tox = positive for benzodiazepines; otherwise negative CXR: No acute cardiopulmonary disease Head CT: No acute intracranial abnormality EKG: HR = 54, HI = 195, QRS = 149, QT = 509; Sinus Bradycardia, evidence of left bundle branch block, normal axis, no acute ST changes. On my examination, pt resting comfortably in bed in no acute distress. She was difficult to arouse, but upon arousal, pt was AOx2 (to person, place). Pt does not have recollection of syncopal episode, and does not know why she is in the hospital. Denied any headache, vision changes, chest pain, SOB, abdominal pain. Pt drifted in and out of sleep, and noted she was "sleepy." Unable to get proper hx from patient due to baseline dementia. Physical Exam was benign. Plan to admit patient to hospitalist service for further management of syncope. Past Med Surg Social Fam HX - Past Medical History Source: old records reviewed Medical history: dementia, hyperlipidemia, hypertension, thyroid disease Additional medical history: colitis Psychiatric history: no psych history - Past Surgical History Surgical History: hysterectomy - Social History Smoking Status: Never smoker Smokeless Tobacco Status: No Alcohol use: none Drug use: none - Family History Sister Hx Family Neurologic Disorders: Yes (bonnie) Internal Medicine - H&P: Meds Donepezil [Aricept] 5 mg PO HS 05/21/17 [History] Losartan Potassium [Cozaar] 100 mg PO DAILY 11/07/17 [History] Multivitamin [One Daily Essential] 1 tab PO DAILY 11/07/17 [History] Tramadol HCl [Ultram] 50 mg PO TID PRN 11/07/17 [History] Acetaminophen [Tylenol] 650 mg PO Q6HR PRN tablet 12/23/17 [Rx] Furosemide [Lasix] 40 mg PO DAILY tablet 12/23/17 [Rx] Omeprazole [PriLOSEC] 20 mg PO DAILY@0630 capsule. 12/23/17 [Rx] Apixaban [Eliquis] 5 mg PO BID #180 tablet 12/24/17 [Rx] Cranberry Fruit Extract [Cranberry] 250 mg PO DAILY 06/23/18 [History] Ergocalciferol (VITAMIN D2) [Vitamin D2] 50,000 unit PO WE 06/23/18 [History] Levothyroxine [Synthroid] 88 mcg PO DAILY 06/23/18 [History] Metoprolol Succinate [Toprol Xl] 25 mg PO DAILY 06/23/18 [History] Potassium Chloride 20 meq PO DAILY 06/23/18 [History] RisperiDONE [Risperdal] 0.5 mg PO HS 06/23/18 [History] diazePAM [Valium] 2 mg PO BID PRN 06/23/18 [History] Ciprofloxacin [Cipro] 500 mg PO BID 5 Days #10 tablet 06/24/18 [Rx] Allergy/AdvReac Type Severity Reaction Status Date / Time Penicillins [PCN] Allergy Unknown See Verified 12/13/17 15:26 Comments codeine Allergy See Verified 12/13/17 15:26 Comments ROS unobtainable: due to mental status All Systems PM: A 10-system review of systems was performed and is negative for pertinent findings except as documented above in the HPI. - Constitutional Constitutional: lethargy, malaise - EENT Eyes: no blurry vision - Cardiovascular Cardiovascular ROS IM: syncope, no chest pain, no dyspnea - Respiratory Respiratory: no cough, no dyspnea, no dyspnea on exertion - Gastrointestinal Gastrointestinal: no abdominal pain - Neurological Neurological ROS: confusion, no dizziness, no headache(s) - Constitutional Vitals: Temp Pulse Resp BP Pulse Ox 97.5 F L 54 16 105/36 96 06/26/18 21:13 06/26/18 22:00 06/26/18 22:00 06/26/18 22:00 06/26/18 22:00 General appearance: Present: A&O X 2, no acute distress Exam: GEN: AOx2 (to person, place); NAD; resting comfortably in bed; moderately difficult to arouse; pt falls back asleep quickly HEENT: Atraumatic, normocephalic; EOMI; mucous membranes moist CARDIO: RRR, no murmurs, rubs, gallops RESP: CTAB, no wheezes, rales, rhonchi ABD: Soft, non-tender, non-distended, bowel sounds present EXT: No pitting edema b/l; non tender to palpation NEURO: CN 2-12 intact; no focal deficits Internal Med - H&P Results - Labs CBC & Chem 7: 06/26/18 21:28 06/26/18 21:28 Labs: Short CBC 06/26/18 Range/Units 21:28 WBC 8.7 (4.3-11.1) K/mcL Hgb 11.3 L (11.5-15.4) g/dL Hct 34.6 L (35.3-44.9) % Plt Count 260 (140-400) K/mcL Neutrophils # 5.9 (1.6-8.9) K/mcL BMP 06/26/18 21:28 Sodium 137 Potassium 4.5 Chloride 105 Carbon Dioxide 26 BUN 34 H Creatinine 1.81 H Glucose 120 H Calcium 9.3 Cardiac Enzymes 06/26/18 Range/Units 21:28 Troponin I 0.03 (< 0.04) ng/mL Liver Function 06/26/18 Range/Units 21:28 Total Bilirubin 0.3 (0.3-1.0) mg/dL Direct Bilirubin 0.0 (0.0-0.2) mg/dL AST 27 (13-39) Units/L ALT 12 (7-52) Units/L Alkaline Phosphatase 83 (34-104) Units/L Albumin 3.6 (3.5-5.7) g/dL Urine 06/26/18 Range/Units 21:34 Urine Color Yellow (Yellow) Urine Clarity Clear (Clear) Urine pH 5.0 (5.0-8.0) pH Units Ur Specific [place] 1.017 (1.010-1.025) Urine Protein Negative (Neg-Trace) mg/dL Urine Glucose (UA) Normal (Normal) mg/dL - EKG Data EKG shows normal: sinus rhythm (NSR), axis (Normal), intervals (Regular), QRS complexes (Widened), ST-T waves (No acute ST changes) Rate: bradycardia (Sinus Bradycardia; HR = 54) - EKG Data Prior EKG available for review: no Interpretation IM: normal EKG - Impressions ITS Impressions Chest X-Ray 06/26/18 21:28 IMPRESSION: 1. No acute cardiopulmonary disease. D/ / Paulino Montelongo MD / Paulino Montelongo MD Interpreting Provider: Paulino Montelongo MD Head CT 06/26/18 21:29 IMPRESSION: No acute intracranial abnormality. D/ / Mag Jacobs Cha, MD / Mag Jacobs Cha, MD Interpreting Provider: Mag Jacobs Cha, MD - Assessment and plan (1) Syncope Current Visit: Yes Status: Acute Assessment and plan: Ms. 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 Unable to get proper hx from pt due to dementia; pt allegedly found slumped over in wheelchair; EMS found patient hypoxic, and with Bag Valve Mask, pt aroused Workup was completed in the ED with negative UA, CXR, Head CT, and benign EKG notable for sinus bradycardia and left bundle branch block. Troponins negative. Pt noted to be bradycardic and mildy hypotensive. CXR: No acute cardiopulmonary disease Head CT: No acute intracranial abnormality EKG: HR = 54, HI = 195, QRS = 149, QT = 509; Sinus Bradycardia, left bundle branch block, normal axis, no acute ST changes. Similar to previous EKGs Troponin = negative UA = negative U tox = positive for benzodiazepines; otherwise negative On exam, pt very drowsy, somnolent, but arousable via verbal or tactile stimulation Recent Echo (12/13/17): LVEF 55-60%. Normal LV chamber size, wall thickness and function. Atypical septal motion consistent with bundle branch block. Indeterminate diastolic function. Right ventricle is mildly dilated with mildly reduced function. Mild tricuspid regurgitation. Severe pulmonary hypertension. Estimated RVSP is 75-80 mmHg. PLAN: Cardiogenic syncope vs arrhythmia vs Oversedation vs Orthostatic Hypotension Given pt history, concern for saddle embolus / PE leading to syncopal episode; However, given elevated Cr, will hydrate pt prior to ordering CTA. 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 Currently managed with Eliquis Concern that syncopal episode may have been caused by PE/saddle embolus PLAN: Cont IVF - Due to elevated Cr, will hold off on CTA at this time; however, pending repeat BMP in the AM, consider CTA to eval for PE Cont Eliquis (3) Acute and chronic respiratory failure with hypoxia Current Visit: Yes Status: Chronic Assessment and plan: O2 sats 96% on 2L O2 Chronic Lungs: CTAB, no wheezes, rales, rhonchi PLAN: Monitor vitals Monitor O2 sat Cont O2; Wean as tolerated (4) Acute on chronic diastolic CHF (congestive heart failure) Current Visit: Yes Status: Chronic Assessment and plan: Pt does not appear volume overloaded; However, slightly bradycardic and hypotensive Recent Echo (12/13/17): LVEF 55-60%. Normal LV chamber size, wall thickness and function. Atypical septal motion consistent with bundle branch block. Indeterminate diastolic function. Right ventricle is mildly dilated with mildly reduced function. Mild tricuspid regurgitation. Severe pulmonary hypertension. Estimated RVSP is 75-80 mmHg. PLAN: Monitor Vitals; monitor on telemetry Consider Repeat Echo Gentle Hydration Hold beta kasey, antihypertensives for now due to hypotension, bradycardia (5) Dementia Current Visit: No Status: Chronic Assessment and plan: Baseline Dementia Cont Aricept Qualifiers: Dementia type: unspecified type Dementia behavioral disturbance: without behavioral disturbance Qualified Code(s): F03.90 - Unspecified dementia without behavioral disturbance (6) Hypertension Current Visit: No Status: Chronic Assessment and plan: Hypotensive on presentation PLAN: Cont IVF Hold antihypertensives, BB for now Qualifiers: Hypertension type: essential hypertension Qualified Code(s): I10 - Essential (primary) hypertension (7) Hypothyroid Current Visit: No Status: Chronic Assessment and plan: Chronic PLAN: Cont Synthroid Qualifiers: Hypothyroidism type: unspecified Qualified Code(s): E03.9 - Hypothyroidism, unspecified (8) CKD (chronic kidney disease) stage 3, GFR 30-59 ml/min Current Visit: Yes Status: Chronic Assessment and plan: Chronic BUN/Cr = 34/1.81 GFR = 26 PLAN: Gentle Hydration Avoid Nephrotoxic meds (9) GERD (gastroesophageal reflux disease) Current Visit: Yes Status: Acute Assessment and plan: Chronic Cont PPI Qualifiers: Esophagitis presence: without esophagitis Qualified Code(s): K21.9 - Gastro-esophageal reflux disease without esophagitis - Time Spent With Patient Total time spent is greater than 50% in coordination of care (as documented) at patient's floor/unit and/or counseling patient: less than 15 minutes <Hira Velez - Last Filed: 06/27/18 04:48> Date of Encounter: 06/27/18 Time of Encounter: 04:37 ROS unobtainable: due to mental status (unreliable and unable to obtain much due to dementia) - Cardiovascular Cardiovascular ROS IM: no chest pain, no dyspnea - Respiratory Respiratory: no cough, no excessive phlegm production, no change in phlegm color, no pain with cough - Constitutional Vitals: Temp Pulse Resp BP Pulse Ox 97.4 F L 55 16 105/49 100 06/27/18 01:29 06/27/18 01:29 06/27/18 01:29 06/27/18 01:29 06/27/18 01:29 General appearance: Present: cooperative, A&O X 1, pleasant, no acute distress - Eye Eye exam: Present: PERRL. Absent: scleral icterus - ENT ENT exam: Present: mucous membranes dry, normal exam - Respiratory Respiratory exam: Present: CTAB. Absent: chest wall tenderness, rales, rhonchi, wheezes - Cardiovascular Cardiovascular exam: Present: distant heart sounds, +S1, +S2. Absent: diastolic murmur, systolic murmur - GI/Abdominal GI/Abdominal exam: Present: normal bowel sounds, soft. Absent: hepatomegaly, mass, splenomegaly - Extremities Exam Extremities exam: Present: warm, radial pulses palpable and symmetrical. Absent: calf tenderness, tenderness - Neurological Exam Neurological exam: Present: alert, altered, no focal deficits - Skin Skin exam: Present: dry, intact, warm Internal Med - H&P Results - Labs CBC & Chem 7: 06/26/18 21:28 06/26/18 21:28 Labs: Short CBC 06/26/18 Range/Units 21:28 WBC 8.7 (4.3-11.1) K/mcL Hgb 11.3 L (11.5-15.4) g/dL Hct 34.6 L (35.3-44.9) % Plt Count 260 (140-400) K/mcL Neutrophils # 5.9 (1.6-8.9) K/mcL BMP 06/26/18 21:28 Sodium 137 Potassium 4.5 Chloride 105 Carbon Dioxide 26 BUN 34 H Creatinine 1.81 H Glucose 120 H Calcium 9.3 Cardiac Enzymes 06/26/18 Range/Units 21:28 Troponin I 0.03 (< 0.04) ng/mL Liver Function 06/26/18 Range/Units 21:28 Total Bilirubin 0.3 (0.3-1.0) mg/dL Direct Bilirubin 0.0 (0.0-0.2) mg/dL AST 27 (13-39) Units/L ALT 12 (7-52) Units/L Alkaline Phosphatase 83 (34-104) Units/L Albumin 3.6 (3.5-5.7) g/dL Urine 06/26/18 Range/Units 21:34 Urine Color Yellow (Yellow) Urine Clarity Clear (Clear) Urine pH 5.0 (5.0-8.0) pH Units Ur Specific [place] 1.017 (1.010-1.025) Urine Protein Negative (Neg-Trace) mg/dL Urine Glucose (UA) Normal (Normal) mg/dL - EKG Data -: EKG Interpreted by Myself - EKG Data Prior EKG available for review: yes EKG comments: 06/27/18 04:40 LBBB -- old compared to prior EKG's - Impressions ITS Impressions Chest X-Ray 06/26/18 21:28 IMPRESSION: 1. No acute cardiopulmonary disease. D/ / Paulino Montelongo MD / Paulino Montelongo MD Interpreting Provider: Paulino Montelongo MD Head CT 06/26/18 21:29 IMPRESSION: No acute intracranial abnormality. D/ / Mag Jacobs Cha, MD / Mag Jacobs Cha, MD Interpreting Provider: Mag Jacobs Cha, MD - Diagnostic Studies Chest x-ray Status: image reviewed by me (negative) - Time Spent With Patient Total time spent is greater than 50% in coordination of care (as documented) at patient's floor/unit and/or counseling patient: - Attending Attestation I discussed the patient [place], past medical history, review of systems, lab data, and imaging studies with Dr. Brito. I then saw and examined patient independently as well. By the time I saw her, her son had left the hospital. She is sleeping but easily arousable. She offers very little history and is o riented to self only. She denies chest pain, shortness of breath, or chest pressure presently. However, I'm not sure I can rely on her history whatsoever. She does not appear to be in any distress. She did have recent saddle pulmonary embolus in November of this year. She has been on Eliquis, but I cannot confirm that she has been taking it every day. Based on history and exam, I am fairly concerned that she likely had syncopal event probably from medication side effects and somnolence. However, in the context of recent saddle embolus associated with syncope, hypoxemia, and acute kidney injury, I worry about worsening PE. Therefore, we will gingerly hydrate her, recheck her renal function and chemistries, and proceed with CTA of the chest later today if her kidney function normalizes. If not, at a minimum, I would order an ECHO to reevaluate for possible RV strain. However, she is hemodynamically stable at this time, and I do not feel emergency ECHO and/or CT of the chest are warranted at this time. We will continue her Eliquis for now as scheduled and monitor her closely. Other than my comments above and noted exam findings, I agree with Dr. Brito's assessment and plan.
[2018-06-27] MEDS: 0.9 % Sodium Chloride 1,000 ML IVC SCH ×2 (04:57→23:26)
[2018-06-27 05:27] LABS: Basophils # 0.1 K/mcL (0.0-0.2); Basophils % 0.6 %; Eosinophils # 0.3 K/mcL (0.0-0.6); Hematocrit 32.5 % (35.3-44.9); Hemoglobin 10.5 g/dL (11.5-15.4); Immature Granulocytes % 0.4 % (0-4); Lymphocytes % 24.8 %; Mean Corpuscular HGB Conc 32.3 g/dL (31.6-35.5); Mean Corpuscular Volume 95.9 fL (83.0-100.0); Mean Platelet Volume 10.4 fL (9.4-12.4); Monocytes # 0.6 K/mcL (0.0-1.3); Monocytes % 6.8 %; Neutrophils # 5.3 K/mcL (1.6-8.9); Platelet Count 236 K/mcL (140-400); Red Blood Count 3.39 M/mcL (3.82-4.97); Red Cell Distribution Width 13.2 % (11.5-14.5); Segmented Neutrophils % 64.4 %
[2018-06-27 05:40] LABS: Calcium 8.7 mg/dL (8.6-10.3); Potassium 4.7 mEq/L (3.5-5.1)
[2018-06-27] MEDS: Apixaban 5 MG TABLET PO SCH ×2 (09:51→19:53)
[2018-06-27] MEDS: Multivit/Ca/Min/Fe/FA 1 TAB TABLET PO SCH (09:51)
--- NOTE | 2018-06-27 09:53 | Electrocardiograph Report ---
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
[2018-06-27] MEDS ORDERED: Acetaminophen 325 MG TABLET PO PRN (10:01)
--- NOTE | 2018-06-27 14:27 | Internal Med Progress Note ---
Hospitalist Progress Note - Encounter Date of Encounter: 06/27/18 Time of Encounter: 14:22 - Subjective Interval History: Ms. Brannon is a 87 year old female with past medical history significant for saddle pulmonary embolus 12/07 currently on Eliquis, Chronic diastolic CHF with preserved ejection fraction, chronic respiratory failure on 2 L oxygen via nasal cannula, dementia, hyperlipidemia, hypertension, hypothyroidism who is a long- term resident at [facility] pt was brought into ER by EMS due to a syncopal episode. Per group home staff, patient was sitting in the commons area watching a [employer] program when all of a sudden she slumped over and became unresponsive. EMS was called and found patient slumped over in wheelchair. Immediately noted that she did not appear to be breathing, though she appeared to have a faint carotid pulse. Initial O2 = 87. Patient was immediately ventilated via bag valve mask. Patient responded and woke up, and vomited upon waking. longterm staff denies trauma, fall from wheelchair, seizure activi ty, urinary incontinence, tongue biting. Workup was completed in the ED with negative UA, CXR, Head CT, and benign EKG notable for sinus bradycardia and chronic left bundle branch block. Troponins negative. Pt noted to be bradycardic and mildy hypotensive. Patient was admitted in the hospital and placed her on cardiac cath lab radiology technologist. Today patient is alert, awake and oriented to self only. she seems to pleasantly demented. She denied any chest pain and shortness of breath. Denied any urinary complaints - Exam Vitals: Temp Pulse Resp BP Pulse Ox 97.9 F 56 14 109/57 99 06/27/18 11:52 06/27/18 11:52 06/27/18 11:52 06/27/18 11:52 06/27/18 06:27 Exam: Gen: Alert, awake, Oriented to saman onky.. Looks pleasantly demented Chest: Diminished breath sounds B/L, No wheezing, No crackles, No rales Heart: S1S2+ RRR No murmurs Abd: Soft, NT, BS +, No organomegaly Ext: No edema, pulses are palpable, No calf tenderness Neuro : Benign findings Skin: No rash. - Assessment and Plan (1) Syncope Current Visit: Yes Status: Acute Assessment and Plan: Unclear etiology continue her on telemetry reviewed CT of the head no acute intracranial abnormality noticed will trend on troponin EKG showed sinus Rosendo with chronic complete left bundle branch block.. 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 So we will change her to full admission today. I did review my colleague Dr. Velez's H & P including HPI, PMH, PSH, FH, SH, and ROS no changes noticed (2) Altered mental status Current Visit: No Status: Acute Assessment and Plan: Most likely due to advanced dementia with possible metabolic encephalopathy continue close monitoring (3) Pulmonary embolism Current Visit: Yes Status: Acute Assessment and Plan: Less likely a recurrent PE continue Eliquis for now (4) Chronic respiratory failure with hypoxia Current Visit: Yes Status: Acute Assessment and Plan: Seems to be back to baseline currently on 2 L oxygen and breathing comfortably placed her on bronchodilator therapy as needed (5) GERD (gastroesophageal reflux disease) Current Visit: Yes Status: Acute Assessment and Plan: Resumed PPI (6) CKD (chronic kidney disease) stage 3, GFR 30-59 ml/min Current Visit: Yes Status: Chronic Assessment and Plan: She does have mild ELZA with CKD stage III continue IV hydration monitor her creatinine closely avoid nephrotoxic medications (7) ELZA (acute kidney injury) Current Visit: No Status: Acute (8) UTI (urinary tract infection) Current Visit: No Status: Acute Assessment and Plan: Reviewed her UA concerning for UTI with esterase positive will start her on empirical antibiotic Rocephin will follow-up on urine culture - Time Spent with Patient Total time spent is greater than 50% in coordination of care (as documented) at patient's floor/unit and/or counseling patient: Internal Medicine: Result - Labs CBC & Chem 7: 06/27/18 04:44 06/27/18 04:44 Labs: Short CBC 06/26/18 06/27/18 Range/Units 21:28 04:44 WBC 8.7 8.2 (4.3-11.1) K/mcL Hgb 11.3 L 10.5 L (11.5-15.4) g/dL Hct 34.6 L 32.5 L (35.3-44.9) % Plt Count 260 236 (140-400) K/mcL Neutrophils # 5.9 5.3 (1.6-8.9) K/mcL BMP 06/26/18 06/27/18 21:28 04:44 Sodium 137 138 Potassium 4.5 4.7 Chloride 105 105 Carbon Dioxide 26 26 BUN 34 H 34 H Creatinine 1.81 H 1.50 H Glucose 120 H 122 H Calcium 9.3 8.7 Cardiac Enzymes 06/26/18 Range/Units 21:28 Troponin I 0.03 (< 0.04) ng/mL Liver Function 06/26/18 Range/Units 21:28 Total Bilirubin 0.3 (0.3-1.0) mg/dL Direct Bilirubin 0.0 (0.0-0.2) mg/dL AST 27 (13-39) Units/L ALT 12 (7-52) Units/L Alkaline Phosphatase 83 (34-104) Units/L Albumin 3.6 (3.5-5.7) g/dL Urine 06/26/18 Range/Units 21:34 Urine Color Yellow (Yellow) Urine Clarity Clear (Clear) Urine pH 5.0 (5.0-8.0) pH Units Ur Specific [place] 1.017 (1.010-1.025) Urine Protein Negative (Neg-Trace) mg/dL Urine Glucose (UA) Normal (Normal) mg/dL - ABG Interpretation ABG results: PT/INR, D-dimer PT 14.5 Seconds (9.4-12.1) H 06/26/18 21:28 - Impressions Impressions Chest X-Ray 06/26/18 21:28 IMPRESSION: 1. No acute cardiopulmonary disease. D/ / Paulino Montelongo MD / Paulino Montelongo MD Interpreting Provider: Paulino Montelongo MD Head CT 06/26/18 21:29 IMPRESSION: No acute intracranial abnormality. D/ / Mag Jacobs Cha, MD / Mag Jacobs Cha, MD Interpreting Provider: Mag Jacobs Cha, MD Consult Discharge Plan - Plan Referrals: Yvan Ernst MD [Primary Care Provider] - (Your appointment has been requested, our offices will call with an appointment time and date) (1) Syncope Qualifiers: Syncope type: unspecified Qualified Code(s): R55 - Syncope and collapse (2) Altered mental status Qualifiers: Altered mental status type: unspecified Qualified Code(s): R41.82 - Altered mental status, unspecified (5) GERD (gastroesophageal reflux disease) Qualifiers: Esophagitis presence: without esophagitis Qualified Code(s): K21.9 - Gastro- esophageal reflux disease without esophagitis (8) UTI (urinary tract infection) Qualifiers: Urinary tract infection type: site unspecified Hematuria presence: with hematuria Qualified Code(s): N39.0 - Urinary tract infection, site not specified; R31.9 - Hematuria, unspecified
[2018-06-27] MEDS: cefTRIAXone 1,000 MG in Water for inj. (sterile) 20 ML 10 ML IVP SCH (17:40)
[2018-06-28] MEDS: 0.9 % Sodium Chloride 1,000 ML IVC SCH (04:34)
[2018-06-28 05:03] LABS: Basophils # 0.1 K/mcL (0.0-0.2); Basophils % 0.8 %; Eosinophils # 0.4 K/mcL (0.0-0.6); Eosinophils % 3.6 %; Hematocrit 33.3 % (35.3-44.9); Hemoglobin 10.9 g/dL (11.5-15.4); Immature Granulocytes % 1.1 % (0-4); Lymphocytes % 19.4 %; Mean Corpuscular HGB Conc 32.7 g/dL (31.6-35.5); Mean Corpuscular Hemoglobin 31.1 pg (28.0-33.3); Mean Corpuscular Volume 95.1 fL (83.0-100.0); Mean Platelet Volume 10.5 fL (9.4-12.4); Monocytes # 0.6 K/mcL (0.0-1.3); Monocytes % 5.5 %; Neutrophils # 7.2 K/mcL (1.6-8.9); Platelet Count 259 K/mcL (140-400); Red Cell Distribution Width 13.2 % (11.5-14.5); Segmented Neutrophils % 69.6 %
[2018-06-28 05:26] LABS: Calcium 8.8 mg/dL (8.6-10.3); Magnesium 2.1 mg/dL (1.6-2.6); Potassium 4.3 mEq/L (3.5-5.1)
[2018-06-28] MEDS: cefTRIAXone 1,000 MG in Water for inj. (sterile) 20 ML 10 ML IVP SCH (08:15)
[2018-06-28] MEDS: Multivit/Ca/Min/Fe/FA 1 TAB TABLET PO SCH (08:15)
[2018-06-28] MEDS: Apixaban 5 MG TABLET PO SCH ×2 (08:15→20:28)
--- NOTE | 2018-06-28 11:43 | Neurology - Consult Note ---
<Chino Ramirez - Last Filed: 06/28/18 13:36> Date of Encounter: 06/28/18 Time of Encounter: 11:37 Assessment and Plan (1) CVA (cerebral vascular accident) Current Visit: Yes Status: Acute CT brain revealed no acute abnormality. MRI brain revealed multiple punctate acute infarcts in the left frontal, parietal, and temporal lobes in the left MCA vascular territory distribution, a small cortical infarct involving the medial right occipital lobe in the right posterior cerebral artery distribution, and punctate acute infarcts involving the right frontal periventricular white matter and left superior cerebellar hemisphere may reflect acute lacunar infarcts. Carotid duplex pending Echo pending Agree with starting Aspirin and statin therapy. Continue home Eliquis. PT/OT consulted Qualifiers: CVA mechanism: embolism Precerebral and cerebral artery: middle cerebral artery Laterality of affected vessel: left Qualified Code(s): I63.412 - Cerebral infarction due to embolism of left middle cerebral artery (2) Dementia Current Visit: Yes Status: Chronic Pleasantly demented. Patient is alert, awake, and oriented to self only. Continue Aricept Qualifiers: Dementia type: unspecified type Dementia behavioral disturbance: without behavioral disturbance Qualified Code(s): F03.90 - Unspecified dementia without behavioral disturbance (3) Pulmonary embolism Current Visit: No Status: Chronic Continue Eliquis Qualifiers: Pulmonary embolism type: saddle Chronicity: chronic Acute cor pulmonale presence: without acute cor pulmonale Qualified Code(s): I26.92 - Saddle embolus of pulmonary artery without acute cor pulmonale (4) Hypertension Current Visit: No Status: Chronic Blood pressure stable. Management per primary team Qualifiers: Hypertension type: essential hypertension Qualified Code(s): I10 - Essential (primary) hypertension (5) HLD (hyperlipidemia) Current Visit: No Status: Chronic LDL 286. LDL 207, HDL 59 Patient started on statin Qualifiers: Hyperlipidemia type: unspecified Qualified Code(s): E78.5 - Hyperlipidemia, unspecified (6) Hypothyroid Current Visit: No Status: Chronic TSH rechecked, level is WNL. Continue current therapy. Qualifiers: Hypothyroidism type: unspecified Qualified Code(s): E03.9 - Hypothyroidism, unspecified (7) Physical deconditioning Current Visit: Yes Status: Chronic [facility] resident PT/OT consulted History of Present Illness Chief complaint: Syncope HPI: Ms. Brannon is a 87 year old female with a PMH of HTN, HLD, dementia on Aricept, pulmonary embolism on Eliquis, and chronic benzodiazepine dependence who presented from [facility] after a syncopal episode. Patient is pleasantly confused and HPI was obtained from the medical record. Per senior living staff, patient was sitting in the commons area watching a [employer] program before she slumped over and became unresponsive. Patient responded to noxious stimulation upon EMS arrival and vomited upon waking. shelter staff denied trauma, recent fall, seizure activity, urinary incontinence, or tongue biting. In the ED, CT brain revealed no acute intracranial abnormality. MRI brain revealed multiple punctate acute infarcts in the left frontal, parietal, and temporal lobes in the left MCA vascular territory distribution, a small cortical infarct involving the medial right occipital lobe in the right posterior cerebral artery distribution, and punctate acute infarcts involving the right frontal periventricular white matter and left superior cerebellar hemisphere may reflect acute lacunar infarcts. Neurology was consulted for further recommendations. Past Med Surg Social Fam HX - Past Medical History Medical history: dementia, hyperlipidemia, hypertension, thyroid disease Additional medical history: colitis Psychiatric history: no psych history - Past Surgical History Surgical History: hysterectomy - Social History Smoking Status: Never smoker Smokeless Tobacco Status: No Alcohol use: none Drug use: none - Family History Sister Hx Family Neurologic Disorders: Yes (bonnie) Medications and Allergies RX: Donepezil [Aricept] 5 mg PO HS 05/21/17 [History] RX: Losartan Potassium [Cozaar] 100 mg PO DAILY 11/07/17 [History] RX: Multivitamin [One Daily Essential] 1 tab PO DAILY 11/07/17 [History] RX: Tramadol HCl [Ultram] 50 mg PO TID PRN 11/07/17 [History] RX: Acetaminophen [Tylenol] 650 mg PO Q6HR PRN tablet 12/23/17 [Rx] RX: Furosemide [Lasix] 40 mg PO DAILY tablet 12/23/17 [Rx] RX: Omeprazole [PriLOSEC] 20 mg PO DAILY@0630 capsule. 12/23/17 [Rx] RX: Apixaban [Eliquis] 5 mg PO BID #180 tablet 12/24/17 [Rx] RX: Cranberry Fruit Extract [Cranberry] 250 mg PO DAILY 06/23/18 [History] RX: Ergocalciferol (VITAMIN D2) [Vitamin D2] 50,000 unit PO WE 06/23/18 [History] RX: Levothyroxine [Synthroid] 88 mcg PO DAILY 06/23/18 [History] RX: Metoprolol Succinate [Toprol Xl] 25 mg PO DAILY 06/23/18 [History] RX: Potassium Chloride 20 meq PO DAILY 06/23/18 [History] RX: RisperiDONE [Risperdal] 0.5 mg PO HS 06/23/18 [History] RX: diazePAM [Valium] 2 mg PO BID PRN 06/23/18 [History] RX: Ciprofloxacin [Cipro] 500 mg PO BID 5 Days #10 tablet 06/24/18 [Rx] 3 Allergy/AdvReac Type Severity Reaction Status Date / Time Penicillins [PCN] Allergy Unknown See Verified 12/13/17 15:26 Comments codeine Allergy See Verified 12/13/17 15:26 Comments ROS unobtainable: due to mental status All Systems: The remainder of the systems were reviewed and are negative Physical Examination - Vital Signs Vital Signs: Initial Vital Signs Temp Pulse Resp BP Pulse Ox 97.5 F L 54 18 108/55 96 06/26/18 21:13 06/26/18 21:13 06/26/18 21:13 06/26/18 21:13 06/26/18 21:13 - Constitutional General appearance: comfortable - Neurologic Sensorimotor examination: intact Detailed motor examination: grossly full strength in all extremities, full strength in all major muscle groups Motor examination - right side: 5/5: deltoids, biceps, triceps, wrist flexion, wrist extension, cardiovascular specialist, hip flexors, tibialis Anterior, quadriceps, toe extension (EHL), plantarflexion Motor examination - left side: 5/5: deltoids, biceps, triceps, wrist flexion, wrist extension, hip flexors, cardiovascular specialist, quadriceps, tibialis Anterior, toe extension (EHL), plantarflexion Detailed sensory examination: intact, light touch Reflex and gait examination: intact Reflexes: Biceps: 2+, Triceps: 2+, Brachioradialis: 2+, Patella: 2+, Achilles: 2+ Mental Status Examination: awake, alert, oriented to person, follows commands appropriately, no agnosia, no aphasia, no aproxia, opens eyes to noxious stimulation, follows simple commands Cranial nerve examination: PERRL, EOMI, visual madrigal intact, sensory to face intact, hearing is intact symmetrically, flexes SCM and trapezius muscles symmetrically with full power, tongue protrudes midline, no atrophy or facial fasiculations present Cranial Nerve Exam: facial droop: Left Cerebellar examination: no dysmetria, performs finger to nose and heel to rubalcava symmetrically without ataxia, no difficulty with rapid alternating movements Results - Laboratory Findings CBC and BMP: 06/28/18 04:09 06/28/18 04:09 Abnormal lab findings: Abnormal lab results RBC 3.50 M/mcL (3.82-4.97) L 06/28/18 04:09 Hgb 10.9 g/dL (11.5-15.4) L 06/28/18 04:09 Hct 33.3 % (35.3-44.9) L 06/28/18 04:09 PT 14.5 Seconds (9.4-12.1) H 06/26/18 21:28 Chloride 108 mEq/L (98-107) H 06/28/18 04:09 BUN 30 mg/dL (8-23) H 06/28/18 04:09 Creatinine 1.45 mg/dL (0.60-1.20) H 06/28/18 04:09 Est GFR ( Amer) 41 (> 60) L 06/28/18 04:09 Est GFR (Non-Af Amer) 34 (> 60) L 06/28/18 04:09 Troponin I 0.04 ng/mL (< 0.04) H* 06/28/18 04:09 Ur Leukocyte Esterase Trace (Negative) H 06/26/18 21:34 Ur Culture Indicated? YES (NO) A 06/26/18 21:34 U Benzodiazepines Scrn Positive ng/mL (Wbktbq=817) H 06/26/18 21:34 - Diagnostic Findings Additional findings: ITS Impressions Chest X-Ray 06/26/18 21:28 IMPRESSION: 1. No acute cardiopulmonary disease. D/ / Paulino Montelongo MD / Paulino Montelongo MD Interpreting Provider: Paulino Montelongo MD Head CT 06/26/18 21:29 IMPRESSION: No acute intracranial abnormality. D/ / Mag Jacobs Cha, MD / Mag Jacobs Cha, MD Interpreting Provider: Mag Jacobs Cha, MD Brain MRI 06/28/18 16:02 IMPRESSION: Multiple punctate acute infarcts in the left frontal, parietal, and temporal lobes are in the left MCA vascular territory distribution. Small cortical infarct involving the medial right occipital lobe in the right posterior cerebral artery distribution. Punctate acute infarcts involving the right frontal periventricular white matter and left superior cerebellar hemisphere may reflect acute lacunar infarcts. The findings were sent to the Radiology Results Communication Center at 8:49 am on 06/28/2018to be communicated to a licensed caregiver. D/ / 06/28/2018 09:02:25 Pete Cardona MD / jenny Interpreting Provider: Pete Cardona MD Consult Discharge Plan - Plan Referrals: Yvan Ernst MD [Primary Care Provider] - (Your appointment has been requested, our offices will call with an appointment time and date) <Ru Carlson - Last Filed: 06/28/18 14:29> Date of Encounter: 06/28/18 Time of Encounter: 14:21 Assessment and Plan (1) CVA (cerebral vascular accident) Current Visit: Yes Status: Acute The case was discussed with the attending hospitalist. With a likely we are dealing with a cardioembolic phenomenon which is resultant in bihemispheric events. The patient however is minimally affected is the infarcts are small. She has no weakness to speak of. She does have a baseline dementia which is likely combination of vascular and neurodegenerative. At this juncture I would simply recommend maintaining the Eliquis as well as the aspirin 81 mg daily. E chocardiogram and carotid Doppler studies are pending. I do not feel that SERGIO is necessary. Qualifiers: CVA mechanism: embolism Precerebral and cerebral artery: middle cerebral artery Laterality of affected vessel: left Qualified Code(s): I63.412 - Cerebral infarction due to embolism of left middle cerebral artery History of Present Illness HPI: The chart was reviewed, the patient was seen and examined along with the neurology resident. I agree with his interpretation of the history as stated above. I did personally review the MRI scan of the brain and agree with the radiologist's interpretation. Patient has a known history of hyperlipidemia however has not been on statin therapy. She also has dementia. ROS unobtainable: due to mental status All Systems: The remainder of the systems were reviewed and are negative Physical Examination - Vital Signs Vital Signs: Initial Vital Signs Temp Pulse Resp BP Pulse Ox 97.5 F L 54 18 108/55 96 06/26/18 21:13 06/26/18 21:13 06/26/18 21:13 06/26/18 21:13 06/26/18 21:13 - Neurologic Detailed motor examination: grossly full strength in all extremities Detailed sensory examination: other (Sensory assessment is difficult in a demented patient.) Reflexes: Biceps: 2+, Triceps: 2+, Brachioradialis: 2+, Patella: 2+, Achilles: 2+ Mental Status Examination: awake, alert, oriented to person, follows commands appropriately (Patient follow some commands appropriately and others she is apraxic.), opens eyes to noxious stimulation, follows simple commands Cranial nerve examination: PERRL, EOMI, visual madrigal intact, no dysarthria, flexes SCM and trapezius muscles symmetrically with full power, tongue protrudes midline, no atrophy or facial fasiculations present Cranial Nerve Exam: facial droop: Left Cerebellar examination: no dysmetria, performs finger to nose and heel to rubalcava symmetrically without ataxia Results - Laboratory Findings CBC and BMP: 06/28/18 04:09 06/28/18 04:09 Abnormal lab findings: Abnormal lab results RBC 3.50 M/mcL (3.82-4.97) L 06/28/18 04:09 Hgb 10.9 g/dL (11.5-15.4) L 06/28/18 04:09 Hct 33.3 % (35.3-44.9) L 06/28/18 04:09 PT 14.5 Seconds (9.4-12.1) H 06/26/18 21:28 Chloride 108 mEq/L (98-107) H 06/28/18 04:09 BUN 30 mg/dL (8-23) H 06/28/18 04:09 Creatinine 1.45 mg/dL (0.60-1.20) H 06/28/18 04:09 Est GFR ( Amer) 41 (> 60) L 06/28/18 04:09 Est GFR (Non-Af Amer) 34 (> 60) L 06/28/18 04:09 Troponin I 0.04 ng/mL (< 0.04) H* 06/28/18 04:09 Ur Leukocyte Esterase Trace (Negative) H 06/26/18 21:34 Ur Culture Indicated? YES (NO) A 06/26/18 21:34 U Benzodiazepines Scrn Positive ng/mL (Ewniek=[id number]) H 06/26/18 21:34
[2018-06-28 12:20] LABS: Thyroid Stimulating Hormone 2.439 mcIU/mL (0.340-5.600)
[2018-06-28] MEDS: Aspirin Enteric Coated 81 MG Tablet PO SCH (12:43)
--- NOTE | 2018-06-28 14:03 | Internal Med Progress Note ---
Hospitalist Progress Note - Encounter Date of Encounter: 06/28/18 Time of Encounter: 11:00 - Subjective Interval History: Ms. Brannon is a 87 year old female with past medical history significant for saddle pulmonary embolus 12/07 currently on Eliquis, Chronic diastolic CHF with preserved ejection fraction, chronic respiratory failure on 2 L oxygen via nasal cannula, dementia, hyperlipidemia, hypertension, hypothyroidism who is a long- term resident at [facility] pt was brought into ER by EMS due to a syncopal episode. Per [facility] staff, patient was sitting in the commons area watching a [employer] program when all of a sudden she slumped over and became unresponsive. EMS was called and found patient slumped over in wheelchair. Immediately noted that she did not appear to be breathing, though she appeared to have a faint carotid pulse. Initial O2 = 87. Patient was immediately ventilated via bag valve mask. Patient responded and woke up, and vomited upon waking. halfway staff denies trauma, fall from wheelchair, seizure activi ty, urinary incontinence, tongue biting. Workup was completed in the ED with negative UA, CXR, Head CT, and benign EKG notable for sinus bradycardia and chronic left bundle branch block. Troponins negative. Pt noted to be bradycardic and mildy hypotensive. Patient was admitted in the hospital and placed her on volunteer services manager. Today patient is alert, awake and oriented to self only. she seems to pleasantly demented. She denied any chest pain and shortness of breath. Denied any urinary complaints. No events over night. - Exam Vitals: Temp Pulse Resp BP Pulse Ox 97.9 F 66 14 128/59 98 06/28/18 11:36 06/28/18 11:36 06/28/18 11:36 06/28/18 11:36 06/28/18 11:36 Exam: Gen: Alert, awake, Oriented to self only.. Looks pleasantly demented Chest: Diminished breath sounds B/L, No wheezing, No crackles, No rales Heart: S1S2+ RRR No murmurs Abd: Soft, NT, BS +, No organomegaly Ext: No edema, pulses are palpable, No calf tenderness Neuro :pleasantly demented.. Confused Skin: No rash. - Assessment and Plan (1) Acute ischemic left MCA stroke Current Visit: Yes Status: Acute Assessment and Plan: Reviewed her MRI showed multiple quantitative acute infarcts in the left frontal, parietal and temporal lobes in the left MCA vascular territory concerning for embolic CVA mostly due to severe atherosclerosis will check 2 D Echo Neuro consulted for further eval Her FLP from 03/09 showed LDL @ 206 started on Lipitor 80mg HS Added anti platelet med ASA 81mg Cont Eliquis too PT / OT eval (2) Syncope Current Visit: Yes Status: Acute Assessment and Plan: Unclear etiology Mostly due to acute CVA continue her on telemetry reviewed CT of the head no acute intracranial abnormality noticed negative troponin EKG showed sinus Rosendo with chronic complete left bundle branch block.. No acute ST, T changes noticed her bilateral carotid Doppler showed left ICA 40 to 59 % stenosis and right carotid showed non-stenotic plaque only PT / OT eval Neuro consulted (3) UTI (urinary tract infection) Current Visit: No Status: Acute Assessment and Plan: Reviewed her UA concerning for UTI with esterase positive Urine cx - G-ve rods cont empirical ab Rocephin (4) Altered mental status Current Visit: No Status: Acute Assessment and Plan: Most likely due to advanced dementia with possible metabolic encephalopathy and acute CVA continue close monitoring (5) Pulmonary embolism Current Visit: No Status: Chronic Assessment and Plan: Less likely a recurrent PE continue Eliquis for now (6) Chronic respiratory failure with hypoxia Current Visit: Yes Status: Acute Assessment and Plan: Seems to be back to baseline currently on 2 L oxygen and breathing comfortably Cont bronchodilator therapy as needed (7) GERD (gastroesophageal reflux disease) Current Visit: Yes Status: Acute Assessment and Plan: Resumed PPI (8) CKD (chronic kidney disease) stage 3, GFR 30-59 ml/min Current Visit: Yes Status: Chronic Assessment and Plan: She does have mild ELZA with CKD stage III Improving close to baseline monitor her creatinine closely avoid nephrotoxic medications (9) ELZA (acute kidney injury) Current Visit: No Status: Acute - Time Spent with Patient Total time spent is greater than 50% in coordination of care (as documented) at patient's floor/unit and/or counseling patient: Internal Medicine: Result - Labs CBC & Chem 7: 06/28/18 04:09 06/28/18 04:09 Labs: Short CBC 06/28/18 Range/Units 04:09 WBC 10.3 (4.3-11.1) K/mcL Hgb 10.9 L (11.5-15.4) g/dL Hct 33.3 L (35.3-44.9) % Plt Count 259 (140-400) K/mcL Neutrophils # 7.2 (1.6-8.9) K/mcL BMP 06/28/18 04:09 Sodium 139 Potassium 4.3 Chloride 108 H Carbon Dioxide 25 BUN 30 H Creatinine 1.45 H Glucose 92 Calcium 8.8 Cardiac Enzymes 06/27/18 06/27/18 06/28/18 Range/Units 14:51 19:56 04:09 Troponin I 0.03 0.03 0.04 H* (< 0.04) ng/mL - ABG Interpretation ABG results: PT/INR, D-dimer PT 14.5 Seconds (9.4-12.1) H 06/26/18 21:28 - Impressions Impressions Brain MRI 06/28/18 16:02 IMPRESSION: Multiple punctate acute infarcts in the left frontal, parietal, and temporal lobes are in the left MCA vascular territory distribution. Small cortical infarct involving the medial right occipital lobe in the right posterior cerebral artery distribution. Punctate acute infarcts involving the right frontal periventricular white matter and left superior cerebellar hemisphere may reflect acute lacunar infarcts. The findings were sent to the Radiology Results Communication Center at 8:49 am on 06/28/2018to be communicated to a licensed caregiver. D/ 06/28/2018 09:02:25 Pete Cardona MD / [facility] Interpreting Provider: Pete Cardona MD Consult Discharge Plan - Plan Referrals: Yvan Ernst MD [Primary Care Provider] - (Your appointment has been requested, our offices will call with an appointment time and date) (2) Syncope Qualifiers: Syncope type: unspecified Qualified Code(s): R55 - Syncope and collapse (3) UTI (urinary tract infection) Qualifiers: Urinary tract infection type: site unspecified Hematuria presence: with hematuria Qualified Code(s): N39.0 - Urinary tract infection, site not specified; R31.9 - Hematuria, unspecified (4) Altered mental status Qualifiers: Altered mental status type: unspecified Qualified Code(s): R41.82 - Altered mental status, unspecified (5) Pulmonary embolism Qualifiers: Pulmonary embolism type: saddle Chronicity: chronic Acute cor pulmonale presence: without acute cor pulmonale Qualified Code(s): I26.92 - Saddle embolus of pulmonary artery without acute cor pulmonale (7) GERD (gastroesophageal reflux disease) Qualifiers: Esophagitis presence: without esophagitis Qualified Code(s): K21.9 - Gastro- esophageal reflux disease without esophagitis
[2018-06-29 04:44] LABS: Chol/HDL Ratio 5.2 (0-4.9)
[2018-06-29] MEDS: cefTRIAXone 1,000 MG in Water for inj. (sterile) 20 ML 10 ML IVP SCH (09:20)
[2018-06-29] MEDS: Aspirin Enteric Coated 81 MG Tablet PO SCH (09:21)
[2018-06-29] MEDS: Apixaban 5 MG TABLET PO SCH ×2 (09:21→20:26)
[2018-06-29] MEDS: Multivit/Ca/Min/Fe/FA 1 TAB TABLET PO SCH (09:21)
--- NOTE | 2018-06-29 18:06 | Internal Med Progress Note ---
Hospitalist Progress Note - Encounter Date of Encounter: 06/29/18 Time of Encounter: 11:20 - Subjective Interval History: Ms Brannon is currently admitted for bilateral CVAs. She remains moderate to high risk due to potential for worsening clinical status. Ms Brannon is resting in bed. She appears to be somewhat confused. No fever or chills. No CP or SOB. No GI issues. - Exam Vitals: Temp Pulse Resp BP Pulse Ox 98.4 F 69 18 146/72 100 06/29/18 15:20 06/29/18 15:20 06/29/18 15:20 06/29/18 15:20 06/29/18 15:20 Exam: Gen: Alert, awake, Oriented to self only.. Looks pleasantly demented. Comfortable in bed. Head: Normocephalic EENT: Mucus membranes moist. Chest: No wheezing, No crackles, No rales Poor effort. Heart: S1S2+ RRR No murmurs. Not tachycardic. Abd: Soft, NT, BS +, No organomegaly Ext: No edema, pulses are palpable, No calf tenderness Neuro :pleasantly demented.. Confused Skin: No rash. - Assessment and Plan (1) CVA (cerebral vascular accident) Current Visit: Yes Status: Acute Assessment and Plan: Pt with bilateral CVAs. Appreciate neuro input. On antiplatelet Awaiting PT/OT evals for discharge planning. (2) UTI (urinary tract infection) Current Visit: No Status: Acute Assessment and Plan: Pt with culture positive ESBL E. coli. Antibiotics changed to Invand 500mg daily. (3) ELZA (acute kidney injury) Current Visit: No Status: Acute Assessment and Plan: Renal function slowly improving. Continue to follow. (4) Syncope Current Visit: Yes Status: Acute Assessment and Plan: Unclear etiology Mostly due to acute CVA continue her on telemetry reviewed CT of the head no acute intracranial abnormality noticed negative troponin EKG showed sinus Rosendo with chronic complete left bundle branch block.. No acute ST, T changes noticed her bilateral carotid Doppler showed left ICA 40 to 59 % stenosis and right carotid showed non-stenotic plaque only PT / OT eval Neuro consulted 06/29 - appreciate neuro input. Most likely related to CVAs. Awaiting PT/OT evals. (5) CKD (chronic kidney disease) stage 3, GFR 30-59 ml/min Current Visit: Yes Status: Chronic Assessment and Plan: She does have mild ELZA with CKD stage III Improving close to baseline monitor her creatinine closely avoid nephrotoxic medications (6) GERD (gastroesophageal reflux disease) Current Visit: Yes Status: Acute Assessment and Plan: Resumed PPI (7) Pulmonary embolism Current Visit: No Status: Chronic Assessment and Plan: Continue Eliquis. (8) Chronic respiratory failure with hypoxia Current Visit: Yes Status: Acute Assessment and Plan: Seems to be back to baseline currently on 2 L oxygen and breathing comfortably Cont bronchodilator therapy as needed (9) Dementia Current Visit: Yes Status: Chronic Assessment and Plan: Chronic issue - Time Spent with Patient Total time spent is greater than 50% in coordination of care (as documented) at patient's floor/unit and/or counseling patient: Internal Medicine: Result - Labs CBC & Chem 7: 06/28/18 04:09 06/28/18 04:09 - ABG Interpretation ABG results: PT/INR, D-dimer PT 14.5 Seconds (9.4-12.1) H 06/26/18 21:28 - Impressions Impressions Echocardiogram 06/28/18 10:46 Impressions: LVEF 60-65%. Normal LV chamber size, wall thickness and function. Atypical septal motion consistent with bundle branch block. Mild left ventricular diastolic dysfunction. Normal right ventricular structure and function. Mild mitral regurgitation. Moderate mitral stenosis. Mean gradient 7 mmHg (HR 81). Mild-moderate pulmonary hypertension. Estimated RVSP is 46 mmHg. No evidence of a PFO with agitated saline contrast. Left Ventricular Wall Motion: Rest Echo Findings All wall segments showed normal motion. Findings: Study Quality * Technically adequate exam. ECG Findings * Sinus rhythm with BBB. Left Ventricle * LVEF 60-65%. * Normal LV chamber size, wall thickness and function. * Atypical septal motion consistent with bundle branch block. * Mild left ventricular diastolic dysfunction. Right Ventricle * Normal right ventricular structure and function. Left Atrium * Moderately dilated left atrium. Right Atrium * Normal right atrial size. Aortic Valve * Aortic valve not well visualized. * Grossly, calcified aortic valve leaflets. * No aortic regurgitation. * No aortic stenosis. Mitral Valve * Moderate mitral annular calcification, especially posteriorlly. * Mild mitral regurgitation. * Moderate mitral stenosis. Mean gradient 7 mmHg (HR81). Tricuspid Valve * Normal tricuspid valve structure and function. * Trace tricuspid regurgitation. * Mild-moderate pulmonary hypertension. * Estimated RVSP is 46 mmHg. * Estimated RA pressure is 5 mmHg. Pulmonic Valve * Pulmonic valve is not well visualized. * No pulmonic regurgitation. Aorta * Normally sized aortic root. Pericardium * The pericardium appears normal. IVC * Normal IVC dimensions and inspiratory collapse. Pulmonary Artery * Normal visualized portions of the main pulmonary artery. Interatrial Septum * No evidence of a PFO with agitated saline contrast. 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 (2) UTI (urinary tract infection) Qualifiers: Urinary tract infection type: acute cystitis Hematuria presence: with hematuria Qualified Code(s): N30.01 - Acute cystitis with hematuria (4) Syncope Qualifiers: Syncope type: unspecified Qualified Code(s): R55 - Syncope and collapse (6) GERD (gastroesophageal reflux disease) Qualifiers: Esophagitis presence: without esophagitis Qualified Code(s): K21.9 - Gastro- esophageal reflux disease without esophagitis (7) Pulmonary embolism Qualifiers: Pulmonary embolism type: saddle Chronicity: chronic Acute cor pulmonale presence: without acute cor pulmonale Qualified Code(s): I26.92 - Saddle embolus of pulmonary artery without acute cor pulmonale (9) Dementia Qualifiers: Dementia type: unspecified type Dementia behavioral disturbance: without behavioral disturbance Qualified Code(s): F03.90 - Unspecified dementia without behavioral disturbance
[2018-06-29] MEDS: risperiDONE 0.25 MG TABLET PO SCH (20:26)
[2018-06-30 03:32] LABS: Hematocrit 34.5 % (35.3-44.9); Hemoglobin 11.4 g/dL (11.5-15.4); Mean Corpuscular Hemoglobin 31.1 pg (28.0-33.3); Mean Corpuscular Volume 94.3 fL (83.0-100.0); Mean Platelet Volume 10.2 fL (9.4-12.4); Platelet Count 280 K/mcL (140-400); Red Blood Count 3.66 M/mcL (3.82-4.97); Red Cell Distribution Width 13.2 % (11.5-14.5)
[2018-06-30 03:46] LABS: Calcium 9.5 mg/dL (8.6-10.3); Magnesium 2.1 mg/dL (1.6-2.6); Potassium 3.6 mEq/L (3.5-5.1)
[2018-06-30] MEDS: Aspirin Enteric Coated 81 MG Tablet PO SCH (08:19)
[2018-06-30] MEDS: Multivit/Ca/Min/Fe/FA 1 TAB TABLET PO SCH (08:20)
[2018-06-30] MEDS: Apixaban 5 MG TABLET PO SCH ×2 (08:20→20:49)
--- NOTE | 2018-06-30 17:07 | Internal Med Progress Note ---
Hospitalist Progress Note - Encounter Date of Encounter: 06/30/18 Time of Encounter: 11:40 - Subjective Interval History: Ms Brannon is currently admitted for bilateral CVAs. She remains moderate to high risk due to potential for worsening clinical status. Ms Brannon had uneventful night. She is still confused. She has not been evaluated by PT/OT yet. No new medical issues overnight. Denies CP or SOB. No fever or chills. - Exam Vitals: Temp Pulse Resp BP Pulse Ox 98.3 F 79 16 156/75 96 06/30/18 16:47 06/30/18 16:47 06/30/18 16:47 06/30/18 16:47 06/30/18 16:47 Exam: Gen: Alert, awake, Oriented to self only.Comfortable. Head: Normocephalic EENT: Mucus membranes moist. Chest: No wheezing, No crackles, No rales Poor effort still today. Heart: S1S2+ RRR No murmurs. Not tachycardic. Abd: Soft, NT, BS +, No organomegaly Ext: No edema, pulses are palpable, No calf tenderness Neuro :pleasantly demented.. Confused Skin: No rash. - Assessment and Plan (1) CVA (cerebral vascular accident) Current Visit: Yes Status: Acute Assessment and Plan: Pt with bilateral CVAs. Appreciate neuro input. On antiplatelet Awaiting PT/OT evals for discharge planning. 06/30 - Essentially no change. Still waiting for PT/OT (2) UTI (urinary tract infection) Current Visit: No Status: Acute Assessment and Plan: Pt with culture positive ESBL E. coli. Currently on Invanz daily. Treat total of 7 days. (3) ELZA (acute kidney injury) Current Visit: No Status: Resolved Assessment and Plan: Renal function improved today. (4) Syncope Current Visit: Yes Status: Acute Assessment and Plan: Unclear etiology Mostly due to acute CVA continue her on telemetry reviewed CT of the head no acute intracranial abnormality noticed negative troponin EKG showed sinus Rosendo with chronic complete left bundle branch block.. No acute ST, T changes noticed her bilateral carotid Doppler showed left ICA 40 to 59 % stenosis and right carotid showed non-stenotic plaque only PT / OT eval Neuro consulted 06/29 - appreciate neuro input. Most likely related to CVAs. Awaiting PT/OT evals. 06/30 - Continue to wait PT/OT isaias (5) CKD (chronic kidney disease) stage 3, GFR 30-59 ml/min Current Visit: Yes Status: Chronic Assessment and Plan: She does have mild ELZA with CKD stage III Improving close to baseline monitor her creatinine closely avoid nephrotoxic medications (6) GERD (gastroesophageal reflux disease) Current Visit: Yes Status: Acute Assessment and Plan: Resumed PPI (7) Pulmonary embolism Current Visit: No Status: Chronic Assessment and Plan: Continue Eliquis. (8) Chronic respiratory failure with hypoxia Current Visit: Yes Status: Acute Assessment and Plan: Seems to be back to baseline currently on 2 L oxygen and breathing comfortably Cont bronchodilator therapy as needed (9) Dementia Current Visit: Yes Status: Chronic Assessment and Plan: Chronic issue - Time Spent with Patient Total time spent is greater than 50% in coordination of care (as documented) at patient's floor/unit and/or counseling patient: Internal Medicine: Result - Labs CBC & Chem 7: 06/30/18 03:01 06/30/18 03:01 Labs: Short CBC 06/30/18 Range/Units 03:01 WBC 8.2 (4.3-11.1) K/mcL Hgb 11.4 L (11.5-15.4) g/dL Hct 34.5 L (35.3-44.9) % Plt Count 280 (140-400) K/mcL BMP 06/30/18 03:01 Sodium 139 Potassium 3.6 Chloride 106 Carbon Dioxide 24 BUN 22 Creatinine 1.20 Glucose 91 Calcium 9.5 - ABG Interpretation ABG results: PT/INR, D-dimer PT 14.5 Seconds (9.4-12.1) H 06/26/18 21:28 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 (2) UTI (urinary tract infection) Qualifiers: Urinary tract infection type: acute cystitis Hematuria presence: with hematuria Qualified Code(s): N30.01 - Acute cystitis with hematuria (4) Syncope Qualifiers: Syncope type: unspecified Qualified Code(s): R55 - Syncope and collapse (6) GERD (gastroesophageal reflux disease) Qualifiers: Esophagitis presence: without esophagitis Qualified Code(s): K21.9 - Gastro- esophageal reflux disease without esophagitis (7) Pulmonary embolism Qualifiers: Pulmonary embolism type: saddle Chronicity: chronic Acute cor pulmonale presence: without acute cor pulmonale Qualified Code(s): I26.92 - Saddle embolus of pulmonary artery without acute cor pulmonale (9) Dementia Qualifiers: Dementia type: unspecified type Dementia behavioral disturbance: without behavioral disturbance Qualified Code(s): F03.90 - Unspecified dementia without behavioral disturbance
[2018-06-30] MEDS: risperiDONE 0.25 MG TABLET PO SCH (20:50)
[2018-07-01] MEDS ORDERED: diazePAM 10 MG/2 ML SYRINGE IVP ONE (00:42)
[2018-07-01] MEDS: Apixaban 5 MG TABLET PO SCH (08:58)
[2018-07-01] MEDS: Multivit/Ca/Min/Fe/FA 1 TAB TABLET PO SCH (08:58)
[2018-07-01] MEDS: Aspirin Enteric Coated 81 MG Tablet PO SCH (08:58)
--- NOTE | 2018-07-01 09:23 | Internal Med Progress Note ---
Hospitalist Progress Note - Encounter Date of Encounter: 07/01/18 - Exam Vitals: Temp Pulse Resp BP Pulse Ox 97.5 F L 81 14 156/69 96 07/01/18 07:19 07/01/18 07:19 07/01/18 07:19 07/01/18 07:19 07/01/18 07:19 - Time Spent with Patient Total time spent is greater than 50% in coordination of care (as documented) at patient's floor/unit and/or counseling patient: Internal Medicine: Result - Labs CBC & Chem 7: 06/30/18 03:01 06/30/18 03:01 - ABG Interpretation ABG results: PT/INR, D-dimer PT 14.5 Seconds (9.4-12.1) H 06/26/18 21:28 Consult Discharge Plan - Plan Referrals: Yvan Ernst MD [Primary Care Provider] - (Your appointment has been requested, our offices will call with an appointment time and date)
[2018-07-01 11:39] VITALS: BP 134/67
--- NOTE | 2018-07-01 15:20 | Discharge Summary ---
<Hima Torres - Last Filed: 07/01/18 19:53> - NOTES TO OUTPATIENT PROVIDER Notes to Outpatient Provider: [facility] Tradition; 4 more days of Invanz, placed powerglide day of discharge; started on statin inpatient; continue Eliquis/ASA in setting of acute micro infarcts seen on MRI. Orders not resulted at time of discharge: Pending orders 06/26/18 21:44 Culture,Blood [BC] Stat Date of Encounter: 07/01/18 Time of Encounter: 10:00 Hospital course: Ms. Brannon is a 87 year old female with PMH HTN, HLD, dementia (aricept), PE (Eliquis), who presented via EMS from her shelter after a syncopal episode; she was witnessed to have slumped over in her chair, no falls, no post-ictal state. ED imaging with CT was negative, MRI showed punctate acute infarcts in the frontal, parietal, and temporal regions. Neuro was consulted, recommended medical therapy with ASA, statin, and continued Eliquis. She had a carotid dopplar performed showing mild-mod stenosis (40-59%) on L and non-stenotic R. She was found to have ESBL UTI with MDRO culture/sensitivity. Sensitive to Invanz, for which she received 3 days inpatient, she had a powerglide placed to continue her antibiotics for an additional 4 days. She remained hemodynamically stable, PT/OT evaluation showed ability to transfer/ambulate with assistance; patient was discharged to [facility]. - Time Spent with Patient Total time spent providing and/or coordinating discharge services: - Discharge Medications Prescriptions: RX: Atorvastatin [Lipitor] 80 mg PO HS #30 tablet Ertapenem [INVanz] 500 mg IVPB DAILY 4 Days #3 vial Home Medications: RX: Donepezil [Aricept] 5 mg PO HS 05/21/17 [History] RX: Losartan Potassium [Cozaar] 100 mg PO DAILY 11/07/17 [History] RX: Multivitamin [One Daily Essential] 1 tab PO DAILY 11/07/17 [History] RX: Tramadol HCl [Ultram] 50 mg PO TID PRN 11/07/17 [History] RX: Furosemide [Lasix] 40 mg PO DAILY tablet 12/23/17 [Rx] RX: Omeprazole [PriLOSEC] 20 mg PO DAILY@0630 capsule. 12/23/17 [Rx] RX: Apixaban [Eliquis] 5 mg PO BID #180 tablet 12/24/17 [Rx] RX: Cranberry Fruit Extract [Cranberry] 500 mg PO DAILY 06/23/18 [History] RX: Ergocalciferol (VITAMIN D2) [Vitamin D2] 50,000 unit PO WE 06/23/18 [History] RX: Levothyroxine [Synthroid] 88 mcg PO DAILY 06/23/18 [History] RX: Metoprolol Succinate [Toprol Xl] 25 mg PO DAILY 06/23/18 [History] RX: Potassium Chloride 40 meq PO DAILY 06/23/18 [History] RX: RisperiDONE [Risperdal] 0.5 mg PO HS 06/23/18 [History] RX: diazePAM [Valium] 2 mg PO BID PRN 06/23/18 [History] Ertapenem [INVanz] 500 mg IVPB DAILY 4 Days #3 vial 07/01/18 [Rx] RX: Acetaminophen [Non-Aspirin] 650 mg PO BID PRN 07/01/18 [History] RX: Atorvastatin [Lipitor] 80 mg PO HS #30 tablet 07/01/18 [Rx] RX: Melatonin 1 mg PO HS 07/01/18 [History] RX: Mv-Mn/Folic Acid/Calcium/Vit K [Hm One Daily Women's 50 Plus] 1 each PO DAILY 07/01/18 [History] RX: traZODone [TraZODone] 50 mg PO HS PRN 07/01/18 [History] Allergies/Adverse Reactions: Allergy/AdvReac Type Severity Reaction Status Date / Time Penicillins [PCN] Allergy Unknown Hives Verified 07/01/18 09:01 codeine Allergy See Verified 07/01/18 09:01 Comments Date of admission: 06/27/18 16:34 Primary care physician: Yvan Ernst MD Consults: 06/27/18 09:09 Consult to Physical Therapy [CONS] Routine Comment: Evaluate, develop and implement POC Reason for Consult: Deconditioning Does patient have active BEDREST order?: No Is patient medically & hemodynamically stable?: Yes Patient assessed for mobility or mobilized this visit?: Yes OT [Consult to Occupational Therapy] [CONS] Routine Comment: Evaluate, develop and implement POC Reason for Consult: Deconditioning Does patient have active BEDREST order?: No Is patient medically & hemodynamically stable?: Yes Patient assessed for mobility or mobilized this visit?: Yes 06/28/18 13:07 Consult to Neurology [CONS] Routine Consulting Provider: [facility] Reason for Consult: Acute CVA Time Notified: 13:07 Call Completed: Yes 06/30/18 11:33 Consult to Energy Trading Analyst [CONS] Routine Reason for SW Consult: discharge planning 07/01/18 15:00 Consult to Invasive Line Access Team [CONS] Routine Reason for Consult: Invanz antibiotics at [facility] for 4 days Line Type: Midline - Constitutional Vitals: Temp Pulse Resp BP Pulse Ox 97.9 F 66 14 134/67 94 07/01/18 11:38 07/01/18 11:38 07/01/18 07:19 07/01/18 11:38 07/01/18 11:38 General appearance: Present: cooperative, A&O X 1, pleasant, no acute distress Exam: Gen: Alert, awake, Oriented to self only.Comfortable. Frail. Head: Normocephalic EENT: Mucus membranes moist. Chest: No wheezing, No crackles, No rales Poor effort still today. Heart: S1S2+ RRR No murmurs. Not tachycardic. Abd: Soft, non-tender, non-distended Ext: No edema, pulses are palpable, No calf tenderness Neuro : UE strength 4/5; good product development consultant strength bilat; no slurring of speech, no facial asymmetry Skin: No rash or bruising, multiple solar lentigines - Patient Status Disposition: Transfer SNF Condition: Fair Functional capacity at discharge: uses cane/walker Overall status at discharge: patient is progressing back to baseline - Discharge Instructions Follow Up With: Yvan Ernst MD [Primary Care Provider] - (Your appointment has been requested, our offices will call with an appointment time and date) - Diet and Activity Activity: as per physical therapy, increase activity as tolerated Diet: regular diet <Yefri Gupta - Last Filed: 07/01/18 20:19> Orders not resulted at time of discharge: Pending orders 06/26/18 21:44 Culture,Blood [BC] Stat Date of Encounter: 12/10/18 - Discharge Diagnosis (1) CVA (cerebral vascular accident) Priority: Primary Status: Acute Qualifiers: CVA mechanism: embolism Precerebral and cerebral artery: middle cerebral artery Laterality of affected vessel: bilateral Qualified Code(s): I63.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9 - Gastro-esophageal reflux disease without esophagitis (6) Pulmonary embolism Priority: Secondary Status: Chronic Qualifiers: Pulmonary embolism type: saddle Chronicity: chronic Acute cor pulmonale presence: without acute cor pulmonale Qualified Code(s): I26.92 - Saddle embolus of pulmonary artery without acute cor pulmonale (7) Chronic respiratory failure with hypoxia Priority: Secondary Status: Acute (8) Dementia Priority: Secondary Status: Chronic Qualifiers: Dementia type: unspecified type Dementia behavioral disturbance: without behavioral disturbance Qualified Code(s): F03.90 - Unspecified dementia without behavioral disturbance Hospital course: Ms. Brannon is a 87 year old female - Time Spent with Patient Total time spent providing and/or coordinating discharge services: 39min Date of admission: 06/27/18 16:34 Primary care physician: Yvan Ernst MD Consults: 06/27/18 09:09 Consult to Physical Therapy [CONS] Routine Comment: Evaluate, develop and implement POC Reason for Consult: Deconditioning Does patient have active BEDREST order?: No Is patient medically & hemodynamically stable?: Yes Patient assessed for mobility or mobilized this visit?: Yes OT [Consult to Occupational Therapy] [CONS] Routine Comment: Evaluate, develop and implement POC Reason for Consult: Deconditioning Does patient have active BEDREST order?: No Is patient medically & hemodynamically stable?: Yes Patient assessed for mobility or mobilized this visit?: Yes 06/28/18 13:07 Consult to Neurology [CONS] Routine Consulting Provider: Neurology [facility] Reason for Consult: Acute CVA Time Notified: 13:07 Call Completed: Yes 06/30/18 11:33 Consult to Energy Trading Analyst [CONS] Routine Reason for SW Consult: discharge planning 07/01/18 15:00 Consult to Invasive Line Access Team [CONS] Routine Reason for Consult: Invanz antibiotics at [facility] for 4 days Line Type: Midline - Constitutional Vitals: Temp Pulse Resp BP Pulse Ox 97.9 F 66 14 134/67 94 07/01/18 11:38 07/01/18 11:38 07/01/18 07:19 07/01/18 11:38 07/01/18 11:38 - Attending Attestation I examined this patient and my medical decision-making was reviewed with the Resident Physician on 07/01/18. I agree with the documented findings, disposition and treatment plan as described except to the extent set forth felicita parker. Ms Brannon has been admitted for encephalopathy and found to have bilateral CVAs and UTI. She is now afebrile and tolerating IV abx. She is ready for discharge to SNF. Exam alert Comfortable Mucus membranes dry Heart not tachy No wheeze abd soft Plan D/C to SNF.
--- NOTE | 2018-07-01 15:34 | Physician Discharge Referral ---
ExtendedCare Referral Info Transfer To: [facility] Institutional Level of Care: Skilled - Diagnosis (1) CVA (cerebral vascular accident) Priority: Primary Status: Acute (2) UTI (urinary tract infection) Priority: Secondary Status: Acute (3) Dementia Priority: Secondary Status: Chronic (4) ELZA (acute kidney injury) Priority: Secondary Status: Resolved (5) Syncope Priority: Secondary Status: Acute (6) CKD (chronic kidney disease) stage 3, GFR 30-59 ml/min Priority: Secondary Status: Chronic (7) GERD (gastroesophageal reflux disease) Priority: Secondary Status: Acute (8) Pulmonary embolism Priority: Secondary Status: Chronic (9) Chronic respiratory failure with hypoxia Priority: Secondary Status: Acute - Transfer Medications Prescriptions: Atorvastatin [Lipitor] 80 mg PO HS #30 tablet Ertapenem [INVanz] 500 mg IVPB DAILY 4 Days #3 vial Home Medications: Donepezil [Aricept] 5 mg PO HS 05/21/17 [History] Losartan Potassium [Cozaar] 100 mg PO DAILY 11/07/17 [History] Multivitamin [One Daily Essential] 1 tab PO DAILY 11/07/17 [History] Tramadol HCl [Ultram] 50 mg PO TID PRN 11/07/17 [History] Furosemide [Lasix] 40 mg PO DAILY tablet 12/23/17 [Rx] Omeprazole [PriLOSEC] 20 mg PO DAILY@0630 capsule. 12/23/17 [Rx] Apixaban [Eliquis] 5 mg PO BID #180 tablet 12/24/17 [Rx] Cranberry Fruit Extract [Cranberry] 500 mg PO DAILY 06/23/18 [History] Ergocalciferol (VITAMIN D2) [Vitamin D2] 50,000 unit PO WE 06/23/18 [History] Levothyroxine [Synthroid] 88 mcg PO DAILY 06/23/18 [History] Metoprolol Succinate [Toprol Xl] 25 mg PO DAILY 06/23/18 [History] Potassium Chloride 40 meq PO DAILY 06/23/18 [History] RisperiDONE [Risperdal] 0.5 mg PO HS 06/23/18 [History] diazePAM [Valium] 2 mg PO BID PRN 06/23/18 [History] Acetaminophen [Non-Aspirin] 650 mg PO BID PRN 07/01/18 [History] Atorvastatin [Lipitor] 80 mg PO HS #30 tablet 07/01/18 [Rx] Ertapenem [INVanz] 500 mg IVPB DAILY 4 Days #3 vial 07/01/18 [Rx] Melatonin 1 mg PO HS 07/01/18 [History] Mv-Mn/Folic Acid/Calcium/Vit K [Hm One Daily Women's 50 Plus] 1 each PO DAILY 07/01/18 [History] traZODone [TraZODone] 50 mg PO HS PRN 07/01/18 [History] Allergies/Adverse Reactions: Allergy/AdvReac Type Severity Reaction Status Date / Time Penicillins [PCN] Allergy Unknown Hives Verified 07/01/18 09:01 codeine Allergy See Verified 07/01/18 09:01 Comments - Respiratory Orders None Smoking Cessation: Smoking cessation has been advised. For more information, call the [place] Tobacco Quit Line at 7-045-MOGE-NOW. - Advance Directives Code Status: Full Code - Mobility Orders Other (Assisted ambulation, until [facility] staff evaluation) - Rehabiliation Orders Rehab Potential: Fair Rehab Orders: Evaluation for Physical Therapy, Evaluation for Occupational Therapy - Diet Orders Cardiac CERTIFICATION: [facility]; 4 more days of Invanz, placed powerglide day of discharge; started on statin inpatient; continue Eliquis/ASA in setting of acute micro infarcts seen on MRI. I certify that the transfer of the above named patient to an Extended Care Facility is necessary for the continuing treatment of the diagnosis listed. The above information is true and accurate reflection of patient's current condition. Confidential - Redisclosure prohibited without a patient's written consent.
== END 2018-07-01 16:41 | DRG 64 ==
LOC: 3BNU 21:08 → EMEROOARM 21:08 → SUATTDRO 06-27 00:26 → 3BNU 06-27 01:33 → SUATTDRO 06-27 16:34
PROVIDERS: ADMIT Pediatrics; ATTEND Internal Medicine

== ENCOUNTER 2018-10-08 14:20 | Inpatient (IN) ==
--- NOTE | 2018-10-08 14:33 | Emergency Department Note ---
Disposition Clinical Impression: Dehydration Diarrhea Qualifiers: Diarrhea type: unspecified type Qualified Code(s): R19.7 - Diarrhea, unspecified Dementia Qualifiers: Dementia type: unspecified type Dementia behavioral disturbance: without behavioral disturbance Qualified Code(s): F03.90 - Unspecified dementia without behavioral disturbance Disposition: Admitted As Inpatient Condition: Fair Referrals: Yvan Ernst MD [Primary Care Provider] - Time of Disposition: 16:43 General Adult HPI - General Stated complaint: diarrhea Time Seen by Provider: 10/08/18 14:22 Source: EMS Mode of arrival: EMS Limitations: altered mental status, age Nursing Notes Reviewed: Yes Vital Signs Reviewed: Yes - History of Present Illness HPI Narrative: 88 yo female with past medical history of dementia presents from [facility] via EMS with a chief complaint of diarrhea for 3 days. EMS states the [place] [facility] is worried about the patient being dehydrated due to the diarrhea. They state that she is at her baseline has not had any other changes since onset of diarrhea. EMS was not able to give any answers about the diarrhea such as how many episodes she has had or if it contained any blood. Patient is alert only to self and is unable to answer questions reliably. She completed a 5 day course of Macrobid on September 24 per records and has not had any other antibiotics since. - Related Data Home Medications Medication Instructions Recorded Confirmed RX: Donepezil [Aricept] 5 mg PO HS 05/21/17 07/01/18 RX: Losartan Potassium [Cozaar] 100 mg PO DAILY 11/07/17 07/01/18 RX: Multivitamin [One Daily 1 tab PO DAILY 11/07/17 07/01/18 Essential] RX: Tramadol HCl [Ultram] 50 mg PO TID PRN 11/07/17 07/01/18 RX: Cranberry Fruit Extract 500 mg PO DAILY 06/23/18 07/01/18 [Cranberry] RX: Ergocalciferol (VITAMIN D2) 50,000 unit PO WE 06/23/18 07/01/18 [Vitamin D2] RX: Levothyroxine [Synthroid] 88 mcg PO DAILY 06/23/18 07/01/18 RX: Metoprolol Succinate [Toprol 25 mg PO DAILY 06/23/18 07/01/18 Xl] RX: Potassium Chloride 40 meq PO DAILY 06/23/18 07/01/18 RX: RisperiDONE [Risperdal] 0.5 mg PO HS 06/23/18 07/01/18 RX: diazePAM [Valium] 2 mg PO BID PRN 06/23/18 07/01/18 RX: Acetaminophen [Non-Aspirin] 650 mg PO BID PRN 07/01/18 07/01/18 RX: Melatonin 1 mg PO HS 07/01/18 07/01/18 RX: Mv-Mn/Folic Acid/Calcium/Vit K 1 each PO DAILY 07/01/18 07/01/18 [Hm One Daily Women's 50 Plus] RX: traZODone [TraZODone] 50 mg PO HS PRN 07/01/18 07/01/18 Previous Rx's Medication Instructions Recorded RX: Furosemide [Lasix] 40 mg PO DAILY tablet 12/23/17 RX: Omeprazole [PriLOSEC] 20 mg PO DAILY@0630 capsule. 12/23/17 RX: Apixaban [Eliquis] 5 mg PO BID #180 tablet 12/24/17 RX: Atorvastatin [Lipitor] 80 mg PO HS #30 tablet 07/01/18 Allergies Allergy/AdvReac Type Severity Reaction Status Date / Time Penicillins [PCN] Allergy Unknown Hives Verified 07/01/18 09:01 codeine Allergy See Verified 07/01/18 09:01 Comments Limitations: ROS unobtainable due to patients medical condition Past Medical History - Past Medical History Source: old records reviewed, nursing notes reviewed Medical history: Reports: dementia, hyperlipidemia, hypertension, thyroid disease Surgical history: Reports: hysterectomy Psychiatric history: Reports: no psych history [employer] history: Reports: non-contributory - Social History Smoking Status: Never smoker Smokeless Tobacco Status: No Alcohol use: Reports: none Drug use: Reports: none Physical Exam - General Limitations: altered mental status, age General appearance: in no apparent distress - Head Head exam: atraumatic, normocephalic - Eye Eye exam: Present: normal appearance, PERRL, EOMI - ENT ENT exam: normal exam, normal oropharynx - Neck Neck exam: Present: normal inspection. Absent: tenderness, lymphadenopathy - Chest Chest inspection: Present: normal inspection - Respiratory Respiratory exam: Present: normal lung sounds bilaterally - Cardiovascular Cardiovascular exam: Present: regular rate, normal rhythm - Abdominal Exam Abdominal exam: Present: soft, tenderness. Absent: distention, guarding, rebound, rigidity Abdominal tenderness: Present: diffuse, mild - Extremities Exam Extremities exam: Present: normal inspection. Absent: tenderness, pedal edema - Neurological Exam Neurological exam: Present: other (oriented to self only. Parkinsonian affect and movements.) - Psychiatric Psychiatric exam: Present: flat affect - Skin Skin exam: Present: warm, dry, intact Course Vital Signs Temperature 98.4 F 10/08/18 14:24 Pulse Rate 76 10/08/18 14:24 Respiratory Rate 16 10/08/18 14:24 Blood Pressure 128/51 10/08/18 14:24 O2 Sat by Pulse Oximetry 97 10/08/18 14:24 Temperature 98.4 F 10/08/18 14:24 Pulse Rate 86 10/08/18 18:44 Respiratory Rate 14 10/08/18 18:44 Blood Pressure 116/72 10/08/18 18:44 O2 Sat by Pulse Oximetry 98 10/08/18 18:44 Oxygen Delivery Oxygen Delivery Room Air Medical Decision Making - [facility] Narrative Medical decision making narrative: This patient was brought here with concerns for dehydration secondary to her diarrhea. We will obtain labs, abdominal imaging, and give IV fluids. Patient has signs of dehydration with an acute kidney injury. The patient will be admitted to hospitalist for treatment of her dehydration with IV fluids and testing for possible C. difficile colitis. - Medical Records Medical records reviewed: Yes I reviewed the patient's medical records. - Lab Data Lab results reviewed: Yes I reviewed the patient's lab results. Result diagrams: 10/08/18 14:58 10/08/18 14:58 Lab Results 10/08/18 10/08/18 10/08/18 Range/Units 14:58 14:58 14:58 WBC 12.4 H (4.3-11.1) K/mcL RBC 3.59 L (3.82-4.97) M/mcL Hgb 11.3 L (11.5-15.4) g/dL Hct 35.2 L (35.3-44.9) % MCV 98.1 (83.0-100.0) fL MCH 31.5 (28.0-33.3) pg MCHC 32.1 (31.6-35.5) g/dL RDW 13.3 (11.5-14.5) % Plt Count 187 (140-400) K/mcL MPV 10.7 (9.4-12.4) fL Immature Gran % 0.5 (0-4) % Seg Neutrophils % 81.1 % Lymphocytes % 11.2 % Monocytes % 6.8 % Eosinophils % 0.2 % Basophils % 0.2 % Neutrophils # 10.1 H (1.6-8.9) K/mcL Lymphocytes # 1.4 (0.6-4.6) K/mcL Monocytes # 0.8 (0.0-1.3) K/mcL Eosinophils # 0.0 (0.0-0.6) K/mcL Basophils # 0.0 (0.0-0.2) K/mcL Sodium 136 (136-145) mEq/L Potassium 4.1 (3.5-5.1) mEq/L Chloride 110 H (98-107) mEq/L Carbon Dioxide 17 L (23-29) mEq/L BUN 44 H (8-23) mg/dL Creatinine 2.38 H (0.60-1.20) mg/dL Est GFR ( Amer) 23 L (> 60) Est GFR (Non-Af Amer) 19 L (> 60) BUN/Creatinine Ratio 18 (6-26) Glucose 133 H (70-105) mg/dL Calculated Osmolality 295 (280-300) Lactic Acid (0.5-2.2) mmol/L Calcium 9.0 (8.6-10.3) mg/dL Total Bilirubin 0.5 (0.3-1.0) mg/dL Direct Bilirubin 0.1 (0.0-0.2) mg/dL Indirect Bilirubin 0.4 (0.0-1.2) mg/dL AST 42 H (13-39) Units/L ALT 28 (7-52) Units/L Alkaline Phosphatase 78 (34-104) Units/L Troponin I 0.03 (< 0.04) ng/mL Serum Total Protein 6.7 (6.4-8.9) g/dL Albumin 3.9 (3.5-5.7) g/dL Globulin 2.8 (2.4-3.5) g/dL Albumin/Globulin Ratio 1.4 (1.1-2.2) Urine Color (Yellow) Urine Clarity (Clear) Urine pH (5.0-8.0) pH Units Ur Specific [place] (1.010-1.025) Urine Protein (Neg-Trace) mg/dL Urine Glucose (UA) (Normal) mg/dL Urine Ketones (Negative) mg/dL Urine Blood (Negative) Urine Nitrite (Negative) Urine Bilirubin (Negative) Urine Urobilinogen (Normal) mg/dL Ur Leukocyte Esterase (Negative) Urine Microscopic RBC (0-3) per hpf Urine Microscopic WBC (0-3) per hpf Ur Squamous Epith Cells (None-Few) per lpf Amorphous Sediment (Few) Urine Bacteria (None-Few) per hpf Ur Culture Indicated? (NO) 10/08/18 10/08/18 Range/Units 14:58 15:07 WBC (4.3-11.1) K/mcL RBC (3.82-4.97) M/mcL Hgb (11.5-15.4) g/dL Hct (35.3-44.9) % MCV (83.0-100.0) fL MCH (28.0-33.3) pg MCHC (31.6-35.5) g/dL RDW (11.5-14.5) % Plt Count (140-400) K/mcL MPV (9.4-12.4) fL Immature Gran % (0-4) % Seg Neutrophils % % Lymphocytes % % Monocytes % % Eosinophils % % Basophils % % Neutrophils # (1.6-8.9) K/mcL Lymphocytes # (0.6-4.6) K/mcL Monocytes # (0.0-1.3) K/mcL Eosinophils # (0.0-0.6) K/mcL Basophils # (0.0-0.2) K/mcL Sodium (136-145) mEq/L Potassium (3.5-5.1) mEq/L Chloride (98-107) mEq/L Carbon Dioxide (23-29) mEq/L BUN (8-23) mg/dL Creatinine (0.60-1.20) mg/dL Est GFR ( Amer) (> 60) Est GFR (Non-Af Amer) (> 60) BUN/Creatinine Ratio (6-26) Glucose (70-105) mg/dL Calculated Osmolality (280-300) Lactic Acid 1.9 (0.5-2.2) mmol/L Calcium (8.6-10.3) mg/dL Total Bilirubin (0.3-1.0) mg/dL Direct Bilirubin (0.0-0.2) mg/dL Indirect Bilirubin (0.0-1.2) mg/dL AST (13-39) Units/L ALT (7-52) Units/L Alkaline Phosphatase (34-104) Units/L Troponin I (< 0.04) ng/mL Serum Total Protein (6.4-8.9) g/dL Albumin (3.5-5.7) g/dL Globulin (2.4-3.5) g/dL Albumin/Globulin Ratio (1.1-2.2) Urine Color Yellow (Yellow) Urine Clarity Cloudy A (Clear) Urine pH 5.0 (5.0-8.0) pH Units Ur Specific [place] 1.025 (1.010-1.025) Urine Protein 30 H (Neg-Trace) mg/dL Urine Glucose (UA) Normal (Normal) mg/dL Urine Ketones Negative (Negative) mg/dL Urine Blood Negative (Negative) Urine Nitrite Negative (Negative) Urine Bilirubin Negative (Negative) Urine Urobilinogen Normal (Normal) mg/dL Ur Leukocyte Esterase Small H (Negative) Urine Microscopic RBC 0-3 (0-3) per hpf Urine Microscopic WBC 5-15 H (0-3) per hpf Ur Squamous Epith Cells Many H (None-Few) per lpf Amorphous Sediment Moderate H (Few) Urine Bacteria None Seen (None-Few) per hpf Ur Culture Indicated? NO. A (NO) - Radiology Data Radiology results reviewed: Yes I reviewed the patient's radiology results. - EKG Data EKG #1 EKG attestation: Yes I reviewed and interpreted this EKG. EKG results narrative: EKG obtained at 15:53 on 10/08/18 Heart rate 79 determine HI interval 163, QRS duration 148, QT 400, QTC 459 Sinus rhythm with PVCs and left bundle branch block. No signs of ST segment elevations or depressions. No T-wave abnormalities. No significant changes when compared to previous EKG dated 06/26/2018. Attestation Statement - Attestation Attestation: I examined this patient and my medical decision-making was reviewed with the Resident Physician. I agree with the documented findings, disposition and treatment plan as described except to the extent set forth below. I saw this pt with Dr. Blackmon. I did have face to face time. This is an 88-year-old female who presents from the [place] [facility] with a history of dementia. Patient has had 3 days of diarrhea and generalized weakness. The [place] [facility] was concerned patient might be dehydrated. Patient has not had any vomiting or fevers. Patient denies any pain. We did do a CT abdomen and pelvis and basic lab workup with an EKG and troponin. Pt had ELZA on lab evaluation. Pt was accepted by the hospitalist for ARF, dehydration.
[2018-10-08 15:22] LABS: Basophils % 0.2 %; Eosinophils % 0.2 %; Hematocrit 35.2 % (35.3-44.9); Hemoglobin 11.3 g/dL (11.5-15.4); Immature Granulocytes % 0.5 % (0-4); Lymphocytes # 1.4 K/mcL (0.6-4.6); Lymphocytes % 11.2 %; Mean Corpuscular HGB Conc 32.1 g/dL (31.6-35.5); Mean Corpuscular Hemoglobin 31.5 pg (28.0-33.3); Mean Corpuscular Volume 98.1 fL (83.0-100.0); Mean Platelet Volume 10.7 fL (9.4-12.4); Monocytes # 0.8 K/mcL (0.0-1.3); Monocytes % 6.8 %; Neutrophils # 10.1 K/mcL (1.6-8.9); Platelet Count 187 K/mcL (140-400); Red Blood Count 3.59 M/mcL (3.82-4.97); Red Cell Distribution Width 13.3 % (11.5-14.5); Segmented Neutrophils % 81.1 %
[2018-10-08 15:29] LABS: Albumin 3.9 g/dL (3.5-5.7); Albumin/Globulin Ratio 1.4 (1.1-2.2); Bilirubin,Direct 0.1 mg/dL (0.0-0.2); Bilirubin,Indirect 0.4 mg/dL (0.0-1.2); Bilirubin,Total 0.5 mg/dL (0.3-1.0); Globulin 2.8 g/dL (2.4-3.5); Potassium 4.1 mEq/L (3.5-5.1); Total Protein 6.7 g/dL (6.4-8.9)
[2018-10-08 15:56] LABS: Troponin I 0.03 ng/mL (< 0.04)
[2018-10-08 15:56] LABS: Bilirubin,Urine Negative (Negative); Blood,Urine Negative (Negative); Clarity,Urine Cloudy (Clear); Color,Urine Yellow (Yellow); Glucose,Urine (UA) Normal (Normal); Ketones,Urine Negative (Negative); Leukocyte Esterase,Urine Small (Negative); Nitrite,Urine Negative (Negative); Protein,Urine 30 mg/dL (Neg-Trace); Specific Gravity,Urine 1.025 (1.010-1.025); Urobilinogen,Urine Normal (Normal)
[2018-10-08 15:58] LABS: Bacteria,Urine None Seen per hpf (None-Few); RBC,Urine 0-3 per hpf (0-3); Squamous Epithelial Cell,Urine Many per lpf (None-Few)
[2018-10-08 16:18] LABS: Amorphous Sediment,Urine Moderate (Few)
[2018-10-08] MEDS ORDERED: 0.9 % Sodium Chloride 1,000 ML IVC ONE (16:32)
[2018-10-08] MEDS ORDERED: Naloxone 0.4 MG/ML INJ IVP PRN (18:44)
--- NOTE | 2018-10-08 20:33 | Internal Med History&Physical ---
Date of Encounter: 10/08/18 Time of Encounter: 18:00 Internal Medicine - H&P: HPI Chief complaint: Diarrhea Admitted From: Long-term Nursing Facility (SNF) Plans for Post Hospital Care: Transfer [facility] Facility History of present illness: The patient is an 88-year-old woman, resident of a group home. She is brought to our emergency room with 3 day history of diarrhea. Subsequently, she has developed dehydration and acute kidney injury. The patient is very demented. She is not able to give us any history. She knows her first name and last name. She follows very simple commands. She pulled out her IV, when being in the emergency room unattended. Past is seen. The patient completed a 5 day course of Macrobid on September 24; has not had any antibiotics since then. PAST MEDICAL HX: She has been treated for hypertension, hyperlipidemia, hypothyroidism and dementia. PAST FAMILY HX: Not obtainable from the patient. PAST SOCIAL HX: According to her old records, the patient has never used tobacco; there is no history of alcohol or illicit drug use. REVIEW OF SYSTEMS: Not obtainable from the patient. See above. PHYSICAL EXAM: Skin: Free of rash and discoloration. Eyes: Sclera is white. There is no discharge from eyes. ENMT: Oral/pharyngeal mucosa is dry/normal in appearance. There is no discharge from nose or ears. Respiratory: Normal breath sounds with no crackles and wheezes bilaterally. CV: Heart is regular with no gallop or murmur. GI: Abdomen is flat and soft with no palpable mass or visceromegaly. : There is no tenderness in patient's flanks bilaterally. Neuro exam: She is moving all 4 extremities. Pupils are equal eyes; rounded. ADDITIONAL DATA: EKG shows normal sinus rhythm with left bundle branch block. CT of abdomen and pelvis without contrast shows no evidence of acute bowel obstruction, perforation or thickening. It shows mild sigmoid diverticulosis but no acute diverticulitis. Gallbladder is mildly distended but there is no evidence of thickening. There is evidence for severe multilevel degenerative disc disease and degenerative scoliotic deformity. CBC shows hemoglobin of 11.3 with WBC of 12.4 thousand and normal platelet count. Electrolytes are showing bicarb of 17. Otherwise, they are normal. Creatinine is 2.38; was 0.93 in August 2017. Random glucose is 133. Liver function tests are normal. UA shows 5-15 urine microscopic WBC in sediment. With a small amount of leukocyte esterase; negative for nitrites. A/P: Acute kidney injury secondary to dehydration/diarrhea. Stool testing for C. difficile has been ordered. I will keep IV normal saline running at 75 mL/h. She will be on clear liquids diet and 4 times a day Questran. We will order GI panelafter getting results from C. difficile testing. Severe dementia. Continue supportive treatments. Past Med Surg Social Fam HX - Past Medical History Medical history: dementia, hyperlipidemia, hypertension, thyroid disease Additional medical history: colitis Psychiatric history: no psych history - Past Surgical History Surgical History: hysterectomy - Social History Smoking Status: Never smoker Smokeless Tobacco Status: No Alcohol use: none Drug use: none - Family History Sister Hx Family Neurologic Disorders: Yes (bonnie) Internal Medicine - H&P: Meds Donepezil [Aricept] 5 mg PO HS 05/21/17 [History] Losartan Potassium [Cozaar] 100 mg PO DAILY 11/07/17 [History] Multivitamin [One Daily Essential] 1 tab PO DAILY 11/07/17 [History] Tramadol HCl [Ultram] 50 mg PO TID PRN 11/07/17 [History] Furosemide [Lasix] 40 mg PO DAILY tablet 12/23/17 [Rx] Omeprazole [PriLOSEC] 20 mg PO DAILY@0630 capsule. 12/23/17 [Rx] Apixaban [Eliquis] 5 mg PO BID #180 tablet 12/24/17 [Rx] Cranberry Fruit Extract [Cranberry] 500 mg PO DAILY 06/23/18 [History] Ergocalciferol (VITAMIN D2) [Vitamin D2] 50,000 unit PO WE 06/23/18 [History] Levothyroxine [Synthroid] 88 mcg PO DAILY 06/23/18 [History] Metoprolol Succinate [Toprol Xl] 25 mg PO DAILY 06/23/18 [History] Potassium Chloride 40 meq PO DAILY 06/23/18 [History] RisperiDONE [Risperdal] 0.5 mg PO HS 06/23/18 [History] diazePAM [Valium] 2 mg PO BID PRN 06/23/18 [History] Acetaminophen [Non-Aspirin] 650 mg PO BID PRN 07/01/18 [History] Atorvastatin [Lipitor] 80 mg PO HS #30 tablet 07/01/18 [Rx] Melatonin 1 mg PO HS 07/01/18 [History] traZODone [TraZODone] 50 mg PO HS PRN 07/01/18 [History] Allergy/AdvReac Type Severity Reaction Status Date / Time Penicillins [PCN] Allergy Unknown Hives Verified 07/01/18 09:01 codeine Allergy See Verified 07/01/18 09:01 Comments - Constitutional Vitals: Temp Pulse Resp BP Pulse Ox 98.4 F 86 14 116/72 98 10/08/18 14:24 10/08/18 18:44 10/08/18 18:44 10/08/18 18:44 10/08/18 18:44 General appearance: Present: A&O X 1, no acute distress Exam: xx Internal Med - H&P Results - Labs CBC & Chem 7: 10/08/18 14:58 10/08/18 14:58 Labs: Short CBC 10/08/18 Range/Units 14:58 WBC 12.4 H (4.3-11.1) K/mcL Hgb 11.3 L (11.5-15.4) g/dL Hct 35.2 L (35.3-44.9) % Plt Count 187 (140-400) K/mcL Neutrophils # 10.1 H (1.6-8.9) K/mcL BMP 10/08/18 14:58 Sodium 136 Potassium 4.1 Chloride 110 H Carbon Dioxide 17 L BUN 44 H Creatinine 2.38 H Glucose 133 H Calcium 9.0 Cardiac Enzymes 10/08/18 Range/Units 14:58 Troponin I 0.03 (< 0.04) ng/mL Liver Function 10/08/18 Range/Units 14:58 Total Bilirubin 0.5 (0.3-1.0) mg/dL Direct Bilirubin 0.1 (0.0-0.2) mg/dL AST 42 H (13-39) Units/L ALT 28 (7-52) Units/L Alkaline Phosphatase 78 (34-104) Units/L Albumin 3.9 (3.5-5.7) g/dL Urine 10/08/18 Range/Units 15:07 Urine Color Yellow (Yellow) Urine Clarity Cloudy A (Clear) Urine pH 5.0 (5.0-8.0) pH Units Ur Specific [place] 1.025 (1.010-1.025) Urine Protein 30 H (Neg-Trace) mg/dL Urine Glucose (UA) Normal (Normal) mg/dL - Impressions ITS Impressions Abdomen/Pelvis CT 10/08/18 14:49 IMPRESSION: 1. No evidence of acute bowel obstruction, perforation or thickening. Mild sigmoid diverticulosis but no acute diverticulitis. 2. Gallbladder mildly distended but no evidence of thickening. 3. Severe multilevel degenerative disc disease and degenerative scoliotic deformity. No evidence of destructive lesions. D/ / 10/08/2018 15:35:35 Johanne Ware MD / [facility] Interpreting Provider: Johanne Ware MD - Assessment and Plan (1) ELZA (acute kidney injury) Current Visit: Yes Status: Acute (2) Dehydration Current Visit: Yes Status: Acute (3) Diarrhea Current Visit: Yes Status: Acute Qualifiers: Diarrhea type: unspecified type Qualified Code(s): R19.7 - Diarrhea, unspecified (4) Dementia Current Visit: Yes Status: Chronic Qualifiers: Dementia type: unspecified type Dementia behavioral disturbance: without behavioral disturbance Qualified Code(s): F03.90 - Unspecified dementia without behavioral disturbance - Time Spent With Patient Total time spent is greater than 50% in coordination of care (as documented) at patient's floor/unit and/or counseling patient: 25 - 35 minutes
[2018-10-08] MEDS: 0.9 % Sodium Chloride 1,000 ML IVC SCH (21:40)
[2018-10-08] MEDS: Cholestyramine 4 GM POWD.PACK PO SCH ×2 (21:40→22:24)
[2018-10-09 07:22] LABS: Basophils % 0.3 %; Eosinophils # 0.2 K/mcL (0.0-0.6); Eosinophils % 2.5 %; Hematocrit 30.6 % (35.3-44.9); Hemoglobin 9.9 g/dL (11.5-15.4); Immature Granulocytes % 0.4 % (0-4); Lymphocytes # 1.9 K/mcL (0.6-4.6); Lymphocytes % 24.8 %; Mean Corpuscular HGB Conc 32.4 g/dL (31.6-35.5); Mean Corpuscular Hemoglobin 31.4 pg (28.0-33.3); Mean Corpuscular Volume 97.1 fL (83.0-100.0); Mean Platelet Volume 10.7 fL (9.4-12.4); Monocytes # 0.7 K/mcL (0.0-1.3); Monocytes % 9.7 %; Neutrophils # 4.7 K/mcL (1.6-8.9); Platelet Count 164 K/mcL (140-400); Red Blood Count 3.15 M/mcL (3.82-4.97); Red Cell Distribution Width 13.3 % (11.5-14.5); Segmented Neutrophils % 62.3 %
[2018-10-09 08:01] LABS: Calcium 8.7 mg/dL (8.6-10.3); Magnesium 1.8 mg/dL (1.6-2.6); Potassium 3.8 mEq/L (3.5-5.1)
[2018-10-09] MEDS: Cholestyramine 4 GM POWD.PACK PO SCH ×4 (08:36→20:28)
--- NOTE | 2018-10-09 08:44 | Internal Med Progress Note ---
Hospitalist Progress Note - Encounter Date of Encounter: 10/09/18 Time of Encounter: 08:41 - Subjective Interval History: Patient seen and examined at bedside this morning. No acute overnight events. Afebrile overnight. Arousable but not able to offer any complaints. Has history of severe dementia. Minimal stool output which was slightly loose per nurse. - Exam Vitals: Temp Pulse Resp BP Pulse Ox 97.7 F 64 14 124/55 95 10/09/18 07:36 10/09/18 07:36 10/09/18 07:36 10/09/18 07:36 10/09/18 07:36 Exam: General: In no acute distress. Respiratory exam: CTAB. no accessory muscle use, rales, rhonchi, wheezes Cardiovascular exam: RRR, +S1, +S2. no murmur, gallop, rubs. GI/Abdominal exam: Non-tender, Non-distended, normal bowel sounds, soft, no peritoneal signs. Extremities exam: full ROM, no pedal edema, warm, no calf tenderness Neurological exam: limited cooperation. Arousable but not able to follow commands. - Assessment and Plan (1) Diarrhea Current Visit: Yes Status: Acute (2) Dementia Current Visit: Yes Status: Chronic (3) ELZA (acute kidney injury) Current Visit: Yes Status: Acute (4) Dehydration Current Visit: Yes Status: Acute - Summary of Assessment and Plan Summary of Assessment and Plan: ELZA on CKD III - likely secondary to dehydration/diarrhea. - Improving with IVF. Hold homde losartan, lasix and metoprolol - f/u stool for C. difficile. CT of abdomen and pelvis without acute findings. hemodynamically stable. 5 day course of Macrobid on September 24. - c/w NS at 75 mL/h. 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 - c/w home eliquis - monitor for bleeding Hypothyroidism - c/w home medication Severe dementia. - Continue supportive treatments. Hold home medications for now. - Time Spent with Patient Total time spent is greater than 50% in coordination of care (as documented) at patient's floor/unit and/or counseling patient: Internal Medicine: Result - Labs CBC & Chem 7: 10/09/18 06:44 10/09/18 06:44 Labs: Short CBC 10/08/18 10/09/18 Range/Units 14:58 06:44 WBC 12.4 H 7.5 (4.3-11.1) K/mcL Hgb 11.3 L 9.9 L (11.5-15.4) g/dL Hct 35.2 L 30.6 L (35.3-44.9) % Plt Count 187 164 (140-400) K/mcL Neutrophils # 10.1 H 4.7 (1.6-8.9) K/mcL BMP 10/08/18 10/09/18 14:58 06:44 Sodium 136 138 Potassium 4.1 3.8 Chloride 110 H 114 H Carbon Dioxide 17 L 17 L BUN 44 H 42 H Creatinine 2.38 H 1.87 H Glucose 133 H 83 Calcium 9.0 8.7 Cardiac Enzymes 10/08/18 Range/Units 14:58 Troponin I 0.03 (< 0.04) ng/mL Liver Function 10/08/18 Range/Units 14:58 Total Bilirubin 0.5 (0.3-1.0) mg/dL Direct Bilirubin 0.1 (0.0-0.2) mg/dL AST 42 H (13-39) Units/L ALT 28 (7-52) Units/L Alkaline Phosphatase 78 (34-104) Units/L Albumin 3.9 (3.5-5.7) g/dL Urine 10/08/18 Range/Units 15:07 Urine Color Yellow (Yellow) Urine Clarity Cloudy A (Clear) Urine pH 5.0 (5.0-8.0) pH Units Ur Specific [place] 1.025 (1.010-1.025) Urine Protein 30 H (Neg-Trace) mg/dL Urine Glucose (UA) Normal (Normal) mg/dL - Impressions Impressions Abdomen/Pelvis CT 10/08/18 14:49 IMPRESSION: 1. No evidence of acute bowel obstruction, perforation or thickening. Mild sigmoid diverticulosis but no acute diverticulitis. 2. Gallbladder mildly distended but no evidence of thickening. 3. Severe multilevel degenerative disc disease and degenerative scoliotic deformity. No evidence of destructive lesions. D/ / 10/08/2018 15:35:35 Johanne Ware MD / [facility] Interpreting Provider: Johanne Ware MD Consult Discharge Plan - Plan Referrals: Yvan Ernst MD [Primary Care Provider] - __ (1) Diarrhea Qualifiers: Diarrhea type: unspecified type Qualified Code(s): R19.7 - Diarrhea, unspecified (2) Dementia Qualifiers: Dementia type: unspecified type Dementia behavioral disturbance: without be havioral disturbance Qualified Code(s): F03.90 - Unspecified dementia without behavioral disturbance
[2018-10-09] MEDS: 0.9 % Sodium Chloride 1,000 ML IVC SCH (12:07)
[2018-10-09] MEDS: risperiDONE 0.25 MG TABLET PO SCH (20:28)
[2018-10-09] MEDS: Apixaban 5 MG TABLET PO SCH (20:28)
[2018-10-10 05:48] LABS: Basophils % 0.7 %; Eosinophils # 0.3 K/mcL (0.0-0.6); Eosinophils % 4.4 %; Hematocrit 31.1 % (35.3-44.9); Hemoglobin 10.3 g/dL (11.5-15.4); Immature Granulocytes % 0.2 % (0-4); Lymphocytes # 2.1 K/mcL (0.6-4.6); Mean Corpuscular HGB Conc 33.1 g/dL (31.6-35.5); Mean Corpuscular Hemoglobin 31.5 pg (28.0-33.3); Mean Corpuscular Volume 95.1 fL (83.0-100.0); Mean Platelet Volume 10.4 fL (9.4-12.4); Monocytes # 0.6 K/mcL (0.0-1.3); Monocytes % 9.8 %; Platelet Count 166 K/mcL (140-400); Red Blood Count 3.27 M/mcL (3.82-4.97); Red Cell Distribution Width 13.1 % (11.5-14.5); Segmented Neutrophils % 49.9 %
[2018-10-10 05:58] LABS: Calcium 8.6 mg/dL (8.6-10.3); Potassium 3.8 mEq/L (3.5-5.1)
[2018-10-10 06:00] LABS: Neutrophils # 2.9 K/mcL (1.6-8.9)
[2018-10-10 06:30] LABS: Platelet Estimate Normal (Normal); Reactive Lymphocytes Present (Not Present)
[2018-10-10] MEDS: 0.9 % Sodium Chloride 1,000 ML IVC SCH ×2 (07:05→09:00)
[2018-10-10] MEDS: Cholestyramine 4 GM POWD.PACK PO SCH ×4 (09:01→20:19)
[2018-10-10] MEDS: Apixaban 5 MG TABLET PO SCH ×2 (10:23→20:19)
[2018-10-10] MEDS: Metoprolol XL (24 HR) Succ 25 MG TAB.ER.24H PO SCH (10:23)
--- NOTE | 2018-10-10 11:38 | Internal Med Progress Note ---
Hospitalist Progress Note - Encounter Date of Encounter: 10/10/18 Time of Encounter: 11:38 - Subjective Interval History: Patient seen and examined bedside this morning. No acute overnight events. Much more alert and awake however appears confused and disoriented. Denies any pain anywhere. Denies any difficulty breathing. - Exam Vitals: Temp Pulse Resp BP Pulse Ox 98.0 F 69 14 130/61 98 10/10/18 10:35 10/10/18 10:35 10/10/18 10:35 10/10/18 10:35 10/10/18 10:35 Exam: General: In no acute distress. Respiratory exam: CTAB. no accessory muscle use, rales, rhonchi, wheezes Cardiovascular exam: RRR, +S1, +S2. no murmur, gallop, rubs. GI/Abdominal exam: Non-tender, Non-distended, normal bowel sounds, soft, no peritoneal signs. Extremities exam: full ROM, no pedal edema, warm, no calf tenderness Neurological exam: alert and awake but disoriented. Confused. Following com mands. No focal deficits. No motor or sensory deficits. - Assessment and Plan (1) Diarrhea Current Visit: Yes Status: Acute (2) Dementia Current Visit: Yes Status: Chronic (3) ELZA (acute kidney injury) Current Visit: Yes Status: Acute (4) Dehydration Current Visit: Yes Status: Acute - Summary of Assessment and Plan Summary of Assessment and Plan: ELZA on CKD III - possibly secondary to dehydration/diarrhea. However no episodes of diarrhea since last 2 days - Improving with IVF. Continue to hold home losartan, lasix - CT of abdomen and pelvis without acute findings. hemodynamically stable. - c/w IVF. Will change to D5-0.45 NS. 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 - c/w home eliquis - monitor for bleeding Hypothyroidism - c/w home medication Severe dementia. - Continue supportive treatments and reorientation measures. - Resume home resperidone. - Time Spent with Patient Total time spent is greater than 50% in coordination of care (as documented) at patient's floor/unit and/or counseling patient: Internal Medicine: Result - Labs CBC & Chem 7: 10/10/18 05:16 10/10/18 05:16 Labs: Short CBC 10/10/18 Range/Units 05:16 WBC 5.9 (4.3-11.1) K/mcL Hgb 10.3 L (11.5-15.4) g/dL Hct 31.1 L (35.3-44.9) % Plt Count 166 (140-400) K/mcL Neutrophils # 2.9 (1.6-8.9) K/mcL [facility] 10/10/18 05:16 Sodium 141 Potassium 3.8 Chloride 116 H Carbon Dioxide 16 L BUN 33 H Creatinine 1.29 H Glucose 87 Calcium 8.6 Consult Discharge Plan - Plan Referrals: Yvan Ernst MD [Primary Care Provider] - (1) Diarrhea Qualifiers: Diarrhea type: unspecified type Qualified Code(s): R19.7 - Diarrhea, unspecified (2) Dementia Qualifiers: Dementia type: unspecified type Dementia behavioral disturbance: without behavioral disturbance Qualified Code(s): F03.90 - Unspecified dementia without behavioral disturbance
[2018-10-10] MEDS: D5% in 0.45% NACL 1,000 ML IVC SCH (12:59)
[2018-10-10] MEDS: risperiDONE 0.25 MG TABLET PO SCH (20:19)
[2018-10-10] MEDS ORDERED: Acetaminophen 325 MG TABLET PO PRN (23:56)
[2018-10-11] MEDS: D5% in 0.45% NACL 1,000 ML IVC SCH ×2 (03:40→09:51)
[2018-10-11 06:55] LABS: BUN/Creatinine Ratio 18 (6-26); Blood Urea Nitrogen 18 mg/dL (8-23); Calcium 8.8 mg/dL (8.6-10.3); Carbon Dioxide 17 mEq/L (23-29); Chloride 116 mEq/L (98-107); Glucose 97 mg/dL (70-105); Osmolality,Calculated 292 (280-300); Potassium 3.8 mEq/L (3.5-5.1); Sodium 140 mEq/L (136-145); eGFR For Non-African Americans 52 (> 60)
--- NOTE | 2018-10-11 08:01 | Electrocardiograph Report ---
[place] [id number] Test Date: 2018-10-08 Pat Name: Brandi Brannon Department: EXAM6 Room: 3A53 Gender: F Brewmaster: : [id number] Requested By: Kathia Blackmon Order Number: [id number] Reading MD: Jg Lindquist Measurements Intervals [place] Rate: 79 P: 61 FL: 163 QRS: 46 QRSD: 148 T: 208 QT: 400 QTc: 459 Interpretive Statements Sinus rhythm Multiple ventricular premature complexes Left bundle branch block Electronically Signed On 10-11-2018 8:00:16 EDT by Jg Lindquist
[2018-10-11] MEDS: Cholestyramine 4 GM POWD.PACK PO SCH ×3 (08:40→16:54)
[2018-10-11] MEDS: Apixaban 5 MG TABLET PO SCH (09:48)
[2018-10-11] MEDS: Metoprolol XL (24 HR) Succ 25 MG TAB.ER.24H PO SCH (09:48)
[2018-10-11 11:46] VITALS: BP 155/58
[2018-10-11] MEDS ORDERED: amLODIPine 5 MG TABLET PO SCH (13:00)
--- NOTE | 2018-10-11 13:00 | Discharge Summary ---
- NOTES TO OUTPATIENT PROVIDER Notes to Outpatient Provider: Losartan, Lasix and potassium supplementation held given ELZA. Likely should be discontinued permanently, reconsider if needed clinically to be restarted. Antihypertensive amlodipine added for her Blood pressure control. Date of Encounter: 10/11/18 Time of Encounter: 12:57 - Discharge Diagnosis (1) Diarrhea Priority: Primary Status: Acute Qualifiers: Diarrhea type: unspecified type Qualified Code(s): R19.7 - Diarrhea, unspecified (2) Dementia Priority: Secondary Status: Chronic Qualifiers: Dementia type: unspecified type Dementia behavioral disturbance: without behavioral disturbance Qualified Code(s): F03.90 - Unspecified dementia without behavioral disturbance (3) ELZA (acute kidney injury) Priority: Primary Status: Acute (4) Dehydration Priority: Primary Status: Acute Hospital course: Ms. Brannon is a 88 year old female with past medical history of severe dementia, hypertension, hyperlipidemia, hypothyroidism was brought in with 2 day episodes of diarrhea and was found to have acute kidney injury. C. difficile Stastny was sent however patient did not have anymore episodes of diarrhea and no testing was further performed. Her renal function improved with IV hydration. Her mentation improved significantly and she is alert and oriented participate in physical therapy however she has severe dementia and is often disoriented. Patient did not require any antibiotics and improved with IV hydration alone. Notably patient was on losartan, Lasix at previous facility. It was held while she was in hospital. She was continued on Eliquis for old PE. She was otherwise doing well except her dementia and was stable to be discharged back to assisted living facility. Losartan, Lasix and potassium supplementation were stopped on discharge given ELZA and dementia and she was given amlodipine for blood pressure control. Discharge discussed with: patient, nurse - Time Spent with Patient Total time spent providing and/or coordinating discharge services: Time spent: Greater than 30 minutes - Discharge Medications Prescriptions: New Amlodipine Besylate 10 mg PO DAILY 30 Days #30 tablet Continue Donepezil [Aricept] 5 mg PO HS Multivitamin [One Daily Essential] 1 tab PO DAILY Tramadol HCl [Ultram] 50 mg PO TID PRN PRN Reason: Pain Omeprazole [PriLOSEC] 20 mg PO DAILY@0630 capsule. Apixaban [Eliquis] 5 mg PO BID #180 tablet Cranberry Fruit Extract [Cranberry] 500 mg PO DAILY Levothyroxine [Synthroid] 88 mcg PO DAILY RisperiDONE [Risperdal] 0.5 mg PO HS diazePAM [Valium] 2 mg PO BID PRN PRN Reason: Anxiety Ergocalciferol (VITAMIN D2) [Vitamin D2] 50,000 unit PO WE Metoprolol Succinate [Toprol Xl] 25 mg PO DAILY Acetaminophen [Non-Aspirin] 650 mg PO BID PRN PRN Reason: Pain Melatonin 1 mg PO HS traZODone [TraZODone] 50 mg PO HS PRN PRN Reason: Insomnia Atorvastatin [Lipitor] 80 mg PO HS #30 tablet Discontinued Losartan Potassium [Cozaar] 100 mg PO DAILY Furosemide [Lasix] 40 mg PO DAILY tablet Potassium Chloride 40 meq PO DAILY Home Medications: Donepezil [Aricept] 5 mg PO HS 05/21/17 [History] Multivitamin [One Daily Essential] 1 tab PO DAILY 11/07/17 [History] Tramadol HCl [Ultram] 50 mg PO TID PRN 11/07/17 [History] Omeprazole [PriLOSEC] 20 mg PO DAILY@0630 capsule. 12/23/17 [Rx] Apixaban [Eliquis] 5 mg PO BID #180 tablet 12/24/17 [Rx] Cranberry Fruit Extract [Cranberry] 500 mg PO DAILY 06/23/18 [History] Ergocalciferol (VITAMIN D2) [Vitamin D2] 50,000 unit PO WE 06/23/18 [History] Levothyroxine [Synthroid] 88 mcg PO DAILY 06/23/18 [History] Metoprolol Succinate [Toprol Xl] 25 mg PO DAILY 06/23/18 [History] RisperiDONE [Risperdal] 0.5 mg PO HS 06/23/18 [History] diazePAM [Valium] 2 mg PO BID PRN 06/23/18 [History] Acetaminophen [Non-Aspirin] 650 mg PO BID PRN 07/01/18 [History] Atorvastatin [Lipitor] 80 mg PO HS #30 tablet 07/01/18 [Rx] Melatonin 1 mg PO HS 07/01/18 [History] traZODone [TraZODone] 50 mg PO HS PRN 07/01/18 [History] Amlodipine Besylate 10 mg PO DAILY 30 Days #30 tablet 10/11/18 [Rx] Allergies/Adverse Reactions: Allergy/AdvReac Type Severity Reaction Status Date / Time Penicillins [PCN] Allergy Unknown Hives Verified 07/01/18 09:01 codeine Allergy See Verified 07/01/18 09:01 Comments Date of admission: 10/08/18 20:48 Primary care physician: Yvan Ernst MD Consults: 10/08/18 21:50 Consult to [employer] [CONS] Routine Reason for SW Consult: pt from [facility] d/c planning 10/09/18 13:04 Consult to Physical Therapy [CONS] Routine Comment: Evaluate, develop and implement POC Reason for Consult: Patient currently lives in assisted living, but has d eclined from baseline Does patient have active BEDREST order?: Yes Is patient medically & hemodynamically stable?: Yes 10/09/18 13:07 Consult to Occupational Therapy [CONS] Routine Comment: Evaluate, develop and implement POC Reason for Consult: Patient lives in assisted living, but has declined from baseline. Does patient have active BEDREST order?: Yes Is patient medically & hemodynamically stable?: Yes 10/11/18 06:32 Consult to Invasive Line Access Team [CONS] Routine Reason for Consult: poor vascular access, failed attempts with vein viewer Line Type: EPIV Discharging clinician: John Cardona - Constitutional Vitals: Temp Pulse Resp BP Pulse Ox 97.6 F 73 20 155/58 99 10/11/18 11:43 10/11/18 11:43 10/11/18 11:43 10/11/18 11:43 10/11/18 11:43 Exam: General: In no acute distress. Respiratory exam: CTAB. no accessory muscle use, rales, rhonchi, wheezes Cardiovascular exam: RRR, +S1, +S2. no murmur, gallop, rubs. GI/Abdominal exam: Non-tender, Non-distended, normal bowel sounds, soft, no peritoneal signs. Extremities exam: full ROM, no pedal edema, warm, no calf tenderness Neurological exam: alert and awake but disoriented. Confused. Following commands. No focal deficits. No motor or sensory deficits. - Patient Status Disposition: Home Health Service Condition: Fair - Discharge Instructions Instructions: Dehydration (DC), Acute Kidney Injury (DC), Acute Diarrhea (GEN) Follow Up With: Yvan Ernst MD [Primary Care Provider] - (Web request. Office will call patient with date and time of appointment. Thank you.) Additional Instructions: Follow-up appointments: If there is not an appointment listed below, please call your physician and schedule a follow-up appointment. If you have congestive heart failure and your symptoms return, make an appointment with your physician. Medication List: Carry an up to date list of medications you are taking at all time. We have given you an updated medication list including any new medications that you have been prescribed. Please provide that list to your primary provider Symptoms: If your condition changes or you experience any of the following symptoms, notify your physician immediately: Unusual or worsening pain, fever, persistent nausea and vomiting, bleeding, increase in swelling (especially in your legs), sudden weight gain, extreme dizziness, chest pain, increased drainage or redness from a wound or incision. Go to the emergency department if you experience a problem with breathing. Weights: If you have a history of swelling or shortness of breath, weigh yourself daily and notify your physician if you have a weight gain of two or more pounds in one day or 5 or more pounds in a week. If you experience any of the warning signs for stroke: Sudden numbness or weakness of the face, arm or leg; especially on one side of the body, sudden confusion, trouble speaking or understanding, sudden trouble seeing in one or both eyes, sudden trouble walking, dizziness, loss of balance or coordination, sudden sever headache with no cause; Call 911 or go to the emergency room. Stroke is a medical emergency. Some risk factors for stroke: Age, cigarette smoking, diabetes, excessive alcohol consumption, family history, high blood pressure, overweight, physical inactivity, prior stroke, heart attack, diagnosis of carotid artery stenosis or other artery disease. If you smoke, STOP: Smoking or tobacco use significantly increases your risk of heart and lung disease. Your chance of disease greatly increases if you continue to smoke. For more information, call the [place] tobacco quit line for smoking cessation 1-759-FQPY-NOW ( ) - Diet and Activity Activity: as per physical therapy
--- NOTE | 2018-10-11 13:02 | Physician Discharge Referral ---
Home Health/Hosp Referral Info Transfer to: Home Health - Diagnosis (1) Diarrhea Status: Acute (2) Dementia Status: Chronic (3) ELZA (acute kidney injury) Status: Acute (4) Dehydration Status: Acute - Respiratory Orders Smoking Cessation: Smoking cessation has been advised. For more information, call the [place] Tobacco Quit Line at 2-164-NVEZ-NOW. - Services Needed Following services are medically necessary services: Nursing, Physical Therapy, Occupational Therapy - Transfer Medications Prescriptions: Amlodipine Besylate 10 mg PO DAILY 30 Days #30 tablet Home Medications: Donepezil [Aricept] 5 mg PO HS 05/21/17 [History] Multivitamin [One Daily Essential] 1 tab PO DAILY 11/07/17 [History] Tramadol HCl [Ultram] 50 mg PO TID PRN 11/07/17 [History] Omeprazole [PriLOSEC] 20 mg PO DAILY@0630 capsule. 12/23/17 [Rx] Apixaban [Eliquis] 5 mg PO BID #180 tablet 12/24/17 [Rx] Cranberry Fruit Extract [Cranberry] 500 mg PO DAILY 06/23/18 [History] Ergocalciferol (VITAMIN D2) [Vitamin D2] 50,000 unit PO WE 06/23/18 [History] Levothyroxine [Synthroid] 88 mcg PO DAILY 06/23/18 [History] Metoprolol Succinate [Toprol Xl] 25 mg PO DAILY 06/23/18 [History] RisperiDONE [Risperdal] 0.5 mg PO HS 06/23/18 [History] diazePAM [Valium] 2 mg PO BID PRN 06/23/18 [History] Acetaminophen [Non-Aspirin] 650 mg PO BID PRN 07/01/18 [History] Atorvastatin [Lipitor] 80 mg PO HS #30 tablet 07/01/18 [Rx] Melatonin 1 mg PO HS 07/01/18 [History] traZODone [TraZODone] 50 mg PO HS PRN 07/01/18 [History] Amlodipine Besylate 10 mg PO DAILY 30 Days #30 tablet 10/11/18 [Rx] Allergies/Adverse Reactions: Allergy/AdvReac Type Severity Reaction Status Date / Time Penicillins [PCN] Allergy Unknown Hives Verified 07/01/18 09:01 codeine Allergy See Verified 07/01/18 09:01 Comments Certification: Further, I certify that my clinical findings support that this patient is homebound (i.e. absences from home require considerable and taxing effort and are for medical reasons or sikhism services or infrequently or short duration when for other reasons) because: Homebound Reason: Patient requires assistance of a person or device to safely l eave home Attestation: My signature below is to certify that this patient is under my care and that I, or nurse practitioner, or a physician's service center assistant working with me, has a [id number] encounter with this patient.
== END 2018-10-11 19:35 | disposition home health service (06) | DRG 684 ==
LOC: EMEROOARM 14:20 → 3ANU 20:48 → SUATTDRO 20:48 → 3ANU 21:38
PROVIDERS: ADMIT Internal Medicine; ATTEND Internal Medicine

== ENCOUNTER 2018-10-11 20:30 | Inpatient (IN) ==
--- NOTE | 2018-10-11 20:41 | Emergency Department Note ---
Disposition Clinical Impression: Altered mental status Qualifiers: Altered mental status type: unspecified Qualified Code(s): R41.82 - Altered mental status, unspecified Disposition: Still a Patient Condition: Fair Forms: ED Satisfaction Letter, Work/School Release Time of Disposition: 21:21 General Adult HPI - General Stated complaint: Dementia Time Seen by Provider: 10/11/18 20:38 Source: EMS Mode of arrival: EMS Limitations: altered mental status Nursing Notes Reviewed: Yes Vital Signs Reviewed: Yes - History of Present Illness HPI Narrative: 88 yo female is brought in via EMS from assisted. The patient was discharged today and the ambulance had arrived at [facility] who saw the patient and stated that she is too confused for their level of care and they sent her back to the emergency room for readmission. This patient was initially admitted for diarrhea with dehydration causing acute kidney injury. The patient is currently alert only to self. She does not have any complaints at this time. - Related Data Home Medications Medication Instructions Recorded Confirmed Donepezil [Aricept] 5 mg PO HS 05/21/17 10/08/18 Multivitamin [One Daily Essential] 1 tab PO DAILY 11/07/17 10/08/18 Tramadol HCl [Ultram] 50 mg PO TID PRN 11/07/17 10/08/18 Cranberry Fruit Extract [Cranberry] 500 mg PO DAILY 06/23/18 10/08/18 Ergocalciferol (VITAMIN D2) 50,000 unit PO WE 06/23/18 10/08/18 [Vitamin D2] Levothyroxine [Synthroid] 88 mcg PO DAILY 06/23/18 10/08/18 Metoprolol Succinate [Toprol Xl] 25 mg PO DAILY 06/23/18 10/08/18 RisperiDONE [Risperdal] 0.5 mg PO HS 06/23/18 10/08/18 diazePAM [Valium] 2 mg PO BID PRN 06/23/18 10/08/18 Acetaminophen [Non-Aspirin] 650 mg PO BID PRN 07/01/18 10/08/18 Melatonin 1 mg PO HS 07/01/18 10/08/18 traZODone [TraZODone] 50 mg PO HS PRN 07/01/18 10/08/18 Previous Rx's Medication Instructions Recorded Omeprazole [PriLOSEC] 20 mg PO DAILY@0630 capsule. 12/23/17 Apixaban [Eliquis] 5 mg PO BID #180 tablet 12/24/17 Atorvastatin [Lipitor] 80 mg PO HS #30 tablet 07/01/18 Amlodipine Besylate 10 mg PO DAILY 30 Days #30 tablet 10/11/18 Allergies Allergy/AdvReac Type Severity Reaction Status Date / Time Penicillins [PCN] Allergy Unknown Hives Verified 10/11/18 21:18 codeine Allergy See Verified 10/11/18 21:18 Comments Limitations: ROS unobtainable due to patients medical condition Past Medical History - Past Medical History Source: old records reviewed Medical history: Reports: dementia, hyperlipidemia, hypertension, thyroid disease Surgical history: Reports: hysterectomy Psychiatric history: Reports: no psych history [employer] history: Reports: non-contributory - Social History Smoking Status: Never smoker Smokeless Tobacco Status: No Alcohol use: Reports: none Drug use: Reports: none Physical Exam - General Limitations: altered mental status General appearance: alert, in no apparent distress - Head Head exam: atraumatic, normocephalic - Eye Eye exam: Present: normal appearance, EOMI - ENT ENT exam: normal exam, normal oropharynx - Neck Neck exam: Present: normal inspection. Absent: tenderness, lymphadenopathy - Chest Chest inspection: Present: normal inspection. Absent: tenderness - Respiratory Respiratory exam: Present: normal lung sounds bilaterally - Cardiovascular Cardiovascular exam: Present: regular rate, normal rhythm - Abdominal Exam Abdominal exam: Present: soft, Non-Tender. Absent: distention, guarding, rebound, rigidity - Extremities Exam Extremities exam: Present: normal inspection. Absent: tenderness, pedal edema - Neurological Exam Neurological exam: Present: alert, other (oriented to self only. pleasant and cooperative.). Absent: oriented X3 - Psychiatric Psychiatric exam: Present: normal affect, normal mood - Skin Skin exam: Present: warm, dry, intact Course Vital Signs Temperature 98.3 F 10/11/18 20:52 Pulse Rate 70 10/11/18 20:52 Respiratory Rate 16 10/11/18 20:52 Blood Pressure 150/65 10/11/18 20:52 O2 Sat by Pulse Oximetry 95 10/11/18 20:52 Temperature 98.3 F 10/11/18 20:52 Pulse Rate 70 10/11/18 20:52 Respiratory Rate 16 10/11/18 20:52 Blood Pressure 150/65 10/11/18 20:52 O2 Sat by Pulse Oximetry 95 10/11/18 20:52 Oxygen Delivery Oxygen Delivery Room Air Medical Decision Making - MDM Narrative Medical decision making narrative: Patient was just discharged today and has had no acute changes during her travels with EMS. As [facility] refused to accept her as a patient, and her son is saying she continues to be too weak and too confused to go to an assisted living facility, we will pursue an AMS workup by obtaining lab work, EKG, CT scan of the head and chest x-ray as well as a urinalysis. [id number] - pt is still undergoing workup. She will be signed out to Dr. Herrera to finish her AMS workup and then be readmitted to the hospital. - Medical Records Medical records reviewed: Yes I reviewed the patient's medical records.
--- NOTE | 2018-10-11 21:07 | Emergency Department Note ---
Disposition Clinical Impression: Altered mental status Qualifiers: Altered mental status type: unspecified Qualified Code(s): R41.82 - Altered mental status, unspecified Disposition: Still a Patient Condition: Fair Referrals: Yvan Ernst MD [Primary Care Provider] - Forms: ED Satisfaction Letter, Work/School Release General Adult HPI - General Chief complaint: ED General Medical Stated complaint: Dementia Time Seen by Provider: 10/11/18 20:38 Source: EMS Mode of arrival: EMS Limitations: altered mental status - History of Present Illness Pain Scale: 0 - Related Data Home Medications Medication Instructions Recorded Confirmed Donepezil [Aricept] 5 mg PO HS 05/21/17 10/11/18 Multivitamin [One Daily Essential] 1 tab PO DAILY 11/07/17 10/11/18 Tramadol HCl [Ultram] 50 mg PO TID PRN 11/07/17 10/11/18 Cranberry Fruit Extract [Cranberry] 500 mg PO DAILY 06/23/18 10/11/18 Ergocalciferol (VITAMIN D2) 50,000 unit PO WE 06/23/18 10/11/18 [Vitamin D2] Levothyroxine [Synthroid] 88 mcg PO DAILY 06/23/18 10/11/18 Metoprolol Succinate [Toprol Xl] 25 mg PO DAILY 06/23/18 10/11/18 RisperiDONE [Risperdal] 0.5 mg PO HS 06/23/18 10/11/18 diazePAM [Valium] 2 mg PO BID PRN 06/23/18 10/11/18 Acetaminophen [Non-Aspirin] 650 mg PO BID PRN 07/01/18 10/11/18 Melatonin 1 mg PO HS 07/01/18 10/11/18 traZODone [TraZODone] 50 mg PO HS PRN 07/01/18 10/11/18 Previous Rx's Medication Instructions Recorded Omeprazole [PriLOSEC] 20 mg PO DAILY@0630 capsule. 12/23/17 Apixaban [Eliquis] 5 mg PO BID #180 tablet 12/24/17 Atorvastatin [Lipitor] 80 mg PO HS #30 tablet 07/01/18 Amlodipine Besylate 10 mg PO DAILY 30 Days #30 tablet 10/11/18 Allergies Allergy/AdvReac Type Severity Reaction Status Date / Time Penicillins [PCN] Allergy Unknown Hives Verified 10/11/18 21:18 codeine Allergy See Verified 10/11/18 21:18 Comments Past Medical History - Past Medical History Medical history: Reports: dementia, hyperlipidemia, hypertension, thyroid disease Surgical history: Reports: hysterectomy Psychiatric history: Reports: no psych history DISABILITY BENEFITS SPECIALIST history: Reports: non-contributory - Social History Smoking Status: Never smoker Smokeless Tobacco Status: No Alcohol use: Reports: none Drug use: Reports: none Physical Exam - General Limitations: altered mental status General appearance: alert, in no apparent distress Course - Consultations Consultation #1: Admit to [facility] Time: 23:39 Vital Signs Temperature 98.3 F 10/11/18 20:52 Pulse Rate 70 10/11/18 20:52 Respiratory Rate 16 10/11/18 20:52 Blood Pressure 150/65 10/11/18 20:52 O2 Sat by Pulse Oximetry 95 10/11/18 20:52 Temperature 98.3 F 10/11/18 20:52 Pulse Rate 70 10/11/18 20:52 Respiratory Rate 16 10/11/18 20:52 Blood Pressure 150/65 10/11/18 20:52 O2 Sat by Pulse Oximetry 95 10/11/18 20:52 Oxygen Delivery Oxygen Delivery Room Air Medical Decision Making - Lab Data Result diagrams: 10/11/18 21:11 10/11/18 21:11 Lab Results 10/11/18 10/11/18 10/11/18 Range/Units 21:11 21:11 21:11 WBC 6.5 (4.3-11.1) K/mcL RBC 3.75 L (3.82-4.97) M/mcL Hgb 12.0 D (11.5-15.4) g/dL Hct 35.0 L (35.3-44.9) % MCV 93.3 (83.0-100.0) fL MCH 32.0 (28.0-33.3) pg MCHC 34.3 (31.6-35.5) g/dL RDW 12.6 (11.5-14.5) % Plt Count 204 (140-400) K/mcL MPV 9.8 (9.4-12.4) fL Immature Gran % 0.2 (0-4) % Seg Neutrophils % 49.4 % Lymphocytes % 40.4 % Monocytes % 6.5 % Eosinophils % 2.9 % Basophils % 0.6 % Neutrophils # 3.2 (1.6-8.9) K/mcL Lymphocytes # 2.6 (0.6-4.6) K/mcL Monocytes # 0.4 (0.0-1.3) K/mcL Eosinophils # 0.2 (0.0-0.6) K/mcL Basophils # 0.0 (0.0-0.2) K/mcL Reactive Lymphocytes Present A (Not Present) Platelet Estimate Normal (Normal) PT 13.9 H (9.4-12.1) Seconds INR 1.2 APTT 28.5 (26.0-36.0) Seconds Sodium 141 (136-145) mEq/L Potassium 3.5 (3.5-5.1) mEq/L Chloride 114 H (98-107) mEq/L Carbon Dioxide 20 L (23-29) mEq/L BUN 13 (8-23) mg/dL Creatinine 0.95 (0.60-1.20) mg/dL Est GFR ( Amer) > 60 (> 60) Est GFR (Non-Af Amer) 55 L (> 60) BUN/Creatinine Ratio 14 (6-26) Glucose 87 (70-105) mg/dL Calculated Osmolality 291 (280-300) Calcium 9.2 (8.6-10.3) mg/dL Total Bilirubin 0.5 (0.3-1.0) mg/dL Direct Bilirubin 0.1 (0.0-0.2) mg/dL Indirect Bilirubin 0.4 (0.0-1.2) mg/dL AST 27 (13-39) Units/L ALT 19 (7-52) Units/L Alkaline Phosphatase 72 (34-104) Units/L Ammonia (16-53) mcmol/L Troponin I < 0.03 (< 0.04) ng/mL Serum Total Protein 6.5 (6.4-8.9) g/dL Albumin 3.5 (3.5-5.7) g/dL Globulin 3.0 (2.4-3.5) g/dL Albumin/Globulin Ratio 1.2 (1.1-2.2) Urine Color (Yellow) Urine Clarity (Clear) Urine pH (5.0-8.0) pH Units Ur Specific [place] (1.010-1.025) Urine Protein (Neg-Trace) mg/dL Urine Glucose (UA) (Normal) mg/dL Urine Ketones (Negative) mg/dL Urine Blood (Negative) Urine Nitrite (Negative) Urine Bilirubin (Negative) Urine Urobilinogen (Normal) mg/dL Ur Leukocyte Esterase (Negative) Urine Microscopic RBC (0-3) per hpf Urine Microscopic WBC (0-3) per hpf Ur Squamous Epith Cells (None-Few) per lpf Urine Bacteria (None-Few) per hpf Hyaline Casts (None-Few) per lpf Ur Culture Indicated? (NO) Urine Opiates Screen (Kihxnz=309) ng/mL Ur Barbiturates Screen (Dqhhil=517) ng/mL Ur Phencyclidine Scrn (Cutoff=25) ng/mL Ur Amphetamines Screen (Dfpaqq=6918) ng/mL U Benzodiazepines Scrn (Qacnha=622) ng/mL Urine Cocaine Screen (Cutoff= 300) ng/mL U Marijuana (THC) Screen (Cutoff = 50) ng/mL Ur Drug Screen Interp Ethyl Alcohol < 10 (Less than 10) mg/dL 10/11/18 10/11/18 10/11/18 Range/Units 21:11 22:12 22:12 WBC (4.3-11.1) K/mcL RBC (3.82-4.97) M/mcL Hgb (11.5-15.4) g/dL Hct (35.3-44.9) % MCV (83.0-100.0) fL MCH (28.0-33.3) pg MCHC (31.6-35.5) g/dL RDW (11.5-14.5) % Plt Count (140-400) K/mcL MPV (9.4-12.4) fL Immature Gran % (0-4) % Seg Neutrophils % % Lymphocytes % % Monocytes % % Eosinophils % % Basophils % % Neutrophils # (1.6-8.9) K/mcL Lymphocytes # (0.6-4.6) K/mcL Monocytes # (0.0-1.3) K/mcL Eosinophils # (0.0-0.6) K/mcL Basophils # (0.0-0.2) K/mcL Reactive Lymphocytes (Not Present) Platelet Estimate (Normal) PT (9.4-12.1) Seconds INR APTT (26.0-36.0) Seconds Sodium (136-145) mEq/L Potassium (3.5-5.1) mEq/L Chloride (98-107) mEq/L Carbon Dioxide (23-29) mEq/L BUN (8-23) mg/dL Creatinine (0.60-1.20) mg/dL Est GFR ( Amer) (> 60) Est GFR (Non-Af Amer) (> 60) BUN/Creatinine Ratio (6-26) Glucose (70-105) mg/dL Calculated Osmolality (280-300) Calcium (8.6-10.3) mg/dL Total Bilirubin (0.3-1.0) mg/dL Direct Bilirubin (0.0-0.2) mg/dL Indirect Bilirubin (0.0-1.2) mg/dL AST (13-39) Units/L ALT (7-52) Units/L Alkaline Phosphatase (34-104) Units/L Ammonia 40 (16-53) mcmol/L Troponin I (< 0.04) ng/mL Serum Total Protein (6.4-8.9) g/dL Albumin (3.5-5.7) g/dL Globulin (2.4-3.5) g/dL Albumin/Globulin Ratio (1.1-2.2) Urine Color Yellow (Yellow) Urine Clarity Clear (Clear) Urine pH 5.0 (5.0-8.0) pH Units Ur Specific [place] 1.010 (1.010-1.025) Urine Protein Negative (Neg-Trace) mg/dL Urine Glucose (UA) Normal (Normal) mg/dL Urine Ketones Negative (Negative) mg/dL Urine Blood Negative (Negative) Urine Nitrite Negative (Negative) Urine Bilirubin Negative (Negative) Urine Urobilinogen Normal (Normal) mg/dL Ur Leukocyte Esterase Small H (Negative) Urine Microscopic RBC 0-3 (0-3) per hpf Urine Microscopic WBC 0-3 (0-3) per hpf Ur Squamous Epith Cells Many H (None-Few) per lpf Urine Bacteria None Seen (None-Few) per hpf Hyaline Casts None Seen (None-Few) per lpf Ur Culture Indicated? NO. A (NO) Urine Opiates Screen Negative (Jjtafr=175) ng/mL Ur Barbiturates Screen Negative (Rnrhfd=393) ng/mL Ur Phencyclidine Scrn Negative (Cutoff=25) ng/mL Ur Amphetamines Screen Negative (Lyvtog=8792) ng/mL U Benzodiazepines Scrn Negative (Nxojwu=758) ng/mL Urine Cocaine Screen Negative (Cutoff= 300) ng/mL U Marijuana (THC) Screen Negative (Cutoff = 50) ng/mL Ur Drug Screen Interp See Below Ethyl Alcohol (Less than 10) mg/dL Attestation Statement - Attestation Attestation: I examined this patient and my medical decision-making was reviewed with the Resident Physician. I agree with the documented findings, disposition and treatment plan as described except to the extent set forth below. Patient presents to the ED with a chief complaint of altered mental status. Patient was discharged from the floor today. She was sent back to her assisted living facility. They would not accept her there is a state that it was not a high enough level of care for her. She was brought back to the ED. Patient is awake and alert on exam. Oriented only to self. Does not know where she is. Thinks it is Sunday. Thinks she still lives with her who is . Abdomen soft lungs clear. Plan. Readmission. Son arrives. He is understandably upset. He did not know she was being discharged today. He states she is more confused than her baseline. She usually has to go to rehabilitation at [facility] after a hospital admission. Altered mental status workup. We will readmit. EKG sinus at 68. Left bundle branch block. Left axis. Unchanged from EKG October 08. Urinalysis clear. Head CT negative. We will admit to medicine. Chest X-Ray 10/11/18 21:00 IMPRESSION: Possible left pleural effusion with no acute airspace disease. D/ / Ezio Canseco MD / Ezoi Canseco MD Interpreting Provider: Ezio Canseco MD Head CT 10/11/18 21:00 IMPRESSION: No acute intracranial abnormality detected. D/ / Sadiq York MD / Sadiq York MD Interpreting Provider: Sadiq York MD
[2018-10-11 21:26] LABS: Basophils % 0.6 %; Eosinophils # 0.2 K/mcL (0.0-0.6); Eosinophils % 2.9 %; Immature Granulocytes % 0.2 % (0-4); Lymphocytes # 2.6 K/mcL (0.6-4.6); Lymphocytes % 40.4 %; Mean Corpuscular HGB Conc 34.3 g/dL (31.6-35.5); Mean Corpuscular Volume 93.3 fL (83.0-100.0); Mean Platelet Volume 9.8 fL (9.4-12.4); Monocytes # 0.4 K/mcL (0.0-1.3); Monocytes % 6.5 %; Neutrophils # 3.2 K/mcL (1.6-8.9); Platelet Count 204 K/mcL (140-400); Red Blood Count 3.75 M/mcL (3.82-4.97); Red Cell Distribution Width 12.6 % (11.5-14.5); Segmented Neutrophils % 49.4 %
[2018-10-11 21:37] LABS: INR 1.2; Prothrombin Time 13.9 Seconds (9.4-12.1)
[2018-10-11 21:40] LABS: Activated Partial Thrombo Time 28.5 Seconds (26.0-36.0)
[2018-10-11 21:48] LABS: Alanine Aminotransferase 19 Units/L (7-52); Albumin 3.5 g/dL (3.5-5.7); Albumin/Globulin Ratio 1.2 (1.1-2.2); Alkaline Phosphatase 72 Units/L (34-104); Aspartate Amino Transferase 27 Units/L (13-39); BUN/Creatinine Ratio 14 (6-26); Bilirubin,Direct 0.1 mg/dL (0.0-0.2); Bilirubin,Indirect 0.4 mg/dL (0.0-1.2); Bilirubin,Total 0.5 mg/dL (0.3-1.0); Blood Urea Nitrogen 13 mg/dL (8-23); Calcium 9.2 mg/dL (8.6-10.3); Carbon Dioxide 20 mEq/L (23-29); Chloride 114 mEq/L (98-107); Ethanol < 10 mg/dL (Less than 10); Glucose 87 mg/dL (70-105); Osmolality,Calculated 291 (280-300); Potassium 3.5 mEq/L (3.5-5.1); Sodium 141 mEq/L (136-145); Total Protein 6.5 g/dL (6.4-8.9); Troponin I < 0.03 ng/mL (< 0.04); eGFR For Non-African Americans 55 (> 60)
[2018-10-11 21:51] LABS: Platelet Estimate Normal (Normal); Reactive Lymphocytes Present (Not Present)
[2018-10-11 22:44] LABS: Bilirubin,Urine Negative (Negative); Blood,Urine Negative (Negative); Clarity,Urine Clear (Clear); Color,Urine Yellow (Yellow); Glucose,Urine (UA) Normal (Normal); Ketones,Urine Negative (Negative); Leukocyte Esterase,Urine Small (Negative); Nitrite,Urine Negative (Negative); Protein,Urine Negative (Neg-Trace); Urobilinogen,Urine Normal (Normal)
[2018-10-11 22:47] LABS: Bacteria,Urine None Seen per hpf (None-Few); Hyaline Casts,Urine None Seen per lpf (None-Few); RBC,Urine 0-3 per hpf (0-3); Squamous Epithelial Cell,Urine Many per lpf (None-Few); WBC,Urine 0-3 per hpf (0-3)
[2018-10-11 22:49] LABS: Amphetamine Screen,Urine Negative ng/mL (Cutoff=1000); Barbiturate Screen,Urine Negative ng/mL (Cutoff=200); Benzodiazepines Screen,Urine Negative ng/mL (Cutoff=200); Cannabinoid Screen,Urine Negative ng/mL (Cutoff = 50); Cocaine Screen,Urine Negative ng/mL (Cutoff= 300); Opiate Screen,Urine Negative ng/mL (Cutoff=300); Phencyclidine Screen,Urine Negative ng/mL (Cutoff=25)
[2018-10-12] MEDS ORDERED: Naloxone 0.4 MG/ML INJ IVP PRN (08:12)
[2018-10-12] MEDS ORDERED: Acetaminophen 325 MG TABLET PO PRN (08:14)
[2018-10-12] MEDS ORDERED: traZODone 50 MG TABLET PO PRN (08:14)
[2018-10-12] MEDS ORDERED: traMADol 50 MG TABLET PO PRN (08:14)
[2018-10-12] MEDS ORDERED: diazePAM 2 MG TABLET PO PRN (08:14)
[2018-10-12 09:12] LABS: Basophils % 0.6 %; Eosinophils # 0.3 K/mcL (0.0-0.6); Eosinophils % 4.7 %; Hematocrit 33.6 % (35.3-44.9); Hemoglobin 11.6 g/dL (11.5-15.4); Immature Granulocytes % 0.2 % (0-4); Lymphocytes # 2.3 K/mcL (0.6-4.6); Lymphocytes % 36.9 %; Mean Corpuscular HGB Conc 34.5 g/dL (31.6-35.5); Mean Corpuscular Hemoglobin 31.8 pg (28.0-33.3); Mean Corpuscular Volume 92.1 fL (83.0-100.0); Monocytes # 0.4 K/mcL (0.0-1.3); Monocytes % 6.9 %; Platelet Count 230 K/mcL (140-400); Red Blood Count 3.65 M/mcL (3.82-4.97); Red Cell Distribution Width 12.6 % (11.5-14.5); Segmented Neutrophils % 50.7 %
[2018-10-12 09:18] LABS: Neutrophils # 3.1 K/mcL (1.6-8.9)
[2018-10-12 09:19] LABS: BUN/Creatinine Ratio 12 (6-26); Blood Urea Nitrogen 11 mg/dL (8-23); Calcium 8.9 mg/dL (8.6-10.3); Carbon Dioxide 19 mEq/L (23-29); Chloride 114 mEq/L (98-107); Glucose 96 mg/dL (70-105); Magnesium 1.8 mg/dL (1.6-2.6); Osmolality,Calculated 289 (280-300); Phosphorous 2.7 mg/dL (2.7-4.5); Potassium 3.5 mEq/L (3.5-5.1); Sodium 140 mEq/L (136-145); eGFR For Non-African Americans 60 (> 60)
[2018-10-12 09:20] LABS: Platelet Estimate Normal (Normal); Reactive Lymphocytes Present (Not Present)
[2018-10-12] MEDS ORDERED: Furosemide 20 MG/2 ML VIAL IVP ONE (10:18)
--- NOTE | 2018-10-12 10:27 | Internal Med History&Physical ---
Date of Encounter: 10/12/18 Time of Encounter: 08:15 Internal Medicine - H&P: HPI Chief complaint: change in mental status Admitted From: Long-term Nursing Facility Plans for Post Hospital Care: Transfer Half-Way Facility History of present illness: Ms. Brannon is a 88 year old female Pt is an 88y/o female with PMH of HTN, HLD, Hypothyroidism, dementia who was sent back from assisted living facility for frail status and inability to care for herself. Pt was discharged from the hospital on 10/11/18 to assisted living facility after being managed for ELZA secondary to dehydration and diarrhea. Pt was sent back to the ER because as per Assisted living facility standards, pt is too frail to take care of herself. Upon arrival to the ER, pt is somnolent. She is seen and examined at bedside. She was sleeping but easily arousable. She is oriented to self and as per records, this appears to be her baseline. No diarrhea has been reported since her last hospitalization. Pt's son is aware of pt's recurrent hospitalization and he wishes to initiate placement at a SNF. Pt denies any discomfort but reports of being cold. CXR reported left sided pleural effusion Awaiting family input in regards to code status. Ten point ROS negative except as listed above. Past Med Surg Social Fam HX - Past Medical History Medical history: dementia, hyperlipidemia, hypertension, thyroid disease Additional medical history: colitis Psychiatric history: no psych history - Past Surgical History Surgical History: hysterectomy - Social History Smoking Status: Never smoker Smokeless Tobacco Status: No Alcohol use: none Drug use: none - Family History Sister Hx Family Neurologic Disorders: Yes (bonnie) Internal Medicine - H&P: Meds Donepezil [Aricept] 5 mg PO HS 05/21/17 [History] Multivitamin [One Daily Essential] 1 tab PO DAILY 11/07/17 [History] Tramadol HCl [Ultram] 50 mg PO TID PRN 11/07/17 [History] Omeprazole [PriLOSEC] 20 mg PO DAILY@0630 capsule. 12/23/17 [Rx] Apixaban [Eliquis] 5 mg PO BID #180 tablet 12/24/17 [Rx] Cranberry Fruit Extract [Cranberry] 500 mg PO DAILY 06/23/18 [History] Ergocalciferol (VITAMIN D2) [Vitamin D2] 50,000 unit PO WE 06/23/18 [History] Levothyroxine [Synthroid] 88 mcg PO DAILY 06/23/18 [History] Metoprolol Succinate [Toprol Xl] 25 mg PO DAILY 06/23/18 [History] RisperiDONE [Risperdal] 0.5 mg PO HS 06/23/18 [History] diazePAM [Valium] 2 mg PO BID PRN 06/23/18 [History] Acetaminophen [Non-Aspirin] 650 mg PO BID PRN 07/01/18 [History] Atorvastatin [Lipitor] 80 mg PO HS #30 tablet 07/01/18 [Rx] Melatonin 1 mg PO HS 07/01/18 [History] traZODone [TraZODone] 50 mg PO HS PRN 07/01/18 [History] Amlodipine Besylate 10 mg PO DAILY 30 Days #30 tablet 10/11/18 [Rx] Allergy/AdvReac Type Severity Reaction Status Date / Time Penicillins [PCN] Allergy Unknown Hives Verified 10/11/18 21:18 codeine Allergy See Verified 10/11/18 21:18 Comments All Systems PM: A 10-system review of systems was performed and is negative for pertinent findings except as documented above in the HPI. Review of systems: Ten point ROS negative except as listed in HPI - Constitutional Vitals: Temp Pulse Resp BP Pulse Ox 98.2 F 66 16 171/66 98 10/12/18 01:11 10/12/18 01:11 10/12/18 01:11 10/12/18 01:11 10/12/18 01:11 Exam: General: No acute distress, somnolent but easily arousable, oriented to self (appears to be at baseline mental status), frail appearing elderly female HEENT: EOMI, NC/AT, no scleral icterus Respiratory: decreased breath sounds on left, no wheezing, basilar rales on left Cardiovascular: Regular, Rate, Rhythm, No murmurs GI: Soft, Non tender, non distended, normal bowel sounds Ext: No edema, no tenderness, positive pulses Neuro: advanced dementia, no focal deficits Internal Med - H&P Results - Labs CBC & Chem 7: 10/12/18 08:27 10/12/18 08:27 Labs: Short CBC 10/11/18 10/12/18 Range/Units 21:11 08:27 WBC 6.5 6.2 (4.3-11.1) K/mcL Hgb 12.0 D 11.6 (11.5-15.4) g/dL Hct 35.0 L 33.6 L (35.3-44.9) % Plt Count 204 230 (140-400) K/mcL Neutrophils # 3.2 3.1 (1.6-8.9) K/mcL BMP 10/11/18 10/12/18 21:11 08:27 Sodium 141 140 Potassium 3.5 3.5 Chloride 114 H 114 H Carbon Dioxide 20 L 19 L BUN 13 11 Creatinine 0.95 0.89 Glucose 87 96 Calcium 9.2 8.9 Cardiac Enzymes 10/11/18 Range/Units 21:11 Troponin I < 0.03 (< 0.04) ng/mL Liver Function 10/11/18 Range/Units 21:11 Total Bilirubin 0.5 (0.3-1.0) mg/dL Direct Bilirubin 0.1 (0.0-0.2) mg/dL AST 27 (13-39) Units/L ALT 19 (7-52) Units/L Alkaline Phosphatase 72 (34-104) Units/L Albumin 3.5 (3.5-5.7) g/dL Urine 10/11/18 Range/Units 22:12 Urine Color Yellow (Yellow) Urine Clarity Clear (Clear) Urine pH 5.0 (5.0-8.0) pH Units Ur Specific [place] 1.010 (1.010-1.025) Urine Protein Negative (Neg-Trace) mg/dL Urine Glucose (UA) Normal (Normal) mg/dL - Impressions ITS Impressions Chest X-Ray 10/11/18 21:00 IMPRESSION: Possible left pleural effusion with no acute airspace disease. D/ / Ezio Canseco MD / Ezio Canseco MD Interpreting Provider: Ezio Canseco MD Head CT 10/11/18 21:00 IMPRESSION: No acute intracranial abnormality detected. D/ / Sadiq York MD / Sadiq York MD Interpreting Provider: Sadiq York MD - Assessment and Plan (1) Metabolic acidosis Current Visit: Yes Status: Acute Assessment and plan: likely secondary to GI losses will initiate PO bicarb speech evaluation requested as pt did not pass bedside dysphagia screening will closely monitor (2) Pleural effusion Current Visit: Yes Status: Acute Assessment and plan: will administer one time dose of lasix 20mg IV will obtain respiratory viral panel closely monitor O2 saturation, currently saturating well on room air (3) CKD (chronic kidney disease) stage 3, GFR 30-59 ml/min Current Visit: No Status: Chronic Assessment and plan: renal function at baseline will continue to monitor (4) Dementia Current Visit: No Status: Chronic Assessment and plan: continue home medications Qualifiers: Dementia type: unspecified type Dementia behavioral disturbance: without behavioral disturbance Qualified Code(s): F03.90 - Unspecified dementia without behavioral disturbance (5) Hypertension Current Visit: No Status: Chronic Assessment and plan: noted to be hypertensive upon arrival, repeat BP within acceptable range (148/71) will resume home medications closely monitor BP Qualifiers: Hypertension type: essential hypertension Qualified Code(s): I10 - Essential (primary) hypertension (6) Hypothyroid Current Visit: No Status: Chronic Assessment and plan: continue home dose of levothyroxine Qualifiers: Hypothyroidism type: unspecified Qualified Code(s): E03.9 - Hypothyroidism, unspecified (7) DVT prophylaxis Current Visit: No Status: Acute Assessment and plan: on Eliquis (8) Pulmonary embolism Current Visit: No Status: Chronic Assessment and plan: hx of PE continue home dose of Eliquis Qualifiers: Pulmonary embolism type: saddle Chronicity: chronic Acute cor pulmonale presence: without acute cor pulmonale Qualified Code(s): I26.92 - Saddle em bolus of pulmonary artery without acute cor pulmonale (9) Frail elderly Current Visit: Yes Status: Acute Assessment and plan: link trainer maintenance worker evaluation requested for placement to SNF vs. nursing home NH - Time Spent With Patient Total time spent is greater than 50% in coordination of care (as documented) at patient's floor/unit and/or counseling patient: Greater than 35 minutes
--- NOTE | 2018-10-12 10:57 | Electrocardiograph Report ---
[address] [address] Test Date: 2018-10-11 Pat Name: Brandi Brannon Department: EXAM11 Room: 3B11 Gender: F Pot Firer: : 1930 Requested By: Tiffany See Order Number: [id number] Reading MD: Gerson Ordonez Measurements Intervals [place] Rate: 68 P: 230 NC: 65 QRS: 32 QRSD: 149 T: 208 QT: 399 QTc: 425 Interpretive Statements Sinus or ectopic atrial rhythm Ventricular premature complex Left bundle branch block Electronically Signed On 10-12-2018 10:55:46 EDT by Gerson Ordonez
[2018-10-12 11:17] LABS: Bilirubin,Urine Negative (Negative); Blood,Urine Negative (Negative); Clarity,Urine Clear (Clear); Color,Urine Yellow (Yellow); Glucose,Urine (UA) Normal (Normal); Ketones,Urine Negative (Negative); Leukocyte Esterase,Urine Negative (Negative); Nitrite,Urine Negative (Negative); Protein,Urine Negative (Neg-Trace); Specific Gravity,Urine 1.009 (1.010-1.025); Urobilinogen,Urine Normal (Normal)
[2018-10-12 13:14] LABS: Adenovirus Not Detected (Not Detect); Bordetella Pertussis Not Detected (Not Detect); Chlamydophila pneumoniae Not Detected (Not Detect); Coronavirus 229E Not Detected (Not Detect); Coronavirus HKU1 Not Detected (Not Detect); Coronavirus NL63 Not Detected (Not Detect); Coronavirus OC43 Not Detected (Not Detect); Human Metapneumovirus Not Detected (Not Detect); Human Rhinovirus/Enterovirus Not Detected (Not Detect); Influenza A Subtype 2009 H1 Not Detected (Not Detect); Influenza A Untypeable Not Detected (Not Detect); Influenza B Not Detected (Not Detect); Mycoplasma pneumoniae Not Detected (Not Detect); Parainfluenza Virus 1 Not Detected (Not Detect); Parainfluenza Virus 2 Not Detected (Not Detect); Parainfluenza Virus 3 Not Detected (Not Detect); Parainfluenza Virus 4 Not Detected (Not Detect); Respiratory Syncytial Virus Not Detected (Not Detect)
[2018-10-12] MEDS: Multivit/Ca/Min/Fe/FA 1 TAB TABLET PO SCH (13:16)
[2018-10-12] MEDS: amLODIPine 5 MG TABLET PO SCH (13:16)
[2018-10-12] MEDS: Apixaban 5 MG TABLET PO SCH ×2 (13:16→20:25)
[2018-10-12] MEDS: Metoprolol XL (24 HR) Succ 25 MG TAB.ER.24H PO SCH (13:17)
[2018-10-12] MEDS: CRANBERRY FRUIT EXTRACT 500 MG PO SCH (14:16)
[2018-10-12] MEDS: Melatonin 3 MG TABLET PO SCH (20:25)
[2018-10-12] MEDS: risperiDONE 1 MG TABLET PO SCH (20:26)
[2018-10-13 06:52] LABS: Calcium 8.8 mg/dL (8.6-10.3); Magnesium 1.9 mg/dL (1.6-2.6); Phosphorous 3.7 mg/dL (2.7-4.5); Potassium 3.8 mEq/L (3.5-5.1)
[2018-10-13 07:13] LABS: Basophils # 0.1 K/mcL (0.0-0.2); Basophils % 0.7 %; Eosinophils # 0.3 K/mcL (0.0-0.6); Eosinophils % 3.8 %; Hematocrit 34.6 % (35.3-44.9); Hemoglobin 11.8 g/dL (11.5-15.4); Immature Granulocytes % 0.3 % (0-4); Lymphocytes # 3.3 K/mcL (0.6-4.6); Mean Corpuscular HGB Conc 34.1 g/dL (31.6-35.5); Mean Corpuscular Hemoglobin 31.1 pg (28.0-33.3); Mean Corpuscular Volume 91.1 fL (83.0-100.0); Mean Platelet Volume 9.5 fL (9.4-12.4); Monocytes # 0.4 K/mcL (0.0-1.3); Monocytes % 6.3 %; Neutrophils # 2.8 K/mcL (1.6-8.9); Platelet Count 220 K/mcL (140-400); Red Cell Distribution Width 12.7 % (11.5-14.5); Segmented Neutrophils % 40.9 %
[2018-10-13] MEDS: CRANBERRY FRUIT EXTRACT 500 MG PO SCH (07:23)
[2018-10-13] MEDS: amLODIPine 5 MG TABLET PO SCH (07:23)
[2018-10-13] MEDS: Metoprolol XL (24 HR) Succ 25 MG TAB.ER.24H PO SCH (07:23)
[2018-10-13 07:29] LABS: Platelet Estimate Normal (Normal); Reactive Lymphocytes Present (Not Present)
--- NOTE | 2018-10-13 09:24 | Internal Med Progress Note ---
Hospitalist Progress Note - Encounter Date of Encounter: 10/13/18 Time of Encounter: 08:58 - Subjective Interval History: Pt seen and examined at bedside. Resting in bed, more awake compared to previous day. As per son, pt has advanced dementia and mental status waxes and wanes. Pt was restless overnight but did not require any intervention. Pt appears to be at her baseline mental status and denies any pain at this time. front worker evaluation have been requested for placement Ten point ROS negative except as listed above. RN requested to get patient out of bed to chair, PT evaluation requested - Exam Vitals: Temp Pulse Resp BP Pulse Ox 97.4 F L 55 17 116/57 97 10/13/18 06:34 10/13/18 06:34 10/13/18 06:34 10/13/18 06:34 10/13/18 06:34 Exam: General: No acute distress, oriented to self (appears to be at baseline mental status), frail appearing elderly female HEENT: EOMI, NC/AT, no scleral icterus Respiratory: equal air entry bilaterally, no wheezing, no rales Cardiovascular: Regular, Rate, Rhythm, No murmurs GI: Soft, Non tender, non distended, normal bowel sounds Ext: No edema, no tenderness, positive pulses Neuro: advanced dementia, no focal deficits - Assessment and Plan (1) Metabolic acidosis Current Visit: Yes Status: Resolved Assessment and Plan: likely secondary to GI losses resolved will d/c bicab supplementation Speech therapy evaluation appreciated, pt currently on nectar thick liquids and mechanically altered diet. Will obtain speech follow up for reassessment of diet (2) Pleural effusion Current Visit: Yes Status: Acute Assessment and Plan: s/p lasix administration clinical exam negative currently saturating well on room air and in no respiratory distress respiratory viral panel negative (3) CKD (chronic kidney disease) stage 3, GFR 30-59 ml/min Current Visit: No Status: Chronic Assessment and Plan: Acute on chronic kidney injury likely secondary to lasix therapy will monitor at this time if renal function worsens, will initiate IV fluids (4) Dementia Current Visit: No Status: Chronic Assessment and Plan: continue home medications (5) Hypertension Current Visit: No Status: Chronic Assessment and Plan: BP within acceptable range continue home medications closely monitor BP (6) Hypothyroid Current Visit: No Status: Chronic Assessment and Plan: continue home dose of levothyroxine (7) DVT prophylaxis Current Visit: No Status: Acute Assessment and Plan: on Eliquis (8) Pulmonary embolism Current Visit: No Status: Chronic Assessment and Plan: hx of PE continue home dose of Eliquis (9) Frail elderly Current Visit: Yes Status: Acute Assessment and Plan: front worker evaluation requested for placement to SNF vs. [facility] - Time Spent with Patient Total time spent is greater than 50% in coordination of care (as documented) at patient's floor/unit and/or counseling patient: Plan of Care Discussed with: patient (patient/RN) Internal Medicine: Result - Labs CBC & Chem 7: 10/13/18 07:02 10/13/18 05:22 Labs: Short CBC 10/13/18 Range/Units 07:02 WBC 6.8 (4.3-11.1) K/mcL Hgb 11.8 (11.5-15.4) g/dL Hct 34.6 L (35.3-44.9) % Plt Count 220 (140-400) K/mcL Neutrophils # 2.8 (1.6-8.9) K/mcL BMP 10/13/18 05:22 Sodium 139 Potassium 3.8 Chloride 109 H Carbon Dioxide 23 BUN 20 Creatinine 1.31 H Glucose 90 Calcium 8.8 Urine 10/12/18 Range/Units 11:00 Urine Color Yellow (Yellow) Urine Clarity Clear (Clear) Urine pH 6.0 (5.0-8.0) pH Units Ur Specific [place] 1.009 L (1.010-1.025) Urine Protein Negative (Neg-Trace) mg/dL Urine Glucose (UA) Normal (Normal) mg/dL - ABG Interpretation ABG results: PT/INR, D-dimer PT 13.9 Seconds (9.4-12.1) H 10/11/18 21:11 Consult Discharge Plan - Plan Referrals: Yvan Ernst MD [Primary Care Provider] - (Follow up appointment has been requested. Office will call with date and time of the appointment. ) (4) Dementia Qualifiers: Dementia type: unspecified type Dementia behavioral disturbance: without behavioral disturbance Qualified Code(s): F03.90 - Unspecified dementia without behavioral disturbance (5) Hypertension Qualifiers: Hypertension type: essential hypertension Qualified Code(s): I10 - Essential (primary) hypertension (6) Hypothyroid Qualifiers: Hypothyroidism type: unspecified Qualified Code(s): E03.9 - Hypothyroidism, unspecified (8) Pulmonary embolism Qualifiers: Pulmonary embolism type: saddle Chronicity: chronic Acute cor pulmonale presence: without acute cor pulmonale Qualified Code(s): I26.92 - Saddle embolus of pulmonary artery without acute cor pulmonale
[2018-10-13] MEDS: Apixaban 5 MG TABLET PO SCH ×2 (10:10→20:28)
[2018-10-13] MEDS: Multivit/Ca/Min/Fe/FA 1 TAB TABLET PO SCH (10:10)
[2018-10-13] MEDS: risperiDONE 1 MG TABLET PO SCH (20:29)
[2018-10-13] MEDS: Melatonin 3 MG TABLET PO SCH (20:29)
[2018-10-14 02:20] LABS: Basophils % 0.6 %; Eosinophils # 0.2 K/mcL (0.0-0.6); Eosinophils % 3.4 %; Hematocrit 32.7 % (35.3-44.9); Hemoglobin 11.1 g/dL (11.5-15.4); Immature Granulocytes % 0.3 % (0-4); Lymphocytes # 3.1 K/mcL (0.6-4.6); Lymphocytes % 45.6 %; Mean Corpuscular HGB Conc 33.9 g/dL (31.6-35.5); Mean Corpuscular Hemoglobin 31.7 pg (28.0-33.3); Mean Corpuscular Volume 93.4 fL (83.0-100.0); Mean Platelet Volume 10.4 fL (9.4-12.4); Monocytes # 0.4 K/mcL (0.0-1.3); Monocytes % 6.4 %; Neutrophils # 2.9 K/mcL (1.6-8.9); Platelet Count 236 K/mcL (140-400); Red Cell Distribution Width 12.5 % (11.5-14.5); Segmented Neutrophils % 43.7 %
[2018-10-14 02:40] LABS: Calcium 8.7 mg/dL (8.6-10.3); Magnesium 1.8 mg/dL (1.6-2.6); Phosphorous 3.2 mg/dL (2.7-4.5)
[2018-10-14] MEDS ORDERED: Potassium Chloride 20 MEQ, Lidocaine 1% 2 ML in D5% in Water 250 ML IVPB SCH (08:45)
[2018-10-14] MEDS: Multivit/Ca/Min/Fe/FA 1 TAB TABLET PO SCH (09:02)
[2018-10-14] MEDS: Metoprolol XL (24 HR) Succ 25 MG TAB.ER.24H PO SCH (09:02)
[2018-10-14] MEDS: amLODIPine 5 MG TABLET PO SCH (09:02)
[2018-10-14] MEDS: Apixaban 5 MG TABLET PO SCH ×2 (09:02→19:56)
[2018-10-14 12:10] LABS: Calcium 9.1 mg/dL (8.6-10.3); Potassium 3.3 mEq/L (3.5-5.1)
--- NOTE | 2018-10-14 14:50 | Internal Med Progress Note ---
Hospitalist Progress Note - Encounter Date of Encounter: 10/14/18 Time of Encounter: 14:46 - Subjective Interval History: Pt seen and examined at bedside. Resting in bed and mental status at baseline. Pt pulled out IV line this morning and has been refusing replacement. No overnight events were reported Ten point ROS negative except as listed above Case management on board for placement - Exam Vitals: Temp Pulse Resp BP Pulse Ox 97.7 F 69 17 111/54 93 10/14/18 14:23 10/14/18 14:23 10/14/18 14:23 10/14/18 14:23 10/14/18 14:23 Exam: General: No acute distress, oriented to self (appears to be at baseline mental status), frail appearing elderly female HEENT: EOMI, NC/AT, no scleral icterus Respiratory: equal air entry bilaterally, no wheezing, no rales Cardiovascular: Regular, Rate, Rhythm, No murmurs GI: Soft, Non tender, non distended, normal bowel sounds Ext: No edema, no tenderness, positive pulses Neuro: advanced dementia, no focal deficits - Assessment and Plan (1) Metabolic acidosis Current Visit: Yes Status: Resolved Assessment and Plan: likely secondary to GI losses resolved will d/c bicab supplementation awaiting speech therapy follow up in regards to reassessment of diet (2) Pleural effusion Current Visit: Yes Status: Acute Assessment and Plan: s/p lasix administration clinical exam negative currently saturating well on room air and in no respiratory distress respiratory viral panel negative (3) CKD (chronic kidney disease) stage 3, GFR 30-59 ml/min Current Visit: No Status: Chronic Assessment and Plan: renal function back to baseline continue to monitor (4) Dementia Current Visit: No Status: Chronic Assessment and Plan: continue home medications (5) Hypertension Current Visit: No Status: Chronic Assessment and Plan: BP within acceptable range continue home medications closely monitor BP (6) Hypothyroid Current Visit: No Status: Chronic Assessment and Plan: continue home dose of levothyroxine (7) DVT prophylaxis Current Visit: No Status: Acute Assessment and Plan: on Eliquis (8) Pulmonary embolism Current Visit: No Status: Chronic Assessment and Plan: 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 long term care social worker [facility] (10) Hypokalemia Current Visit: Yes Status: Acute Assessment and Plan: K supplemented continue to monitor electrolytes and replace as needed - Time Spent with Patient Total time spent is greater than 50% in coordination of care (as documented) at patient's floor/unit and/or counseling patient: Plan of Care Discussed with: patient (patient/RN/case management) Internal Medicine: Result - Labs CBC & Chem 7: 10/14/18 00:49 10/14/18 11:41 Labs: Short CBC 10/14/18 Range/Units 00:49 WBC 6.7 (4.3-11.1) K/mcL Hgb 11.1 L (11.5-15.4) g/dL Hct 32.7 L (35.3-44.9) % Plt Count 236 (140-400) K/mcL Neutrophils # 2.9 (1.6-8.9) K/mcL BMP 10/14/18 10/14/18 00:49 11:41 Sodium 140 142 Potassium 3.0 L 3.3 L Chloride 110 H 109 H Carbon Dioxide 23 27 BUN Creatinine 1.11 1.19 Glucose 96 105 Calcium 8.7 9.1 - ABG Interpretation ABG results: PT/INR, D-dimer PT 13.9 Seconds (9.4-12.1) H 10/11/18 21:11 Consult Discharge Plan - Plan Referrals: Yvan Ernst MD [Primary Care Provider] - 10/21/18 1:30 pm () (4) Dementia Qualifiers: Dementia type: unspecified type Dementia behavioral disturbance: without behavioral disturbance Qualified Code(s): F03.90 - Unspecified dementia without behavioral disturbance (5) Hypertension Qualifiers: Hypertension type: essential hypertension Qualified Code(s): I10 - Essential (primary) hypertension (6) Hypothyroid Qualifiers: Hypothyroidism type: unspecified Qualified Code(s): E03.9 - Hypothyroidism, unspecified (8) Pulmonary embolism Qualifiers: Pulmonary embolism type: saddle Chronicity: chronic Acute cor pulmonale presence: without acute cor pulmonale Qualified Code(s): I26.92 - Saddle embo teodora of pulmonary artery without acute cor pulmonale
[2018-10-14] MEDS: Melatonin 3 MG TABLET PO SCH (19:55)
[2018-10-14] MEDS: risperiDONE 1 MG TABLET PO SCH (19:56)
[2018-10-15 05:24] LABS: Basophils # 0.1 K/mcL (0.0-0.2); Basophils % 0.8 %; Eosinophils # 0.3 K/mcL (0.0-0.6); Eosinophils % 3.7 %; Hematocrit 32.8 % (35.3-44.9); Hemoglobin 11.1 g/dL (11.5-15.4); Immature Granulocytes % 0.4 % (0-4); Lymphocytes # 2.5 K/mcL (0.6-4.6); Lymphocytes % 32.8 %; Mean Corpuscular HGB Conc 33.8 g/dL (31.6-35.5); Mean Corpuscular Hemoglobin 31.9 pg (28.0-33.3); Mean Corpuscular Volume 94.3 fL (83.0-100.0); Mean Platelet Volume 10.4 fL (9.4-12.4); Monocytes # 0.5 K/mcL (0.0-1.3); Monocytes % 6.3 %; Neutrophils # 4.2 K/mcL (1.6-8.9); Platelet Count 240 K/mcL (140-400); Red Blood Count 3.48 M/mcL (3.82-4.97); Red Cell Distribution Width 12.6 % (11.5-14.5)
[2018-10-15 05:43] LABS: BUN/Creatinine Ratio 21 (6-26); Blood Urea Nitrogen 21 mg/dL (8-23); Calcium 9.2 mg/dL (8.6-10.3); Carbon Dioxide 26 mEq/L (23-29); Chloride 110 mEq/L (98-107); Glucose 101 mg/dL (70-105); Osmolality,Calculated 297 (280-300); Phosphorous 2.6 mg/dL (2.7-4.5); Potassium 3.4 mEq/L (3.5-5.1); Sodium 142 mEq/L (136-145); eGFR For Non-African Americans 52 (> 60)
[2018-10-15] MEDS: amLODIPine 5 MG TABLET PO SCH (09:16)
[2018-10-15] MEDS: Multivit/Ca/Min/Fe/FA 1 TAB TABLET PO SCH (09:16)
[2018-10-15] MEDS: Apixaban 5 MG TABLET PO SCH (09:17)
[2018-10-15] MEDS: Metoprolol XL (24 HR) Succ 25 MG TAB.ER.24H PO SCH (09:23)
--- NOTE | 2018-10-15 12:39 | Physician Discharge Referral ---
ExtendedCare Referral Info Transfer To: SNF Provider in Charge after Transfer: PCP Institutional Level of Care: Skilled - Diagnosis (1) Metabolic acidosis Priority: Primary Status: Resolved (2) Pleural effusion Priority: Primary Status: Acute (3) CKD (chronic kidney disease) stage 3, GFR 30-59 ml/min Priority: Secondary Status: Chronic (4) Dementia Priority: Secondary Status: Chronic (5) Hypertension Priority: Secondary Status: Chronic (6) Hypothyroid Priority: Secondary Status: Chronic (7) DVT prophylaxis Priority: Secondary Status: Acute (8) Pulmonary embolism Priority: Secondary Status: Chronic (9) Frail elderly Priority: Secondary Status: Acute (10) Hypokalemia Priority: Secondary Status: Acute - Transfer Medications Prescriptions: diazePAM [Valium] 2 mg PO BID PRN 3 Days #6 tablet PRN Reason: Anxiety Tramadol HCl [Ultram] 50 mg PO TID PRN 3 Days #6 tablet PRN Reason: Pain Home Medications: Donepezil [Aricept] 5 mg PO HS 05/21/17 [History] Multivitamin [One Daily Essential] 1 tab PO DAILY 11/07/17 [History] Omeprazole [PriLOSEC] 20 mg PO DAILY@0630 capsule. 12/23/17 [Rx] Apixaban [Eliquis] 5 mg PO BID #180 tablet 12/24/17 [Rx] Cranberry Fruit Extract [Cranberry] 500 mg PO DAILY 06/23/18 [History] Ergocalciferol (VITAMIN D2) [Vitamin D2] 50,000 unit PO WE 06/23/18 [History] Levothyroxine [Synthroid] 88 mcg PO DAILY 06/23/18 [History] Metoprolol Succinate [Toprol Xl] 25 mg PO DAILY 06/23/18 [History] RisperiDONE [Risperdal] 0.5 mg PO HS 06/23/18 [History] Acetaminophen [Non-Aspirin] 650 mg PO BID PRN 07/01/18 [History] Atorvastatin [Lipitor] 80 mg PO HS #30 tablet 07/01/18 [Rx] Amlodipine Besylate 10 mg PO DAILY 30 Days #30 tablet 10/11/18 [Rx] Melatonin 1 mg PO HS PRN #0 10/15/18 [Rx] Tramadol HCl [Ultram] 50 mg PO TID PRN 3 Days #6 tablet 10/15/18 [Rx] diazePAM [Valium] 2 mg PO BID PRN 3 Days #6 tablet 10/15/18 [Rx] traZODone [TraZODone] 50 mg PO HS PRN #0 10/15/18 [Rx] Allergies/Adverse Reactions: Allergy/AdvReac Type Severity Reaction Status Date / Time Penicillins [PCN] Allergy Unknown Hives Verified 10/11/18 21:18 codeine Allergy See Verified 10/11/18 21:18 Comments - Respiratory Orders Smoking Cessation: Smoking cessation has been advised. For more information, call the [place] Tobacco Quit Line at 0-063-AJKYNOW. CERTIFICATION: I certify that the transfer of the above named patient to an Extended Care Facility is necessary for the continuing treatment of the diagnosis listed. The above information is true and accurate reflection of patient's current condition. Confidential - Redisclosure prohibited without a patient's written consent.
--- NOTE | 2018-10-15 12:41 | Discharge Summary ---
Date of Encounter: 10/15/18 Time of Encounter: 12:39 - Discharge Diagnosis (1) Metabolic acidosis Priority: Primary Status: Resolved (2) Pleural effusion Priority: Primary Status: Acute (3) CKD (chronic kidney disease) stage 3, GFR 30-59 ml/min Priority: Secondary Status: Chronic (4) Dementia Priority: Secondary Status: Chronic Qualifiers: Dementia type: unspecified type Dementia behavioral disturbance: without behavioral disturbance Qualified Code(s): F03.90 - Unspecified dementia without behavioral disturbance (5) Hypertension Priority: Secondary Status: Chronic Qualifiers: Hypertension type: essential hypertension Qualified Code(s): I10 - Essential (primary) hypertension (6) Hypothyroid Priority: Secondary Status: Chronic Qualifiers: Hypothyroidism type: unspecified Qualified Code(s): E03.9 - Hypothyroidism, unspecified (7) DVT prophylaxis Priority: Secondary Status: Acute (8) Pulmonary embolism Priority: Secondary Status: Chronic Qualifiers: Pulmonary embolism type: saddle Chronicity: chronic Acute cor pulmonale presence: without acute cor pulmonale Qualified Code(s): I26.92 - Saddle embolus of pulmonary artery without acute cor pulmonale (9) Frail elderly Priority: Secondary Status: Acute (10) Hypokalemia Priority: Secondary Status: Acute Assessment and Plan: K supplemented on the day of discharge Hospital course: Ms. Brannon is a 88 year old female with PMH of HTN, HLD, Hypothyroidism, dementia who was sent back from assisted living facility for frail status and inability to care for herself. She was found to have metabolic acidosis and a pleural effusion. She was given a dose of lasix and PO bicarb. Pt improved with this therapy. Physical therapy evaluated the patient and recommended SNF. Pt's acidosis has resolved, respiratory status at baseline. She is medically stable for discharge to SNF. Pt was seen and examined on the day of discharge. Pt has advanced dementia. Family/POA in agreement to the discharge care and plan Discharge discussed with: patient, nurse, social work, case management - Time Spent with Patient Total time spent providing and/or coordinating discharge services: Time spent: Less than 30 minutes - Discharge Medications Prescriptions: Continue Donepezil [Aricept] 5 mg PO HS Multivitamin [One Daily Essential] 1 tab PO DAILY Omeprazole [PriLOSEC] 20 mg PO DAILY@0630 capsule. Apixaban [Eliquis] 5 mg PO BID #180 tablet Cranberry Fruit Extract [Cranberry] 500 mg PO DAILY Levothyroxine [Synthroid] 88 mcg PO DAILY RisperiDONE [Risperdal] 0.5 mg PO HS Ergocalciferol (VITAMIN D2) [Vitamin D2] 50,000 unit PO WE Metoprolol Succinate [Toprol Xl] 25 mg PO DAILY Acetaminophen [Non-Aspirin] 650 mg PO BID PRN PRN Reason: Pain Atorvastatin [Lipitor] 80 mg PO HS #30 tablet Amlodipine Besylate 10 mg PO DAILY 30 Days #30 tablet traZODone [TraZODone] 50 mg PO HS PRN #0 PRN Reason: Insomnia diazePAM [Valium] 2 mg PO BID PRN 3 Days #6 tablet PRN Reason: Anxiety Tramadol HCl [Ultram] 50 mg PO TID PRN 3 Days #6 tablet PRN Reason: Pain Changed Melatonin 1 mg PO HS PRN #0 PRN Reason: Insomnia Home Medications: Donepezil [Aricept] 5 mg PO HS 05/21/17 [History] Multivitamin [One Daily Essential] 1 tab PO DAILY 11/07/17 [History] Omeprazole [PriLOSEC] 20 mg PO DAILY@0630 capsule. 12/23/17 [Rx] Apixaban [Eliquis] 5 mg PO BID #180 tablet 12/24/17 [Rx] Cranberry Fruit Extract [Cranberry] 500 mg PO DAILY 06/23/18 [History] Ergocalciferol (VITAMIN D2) [Vitamin D2] 50,000 unit PO WE 06/23/18 [History] Levothyroxine [Synthroid] 88 mcg PO DAILY 06/23/18 [History] Metoprolol Succinate [Toprol Xl] 25 mg PO DAILY 06/23/18 [History] RisperiDONE [Risperdal] 0.5 mg PO HS 06/23/18 [History] Acetaminophen [Non-Aspirin] 650 mg PO BID PRN 07/01/18 [History] Atorvastatin [Lipitor] 80 mg PO HS #30 tablet 07/01/18 [Rx] Amlodipine Besylate 10 mg PO DAILY 30 Days #30 tablet 10/11/18 [Rx] Melatonin 1 mg PO HS PRN #0 10/15/18 [Rx] Tramadol HCl [Ultram] 50 mg PO TID PRN 3 Days #6 tablet 10/15/18 [Rx] diazePAM [Valium] 2 mg PO BID PRN 3 Days #6 tablet 10/15/18 [Rx] traZODone [TraZODone] 50 mg PO HS PRN #0 10/15/18 [Rx] Allergies/Adverse Reactions: Allergy/AdvReac Type Severity Reaction Status Date / Time Penicillins [PCN] Allergy Unknown Hives Verified 10/11/18 21:18 codeine Allergy See Verified 10/11/18 21:18 Comments Date of admission: 10/14/18 14:44 Primary care physician: Yvan Ernst MD Consults: 10/12/18 10:38 Consult to Case Management [CONS] Routine Comment: needs placement to SNF or joint terminal attack controller care facility 10/13/18 09:28 Consult to Physical Therapy [CONS] Routine Comment: Evaluate, develop and implement POC Reason for Consult: evaluation for SNF Does patient have active BEDREST order?: No Is patient medically & hemodynamically stable?: Yes Patient assessed for mobility or mobilized this visit?: Yes 10/14/18 07:50 Consult to Occupational Therapy [CONS] Routine Comment: Evaluate, develop and implement POC Reason for Consult: DECONDITIONING Does patient have active BEDREST order?: No Is patient medically & hemodynamically stable?: Yes Consult to Patient Transport Orderly [CONS] Routine Reason for SW Consult: SNF PLACEMENT Discharging clinician: Amisha Herrera Anticipated date of discharge: 10/15/18 - Constitutional Vitals: Temp Pulse Resp BP Pulse Ox 97.7 F 63 17 141/63 97 10/15/18 11:15 10/15/18 11:15 10/15/18 11:15 10/15/18 11:15 10/15/18 11:15 Exam: General: No acute distress, oriented to self (appears to be at baseline mental status), frail appearing elderly female HEENT: EOMI, NC/AT, no scleral icterus Respiratory: equal air entry bilaterally, no wheezing, no rales Cardiovascular: Regular, Rate, Rhythm, No murmurs GI: Soft, Non tender, non distended, normal bowel sounds Ext: No edema, no tenderness, positive pulses Neuro: advanced dementia, no focal deficits - Patient Status Disposition: Transfer SNF Condition: Fair Functional capacity at discharge: uses cane/walker - Discharge Instructions Follow Up With: Yvan Ernst MD [Primary Care Provider] - 10/21/18 1:30 pm () Additional Instructions: Please follow up with your primary care physician within one week after your discharge from the hospital. - Diet and Activity Activity: as per physical therapy Diet: advance to your usual diet
[2018-10-15 15:40] VITALS: BP 146/51
== END 2018-10-15 17:11 | DRG 641 ==
LOC: EMEROOARM 20:30 → 3BNU 20:30 → SUATTDRO 10-14 14:44
PROVIDERS: ADMIT Pediatrics; ATTEND Internal Medicine

== ENCOUNTER 2019-03-27 16:18 | Inpatient (IN) ==
--- NOTE | 2019-03-27 16:41 | Emergency Department Note ---
Disposition Clinical Impression: Sepsis Qualifiers: Sepsis type: sepsis due to unspecified organism Sepsis acute organ dysfunction status: with acute organ dysfunction Severe sepsis acute organ dysfunction type: acute renal failure Hypotension Qualifiers: Hypotension type: unspecified hypotension type Qualified Code(s): I95.9 - Hypotension, unspecified UTI (urinary tract infection) Qualifiers: Urinary tract infection type: acute cystitis Hematuria presence: with hematuria Qualified Code(s): N30.01 - Acute cystitis with hematuria Dementia Qualifiers: Dementia type: unspecified type Dementia behavioral disturbance: without behavioral disturbance Qualified Code(s): F03.90 - Unspecified dementia without behavioral disturbance Disposition: Admitted As Inpatient Referrals: Yvan Ernst MD [Partnered Physician] - Forms: ED Satisfaction Letter Time of Disposition: 20:17 General Adult HPI - General Chief complaint: ED Syncope Stated complaint: possible low bp Time Seen by Provider: 03/27/19 16:26 Source: patient, EMS Limitations: other (dementia) Nursing Notes Reviewed: Yes Vital Signs Reviewed: Yes - History of Present Illness HPI Narrative: Ms. Brannon is an 88 yo F with PMH of dementia, HTN, and hypothyroidism, presenting emergency department via EMS due to concerns of low blood pressure at her extended care facility. They reported her blood pressure was in the 80s/40s, but EMS reports BP within normal limits in route to the hospital. She does not understand why she is here at the hospital. She reports that she is cold. She denies fevers, lightheadedness, syncope, blurred vision, chest pain, dyspnea, cough, abdominal pain, nausea, vomiting, diarrhea, constipation, dysuria, or lower extremity edema. Pain Scale: 0 - Related Data Home Medications Medication Instructions Recorded Confirmed Donepezil [Aricept] 5 mg PO HS 05/21/17 03/27/19 Multivitamin [One Daily Essential] 1 tab PO DAILY 11/07/17 03/27/19 Cranberry Fruit Extract [Cranberry] 500 mg PO DAILY 06/23/18 03/27/19 Ergocalciferol (VITAMIN D2) 50,000 unit PO WE 06/23/18 03/27/19 [Vitamin D2] Levothyroxine [Synthroid] 88 mcg PO DAILY 06/23/18 03/27/19 Metoprolol Succinate [Toprol Xl] 25 mg PO DAILY 06/23/18 03/27/19 RisperiDONE [Risperdal] 0.5 mg PO HS 06/23/18 03/27/19 Acetaminophen [Non-Aspirin] 650 mg PO BID PRN 07/01/18 03/27/19 Tramadol HCl [Ultram] 50 mg PO BID PRN 03/27/19 03/27/19 Previous Rx's Medication Instructions Recorded Omeprazole [PriLOSEC] 20 mg PO DAILY@0630 capsule. 12/23/17 Apixaban [Eliquis] 5 mg PO BID #180 tablet 12/24/17 Atorvastatin [Lipitor] 80 mg PO HS #30 tablet 07/01/18 Melatonin 1 mg PO HS PRN #0 10/15/18 traZODone [TraZODone] 50 mg PO HS PRN #0 10/15/18 Allergies Allergy/AdvReac Type Severity Reaction Status Date / Time Penicillins [PCN] Allergy Unknown Hives Verified 03/27/19 19:32 codeine Allergy See Verified 03/27/19 19:32 Comments Review of Systems: Admits to feeling cold. Denies fevers, lightheadedness, syncope, blurred vision, chest pain, dyspnea, cough, abdominal pain, nausea, vomiting, diarrhea, constipation, dysuria, or lower extremity edema. 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 - Social History Smoking Status: Never smoker Smokeless Tobacco Status: No Alcohol use: Reports: none Drug use: Reports: none Physical Exam GEN: No acute distress, alert and oriented to self HEAD: Atraumatic, normocephalic EYES: PERRL, sclera white, conjunctiva pink HEART: RRR, normal S1 and S2, no murmurs LUNGS: Clear to auscultation bilaterally, no wheezes, rhonchi, or crackles ABD: Soft, nontender, nondistended, bowel sounds present EXT: No edema noted, pulses 2/4 NEURO: No focal deficits, cooperative with exam, strength equal and symmetric - General General appearance: alert Course Vital Signs Temperature 98.4 F 03/27/19 16:22 Pulse Rate 96 03/27/19 16:22 Respiratory Rate 18 03/27/19 16:22 Blood Pressure 113/55 03/27/19 16:22 O2 Sat by Pulse Oximetry 96 03/27/19 16:22 Temperature 98.4 F 03/27/19 16:22 Pulse Rate 66 03/27/19 19:32 Respiratory Rate 20 03/27/19 19:32 Blood Pressure 118/51 03/27/19 19:32 O2 Sat by Pulse Oximetry 94 03/27/19 19:32 Oxygen Delivery Oxygen Delivery Room Air Medical Decision Making - MDM Narrative Medical decision making narrative: Nontoxic, afebrile 88-year-old female presented with concern for low blood pressure from the ECF. Her limited history due to her dementia. Workup was conducted showing consistent anemia. She does have elevated serum creatinine 1.74, and GFR decreased at 28, consistent with ELZA. Remainder of CMP unremarkabl e. Lactic acid normal. UA shows trace blood, large leuk esterase, and bacteria, consistent with UTI. She is a DNR CC, had a long discussion with the son who is the POA, and he would prefer admission for IV fluids and antibiotics. Will give 1 dose of cefepime in the emergency department. I discussed the case with the admitting hospitalist, Dr. Boothe, who is accepting of this admission. - Medical Records Medical records reviewed: Yes I reviewed the patient's medical records. - Lab Data Lab results reviewed: Yes I reviewed the patient's lab results. Result diagrams: 03/27/19 16:43 03/27/19 16:43 Lab Results 03/27/19 03/27/19 03/27/19 Range/Units 16:43 16:43 16:43 WBC 8.8 (4.3-11.1) K/mcL RBC 3.15 L (3.82-4.97) M/mcL Hgb 10.2 L (11.5-15.4) g/dL Hct 31.1 L (35.3-44.9) % MCV 98.7 (83.0-100.0) fL MCH 32.4 (28.0-33.3) pg MCHC 32.8 (31.6-35.5) g/dL RDW 13.9 (11.5-14.5) % Plt Count 255 (140-400) K/mcL MPV 10.0 (9.4-12.4) fL Sodium 140 (136-145) mEq/L Potassium 4.9 (3.5-5.1) mEq/L Chloride 106 (98-107) mEq/L Carbon Dioxide 28 (23-29) mEq/L BUN 34 H (8-23) mg/dL Creatinine 1.74 H (0.60-1.20) mg/dL Est GFR ( Amer) 33 L (> 60) Est GFR (Non-Af Amer) 28 L (> 60) BUN/Creatinine Ratio 20 (6-26) Glucose 97 (70-105) mg/dL Calculated Osmolality 298 (280-300) Lactic Acid (0.5-2.2) mmol/L Calcium 9.1 (8.6-10.3) mg/dL Total Bilirubin 0.4 (0.3-1.0) mg/dL Direct Bilirubin 0.1 (0.0-0.2) mg/dL Indirect Bilirubin 0.3 (0.0-1.2) mg/dL AST 20 (13-39) Units/L ALT 14 (7-52) Units/L Alkaline Phosphatase 70 (34-104) Units/L Troponin I < 0.03 (< 0.04) ng/mL Serum Total Protein 6.4 (6.4-8.9) g/dL Albumin 3.6 (3.5-5.7) g/dL Globulin 2.8 (2.4-3.5) g/dL Albumin/Globulin Ratio 1.3 (1.1-2.2) Urine Color (Yellow) Urine Clarity (Clear) Urine pH (5.0-8.0) pH Units Ur Specific [place] (1.010-1.025) Urine Protein (Neg-Trace) mg/dL Urine Glucose (UA) (Normal) mg/dL Urine Ketones (Negative) mg/dL Urine Blood (Negative) Urine Nitrite (Negative) Urine Bilirubin (Negative) Urine Urobilinogen (Normal) mg/dL Ur Leukocyte Esterase (Negative) Urine Microscopic RBC (0-3) per hpf Urine Microscopic WBC (0-3) per hpf Ur Squamous Epith Cells (None-Few) per lpf Urine Bacteria (None-Few) per hpf Hyaline Casts (None-Few) per lpf 03/27/19 03/27/19 Range/Units 16:43 17:07 WBC (4.3-11.1) K/mcL RBC (3.82-4.97) M/mcL Hgb (11.5-15.4) g/dL Hct (35.3-44.9) % MCV (83.0-100.0) fL MCH (28.0-33.3) pg MCHC (31.6-35.5) g/dL RDW (11.5-14.5) % Plt Count (140-400) K/mcL MPV (9.4-12.4) fL Sodium (136-145) mEq/L Potassium (3.5-5.1) mEq/L Chloride (98-107) mEq/L Carbon Dioxide (23-29) mEq/L BUN (8-23) mg/dL Creatinine (0.60-1.20) mg/dL Est GFR ( Amer) (> 60) Est GFR (Non-Af Amer) (> 60) BUN/Creatinine Ratio (6-26) Glucose (70-105) mg/dL Calculated Osmolality (280-300) Lactic Acid 0.9 (0.5-2.2) mmol/L Calcium (8.6-10.3) mg/dL Total Bilirubin (0.3-1.0) mg/dL Direct Bilirubin (0.0-0.2) mg/dL Indirect Bilirubin (0.0-1.2) mg/dL AST (13-39) Units/L ALT (7-52) Units/L Alkaline Phosphatase (34-104) Units/L Troponin I (< 0.04) ng/mL Serum Total Protein (6.4-8.9) g/dL Albumin (3.5-5.7) g/dL Globulin (2.4-3.5) g/dL Albumin/Globulin Ratio (1.1-2.2) Urine Color Yellow (Yellow) Urine Clarity Cloudy A (Clear) Urine pH 6.0 (5.0-8.0) pH Units Ur Specific [place] 1.013 (1.010-1.025) Urine Protein 30 H (Neg-Trace) mg/dL Urine Glucose (UA) Normal (Normal) mg/dL Urine Ketones Negative (Negative) mg/dL Urine Blood Trace H (Negative) Urine Nitrite Negative (Negative) Urine Bilirubin Negative (Negative) Urine Urobilinogen Normal (Normal) mg/dL Ur Leukocyte Esterase Large H (Negative) Urine Microscopic RBC 5-15 H (0-3) per hpf Urine Microscopic WBC TNTC H (0-3) per hpf Ur Squamous Epith Cells Few (None-Few) per lpf Urine Bacteria Many H (None-Few) per hpf Hyaline Casts None Seen (None-Few) per lpf
[2019-03-27 17:18] LABS: Hematocrit 31.1 % (35.3-44.9); Hemoglobin 10.2 g/dL (11.5-15.4); Mean Corpuscular HGB Conc 32.8 g/dL (31.6-35.5); Mean Corpuscular Hemoglobin 32.4 pg (28.0-33.3); Mean Corpuscular Volume 98.7 fL (83.0-100.0); Platelet Count 255 K/mcL (140-400); Red Blood Count 3.15 M/mcL (3.82-4.97); Red Cell Distribution Width 13.9 % (11.5-14.5); White Blood Count 8.8 K/mcL (4.3-11.1)
[2019-03-27 17:20] LABS: Bilirubin,Urine Negative (Negative); Blood,Urine Trace (Negative); Clarity,Urine Cloudy (Clear); Color,Urine Yellow (Yellow); Glucose,Urine (UA) Normal (Normal); Ketones,Urine Negative (Negative); Leukocyte Esterase,Urine Large (Negative); Nitrite,Urine Negative (Negative); Protein,Urine 30 mg/dL (Neg-Trace); Specific Gravity,Urine 1.013 (1.010-1.025); Urobilinogen,Urine Normal (Normal)
[2019-03-27 17:24] LABS: Bacteria,Urine Many per hpf (None-Few); Hyaline Casts,Urine None Seen per lpf (None-Few); Squamous Epithelial Cell,Urine Few per lpf (None-Few); WBC,Urine TNTC per hpf (0-3)
[2019-03-27 17:29] LABS: Troponin I < 0.03 ng/mL (< 0.04)
[2019-03-27 17:34] LABS: Alanine Aminotransferase 14 Units/L (7-52); Albumin 3.6 g/dL (3.5-5.7); Albumin/Globulin Ratio 1.3 (1.1-2.2); Alkaline Phosphatase 70 Units/L (34-104); Aspartate Amino Transferase 20 Units/L (13-39); Bilirubin,Direct 0.1 mg/dL (0.0-0.2); Bilirubin,Indirect 0.3 mg/dL (0.0-1.2); Bilirubin,Total 0.4 mg/dL (0.3-1.0); Globulin 2.8 g/dL (2.4-3.5); Total Protein 6.4 g/dL (6.4-8.9)
[2019-03-27 17:35] LABS: Calcium 9.1 mg/dL (8.6-10.3); Potassium 4.9 mEq/L (3.5-5.1)
[2019-03-27] MEDS ORDERED: 0.9 % Sodium Chloride 1,000 ML IVC ONE (19:17)
--- NOTE | 2019-03-27 19:17 | Emergency Department Note ---
Disposition Clinical Impression: Sepsis Qualifiers: Sepsis type: sepsis due to unspecified organism Sepsis acute organ dysfunction status: unspecified Qualified Code(s): A41.9 - Sepsis, unspecified organism Hypotension Qualifiers: Hypotension type: unspecified hypotension type Qualified Code(s): I95.9 - Hypotension, unspecified UTI (urinary tract infection) Qualifiers: Urinary tract infection type: site unspecified Hematuria presence: without hematuria Qualified Code(s): N39.0 - Urinary tract infection, site not specified Dementia Qualifiers: Dementia type: unspecified type Dementia behavioral disturbance: without behavioral disturbance Qualified Code(s): F03.90 - Unspecified dementia without behavioral disturbance Disposition: Admitted As Inpatient Condition: Fair Referrals: Yvan Ernst MD [Primary Care Provider] - Forms: ED Satisfaction Letter Time of Disposition: 19:20 General Adult HPI - General Chief complaint: ED Syncope Stated complaint: possible low bp Time Seen by Provider: 03/27/19 16:26 Source: patient, EMS Limitations: other (dementia) - History of Present Illness Pain Scale: 0 - Related Data Home Medications Medication Instructions Recorded Confirmed Donepezil [Aricept] 5 mg PO HS 05/21/17 03/27/19 Multivitamin [One Daily Essential] 1 tab PO DAILY 11/07/17 03/27/19 Cranberry Fruit Extract [Cranberry] 500 mg PO DAILY 06/23/18 03/27/19 Ergocalciferol (VITAMIN D2) 50,000 unit PO WE 06/23/18 03/27/19 [Vitamin D2] Levothyroxine [Synthroid] 88 mcg PO DAILY 06/23/18 03/27/19 Metoprolol Succinate [Toprol Xl] 25 mg PO DAILY 06/23/18 03/27/19 RisperiDONE [Risperdal] 0.5 mg PO HS 06/23/18 03/27/19 Acetaminophen [Non-Aspirin] 650 mg PO BID PRN 07/01/18 03/27/19 Tramadol HCl [Ultram] 50 mg PO BID PRN 03/27/19 03/27/19 Previous Rx's Medication Instructions Recorded Omeprazole [PriLOSEC] 20 mg PO DAILY@0630 capsule. 12/23/17 Apixaban [Eliquis] 5 mg PO BID #180 tablet 12/24/17 Atorvastatin [Lipitor] 80 mg PO HS #30 tablet 07/01/18 Melatonin 1 mg PO HS PRN #0 10/15/18 traZODone [TraZODone] 50 mg PO HS PRN #0 10/15/18 Allergies Allergy/AdvReac Type Severity Reaction Status Date / Time Penicillins [PCN] Allergy Unknown Hives Verified 10/11/18 21:18 codeine Allergy See Verified 10/11/18 21:18 Comments Past Medical History - Past Medical History Medical history: Reports: dementia, hyperlipidemia, hypertension, thyroid disease Surgical history: Reports: hysterectomy Psychiatric history: Reports: no psych history INDUSTRIAL DESIGN ENGINEER history: Reports: non-contributory - Social History Smoking Status: Never smoker Smokeless Tobacco Status: No Alcohol use: Reports: none Drug use: Reports: none Physical Exam - General Limitations: other (dementia) General appearance: alert Course Vital Signs Temperature 98.4 F 03/27/19 16:22 Pulse Rate 96 03/27/19 16:22 Respiratory Rate 18 03/27/19 16:22 Blood Pressure 113/55 03/27/19 16:22 O2 Sat by Pulse Oximetry 96 03/27/19 16:22 Temperature 98.4 F 03/27/19 16:22 Pulse Rate 70 03/27/19 18:25 Respiratory Rate 20 03/27/19 18:25 Blood Pressure 111/57 03/27/19 18:25 O2 Sat by Pulse Oximetry 96 03/27/19 18:25 Oxygen Delivery Oxygen Delivery Room Air Medical Decision Making - Lab Data Result diagrams: 03/27/19 16:43 03/27/19 16:43 Lab Results 03/27/19 03/27/19 03/27/19 Range/Units 16:43 16:43 16:43 WBC 8.8 (4.3-11.1) K/mcL RBC 3.15 L (3.82-4.97) M/mcL Hgb 10.2 L (11.5-15.4) g/dL Hct 31.1 L (35.3-44.9) % MCV 98.7 (83.0-100.0) fL MCH 32.4 (28.0-33.3) pg MCHC 32.8 (31.6-35.5) g/dL RDW 13.9 (11.5-14.5) % Plt Count 255 (140-400) K/mcL MPV 10.0 (9.4-12.4) fL Sodium 140 (136-145) mEq/L Potassium 4.9 (3.5-5.1) mEq/L Chloride 106 (98-107) mEq/L Carbon Dioxide 28 (23-29) mEq/L BUN 34 H (8-23) mg/dL Creatinine 1.74 H (0.60-1.20) mg/dL Est GFR ( Amer) 33 L (> 60) Est GFR (Non-Af Amer) 28 L (> 60) BUN/Creatinine Ratio 20 (6-26) Glucose 97 (70-105) mg/dL Calculated Osmolality 298 (280-300) Lactic Acid (0.5-2.2) mmol/L Calcium 9.1 (8.6-10.3) mg/dL Total Bilirubin 0.4 (0.3-1.0) mg/dL Direct Bilirubin 0.1 (0.0-0.2) mg/dL Indirect Bilirubin 0.3 (0.0-1.2) mg/dL AST 20 (13-39) Units/L ALT 14 (7-52) Units/L Alkaline Phosphatase 70 (34-104) Units/L Troponin I < 0.03 (< 0.04) ng/mL Serum Total Protein 6.4 (6.4-8.9) g/dL Albumin 3.6 (3.5-5.7) g/dL Globulin 2.8 (2.4-3.5) g/dL Albumin/Globulin Ratio 1.3 (1.1-2.2) Urine Color (Yellow) Urine Clarity (Clear) Urine pH (5.0-8.0) pH Units Ur Specific [place] (1.010-1.025) Urine Protein (Neg-Trace) mg/dL Urine Glucose (UA) (Normal) mg/dL Urine Ketones (Negative) mg/dL Urine Blood (Negative) Urine Nitrite (Negative) Urine Bilirubin (Negative) Urine Urobilinogen (Normal) mg/dL Ur Leukocyte Esterase (Negative) Urine Microscopic RBC (0-3) per hpf Urine Microscopic WBC (0-3) per hpf Ur Squamous Epith Cells (None-Few) per lpf Urine Bacteria (None-Few) per hpf Hyaline Casts (None-Few) per lpf 03/27/19 03/27/19 Range/Units 16:43 17:07 WBC (4.3-11.1) K/mcL RBC (3.82-4.97) M/mcL Hgb (11.5-15.4) g/dL Hct (35.3-44.9) % MCV (83.0-100.0) fL MCH (28.0-33.3) pg MCHC (31.6-35.5) g/dL RDW (11.5-14.5) % Plt Count (140-400) K/mcL MPV (9.4-12.4) fL Sodium (136-145) mEq/L Potassium (3.5-5.1) mEq/L Chloride (98-107) mEq/L Carbon Dioxide (23-29) mEq/L BUN (8-23) mg/dL Creatinine (0.60-1.20) mg/dL Est GFR ( Amer) (> 60) Est GFR (Non-Af Amer) (> 60) BUN/Creatinine Ratio (6-26) Glucose (70-105) mg/dL Calculated Osmolality (280-300) Lactic Acid 0.9 (0.5-2.2) mmol/L Calcium (8.6-10.3) mg/dL Total Bilirubin (0.3-1.0) mg/dL Direct Bilirubin (0.0-0.2) mg/dL Indirect Bilirubin (0.0-1.2) mg/dL AST (13-39) Units/L ALT (7-52) Units/L Alkaline Phosphatase (34-104) Units/L Troponin I (< 0.04) ng/mL Serum Total Protein (6.4-8.9) g/dL Albumin (3.5-5.7) g/dL Globulin (2.4-3.5) g/dL Albumin/Globulin Ratio (1.1-2.2) Urine Color Yellow (Yellow) Urine Clarity Cloudy A (Clear) Urine pH 6.0 (5.0-8.0) pH Units Ur Specific [place] 1.013 (1.010-1.025) Urine Protein 30 H (Neg-Trace) mg/dL Urine Glucose (UA) Normal (Normal) mg/dL Urine Ketones Negative (Negative) mg/dL Urine Blood Trace H (Negative) Urine Nitrite Negative (Negative) Urine Bilirubin Negative (Negative) Urine Urobilinogen Normal (Normal) mg/dL Ur Leukocyte Esterase Large H (Negative) Urine Microscopic RBC 5-15 H (0-3) per hpf Urine Microscopic WBC TNTC H (0-3) per hpf Ur Squamous Epith Cells Few (None-Few) per lpf Urine Bacteria Many H (None-Few) per hpf Hyaline Casts None Seen (None-Few) per lpf Critical Care Time Critical Care Time: No Attestation Statement - Attestation Attestation: I saw and evaluated the patient and and reviewed the resident's note/PA note/COLORING MACHINE OPERATOR note, and I agree with the findings and plan. I personally supervised and was present for the ferrer/critical portions of any procedures. The medical decision- making was reviewed with the SENIOR LINUX SYSTEMS ENGINEER/PA/Advanced Practice Nurse/Resident Physician. I agree with the documented findings, disposition and treatment plan as described except to the extent set forth below. Presents from the correction and I did see the patient immediately upon arrival and also spoke with the paramedics and the stories that she had 2 blood pressure checked at the correction which are both 80 but when the paramedics arrived the pressure was 110 and here we find that the patient does have a urinary tract infection as well as acute renal failure and she will receive antibiotics, IV fluids and be admitted. Patient is unable to give any history secondary to her medical condition of severe dementia. She is breathing comfortably. Is not hypotensive now. 191
[2019-03-27] MEDS ORDERED: cefTRIAXone 2,000 MG in Water for inj. (sterile) 20 ML IVP ONE (19:33)
[2019-03-27] MEDS ORDERED: Cefepime HCl 2,000 MG in Water for inj. (sterile) 20 ML IVP STA (19:39)
[2019-03-28] MEDS ORDERED: Naloxone 0.4 MG/ML INJ IVP PRN (00:37)
[2019-03-28] MEDS ORDERED: 0.9 % Sodium Chloride 1,000 ML IVC SCH (00:45)
--- NOTE | 2019-03-28 00:55 | Internal Med History&Physical ---
Date of Encounter: 03/27/19 Time of Encounter: 23:30 Internal Medicine - H&P: HPI Chief complaint: Hypotension Admitted From: Long-term Nursing Facility Plans for Post Hospital Care: Transfer Snf Care History of present illness: Ms. Brannon is a 88 year old female with past medical history significant for hypertension, hyperlipidemia, PE, thyroid disease, and dementia who presents from [facility] due to reported hypotension with systolic pressures in the 80's. Due to patients baseline cognition with dementia, assessment is limited, with most information obtained from chart rev iew and bedside nurse as family was no longer present at time of my assessmnet. Once EMS arrived to assisted living [facility], blood pressures had improved and remained stable enroute to [facility]. Upon arrival patient denied any complaints. ER obtained labs and UA which showed possible infection and was started on antibiotics and IV fluids. Patient continues to deny any complaints. Currently denies any headache, numbness, tingling, chest pain, shortness of breath, cough, abdominal pain, bowel or bladder changes. ER provider discussed code status with patients son who is POA who confirmed patient is DNR CC but would like her admitted for fluids and antibiotics, bedside nurse also confirmed code status with patient son. Past Med Surg Social Fam HX - Past Medical History Medical history: dementia, hyperlipidemia, hypertension, pulmonary embolus, thyroid disease Additional medical history: colitis, dementia Psychiatric history: no psych history - Past Surgical History Surgical History: hysterectomy - Social History Smoking Status: Never smoker Smokeless Tobacco Status: No Alcohol use: none Drug use: none - Family History Sister Hx Family Neurologic Disorders: Yes (bonnie) Internal Medicine - H&P: Meds Donepezil [Aricept] 5 mg PO HS 05/21/17 [History] Multivitamin [One Daily Essential] 1 tab PO DAILY 11/07/17 [History] Omeprazole [PriLOSEC] 20 mg PO DAILY@0630 capsule. 12/23/17 [Rx] Apixaban [Eliquis] 5 mg PO BID #180 tablet 12/24/17 [Rx] Cranberry Fruit Extract [Cranberry] 500 mg PO DAILY 06/23/18 [History] Ergocalciferol (VITAMIN D2) [Vitamin D2] 50,000 unit PO WE 06/23/18 [History] Levothyroxine [Synthroid] 88 mcg PO DAILY 06/23/18 [History] Metoprolol Succinate [Toprol Xl] 25 mg PO DAILY 06/23/18 [History] RisperiDONE [Risperdal] 0.5 mg PO HS 06/23/18 [History] Acetaminophen [Non-Aspirin] 650 mg PO BID PRN 07/01/18 [History] Atorvastatin [Lipitor] 80 mg PO HS #30 tablet 07/01/18 [Rx] Melatonin 1 mg PO HS PRN #0 10/15/18 [Rx] traZODone [TraZODone] 50 mg PO HS PRN #0 10/15/18 [Rx] Tramadol HCl [Ultram] 50 mg PO BID PRN 03/27/19 [History] Allergy/AdvReac Type Severity Reaction Status Date / Time Penicillins [PCN] Allergy Unknown Hives Verified 03/27/19 19:32 codeine Allergy See Verified 03/27/19 19:32 Comments All Systems PM: A 10-system review of systems was performed and is negative for pertinent findings except as documented above in the HPI. - Constitutional Vitals: Temp Pulse Resp BP Pulse Ox 97.9 F 101 15 156/71 96 03/27/19 21:08 03/27/19 21:08 03/27/19 21:08 03/27/19 21:08 03/27/19 21:08 Exam: General: Alert, calm, cooperative. Oriented to self. Skin:Normal color, no rash, no lesions. Cardiovascular:Heart sounds distant, no rubs, murmurs or gallops. No JVD. Pulse regular. Lungs:Normal breath sounds, no wheezes or crackles. Abdomen:Soft, non-tender, no rigidity. Extremities:No deformity, no edema or tenderness, no joint swelling or clubbing. Neurological:Baseline cognition and motor skills secondary to dementia. Pulses:Carotid and radial pulses normal +2. Rest of the physical exam is non contributory. Internal Med - H&P Results - Labs CBC & Chem 7: 03/27/19 16:43 03/27/19 16:43 Labs: Short CBC 03/27/19 Range/Units 16:43 WBC 8.8 (4.3-11.1) K/mcL Hgb 10.2 L (11.5-15.4) g/dL Hct 31.1 L (35.3-44.9) % Plt Count 255 (140-400) K/mcL BMP 03/27/19 16:43 Sodium 140 Potassium 4.9 Chloride 106 Carbon Dioxide 28 BUN 34 H Creatinine 1.74 H Glucose 97 Calcium 9.1 Cardiac Enzymes 03/27/19 Range/Units 16:43 Troponin I < 0.03 (< 0.04) ng/mL Liver Function 03/27/19 Range/Units 16:43 Total Bilirubin 0.4 (0.3-1.0) mg/dL Direct Bilirubin 0.1 (0.0-0.2) mg/dL AST 20 (13-39) Units/L ALT 14 (7-52) Units/L Alkaline Phosphatase 70 (34-104) Units/L Albumin 3.6 (3.5-5.7) g/dL Urine 03/27/19 Range/Units 17:07 Urine Color Yellow (Yellow) Urine Clarity Cloudy A (Clear) Urine pH 6.0 (5.0-8.0) pH Units Ur Specific [place] 1.013 (1.010-1.025) Urine Protein 30 H (Neg-Trace) mg/dL Urine Glucose (UA) Normal (Normal) mg/dL - Assessment and Plan (1) UTI (urinary tract infection) Current Visit: Yes Status: Acute Assessment and plan: UA obtained in ER cloudy with protein, trace blood, large leukocyte esterase, RBC, WBC, and bacteria. ER started patient on Cefepime based on previous urine culture results, will continue same. Blood and urine cultures pending. Received 1L bolus in ER, will continue gentle IVF's. Qualifiers: Qualified Code(s): N39.0 - Urinary tract infection, site not specified; R31.9 - Hematuria, unspecified (2) Acute on chronic kidney failure Current Visit: Yes Status: Acute Assessment and plan: Labs on admission show Creatinine of 1.74 up from 1.01, BUN of 34 up from 21, and GFR of 28 down from 52 on admission. Received 1L bolus in ER, will continue gentle IVF's. Repeat labs ordered. Qualifiers: Chronic kidney disease stage: unspecified stage Qualified Code(s): N17.9 - Acute kidney failure, unspecified; N18.9 - Chronic kidney disease, unspecified (3) Decreased hemoglobin Current Visit: Yes Status: Acute Assessment and plan: Chronic but slightly further increased from previous at 10.2 from 11.1 No signs of bleeding. Repeat labs ordered. (4) Dementia Current Visit: Yes Status: Chronic Assessment and plan: Continue home medications once verified. Fall precautions ordered. Qualifiers: Dementia type: unspecified type Dementia behavioral disturbance: without be havioral disturbance Qualified Code(s): F03.90 - Unspecified dementia without behavioral disturbance (5) Hypertension Current Visit: Yes Status: Chronic Assessment and plan: Reportedly hypotensive prior to EMS arrival. Blood pressures remain stable currently. Resume home medications once verified as indicated. Qualifiers: Hypertension type: unspecified Qualified Code(s): I10 - Essential (primary) hypertension (6) DVT prophylaxis Current Visit: No Status: Acute Assessment and plan: Continue home eliquis once verified. - Time Spent With Patient Total time spent is greater than 50% in coordination of care (as documented) at patient's floor/unit and/or counseling patient:
[2019-03-28 04:55] LABS: Basophils # 0.1 K/mcL (0.0-0.2); Basophils % 0.4 %; Eosinophils # 0.2 K/mcL (0.0-0.6); Eosinophils % 1.5 %; Hematocrit 33.2 % (35.3-44.9); Hemoglobin 11.2 g/dL (11.5-15.4); Immature Granulocytes % 0.4 % (0-4); Lymphocytes # 2.1 K/mcL (0.6-4.6); Lymphocytes % 13.5 %; Mean Corpuscular HGB Conc 33.7 g/dL (31.6-35.5); Mean Corpuscular Hemoglobin 32.1 pg (28.0-33.3); Mean Corpuscular Volume 95.1 fL (83.0-100.0); Mean Platelet Volume 9.6 fL (9.4-12.4); Monocytes # 0.9 K/mcL (0.0-1.3); Monocytes % 5.6 %; Neutrophils # 12.3 K/mcL (1.6-8.9); Platelet Count 257 K/mcL (140-400); Red Blood Count 3.49 M/mcL (3.82-4.97); Red Cell Distribution Width 13.4 % (11.5-14.5); Segmented Neutrophils % 78.6 %
[2019-03-28 04:59] LABS: White Blood Count 15.6 K/mcL (4.3-11.1)
[2019-03-28 05:13] LABS: Calcium 9.1 mg/dL (8.6-10.3)
[2019-03-28] MEDS ORDERED: Cefepime HCl 1,000 MG in Water for inj. (sterile) 10 ML IVP SCH (06:00)
[2019-03-28] MEDS ORDERED: traMADol 50 MG TABLET PO PRN (13:59)
[2019-03-28] MEDS ORDERED: traZODone 50 MG TABLET PO PRN (13:59)
[2019-03-28] MEDS ORDERED: Diphenoxylate/Atropine 1 TAB TABLET PO PRN (13:59)
[2019-03-28] MEDS ORDERED: Melatonin 3 MG TABLET PO PRN ×2 (13:59→21:00)
--- NOTE | 2019-03-28 13:59 | Internal Med Progress Note ---
Hospitalist Progress Note - Encounter Date of Encounter: 03/28/19 Time of Encounter: 13:55 - Subjective Interval History: Ms. Brannon is a 88 year old female with past medical history significant for hypertension, hyperlipidemia, PE, hypothyroidism, and dementia who presented to ER from [facility] due to reported hypotension with systolic pressures in the 80's. She did have ELZA with CKD-3 and her UA was abnormal concerning for UTI. She was admitted in the hospital and started on empirical IV antibiotic cefepime and IV hydration. Today patient is more alert, awake and oriented to self only. She looks demented and seems to be at baseline. Patient is able to follow all the commands. She denied any CP / SOB. - Exam Vitals: Temp Pulse Resp BP Pulse Ox 98.2 F 69 14 131/72 96 03/28/19 11:21 03/28/19 11:21 03/28/19 11:21 03/28/19 11:21 03/28/19 11:21 Exam: Gen: Alert, awake, Oriented to self only.. Demented looks very weak and lethargic.. Dehydrated Chest: Diminished breath sounds B/L, No wheezing, No crackles, No rales Heart: S1S2+ RRR No murmurs Abd: Soft, NT, BS +, No organomegaly Ext: No edema, pulses are palpable, No calf tenderness Neuro : No acute focal neuro deficits noticed..Demented Skin: No rash. - Assessment and Plan (1) UTI (urinary tract infection) Current Visit: Yes Status: Acute Assessment and Plan: UA obtained in ER cloudy with protein, trace blood, large leukocyte esterase, RBC, WBC, and bacteria. Her urine cx grew Pseudomonas and E. Coli with MDRO in the past cont IV Cefpeime for now will f/u on urine cx Patient does need to stay in the hospital more than 2 midnights due to her comp gamaliel medical problems with complicated UTI and deconditioning. So we will change her to full admission today. I did review my colleague KULDIP Alston's H & P including HPI, PMH, PSH, FH, SH, and ROS no changes noticed (2) Acute on chronic kidney failure Current Visit: Yes Status: Acute Assessment and Plan: Due to dehydration continue IV hydration continue close monitoring of labs (3) Hypertension Current Visit: Yes Status: Chronic Assessment and Plan: Reportedly hypotensive prior to EMS arrival. Blood pressures remain stable currently. However will cut down on her home dose of BP meds Held [facility] changed Losartan to 50mg cont Metoprolol (4) Dementia Current Visit: Yes Status: Chronic Assessment and Plan: Resumed home medications (5) DVT prophylaxis Current Visit: No Status: Acute Assessment and Plan: Continue home med eliquis - Time Spent with Patient Total time spent is greater than 50% in coordination of care (as documented) at patient's floor/unit and/or counseling patient: Internal Medicine: Result - Labs CBC & Chem 7: 03/28/19 04:31 03/28/19 04:31 Labs: Short CBC 03/27/19 03/28/19 Range/Units 16:43 04:31 WBC 8.8 15.6 H D (4.3-11.1) K/mcL Hgb 10.2 L 11.2 L (11.5-15.4) g/dL Hct 31.1 L 33.2 L (35.3-44.9) % Plt Count 255 257 (140-400) K/mcL Neutrophils # 12.3 H (1.6-8.9) K/mcL BMP 03/27/19 03/28/19 16:43 04:31 Sodium 140 140 Potassium 4.9 4.0 Chloride 106 106 Carbon Dioxide 28 25 BUN 34 H 24 H Creatinine 1.74 H 1.23 H Glucose 97 119 H Calcium 9.1 9.1 Cardiac Enzymes 03/27/19 Range/Units 16:43 Troponin I < 0.03 (< 0.04) ng/mL Liver Function 03/27/19 Range/Units 16:43 Total Bilirubin 0.4 (0.3-1.0) mg/dL Direct Bilirubin 0.1 (0.0-0.2) mg/dL AST 20 (13-39) Units/L ALT 14 (7-52) Units/L Alkaline Phosphatase 70 (34-104) Units/L Albumin 3.6 (3.5-5.7) g/dL Urine 03/27/19 Range/Units 17:07 Urine Color Yellow (Yellow) Urine Clarity Cloudy A (Clear) Urine pH 6.0 (5.0-8.0) pH Units Ur Specific [place] 1.013 (1.010-1.025) Urine Protein 30 H (Neg-Trace) mg/dL Urine Glucose (UA) Normal (Normal) mg/dL Consult Discharge Plan - Plan Referrals: Yvan Ernst MD [Primary Care Provider] - 04/07/19 1:30 pm (1) UTI (urinary tract infection) Qualifiers: Qualified Code(s): N39.0 - Urinary tract infection, site not specified; R31.9 - Hematuria, unspecified (2) Acute on chronic kidney failure Qualifiers: Chronic kidney disease stage: unspecified stage Qualified Code(s): N17.9 - Acute kidney failure, unspecified; N18.9 - Chronic kidney disease, unspecified (3) Hypertension Qualifiers: Hypertension type: unspecified Qualified Code(s): I10 - Essential (primary) hypertension (4) Dementia Qualifiers: Dementia type: unspecified type Dementia behavioral disturbance: without behavioral disturbance Qualified Code(s): F03.90 - Unspecified dementia without behavioral disturbance
[2019-03-28] MEDS: risperiDONE 0.25 MG TABLET PO SCH (21:48)
[2019-03-28] MEDS: Apixaban 5 MG TABLET PO SCH (21:48)
[2019-03-29 05:18] LABS: Hematocrit 30.2 % (35.3-44.9); Mean Corpuscular HGB Conc 33.1 g/dL (31.6-35.5); Mean Corpuscular Hemoglobin 31.9 pg (28.0-33.3); Mean Corpuscular Volume 96.5 fL (83.0-100.0); Mean Platelet Volume 9.9 fL (9.4-12.4); Platelet Count 235 K/mcL (140-400); Red Blood Count 3.13 M/mcL (3.82-4.97); Red Cell Distribution Width 13.7 % (11.5-14.5); White Blood Count 9.4 K/mcL (4.3-11.1)
[2019-03-29 05:39] LABS: Calcium 8.8 mg/dL (8.6-10.3); Potassium 3.9 mEq/L (3.5-5.1)
[2019-03-29] MEDS ORDERED: Cefepime HCl 1,000 MG in Water for inj. (sterile) 10 ML IVP SCH (06:00)
[2019-03-29] MEDS ORDERED: NON-FORMULARY MEDICATION 1 EACH EACH (Cranberry Fruit Extract [Cranberry] 500 MG) PO SCH (09:00)
[2019-03-29] MEDS: Apixaban 5 MG TABLET PO SCH ×2 (09:19→20:10)
[2019-03-29] MEDS: Metoprolol XL (24 HR) Succ 25 MG TAB.ER.24H PO SCH (09:19)
--- NOTE | 2019-03-29 10:01 | Internal Med Progress Note ---
Hospitalist Progress Note - Encounter Date of Encounter: 03/29/19 Time of Encounter: 09:58 - Subjective Interval History: Ms. Brannon is a 88 year old female with past medical history significant for hypertension, hyperlipidemia, PE, hypothyroidism, and dementia who presented to ER from [facility] due to reported hypotension with systolic pressures in the 80's. She did have ELZA with CKD-3 and her UA was abnormal concerning for UTI. She was admitted in the hospital and started on empirical IV antibiotic cefepime and IV hydration. Today patient is more alert, awake and oriented to self only. She looks demented and seems to be at baseline. Patient is able to follow all the commands. She denied any CP / SOB. Patient renal function is still above baseline, which requires continuing hospitalization. Anticipate discharge in the morning if renal function returns to normal. - Exam Vitals: Temp Pulse Resp BP Pulse Ox 98.4 F 71 14 149/65 94 03/29/19 06:37 03/29/19 06:37 03/29/19 06:37 03/29/19 06:37 03/29/19 06:37 Exam: Gen: Alert, awake, Oriented to self only.. Demented looks very weak and lethargic.. Dehydrated Chest: Diminished breath sounds B/L, No wheezing, No crackles, No rales Heart: S1S2+ RRR No murmurs Abd: Soft, NT, BS +, No organomegaly Ext: No edema, pulses are palpable, No calf tenderness Neuro : No acute focal neuro deficits noticed..Demented Skin: No rash. - Assessment and Plan (1) UTI (urinary tract infection) Current Visit: Yes Status: Acute Assessment and Plan: 03/28 UA obtained in ER cloudy with protein, trace blood, large leukocyte esterase, RBC, WBC, and bacteria. Her urine cx grew Pseudomonas and E. Coli with MDRO in the past cont IV Cefpeime for now will f/u on urine cx Patient does need to stay in the hospital more than 2 midnights due to her complex medical problems with complicated UTI and deconditioning. So we will change her to full admission today. I did review my colleague CO FOUNDER Akash Alston's H & P including HPI, PMH, PSH, FH, SH, and ROS no changes noticed. 03/29 Urine culture grew Escherichia coli, IV antibiotics discontinued, started on Keflex based on sensitivity study. (2) Dementia Current Visit: Yes Status: Chronic Assessment and Plan: Resumed home medications (3) Acute on chronic kidney failure Current Visit: Yes Status: Acute Assessment and Plan: 03/28 Due to dehydration continue IV hydration continue close monitoring of labs 03/29 Slightly above baseline BUN and creatinine, likely secondary to dehydration. Continue IV fluid, repeat renal function panel in the morning. (4) Hypertension Current Visit: No Status: Chronic Assessment and Plan: 03/28 Reportedly hypotensive prior to EMS arrival. Blood pressures remain stable currently. However will cut down on her home dose of BP meds Held [facility] changed Losartan to 50mg cont Metoprolol 03/29 controlled currently, continue current blood pressure medication regimen. (5) DVT prophylaxis Current Visit: Yes Status: Acute Assessment and Plan: Continue home med eliquis - Time Spent with Patient Total time spent is greater than 50% in coordination of care (as documented) at patient's floor/unit and/or counseling patient: Greater than 35 minutes Plan of Care Discussed with: patient Internal Medicine: Result - Labs CBC & Chem 7: 03/29/19 04:56 03/29/19 04:56 Labs: Short CBC 03/29/19 Range/Units 04:56 WBC 9.4 (4.3-11.1) K/mcL Hgb 10.0 L (11.5-15.4) g/dL Hct 30.2 L (35.3-44.9) % Plt Count 235 (140-400) K/mcL BMP 03/29/19 04:56 Sodium 140 Potassium 3.9 Chloride 108 H Carbon Dioxide 24 BUN 28 H Creatinine 1.31 H Glucose 110 H Calcium 8.8 Consult Discharge Plan - Plan Referrals: Yvan Ernst MD [Primary Care Provider] - 04/07/19 1:30 pm (1) UTI (urinary tract infection) Qualifiers: Urinary tract infection type: acute cystitis Hematuria presence: without hematuria Qualified Code(s): N30.00 - Acute cystitis without hematuria (2) Dementia Qualifiers: Dementia type: unspecified type Dementia behavioral disturbance: without behavioral disturbance Qualified Code(s): F03.90 - Unspecified dementia without behavioral disturbance (3) Acute on chronic kidney failure Qualifiers: Chronic kidney disease stage: unspecified stage Qualified Code(s): N17.9 - Acute kidney failure, unspecified; N18.9 - Chronic kidney disease, unspecified (4) Hypertension Qualifiers: Hypertension type: unspecified Qualified Code(s): I10 - Essential (primary) hypertension
[2019-03-29] MEDS: cephALEXin 500 MG CAPSULE PO SCH ×2 (16:53→20:10)
[2019-03-29] MEDS: risperiDONE 0.25 MG TABLET PO SCH (20:09)
[2019-03-30 02:10] LABS: Hematocrit 31.1 % (35.3-44.9); Hemoglobin 10.5 g/dL (11.5-15.4); Mean Corpuscular HGB Conc 33.8 g/dL (31.6-35.5); Mean Corpuscular Hemoglobin 32.7 pg (28.0-33.3); Mean Corpuscular Volume 96.9 fL (83.0-100.0); Mean Platelet Volume 9.9 fL (9.4-12.4); Platelet Count 239 K/mcL (140-400); Red Blood Count 3.21 M/mcL (3.82-4.97); Red Cell Distribution Width 13.6 % (11.5-14.5); White Blood Count 9.5 K/mcL (4.3-11.1)
[2019-03-30 02:30] LABS: Calcium 8.6 mg/dL (8.6-10.3); Potassium 3.6 mEq/L (3.5-5.1)
[2019-03-30] MEDS: cephALEXin 500 MG CAPSULE PO SCH ×3 (08:34→21:10)
[2019-03-30] MEDS: Metoprolol XL (24 HR) Succ 25 MG TAB.ER.24H PO SCH (08:34)
[2019-03-30] MEDS: Apixaban 5 MG TABLET PO SCH ×2 (08:34→21:10)
--- NOTE | 2019-03-30 10:31 | Internal Med Progress Note ---
Hospitalist Progress Note - Encounter Date of Encounter: 03/30/19 Time of Encounter: 10:29 - Subjective Interval History: Ms. Brannon is a 88 year old female with past medical history significant for hypertension, hyperlipidemia, PE, hypothyroidism, and dementia who presented to ER from [facility] due to reported hypotension with systolic pressures in the 80's. She did have ELZA with CKD-3 and her UA was abnormal concerning for UTI. She was admitted in the hospital and started on empirical IV antibiotic cefepime and IV hydration. Today patient is more alert, awake and oriented to self only. She looks demented and seems to be at baseline. Patient is able to follow all the commands. She denied any CP / SOB. Patient renal function is still above baseline, which requires continuing hospitalization and IV fluid.. Anticipate discharge in the morning if renal function returns to normal. - Exam Vitals: Temp Pulse Resp BP Pulse Ox 98.2 F 56 19 154/66 92 03/30/19 07:06 03/30/19 07:06 03/30/19 07:06 03/30/19 07:06 03/30/19 07:06 Exam: Gen: Alert, awake, Oriented to self only.. Demented looks very weak and lethargic.. Dehydrated Chest: Diminished breath sounds B/L, No wheezing, No crackles, No rales Heart: S1S2+ RRR No murmurs Abd: Soft, NT, BS +, No organomegaly Ext: No edema, pulses are palpable, No calf tenderness Neuro : No acute focal neuro deficits noticed..Demented Skin: No rash. - Assessment and Plan (1) UTI (urinary tract infection) Current Visit: Yes Status: Acute Assessment and Plan: 03/28 UA obtained in ER cloudy with protein, trace blood, large leukocyte esterase, RBC, WBC, and bacteria. Her urine cx grew Pseudomonas and E. Coli with MDRO in the past cont IV Cefpeime for now will f/u on urine cx Patient does need to stay in the hospital more than 2 midnights due to her complex medical problems with complicated UTI and deconditioning. So we will change her to full admission today. I did review my colleague KULDIP Alston's H & P including HPI, PMH, PSH, FH, SH, and ROS no changes noticed. 03/29-03/30 Urine culture grew Escherichia coli, IV antibiotics discontinued, started on Keflex based on sensitivity study. (2) Dementia Current Visit: No Status: Chronic Assessment and Plan: Resumed home medications. Stable at the baseline. (3) Acute on chronic kidney failure Current Visit: Yes Status: Acute Assessment and Plan: 03/28 Due to dehydration continue IV hydration continue close monitoring of labs 03/29 Slightly above baseline BUN and creatinine, likely secondary to dehydration. Continue IV fluid, repeat renal function panel in the morning. 03/30 Cr 1.28, slightly above baseline. we will continue IVF and repeat RFP in am. (4) Hypertension Current Visit: No Status: Chronic Assessment and Plan: 03/28 Reportedly hypotensive prior to EMS arrival. Blood pressures remain stable currently. However will cut down on her home dose of BP meds [facility] changed Losartan to 50mg cont Metoprolol 03/29-03/30 controlled currently, continue current blood pressure medication regimen. (5) DVT (deep venous thrombosis) Current Visit: No Status: Chronic Assessment and Plan: Patient has history of DVT, currently on Eliquis. We will continue. (6) DVT prophylaxis Current Visit: Yes Status: Acute Assessment and Plan: Continue home med eliquis - Time Spent with Patient Total time spent is greater than 50% in coordination of care (as documented) at patient's floor/unit and/or counseling patient: Greater than 35 minutes Plan of Care Discussed with: patient Internal Medicine: Result - Labs CBC & Chem 7: 03/30/19 01:28 03/30/19 01:28 Labs: Short CBC 03/30/19 Range/Units 01:28 WBC 9.5 (4.3-11.1) K/mcL Hgb 10.5 L (11.5-15.4) g/dL Hct 31.1 L (35.3-44.9) % Plt Count 239 (140-400) K/mcL BMP 03/30/19 01:28 Sodium 139 Potassium 3.6 Chloride 108 H Carbon Dioxide 22 L BUN 30 H Creatinine 1.28 H Glucose 97 Calcium 8.6 Consult Discharge Plan - Plan Referrals: Yvan Ernst MD [Primary Care Provider] - 04/07/19 1:30 pm (1) UTI (urinary tract infection) Qualifiers: Urinary tract infection type: acute cystitis Hematuria presence: without hematuria Qualified Code(s): N30.00 - Acute cystitis without hematuria (2) Dementia Qualifiers: Dementia type: unspecified type Dementia behavioral disturbance: without beha vioral disturbance Qualified Code(s): F03.90 - Unspecified dementia without behavioral disturbance (3) Acute on chronic kidney failure Qualifiers: Chronic kidney disease stage: unspecified stage Qualified Code(s): N17.9 - Acute kidney failure, unspecified; N18.9 - Chronic kidney disease, unspecified (4) Hypertension Qualifiers: Hypertension type: unspecified Qualified Code(s): I10 - Essential (primary) hypertension (5) DVT (deep venous thrombosis) Qualifiers: DVT location: lower extremity Laterality: bilateral Qualified Code(s): I82.403 - Acute embolism and thrombosis of unspecified deep veins of lower extremity, bilateral
[2019-03-30] MEDS: risperiDONE 0.25 MG TABLET PO SCH (21:10)
[2019-03-31 05:44] LABS: BUN/Creatinine Ratio 23 (6-26); Blood Urea Nitrogen 23 mg/dL (8-23); Calcium 8.7 mg/dL (8.6-10.3); Carbon Dioxide 25 mEq/L (23-29); Chloride 109 mEq/L (98-107); Glucose 107 mg/dL (70-105); Osmolality,Calculated 292 (280-300); Potassium 3.5 mEq/L (3.5-5.1); Sodium 139 mEq/L (136-145); eGFR For African Americans > 60 (> 60); eGFR For Non-African Americans 52 (> 60)
[2019-03-31 07:29] VITALS: BP 167/76
[2019-03-31] MEDS: cephALEXin 500 MG CAPSULE PO SCH (09:14)
[2019-03-31] MEDS: Apixaban 5 MG TABLET PO SCH (09:14)
[2019-03-31] MEDS: Metoprolol XL (24 HR) Succ 25 MG TAB.ER.24H PO SCH (09:14)
--- NOTE | 2019-03-31 09:55 | Physician Discharge Referral ---
Home Health/Hosp Referral Info Transfer to: Home Health Provider in Charge Post Discharge: PCP - Diagnosis (1) UTI (urinary tract infection) Status: Acute (2) Acute on chronic kidney failure Status: Acute (3) Hypertension Status: Chronic (4) Dementia Status: Chronic (5) DVT prophylaxis Status: Acute - Respiratory Orders Smoking Cessation: Smoking cessation has been advised. For more information, call the [place] Tobacco Quit Line at 5-116-GJTL-NOW. - Services Needed Following services are medically necessary services: Nursing, Physical Therapy, Occupational Therapy - Transfer Medications Prescriptions: cephALEXin [Keflex] 500 mg PO TID #9 capsule Home Medications: Donepezil [Aricept] 5 mg PO HS 05/21/17 [History] Multivitamin [One Daily Essential] 1 tab PO DAILY 11/07/17 [History] Apixaban [Eliquis] 5 mg PO BID #180 tablet 12/24/17 [Rx] Cranberry Fruit Extract [Cranberry] 500 mg PO DAILY 06/23/18 [History] Ergocalciferol (VITAMIN D2) [Vitamin D2] 50,000 unit PO WE 06/23/18 [History] Levothyroxine [Synthroid] 88 mcg PO QAM 06/23/18 [History] Metoprolol Succinate [Toprol Xl] 25 mg PO DAILY 06/23/18 [History] RisperiDONE [Risperdal] 0.5 mg PO HS 06/23/18 [History] Acetaminophen [Non-Aspirin] 650 mg PO BID PRN 07/01/18 [History] traZODone [TraZODone] 50 mg PO HS PRN #0 10/15/18 [Rx] Tramadol HCl [Ultram] 50 mg PO DAILY PRN 03/27/19 [History] Amlodipine Besylate 10 mg PO DAILY 03/28/19 [History] Atorvastatin Calcium 80 mg PO HS 03/28/19 [History] Diphenoxylate/Atropine [Lomotil 2.5 mg/0.025 mg] 2 tab PO BID PRN 03/28/19 [History] Losartan Potassium 100 mg PO DAILY 03/28/19 [History] Melatonin 1 mg PO HS PRN 03/28/19 [History] Omeprazole [PriLOSEC] 20 mg PO QAM 03/28/19 [History] Furosemide [Lasix] 20 mg PO DAILY #0 03/31/19 [Rx] cephALEXin [Keflex] 500 mg PO TID #9 capsule 03/31/19 [Rx] Allergies/Adverse Reactions: Allergy/AdvReac Type Severity Reaction Status Date / Time Penicillins [PCN] Allergy Unknown Hives Verified 03/27/19 19:32 codeine Allergy See Verified 03/27/19 19:32 Comments Certification: Further, I certify that my clinical findings support that this patient is homebound (i.e. absences from home require considerable and taxing effort and are for medical reasons or voodoo services or infrequently or short duration when for other reasons) because: Homebound Reason: Patient requires assistance of a person or device to safely leave home Attestation: My signature below is to certify that this patient is under my care and that I, or nurse practitioner, or a physician's assistant drafter working with me, has a [id number] encounter with this patient.
--- NOTE | 2019-03-31 09:56 | Discharge Summary ---
- NOTES TO OUTPATIENT PROVIDER Notes to Outpatient Provider: f/u with PCP in one week. Medication changes: Changed Lasix to 20mg PO Daily.. D/c Potassium supplements Orders not resulted at time of discharge: Pending orders 03/27/19 16:37 Culture,Blood [BC] Stat Date of Encounter: 03/31/19 Time of Encounter: 09:54 - Discharge Diagnosis (1) Acute on chronic kidney failure Priority: Primary Status: Acute Qualifiers: Chronic kidney disease stage: unspecified stage Qualified Code(s): N17.9 - Acute kidney failure, unspecified; N18.9 - Chronic kidney disease, unspecified (2) UTI (urinary tract infection) Priority: Primary Status: Acute Qualifiers: Urinary tract infection type: acute cystitis Hematuria presence: without hematuria Qualified Code(s): N30.00 - Acute cystitis without hematuria (3) Dementia Priority: Secondary Status: Chronic Qualifiers: Dementia type: unspecified type Dementia behavioral disturbance: without behavioral disturbance Qualified Code(s): F03.90 - Unspecified dementia wit hout behavioral disturbance (4) DVT (deep venous thrombosis) Priority: Secondary Status: Chronic Qualifiers: DVT location: lower extremity Laterality: bilateral Qualified Code(s): I82.403 - Acute embolism and thrombosis of unspecified deep veins of lower extremity, bilateral (5) Hypertension Priority: Secondary Status: Chronic Qualifiers: Hypertension type: unspecified Qualified Code(s): I10 - Essential (primary) hypertension Hospital course: josefina Brannon is a 88 year old female with past medical history significant for hypertension, hyperlipidemia, PE, hypothyroidism, and dementia who presented to ER from [facility] due to reported hypotension with systolic pressures in the 80's. She did have ELZA with CKD-3 and her UA was abnormal concerning for UTI. She was admitted in the hospital and started on empirical IV antibiotic cefepime and IV hydration.Her Cr started improving slowly. Her Urine cx did grow E. Coli which is cephalosporin sensitive. Her mentation also started improving and today pt seems to be back to baseline. Will d/c her back to [facility] with PO abx Keflex for 3 more days. Also I did change her Lasix dose to 20mg PO Daily. - Time Spent with Patient Total time spent providing and/or coordinating discharge services: - Discharge Medications Prescriptions: New cephALEXin [Keflex] 500 mg PO TID #9 capsule Continued Donepezil [Aricept] 5 mg PO HS Multivitamin [One Daily Essential] 1 tab PO DAILY Apixaban [Eliquis] 5 mg PO BID #180 tablet Cranberry Fruit Extract [Cranberry] 500 mg PO DAILY Levothyroxine [Synthroid] 88 mcg PO QAM RisperiDONE [Risperdal] 0.5 mg PO HS Ergocalciferol (VITAMIN D2) [Vitamin D2] 50,000 unit PO WE Metoprolol Succinate [Toprol Xl] 25 mg PO DAILY Acetaminophen [Non-Aspirin] 650 mg PO BID PRN PRN Reason: Pain traZODone [TraZODone] 50 mg PO HS PRN #0 PRN Reason: Insomnia Tramadol HCl [Ultram] 50 mg PO DAILY PRN PRN Reason: Pain Amlodipine Besylate 10 mg PO DAILY Atorvastatin Calcium 80 mg PO HS Diphenoxylate/Atropine [Lomotil 2.5 mg/0.025 mg] 2 tab PO BID PRN PRN Reason: Diarrhea Losartan Potassium 100 mg PO DAILY Melatonin 1 mg PO HS PRN PRN Reason: Insomnia Omeprazole [PriLOSEC] 20 mg PO QAM Changed Furosemide [Lasix] 20 mg PO DAILY #0 Discontinued Potassium Chloride 40 tab PO DAILY Home Medications: Donepezil [Aricept] 5 mg PO HS 05/21/17 [History] Multivitamin [One Daily Essential] 1 tab PO DAILY 11/07/17 [History] Apixaban [Eliquis] 5 mg PO BID #180 tablet 12/24/17 [Rx] Cranberry Fruit Extract [Cranberry] 500 mg PO DAILY 06/23/18 [History] Ergocalciferol (VITAMIN D2) [Vitamin D2] 50,000 unit PO WE 06/23/18 [History] Levothyroxine [Synthroid] 88 mcg PO QAM 06/23/18 [History] Metoprolol Succinate [Toprol Xl] 25 mg PO DAILY 06/23/18 [History] RisperiDONE [Risperdal] 0.5 mg PO HS 06/23/18 [History] Acetaminophen [Non-Aspirin] 650 mg PO BID PRN 07/01/18 [History] traZODone [TraZODone] 50 mg PO HS PRN #0 10/15/18 [Rx] Tramadol HCl [Ultram] 50 mg PO DAILY PRN 03/27/19 [History] Amlodipine Besylate 10 mg PO DAILY 03/28/19 [History] Atorvastatin Calcium 80 mg PO HS 03/28/19 [History] Diphenoxylate/Atropine [Lomotil 2.5 mg/0.025 mg] 2 tab PO BID PRN 03/28/19 [History] Losartan Potassium 100 mg PO DAILY 03/28/19 [History] Melatonin 1 mg PO HS PRN 03/28/19 [History] Omeprazole [PriLOSEC] 20 mg PO QAM 03/28/19 [History] Furosemide [Lasix] 20 mg PO DAILY #0 03/31/19 [Rx] cephALEXin [Keflex] 500 mg PO TID #9 capsule 03/31/19 [Rx] Allergies/Adverse Reactions: Allergy/AdvReac Type Severity Reaction Status Date / Time Penicillins [PCN] Allergy Unknown Hives Verified 03/27/19 19:32 codeine Allergy See Verified 03/27/19 19:32 Comments Date of admission: 03/29/19 17:05 Primary care physician: Yvan Ernst MD Consults: 03/28/19 14:17 Consult to Nutrition [CONS] Routine Comment: Consulting Provider: NUTRITION Reason for Dietary Consult: PO Supplementation - Constitutional Vitals: Temp Pulse Resp BP Pulse Ox 97.7 F 69 14 167/76 95 03/31/19 07:28 03/31/19 07:28 03/31/19 07:28 03/31/19 07:28 03/31/19 07:28 General appearance: Present: A&O X 1, no acute distress, answers questions appropriately Exam: Gen: Alert, awake, Oriented to self only.. Demented looks very weak and lethargic.. Dehydrated Chest: Diminished breath sounds B/L, No wheezing, No crackles, No rales Heart: S1S2+ RRR No murmurs Abd: Soft, NT, BS +, No organomegaly Ext: No edema, pulses are palpable, No calf tenderness Neuro : No acute focal neuro deficits noticed..Demented Skin: No rash. - Patient Status Disposition: Home Health Service Condition: Good Overall status at discharge: patient is back to baseline - Discharge Instructions Follow Up With: Yvan Ernst MD [Primary Care Provider] - 04/07/19 1:30 pm - Diet and Activity Activity: as per physical therapy, increase activity as tolerated Diet: low salt diet
[2019-04-02] MEDS ORDERED: Ergocalciferol (VIT D2) 50,000 UNIT (1.25MG) CAP PO SCH (09:00)
== END 2019-03-31 11:36 | disposition home health service (06) | DRG 872 ==
LOC: EMEROOARM 16:18 → 3BNU 16:18 → SUATTDRO 19:54 → 3BNU 21:03
PROVIDERS: ADMIT Family Medicine; ATTEND Family Medicine